=== PATIENT | male | born 1950 | race Caucasian/White ===

== ENCOUNTER 2023-02-28 11:46 | Emergency (ER) | payer MEDICARE, SELFPAY ==
[2023-02-28] VITALS (173 sets, daily range): BP systolic 70–159; BP diastolic 39–80; PULSE 64–102; RESP 11–24; TEMP 36.5–38.2; O2SAT 88–100
--- NOTE | 2023-02-28 11:50 | DI.RAD.S_ITS ---
PROCEDURE: XR CHEST 1V INDICATIONS: Dyspnea TECHNIQUE: One view of the chest was acquired. COMPARISON: None. FINDINGS: Surgical changes and devices: There is sternal wires. Lungs and pleura: Patchy left hemithorax opacities with mild effusion. Mediastinum: Mediastinal contours appear normal. Heart size is normal. Bones and chest wall: No suspicious bony lesions. Overlying soft tissues appear unremarkable. IMPRESSION: Patchy left hemithorax opacities with effusions suggestive pneumonia. Recommend interval follow-up to document resolution. Dictated by: Marivel Fernandez M.D. on 02/28/2023 at 12:53 Approved by: Marivel Fernandez M.D. on 02/28/2023 at 12:53
--- NOTE | 2023-02-28 11:52 | ED.WEAKNESS ---
HPI - Weakness <Escobar Perez MD - Last Filed: 03/01/23 07:19> General Chief complaint: Shortness of Breath/Dyspnea Stated complaint: cough congestion weakness Time Seen by Provider: 02/28/23 11:50 History of Present Illness HPI Narrative: Patient brought in by ambulance from his brother's home. Has fever weakness shortness of breath. This started yesterday. He went to bed last night feeling weak. This morning his brother tried walking him up the stairs and did not have the energy to go up. No syncope. No fall or injury. Temperature noted. 100.7. EMS states he was 88% room air at the home. He is on 2 L nasal cannula to 98%. They tried taking it off and he dropped down quickly to 92%. He is back on nasal cannula. Patient in no distress. Awake alert oriented x4. He denies any history of COPD. 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 He is diabetic. No urinary complaints. No nausea vomiting diarrhea. Has not received any fever medication Related Data Allergies Allergy/AdvReac Type Severity Reaction Status Date / Time No Known Drug Allergies Allergy Verified 02/28/23 11:52 Review of Systems <Escobar Perez MD - Last Filed: 03/01/23 07:19> Review of Systems Narrative: GENERAL: Positive chills, fatigue, malaise, fever, sweats. HEENT: negative sinus pain, ear pain, sore throat RESPIRATORY: Positive dyspnea, negative cough CARDIOVASCULAR: negative chest pain, palpitations GASTROINTESTINAL: negative nausea, vomiting, abdominal pain : negative dysuria, frequency, hematuria MUSCULOSKELETAL: negative muscle or bony pain SKIN: negative rash, skin lesions NEUROLOGIC: negative weakness, numbness ROS Unobtainable: All systems reviewed & are unremarkable except as noted in HPI and below Patient History <Escobar Perez MD - Last Filed: 03/01/23 07:19> Social History Smoking Status: Never smoker Exam <Escobar Perez MD - Last Filed: 03/01/23 07:19> Narrative Exam Narrative: GENERAL: in no distress, not toxic not dyspneic HEAD: Normocephalic. EYES: Pupils equal round ENT: Mucous membranes moist. NECK: Trachea midline. CARDIOVASCULAR: Tachycardia with Regular rate and rhythm without murmurs RESPIRATORY: Diminished bilateral basilar lung sounds with Breath sounds equal bilaterally. No wheezes, rales, or rhonchi. Patient is speaking full sentences. No respiratory distress. Not toxic. GASTROINTESTINAL: Abdomen soft, non-tender EXTREMITIES: No gross deformities. BACK: No flank tenderness. NEURO: AOx4. SKIN: Warm and dry PSYCH: Not anxious, is cooperative Initial Vital Signs Initial Vital Signs: Vital Signs Temperature 100.7 F H 02/28/23 11:52 Pulse Rate 100 H 02/28/23 11:52 Respiratory Rate 20 02/28/23 11:52 Blood Pressure 145/67 H 02/28/23 11:52 Pulse Oximetry 100 02/28/23 11:52 Oxygen Delivery Method Nasal Cannula 02/28/23 11:52 Oxygen Flow Rate 2 02/28/23 11:52 <Dalton Lowe DO - Last Filed: 03/01/23 01:26> Initial Vital Signs Initial Vital Signs: Vital Signs Temperature 100.7 F H 02/28/23 11:52 Pulse Rate 100 H 02/28/23 11:52 Respiratory Rate 20 02/28/23 11:52 Blood Pressure 145/67 H 02/28/23 11:52 Pulse Oximetry 100 02/28/23 11:52 Oxygen Delivery Method Nasal Cannula 02/28/23 11:52 Oxygen Flow Rate 2 02/28/23 11:52 Course <Escobar Perez MD - Last Filed: 03/01/23 07:19> Orders Ordered: ED Orders 03/01/23 00:14 PTT Partial Thromboplastin Janes Stat Discontinued Medications Acetaminophen (Acetaminophen 325 Mg Tablet) 975 mg PO NOW ONE Stop: 02/28/23 11:55 Last Admin: 02/28/23 12:33 Dose: 975 mg Documented By: CTS Acetaminophen (Acetaminophen 325 Mg Tablet) 650 mg PO NOW ONE Stop: 03/01/23 01:46 Last Admin: 03/01/23 02:05 Dose: 650 mg Documented By: SB Aspirin (Aspirin 81 Mg Chew Tab) 324 mg PO NOW ONE Stop: 02/28/23 18:14 Last Admin: 02/28/23 18:35 Dose: 324 mg Documented By: CTS Furosemide (Furosemide 40 Mg/4 Ml Vial) 40 mg IV NOW ONE Stop: 02/28/23 18:48 Last Admin: 02/28/23 18:54 Dose: 40 mg Documented By: CTS Heparin Sodium (Porcine) (Heparin 5,000 Unit/Ml Vial) 4,900 unit 80 unit/kg (4900 unit) IV NOW ONE Stop: 02/28/23 18:14 Last Admin: 02/28/23 18:35 Dose: 4,900 unit Documented By: CTS Ceftriaxone Sodium 2,000 mg/ (Sodium Chloride) 100 mls @ 200 mls/hr IV NOW ONE Stop: 02/28/23 11:51 Last Infusion: 02/28/23 13:03 Dose: 0 mls/hr Documented By: Admin: 02/28/23 12:34 Dose: 200 mls/hr Documented By: CTS Sodium Chloride (Normal Saline 0.9%) 1,000 mls @ 1,000 mls/hr IV BOLUS ONE Stop: 02/28/23 13:22 Last Infusion: 02/28/23 13:03 Dose: 0 mls/hr Documented By: Admin: 02/28/23 12:34 Dose: 1,000 mls/hr Documented By: CTS Doxycycline Hyclate 100 mg/ (Sodium Chloride) 100 mls @ 100 mls/hr IV NOW ONE Stop: 02/28/23 13:22 Last Infusion: 02/28/23 14:52 Dose: 0 mls/hr Documented By: Admin: 02/28/23 13:58 Dose: 100 mls/hr Documented By: CTS Sodium Chloride (Normal Saline 0.9%) 1,000 mls @ 1,000 mls/hr IV BOLUS ONE Stop: 02/28/23 15:07 Last Infusion: 02/28/23 15:06 Dose: 0 mls/hr Documented By: Admin: 02/28/23 14:09 Dose: 1,000 mls/hr Documented By: CTS NOREPINEPHRINE BITARTRATE/D5W (Levophed) 4 mg in 250 mls @ 22.793 mls/hr IV TITRATE JUSTINO; Protocol Last Titration: 02/28/23 18:45 Dose: 0 mcg/kg/min, 0 mls/hr Documented By: Titration: 02/28/23 16:30 Dose: 0.03 mcg/kg/min, 7.5 mls/hr Documented By: Admin: 02/28/23 15:09 Dose: 0.08 mcg/kg/min, 18.8 mls/hr Documented By: NAJMA Sodium Chloride (Normal Saline 0.9%) 1,000 mls @ 75 mls/hr IV BOLUS ONE Stop: 03/01/23 04:20 Last Admin: 02/28/23 15:09 Dose: 75 mls/hr Documented By: NAJMA Heparin Sodium/Dextrose (Heparin Drip) 25,000 unit in 500 mls @ 14.587 mls/hr IV CONT JUSTINO; Protocol Last Titration: 03/01/23 00:43 Dose: 10.35 units/kg/hr, 12.582 mls/hr Documented By: LUIS MANUEL Co-signed By: ROCÍO Admin: 02/28/23 18:34 Dose: 12 units/kg/hr, 14.587 mls/hr Documented By: NAJMA Co-signed By: LOULOU Ondansetron HCl (Ondansetron 4 Mg/2 Ml Inj) 4 mg IV NOW PRN PRN Reason: Nausea And Vomiting Ondansetron HCl (Ondansetron 4 Mg Odt) 4 mg SL NOW PRN PRN Reason: Nausea And Vomiting Vital Signs Vital signs: Vital Signs - 8 hr 02/28/23 23:30 02/28/23 23:30 03/01/23 00:00 Temperature 99.5 F Pulse Rate 80 Respiratory Rate 13 Blood Pressure 135/66 148/74 H Pulse Oximetry 96 Oxygen Delivery Method Oxygen Flow Rate 03/01/23 00:00 03/01/23 00:30 03/01/23 00:30 Temperature 99.7 F H 99.9 F H Pulse Rate 82 87 Respiratory Rate 16 13 Blood Pressure 155/85 H Pulse Oximetry 96 97 Oxygen Delivery Method Nasal Cannula Oxygen Flow Rate 2 03/01/23 01:00 03/01/23 01:00 03/01/23 01:30 Temperature 99.9 F H Pulse Rate 87 Respiratory Rate 18 Blood Pressure 158/77 H 151/73 H Pulse Oximetry 96 Oxygen Delivery Method Oxygen Flow Rate 03/01/23 01:30 03/01/23 02:05 Temperature 100.2 F H 100.2 F H Pulse Rate 86 Respiratory Rate 16 Blood Pressure Pulse Oximetry 96 Oxygen Delivery Method Nasal Cannula Oxygen Flow Rate 2 <Dalton Lowe DO - Last Filed: 03/01/23 01:26> Orders Ordered: ED Orders 03/01/23 00:14 PTT Partial Thromboplastin Janes Stat Discontinued Medications Acetaminophen (Acetaminophen 325 Mg Tablet) 975 mg PO NOW ONE Stop: 02/28/23 11:55 Last Admin: 02/28/23 12:33 Dose: 975 mg Documented By: CTS Acetaminophen (Acetaminophen 325 Mg Tablet) 650 mg PO NOW ONE Stop: 03/01/23 01:46 Last Admin: 03/01/23 02:05 Dose: 650 mg Documented By: SB Aspirin (Aspirin 81 Mg Chew Tab) 324 mg PO NOW ONE Stop: 02/28/23 18:14 Last Admin: 02/28/23 18:35 Dose: 324 mg Documented By: CTS Furosemide (Furosemide 40 Mg/4 Ml Vial) 40 mg IV NOW ONE Stop: 02/28/23 18:48 Last Admin: 02/28/23 18:54 Dose: 40 mg Documented By: CTS Heparin Sodium (Porcine) (Heparin 5,000 Unit/Ml Vial) 4,900 unit 80 unit/kg (4900 unit) IV NOW ONE Stop: 02/28/23 18:14 Last Admin: 02/28/23 18:35 Dose: 4,900 unit Documented By: CTS Ceftriaxone Sodium 2,000 mg/ (Sodium Chloride) 100 mls @ 200 mls/hr IV NOW ONE Stop: 02/28/23 11:51 Last Infusion: 02/28/23 13:03 Dose: 0 mls/hr Documented By: Admin: 02/28/23 12:34 Dose: 200 mls/hr Documented By: CTS Sodium Chloride (Normal Saline 0.9%) 1,000 mls @ 1,000 mls/hr IV BOLUS ONE Stop: 02/28/23 13:22 Last Infusion: 02/28/23 13:03 Dose: 0 mls/hr Documented By: Admin: 02/28/23 12:34 Dose: 1,000 mls/hr Documented By: CTS Doxycycline Hyclate 100 mg/ (Sodium Chloride) 100 mls @ 100 mls/hr IV NOW ONE Stop: 02/28/23 13:22 Last Infusion: 02/28/23 14:52 Dose: 0 mls/hr Documented By: Admin: 02/28/23 13:58 Dose: 100 mls/hr Documented By: CTS Sodium Chloride (Normal Saline 0.9%) 1,000 mls @ 1,000 mls/hr IV BOLUS ONE Stop: 02/28/23 15:07 Last Infusion: 02/28/23 15:06 Dose: 0 mls/hr Documented By: Admin: 02/28/23 14:09 Dose: 1,000 mls/hr Documented By: NAJMA NOREPINEPHRINE BITARTRATE/D5W (Levophed) 4 mg in 250 mls @ 22.793 mls/hr IV TITRATE JUSTINO; Protocol Last Titration: 02/28/23 18:45 Dose: 0 mcg/kg/min, 0 mls/hr Documented By: Titration: 02/28/23 16:30 Dose: 0.03 mcg/kg/min, 7.5 mls/hr Documented By: Admin: 02/28/23 15:09 Dose: 0.08 mcg/kg/min, 18.8 mls/hr Documented By: NAJMA Sodium Chloride (Normal Saline 0.9%) 1,000 mls @ 75 mls/hr IV BOLUS ONE Stop: 03/01/23 04:20 Last Admin: 02/28/23 15:09 Dose: 75 mls/hr Documented By: NAJMA Heparin Sodium/Dextrose (Heparin Drip) 25,000 unit in 500 mls @ 14.587 mls/hr IV CONT JUSTINO; Protocol Last Titration: 03/01/23 00:43 Dose: 10.35 units/kg/hr, 12.582 mls/hr Documented By: LUIS MANUEL Co-signed By: ROCÍO Admin: 02/28/23 18:34 Dose: 12 units/kg/hr, 14.587 mls/hr Documented By: NAJMA Co-signed By: LOULOU Ondansetron HCl (Ondansetron 4 Mg/2 Ml Inj) 4 mg IV NOW PRN PRN Reason: Nausea And Vomiting Ondansetron HCl (Ondansetron 4 Mg Odt) 4 mg SL NOW PRN PRN Reason: Nausea And Vomiting Vital Signs Vital signs: Vital Signs - 8 hr 02/28/23 23:30 02/28/23 23:30 03/01/23 00:00 Temperature 99.5 F Pulse Rate 80 Respiratory Rate 13 Blood Pressure 135/66 148/74 H Pulse Oximetry 96 Oxygen Delivery Method Oxygen Flow Rate 03/01/23 00:00 03/01/23 00:30 03/01/23 00:30 Temperature 99.7 F H 99.9 F H Pulse Rate 82 87 Respiratory Rate 16 13 Blood Pressure 155/85 H Pulse Oximetry 96 97 Oxygen Delivery Method Nasal Cannula Oxygen Flow Rate 2 03/01/23 01:00 03/01/23 01:00 03/01/23 01:30 Temperature 99.9 F H Pulse Rate 87 Respiratory Rate 18 Blood Pressure 158/77 H 151/73 H Pulse Oximetry 96 Oxygen Delivery Method Oxygen Flow Rate 03/01/23 01:30 03/01/23 02:05 Temperature 100.2 F H 100.2 F H Pulse Rate 86 Respiratory Rate 16 Blood Pressure Pulse Oximetry 96 Oxygen Delivery Method Nasal Cannula Oxygen Flow Rate 2 MDM - Weakness <Escobar Perez MD - Last Filed: 03/01/23 07:19> Lab Data 02/28/23 21:30 02/28/23 11:55 Labs: Lab Results 02/28/23 02/28/23 02/28/23 Range/Units 11:55 11:55 11:55 WBC 11.5 H (4.5-11.0) X10^3/uL RBC 3.64 L (4.5-5.9) X10^6/uL Hgb 9.9 L (13.5-17.5) g/dL Hct 29.8 L (41-53) % MCV 82.1 (80-100) fL MCH 27.2 (26-34) PG MCHC 33.2 (30-36) % RDW 16.1 H (11.6-14.8) % Plt Count 244 (150-400) X10^3/uL Neut % (Auto) 85.6 H (50-75) % Lymph % (Auto) 6.6 L (25-40) % [place] % (Auto) 7.3 (3-14) % Eos % (Auto) 0.2 L (2-4) % Baso % (Auto) 0.3 (0-2) % Neut # (Auto) 9800 H (4940-7100) /uL Lymph # (Auto) 800 L (5116-9128) /uL [place] # (Auto) 800 (0-900) /uL Eos # (Auto) 0 (0-450) /uL Baso # (Auto) 0 (0-100) /uL PT 13.6 H (10.1-12.7) SECONDS INR 1.2 (0.9-1.3) APTT 30 (26-36) SECONDS Sodium (137-145) mmol/L Potassium (3.4-5.1) mmol/L Chloride (98-107) mmol/L Carbon Dioxide (22-32) mmol/L BUN (9-20) mg/dL Creatinine (0.66-1.25) mg/dL Estimated GFR (>60) mL/min BUN/Creatinine Ratio (6-22) Glucose (80-110) mg/dL Lactate (0.7-2.1) mmol/L Calcium (8.4-10.2) mg/dL Total Bilirubin (0.2-1.3) mg/dL AST (17-59) IU/L ALT (<50) IU/L Alkaline Phosphatase (38-126) U/L Total Creatine Kinase (55-170) U/L CK-MB (CK-2) CK-MB (CK-2) Rel Index Troponin I (0.01-0.034) ng/mL NT-Pro-B Natriuret Pep (<125) pg/mL Total Protein (6.3-8.2) g/dL Albumin (3.5-5.0) g/dL Globulin (1.7-4.1) g/dL Albumin/Globulin Ratio (1.0-2.8) Procalcitonin (<0.5) ng/mL Urine Color Urine Appearance Urine pH (4.5-8.0) Ur Specific [place] (1.000-1.035) Urine Protein (Negative) Urine Glucose (UA) (Negative) g/dL Urine Ketones (NEGATIVE) Urine Occult Blood (Negative) Urine Nitrate (Negative) Urine Bilirubin (NEGATIVE) Urine Urobilinogen (0.2) E.U./dL Ur Leukocyte Esterase (NEGATIVE) Urine RBC (0-5/HPF) Urine WBC (0-5/HPF) Ur Squamous Epith Cells (0-5/HPF) Ur Renal Epithelial Cell (0-1/HPF) Urine Bacteria (None) Hyaline Casts (None) Ur Culture Indicated? Chlamy pneumoniae PCR (Not Detect) Adenovirus (PCR) (Not Detect) B. pertussis DNA (PCR) (Not Detecte) B.parapertussis DNA PCR (Not Detecte) Coronavirus OC43 (PCR) (Not Detect) Coronavirus HKU1 (PCR) (Not Detect) Coronavirus 229E (PCR) (Not Detect) SARS-CoV-2 (PCR) (Not Detecte) Coronavirus NL63 (PCR) (Not Detect) Human Metapneumovir PCR (Not Detect) Influenza Type A (PCR) (Not Detect) Influenza Type B (PCR) (Not Detect) M. pneumoniae (PCR) (Not Detect) Parainfluenza 1 (PCR) (Not Detect) Parainfluenza 2 (PCR) (Not Detect) Parainfluenza 3 (PCR) (Not Detect) Parainfluenza 4 (PCR) (Not Detect) RSV (PCR) (Not Detect) Entero/Rhino (PCR) (Not Detect) 02/28/23 02/28/23 02/28/23 Range/Units 11:55 11:55 11:55 WBC (4.5-11.0) X10^3/uL RBC (4.5-5.9) X10^6/uL Hgb (13.5-17.5) g/dL Hct (41-53) % MCV (80-100) fL MCH (26-34) PG MCHC (30-36) % RDW (11.6-14.8) % Plt Count (150-400) X10^3/uL Neut % (Auto) (50-75) % Lymph % (Auto) (25-40) % [place] % (Auto) (3-14) % Eos % (Auto) (2-4) % Baso % (Auto) (0-2) % Neut # (Auto) (2134-0295) /uL Lymph # (Auto) (6064-4002) /uL [place] # (Auto) (0-900) /uL Eos # (Auto) (0-450) /uL Baso # (Auto) (0-100) /uL PT (10.1-12.7) SECONDS INR (0.9-1.3) APTT (26-36) SECONDS Sodium 130 L (137-145) mmol/L Potassium 4.3 (3.4-5.1) mmol/L Chloride 96 L (98-107) mmol/L Carbon Dioxide 28 (22-32) mmol/L BUN 25 H (9-20) mg/dL Creatinine 1.30 H (0.66-1.25) mg/dL Estimated GFR 59 L (>60) mL/min BUN/Creatinine Ratio 19.2 (6-22) Glucose 147 H (80-110) mg/dL Lactate 1.8 (0.7-2.1) mmol/L Calcium 8.8 (8.4-10.2) mg/dL Total Bilirubin 0.7 (0.2-1.3) mg/dL AST 32 (17-59) IU/L ALT 24 (<50) IU/L Alkaline Phosphatase 111 (38-126) U/L Total Creatine Kinase (55-170) U/L CK-MB (CK-2) CK-MB (CK-2) Rel Index Troponin I (0.01-0.034) ng/mL NT-Pro-B Natriuret Pep (<125) pg/mL Total Protein 7.7 (6.3-8.2) g/dL Albumin 3.6 (3.5-5.0) g/dL Globulin 4.1 (1.7-4.1) g/dL Albumin/Globulin Ratio 0.9 L (1.0-2.8) Procalcitonin 0.14 (<0.5) ng/mL Urine Color Urine Appearance Urine pH (4.5-8.0) Ur Specific [place] (1.000-1.035) Urine Protein (Negative) Urine Glucose (UA) (Negative) g/dL Urine Ketones (NEGATIVE) Urine Occult Blood (Negative) Urine Nitrate (Negative) Urine Bilirubin (NEGATIVE) Urine Urobilinogen (0.2) E.U./dL Ur Leukocyte Esterase (NEGATIVE) Urine RBC (0-5/HPF) Urine WBC (0-5/HPF) Ur Squamous Epith Cells (0-5/HPF) Ur Renal Epithelial Cell (0-1/HPF) Urine Bacteria (None) Hyaline Casts (None) Ur Culture Indicated? Chlamy pneumoniae PCR Not detected (Not Detect) Adenovirus (PCR) Not detected (Not Detect) B. pertussis DNA (PCR) Not detected (Not Detecte) B.parapertussis DNA PCR Not detected (Not Detecte) Coronavirus OC43 (PCR) Not detected (Not Detect) Coronavirus HKU1 (PCR) Not detected (Not Detect) Coronavirus 229E (PCR) Not detected (Not Detect) SARS-CoV-2 (PCR) Not detected (Not Detecte) Coronavirus NL63 (PCR) Not detected (Not Detect) Human Metapneumovir PCR Not detected (Not Detect) Influenza Type A (PCR) Not detected (Not Detect) Influenza Type B (PCR) Not detected (Not Detect) M. pneumoniae (PCR) Not detected (Not Detect) Parainfluenza 1 (PCR) Not detected (Not Detect) Parainfluenza 2 (PCR) Not detected (Not Detect) Parainfluenza 3 (PCR) Not detected (Not Detect) Parainfluenza 4 (PCR) Not detected (Not Detect) RSV (PCR) Not detected (Not Detect) Entero/Rhino (PCR) Not detected (Not Detect) 02/28/23 02/28/23 02/28/23 Range/Units 11:55 14:50 17:31 WBC (4.5-11.0) X10^3/uL RBC (4.5-5.9) X10^6/uL Hgb (13.5-17.5) g/dL Hct (41-53) % MCV (80-100) fL MCH (26-34) PG MCHC (30-36) % RDW (11.6-14.8) % Plt Count (150-400) X10^3/uL Neut % (Auto) (50-75) % Lymph % (Auto) (25-40) % [place] % (Auto) (3-14) % Eos % (Auto) (2-4) % Baso % (Auto) (0-2) % Neut # (Auto) (5706-4182) /uL Lymph # (Auto) (8530-4542) /uL [place] # (Auto) (0-900) /uL Eos # (Auto) (0-450) /uL Baso # (Auto) (0-100) /uL PT (10.1-12.7) SECONDS INR (0.9-1.3) APTT (26-36) SECONDS Sodium (137-145) mmol/L Potassium (3.4-5.1) mmol/L Chloride (98-107) mmol/L Carbon Dioxide (22-32) mmol/L BUN (9-20) mg/dL Creatinine (0.66-1.25) mg/dL Estimated GFR (>60) mL/min BUN/Creatinine Ratio (6-22) Glucose (80-110) mg/dL Lactate (0.7-2.1) mmol/L Calcium (8.4-10.2) mg/dL Total Bilirubin (0.2-1.3) mg/dL AST (17-59) IU/L ALT (<50) IU/L Alkaline Phosphatase (38-126) U/L Total Creatine Kinase 66 (55-170) U/L CK-MB (CK-2) TNP CK-MB (CK-2) Rel Index TNP Troponin I 0.079 H 1.290 H* (0.01-0.034) ng/mL NT-Pro-B Natriuret Pep 7490 H (<125) pg/mL Total Protein (6.3-8.2) g/dL Albumin (3.5-5.0) g/dL Globulin (1.7-4.1) g/dL Albumin/Globulin Ratio (1.0-2.8) Procalcitonin (<0.5) ng/mL Urine Color Yellow Urine Appearance Clear Urine pH 5.5 (4.5-8.0) Ur Specific [place] 1.025 (1.000-1.035) Urine Protein 3+ H (Negative) Urine Glucose (UA) Negative (Negative) g/dL Urine Ketones Trace H (NEGATIVE) Urine Occult Blood 1+ H (Negative) Urine Nitrate Negative (Negative) Urine Bilirubin Negative (NEGATIVE) Urine Urobilinogen 0.2 (0.2) E.U./dL Ur Leukocyte Esterase Negative (NEGATIVE) Urine RBC None seen (0-5/HPF) Urine WBC None seen (0-5/HPF) Ur Squamous Epith Cells None seen (0-5/HPF) Ur Renal Epithelial Cell 1-5/hpf H (0-1/HPF) Urine Bacteria None seen (None) Hyaline Casts 1-5/lpf (None) Ur Culture Indicated? Cult not indicated Chlamy pneumoniae PCR (Not Detect) Adenovirus (PCR) (Not Detect) B. pertussis DNA (PCR) (Not Detecte) B.parapertussis DNA PCR (Not Detecte) Coronavirus OC43 (PCR) (Not Detect) Coronavirus HKU1 (PCR) (Not Detect) Coronavirus 229E (PCR) (Not Detect) SARS-CoV-2 (PCR) (Not Detecte) Coronavirus NL63 (PCR) (Not Detect) Human Metapneumovir PCR (Not Detect) Influenza Type A (PCR) (Not Detect) Influenza Type B (PCR) (Not Detect) M. pneumoniae (PCR) (Not Detect) Parainfluenza 1 (PCR) (Not Detect) Parainfluenza 2 (PCR) (Not Detect) Parainfluenza 3 (PCR) (Not Detect) Parainfluenza 4 (PCR) (Not Detect) RSV (PCR) (Not Detect) Entero/Rhino (PCR) (Not Detect) 02/28/23 02/28/23 03/01/23 Range/Units 21:30 21:30 00:14 WBC (4.5-11.0) X10^3/uL RBC (4.5-5.9) X10^6/uL Hgb 9.2 L (13.5-17.5) g/dL Hct 27.6 L (41-53) % MCV (80-100) fL MCH (26-34) PG MCHC (30-36) % RDW (11.6-14.8) % Plt Count (150-400) X10^3/uL Neut % (Auto) (50-75) % Lymph % (Auto) (25-40) % [place] % (Auto) (3-14) % Eos % (Auto) (2-4) % Baso % (Auto) (0-2) % Neut # (Auto) (4425-5222) /uL Lymph # (Auto) (7393-0728) /uL [place] # (Auto) (0-900) /uL Eos # (Auto) (0-450) /uL Baso # (Auto) (0-100) /uL PT (10.1-12.7) SECONDS INR (0.9-1.3) APTT 118 H* D (26-36) SECONDS Sodium (137-145) mmol/L Potassium (3.4-5.1) mmol/L Chloride (98-107) mmol/L Carbon Dioxide (22-32) mmol/L BUN (9-20) mg/dL Creatinine (0.66-1.25) mg/dL Estimated GFR (>60) mL/min BUN/Creatinine Ratio (6-22) Glucose (80-110) mg/dL Lactate (0.7-2.1) mmol/L Calcium (8.4-10.2) mg/dL Total Bilirubin (0.2-1.3) mg/dL AST (17-59) IU/L ALT (<50) IU/L Alkaline Phosphatase (38-126) U/L Total Creatine Kinase 86 (55-170) U/L CK-MB (CK-2) TNP CK-MB (CK-2) Rel Index TNP Troponin I 1.700 H* (0.01-0.034) ng/mL NT-Pro-B Natriuret Pep (<125) pg/mL Total Protein (6.3-8.2) g/dL Albumin (3.5-5.0) g/dL Globulin (1.7-4.1) g/dL Albumin/Globulin Ratio (1.0-2.8) Procalcitonin (<0.5) ng/mL Urine Color Urine Appearance Urine pH (4.5-8.0) Ur Specific [place] (1.000-1.035) Urine Protein (Negative) Urine Glucose (UA) (Negative) g/dL Urine Ketones (NEGATIVE) Urine Occult Blood (Negative) Urine Nitrate (Negative) Urine Bilirubin (NEGATIVE) Urine Urobilinogen (0.2) E.U./dL Ur Leukocyte Esterase (NEGATIVE) Urine RBC (0-5/HPF) Urine WBC (0-5/HPF) Ur Squamous Epith Cells (0-5/HPF) Ur Renal Epithelial Cell (0-1/HPF) Urine Bacteria (None) Hyaline Casts (None) Ur Culture Indicated? Chlamy pneumoniae PCR (Not Detect) Adenovirus (PCR) (Not Detect) B. pertussis DNA (PCR) (Not Detecte) B.parapertussis DNA PCR (Not Detecte) Coronavirus OC43 (PCR) (Not Detect) Coronavirus HKU1 (PCR) (Not Detect) Coronavirus 229E (PCR) (Not Detect) SARS-CoV-2 (PCR) (Not Detecte) Coronavirus NL63 (PCR) (Not Detect) Human Metapneumovir PCR (Not Detect) Influenza Type A (PCR) (Not Detect) Influenza Type B (PCR) (Not Detect) M. pneumoniae (PCR) (Not Detect) Parainfluenza 1 (PCR) (Not Detect) Parainfluenza 2 (PCR) (Not Detect) Parainfluenza 3 (PCR) (Not Detect) Parainfluenza 4 (PCR) (Not Detect) RSV (PCR) (Not Detect) Entero/Rhino (PCR) (Not Detect) Point of Care Testing Glucose POC 100 Imaging Data Chest x-ray: Radiologist Impression: [address] [id number] XRay Report Signed Patient: Myra Dillon MR#: [id number] : 1950 Acct:[id number] Age/Sex: 72 / M Date of Service: 02/28/23 Loc: ED Accession Number: [id number] ?? Procedure: XR chest 1V Ordering Provider: Escobar Perez MD PROCEDURE:? XR CHEST 1V ? INDICATIONS:? Dyspnea ? TECHNIQUE:? One view of the chest was acquired.? ? COMPARISON:? None. ? FINDINGS:? ? Surgical changes and devices:? There is sternal wires. ? Lungs and pleura:? Patchy left hemithorax opacities with mild effusion. ? Mediastinum:? Mediastinal contours appear normal.? Heart size is normal.? ? Bones and chest wall:? No suspicious bony lesions.? Overlying soft tissues appear unremarkable.? ? IMPRESSION:? Patchy left hemithorax opacities with effusions suggestive pneumonia.? Recommend interval follow-up to document resolution. ? ? Dictated by: Marivel Fernandez M.D. on 02/28/2023 at 12:53 ? ? Approved by: Marivel Fernandez M.D. on 02/28/2023 at 12:53 ? Echocardiogram: Radiologist Impression: [address] [address] Echocardiography Report Signed Patient: Myra Dillon MR#: [id number] : 1950 Acct:[id number] Age/Sex: 72 / M Date of Service: 02/28/23 Loc: ED Accession Number: [id number] ?? Procedure: EC echo doppler complete Ordering Provider: Escobar Perez MD ? [facility] +---------+ : ? :? [address] ? : ? : : ? :? [place] ? : ? : : ? :? [id number] ? : ? : : ? : ? Phone: [phone]? : ? : +---------[phone]? [phone]? +---------+ ? Echocardiogram Report + + :Name: MYRA DILLON ? Study Date: 02/28/2023 ? Height: 66 in : :[facility] ? ? ? ReadingLocation: ? Weight: 134 lb: : ? Gender: Male ? BSA: 1.7 m2 ? : :: 1950 ? Age: 72 yrs? BP: 79/48 mmHg: :Reason For Study: SHORTNESS OF BREATH? : :Ordering Physician: ANA,? : :ESCOBAR ? Performed By: Patito Schaffer ? : :Referring: ESCOBAR PEREZ ? : + + Interpretation Summary 1) Normal left ventricular size and thickness with mildly reduced systolic function (EF 45-50%). 2) The apex extending to apical septum and apical inferior wall are akinetic/aneurysmal. 3) Normal right ventricular size with mildly reduced function. 4) There is mild to moderate mitral regurgitation. 5) The right ventricular systolic pressure is estimated to be at least 46 mmHg based on an estimated right atrial pressure of 8 mm Hg. 6) There is mild luminal irregularity and echogenicity in the abdominal aorta, suggestive of aortic atherosclerotic disease. 7) No prior echo available for comparison. ? Procedure: ? A two-dimensional transthoracic echocardiogram with color flow and Doppler was performed. The study quality was technically adequate. There is no prior echocardiogram noted for this patient. The patient was in sinus rhythm with heart rates between 70-75 bpm during the exam. Left Ventricle: ? The left ventricle is normal in size and wall thickness. The ejection fraction is estimated to be 45-50%. The apex extending to apical septum and apical inferior wall are akinetic. Diastolic parameters suggest a relaxation abnormality of the left ventricle, consistent with probable normal filling pressures. Right Ventricle: ? The right ventricle is normal size. Right ventricular systolic function is mildly reduced. Atria: ? The left atrium is moderately dilated. Right atrial size is normal. There is no Doppler evidence for an interatrial shunt. Mitral Valve: ? The mitral valve is normal in structure and function. There is mild to moderate mitral regurgitation. Aortic Valve: ? The aortic valve is trileaflet. The aortic valve is mildly calcified. There is no aortic valve stenosis. There is mild aortic regurgitation. Tricuspid Valve: ? The tricuspid valve leaflets are thickened and/or calcified, but open well. There is mild tricuspid regurgitation. The right ventricular systolic pressure is estimated to be at least 46 mmHg based on an estimated right atrial pressure of 8 mm Hg. Pulmonic Valve: ? The pulmonic valve is not well seen, but is grossly normal. There is no pulmonic valvular regurgitation. Great Vessels: ? The aortic root is normal size. The ascending aorta could not be visualized. There is mild luminal irregularity and echogenicity in the abdominal aorta, suggestive of aortic atherosclerotic disease. The IVC is dilated (diameter is greater than 2.1 cm) yet it collapses greater than 50% with a sniff. This suggests a right atrial pressure of 8 mm Hg. Pericardium/ Pleura ? There is no pericardial effusion. There is a moderate left-sided pleural effusion. ? MMode/2D Measurements & Calculations LVIDd: 4.7 cm? LVOT diam: 2.0 cm LVIDs: 3.6 cm? Ao root diam: 3.5 cm FS: 23.0 % ? Ao Arch Diam (Prox Trans): 2.8 cm EPSS: 0.78 cm IVSd: 0.95 cm LVPWd: 0.83 cm LV donis. diameter/BSA (cm/m^2): 2.8 LV sys. diameter/BSA (cm/m^2): 2.1 ? LA A2 area: 22.3 cm2 ? RA long axis: 4.9 cm LA A4 area: 17.9 cm2 ? RA area: 15.1 cm2 LA length (vol): 5.6 cm? RA vol: 39.4 ml LA vol: 61.1 ml? RA : 23.4 ml/m2 LA vol index: 36.2 ml/m2 ? IVC diam: 2.2 cm ? RVD1 (basal): 3.7 cm RVD2 (mid): 2.6 cm TAPSE: 1.2 cm ? Doppler Measurements & Calculations Ao V2 max: 122.8 cm/sec ? LVOT Max Michael: 91.1 cm/sec Ao V2 mean: 91.0 cm/sec ? LV V1 max P.3 mmHg Ao max P.0 mmHg ? LV V1 VTI: 18.7 cm Ao mean P.5 mmHg? ANN(I,D): 2.4 cm2 Ao V2 VTI: 24.6 cm? ANN(V,D): 2.3 cm2 ? sev ratio: 0.76 ? ANN indexed to BSA (cm^2/m^2): 1.4 ? MV E max michael: 97.5 cm/sec ? TR max michael: 299.1 cm/sec MV A max michael: 50.2 cm/sec ? TR max P.8 mmHg MV E/A: 1.9 ? PA V2 max: 76.3 cm/sec Med Peak E' Michael: 6.4 cm/sec ? ? ? PA V2 mean: 60.6 cm/sec E/E' med: 15.2? PA mean P.6 mmHg Lat Peak E' Michael: 8.6 cm/sec ? ? ? PA pr(Accel): 41.3 mmHg E/E' lat: 11.3 E/e' average: 13.3 MV dec time: 0.14 sec ? SV(LVOT): 57.8 ml ? Reading Physician:04:27 PM MDM Narrative Medical decision making narrative: Patient brought in by ambulance from his brother's home. Has fever weakness shortness of breath. This started yesterday. He went to bed last night feeling weak. This morning his brother tried walking him up the stairs and did not have the energy to go up. No syncope. No fall or injury. Temperature noted. 100.7. EMS states he was 88% room air at the home. He is on 2 L nasal cannula to 98%. They tried taking it off and he dropped down quickly to 92%. He is back on nasal cannula. Patient in no distress. Awake alert oriented x4. He denies any history of COPD. 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 He is diabetic. No urinary complaints. No nausea vomiting diarrhea. Has not received any fever medication After history and exam CBC CMP EKG procalcitonin lactic acid respiratory panel chest x-ray normal saline Tylenol urinalysis Rocephin [facility] CC: Fever dyspnea weakness Complicating co-morbidities: Coronary disease/diabetes Data collected from: Patient and EMS Medical records reviewed: No recent visits here for this complaint Differential considered: Includes but not limited to pneumonia UTI sepsis viral infection, CHF Exam documented above, pertinent findings include: Diminished lung sounds bilaterally Lab Test results independently reviewed as above. Pertinent findings: WBC 11.5 hemoglobin 9.9 INR 1.2 sodium 130 potassium 4.3 BUN 25 creatinine 1.3 GFR 59 troponin 0.079 BNP 7490 Independently reviewed EKG sinus tachycardia rate [address] elevation or depression Imaging studies independently reviewed: Chest x-ray patchy left hemithorax opacities with effusion suggest pneumonia Consultations: 1:30 p.m.. Spoke with cardiology Dr. Patel, at this time did not pursue non-STEMI pathway with troponin. Likely due to renal function and pneumonia. Pursue infectious pathway. 5:[address] Rosales here in the department. He is waiting for 2nd troponin to be done. Echocardiogram reviewed. He would like CT chest PE protocol to be done 6:10 p.m.. I spoke with cardiology Dr. Patel again. Troponin elevated 1.29. At this time he recommends aspirin and heparin however no indication to transfer patient. Would wait for troponin to trend down. Need to treat for ongoing pneumonia. Would not do heart catheterization at this time. 6:[address] Rosales again, he spoke with tele acoustical engineer and recommendation is to transfer patient to higher level of care. Treatments: Rocephin normal saline Tylenol, patient requiring PICC line placement. Levophed started Re-evaluations: 1:30 p.m.. Patient feeling better. Received fever control/Tylenol. IV fluids as well. Nontoxic. Reviewed results with him agrees for admission Discussion: Appropriate for admission, patient requiring supplemental oxygen antibiotics have been started. Blood cultures as well. Antibiotics have been started. Reviewed with patient agrees for admission. Review with hospitalist agrees for admit. Troponin noted, no chest pain. Likely related to renal function Diagnosis: Community-acquired pneumonia 6:00 p.m.. Ana: Sign out to Dr Lowe, CT imaging pending. Hospitalist is involved with care for admission. Rule out PE, at time of sign-out. Patient at this time being worked up for community-acquired pneumonia. However possibilities cardiogenic shock/CHF 6:15 p.m.. Ana: Sign out to Dr Lowe, updated now that patient needs to be transferred due to laboratory findings, troponin elevated. Heparin and aspirin has been ordered <Dalton Lowe DO - Last Filed: 03/01/23 01:26> Medical Records Attestation: I reviewed the patient's medical records. Lab Data Attestation: I reviewed the patient's lab results. Labs: Lab Results 02/28/23 02/28/23 02/28/23 Range/Units 11:55 11:55 11:55 WBC 11.5 H (4.5-11.0) X10^3/uL RBC 3.64 L (4.5-5.9) X10^6/uL Hgb 9.9 L (13.5-17.5) g/dL Hct 29.8 L (41-53) % MCV 82.1 (80-100) fL MCH 27.2 (26-34) PG MCHC 33.2 (30-36) % RDW 16.1 H (11.6-14.8) % Plt Count 244 (150-400) X10^3/uL Neut % (Auto) 85.6 H (50-75) % Lymph % (Auto) 6.6 L (25-40) % [place] % (Auto) 7.3 (3-14) % Eos % (Auto) 0.2 L (2-4) % Baso % (Auto) 0.3 (0-2) % Neut # (Auto) 9800 H (8275-1931) /uL Lymph # (Auto) 800 L (5162-2024) /uL [place] # (Auto) 800 (0-900) /uL Eos # (Auto) 0 (0-450) /uL Baso # (Auto) 0 (0-100) /uL PT 13.6 H (10.1-12.7) SECONDS INR 1.2 (0.9-1.3) APTT 30 (26-36) SECONDS Sodium (137-145) mmol/L Potassium (3.4-5.1) mmol/L Chloride (98-107) mmol/L Carbon Dioxide (22-32) mmol/L BUN (9-20) mg/dL Creatinine (0.66-1.25) mg/dL Estimated GFR (>60) mL/min BUN/Creatinine Ratio (6-22) Glucose (80-110) mg/dL Lactate (0.7-2.1) mmol/L Calcium (8.4-10.2) mg/dL Total Bilirubin (0.2-1.3) mg/dL AST (17-59) IU/L ALT (<50) IU/L Alkaline Phosphatase (38-126) U/L Total Creatine Kinase (55-170) U/L CK-MB (CK-2) CK-MB (CK-2) Rel Index Troponin I (0.01-0.034) ng/mL NT-Pro-B Natriuret Pep (<125) pg/mL Total Protein (6.3-8.2) g/dL Albumin (3.5-5.0) g/dL Globulin (1.7-4.1) g/dL Albumin/Globulin Ratio (1.0-2.8) Procalcitonin (<0.5) ng/mL Urine Color Urine Appearance Urine pH (4.5-8.0) Ur Specific [place] (1.000-1.035) Urine Protein (Negative) Urine Glucose (UA) (Negative) g/dL Urine Ketones (NEGATIVE) Urine Occult Blood (Negative) Urine Nitrate (Negative) Urine Bilirubin (NEGATIVE) Urine Urobilinogen (0.2) E.U./dL Ur Leukocyte Esterase (NEGATIVE) Urine RBC (0-5/HPF) Urine WBC (0-5/HPF) Ur Squamous Epith Cells (0-5/HPF) Ur Renal Epithelial Cell (0-1/HPF) Urine Bacteria (None) Hyaline Casts (None) Ur Culture Indicated? Chlamy pneumoniae PCR (Not Detect) Adenovirus (PCR) (Not Detect) B. pertussis DNA (PCR) (Not Detecte) B.parapertussis DNA PCR (Not Detecte) Coronavirus OC43 (PCR) (Not Detect) Coronavirus HKU1 (PCR) (Not Detect) Coronavirus 229E (PCR) (Not Detect) SARS-CoV-2 (PCR) (Not Detecte) Coronavirus NL63 (PCR) (Not Detect) Human Metapneumovir PCR (Not Detect) Influenza Type A (PCR) (Not Detect) Influenza Type B (PCR) (Not Detect) M. pneumoniae (PCR) (Not Detect) Parainfluenza 1 (PCR) (Not Detect) Parainfluenza 2 (PCR) (Not Detect) Parainfluenza 3 (PCR) (Not Detect) Parainfluenza 4 (PCR) (Not Detect) RSV (PCR) (Not Detect) Entero/Rhino (PCR) (Not Detect) 02/28/23 02/28/23 02/28/23 Range/Units 11:55 11:55 11:55 WBC (4.5-11.0) X10^3/uL RBC (4.5-5.9) X10^6/uL Hgb (13.5-17.5) g/dL Hct (41-53) % MCV (80-100) fL MCH (26-34) PG MCHC (30-36) % RDW (11.6-14.8) % Plt Count (150-400) X10^3/uL Neut % (Auto) (50-75) % Lymph % (Auto) (25-40) % [place] % (Auto) (3-14) % Eos % (Auto) (2-4) % Baso % (Auto) (0-2) % Neut # (Auto) (8043-4002) /uL Lymph # (Auto) (2426-6542) /uL [place] # (Auto) (0-900) /uL Eos # (Auto) (0-450) /uL Baso # (Auto) (0-100) /uL PT (10.1-12.7) SECONDS INR (0.9-1.3) APTT (26-36) SECONDS Sodium 130 L (137-145) mmol/L Potassium 4.3 (3.4-5.1) mmol/L Chloride 96 L (98-107) mmol/L Carbon Dioxide 28 (22-32) mmol/L BUN 25 H (9-20) mg/dL Creatinine 1.30 H (0.66-1.25) mg/dL Estimated GFR 59 L (>60) mL/min BUN/Creatinine Ratio 19.2 (6-22) Glucose 147 H (80-110) mg/dL Lactate 1.8 (0.7-2.1) mmol/L Calcium 8.8 (8.4-10.2) mg/dL Total Bilirubin 0.7 (0.2-1.3) mg/dL AST 32 (17-59) IU/L ALT 24 (<50) IU/L Alkaline Phosphatase 111 (38-126) U/L Total Creatine Kinase (55-170) U/L CK-MB (CK-2) CK-MB (CK-2) Rel Index Troponin I (0.01-0.034) ng/mL NT-Pro-B Natriuret Pep (<125) pg/mL Total Protein 7.7 (6.3-8.2) g/dL Albumin 3.6 (3.5-5.0) g/dL Globulin 4.1 (1.7-4.1) g/dL Albumin/Globulin Ratio 0.9 L (1.0-2.8) Procalcitonin 0.14 (<0.5) ng/mL Urine Color Urine Appearance Urine pH (4.5-8.0) Ur Specific [place] (1.000-1.035) Urine Protein (Negative) Urine Glucose (UA) (Negative) g/dL Urine Ketones (NEGATIVE) Urine Occult Blood (Negative) Urine Nitrate (Negative) Urine Bilirubin (NEGATIVE) Urine Urobilinogen (0.2) E.U./dL Ur Leukocyte Esterase (NEGATIVE) Urine RBC (0-5/HPF) Urine WBC (0-5/HPF) Ur Squamous Epith Cells (0-5/HPF) Ur Renal Epithelial Cell (0-1/HPF) Urine Bacteria (None) Hyaline Casts (None) Ur Culture Indicated? Chlamy pneumoniae PCR Not detected (Not Detect) Adenovirus (PCR) Not detected (Not Detect) B. pertussis DNA (PCR) Not detected (Not Detecte) B.parapertussis DNA PCR Not detected (Not Detecte) Coronavirus OC43 (PCR) Not detected (Not Detect) Coronavirus HKU1 (PCR) Not detected (Not Detect) Coronavirus 229E (PCR) Not detected (Not Detect) SARS-CoV-2 (PCR) Not detected (Not Detecte) Coronavirus NL63 (PCR) Not detected (Not Detect) Human Metapneumovir PCR Not detected (Not Detect) Influenza Type A (PCR) Not detected (Not Detect) Influenza Type B (PCR) Not detected (Not Detect) M. pneumoniae (PCR) Not detected (Not Detect) Parainfluenza 1 (PCR) Not detected (Not Detect) Parainfluenza 2 (PCR) Not detected (Not Detect) Parainfluenza 3 (PCR) Not detected (Not Detect) Parainfluenza 4 (PCR) Not detected (Not Detect) RSV (PCR) Not detected (Not Detect) Entero/Rhino (PCR) Not detected (Not Detect) 02/28/23 02/28/23 02/28/23 Range/Units 11:55 14:50 17:31 WBC (4.5-11.0) X10^3/uL RBC (4.5-5.9) X10^6/uL Hgb (13.5-17.5) g/dL Hct (41-53) % MCV (80-100) fL MCH (26-34) PG MCHC (30-36) % RDW (11.6-14.8) % Plt Count (150-400) X10^3/uL Neut % (Auto) (50-75) % Lymph % (Auto) (25-40) % [place] % (Auto) (3-14) % Eos % (Auto) (2-4) % Baso % (Auto) (0-2) % Neut # (Auto) (3561-3897) /uL Lymph # (Auto) (5665-4634) /uL [place] # (Auto) (0-900) /uL Eos # (Auto) (0-450) /uL Baso # (Auto) (0-100) /uL PT (10.1-12.7) SECONDS INR (0.9-1.3) APTT (26-36) SECONDS Sodium (137-145) mmol/L Potassium (3.4-5.1) mmol/L Chloride (98-107) mmol/L Carbon Dioxide (22-32) mmol/L BUN (9-20) mg/dL Creatinine (0.66-1.25) mg/dL Estimated GFR (>60) mL/min BUN/Creatinine Ratio (6-22) Glucose (80-110) mg/dL Lactate (0.7-2.1) mmol/L Calcium (8.4-10.2) mg/dL Total Bilirubin (0.2-1.3) mg/dL AST (17-59) IU/L ALT (<50) IU/L Alkaline Phosphatase (38-126) U/L Total Creatine Kinase 66 (55-170) U/L CK-MB (CK-2) TNP CK-MB (CK-2) Rel Index TNP Troponin I 0.079 H 1.290 H* (0.01-0.034) ng/mL NT-Pro-B Natriuret Pep 7490 H (<125) pg/mL Total Protein (6.3-8.2) g/dL Albumin (3.5-5.0) g/dL Globulin (1.7-4.1) g/dL Albumin/Globulin Ratio (1.0-2.8) Procalcitonin (<0.5) ng/mL Urine Color Yellow Urine Appearance Clear Urine pH 5.5 (4.5-8.0) Ur Specific [place] 1.025 (1.000-1.035) Urine Protein 3+ H (Negative) Urine Glucose (UA) Negative (Negative) g/dL Urine Ketones Trace H (NEGATIVE) Urine Occult Blood 1+ H (Negative) Urine Nitrate Negative (Negative) Urine Bilirubin Negative (NEGATIVE) Urine Urobilinogen 0.2 (0.2) E.U./dL Ur Leukocyte Esterase Negative (NEGATIVE) Urine RBC None seen (0-5/HPF) Urine WBC None seen (0-5/HPF) Ur Squamous Epith Cells None seen (0-5/HPF) Ur Renal Epithelial Cell 1-5/hpf H (0-1/HPF) Urine Bacteria None seen (None) Hyaline Casts 1-5/lpf (None) Ur Culture Indicated? Cult not indicated Chlamy pneumoniae PCR (Not Detect) Adenovirus (PCR) (Not Detect) B. pertussis DNA (PCR) (Not Detecte) B.parapertussis DNA PCR (Not Detecte) Coronavirus OC43 (PCR) (Not Detect) Coronavirus HKU1 (PCR) (Not Detect) Coronavirus 229E (PCR) (Not Detect) SARS-CoV-2 (PCR) (Not Detecte) Coronavirus NL63 (PCR) (Not Detect) Human Metapneumovir PCR (Not Detect) Influenza Type A (PCR) (Not Detect) Influenza Type B (PCR) (Not Detect) M. pneumoniae (PCR) (Not Detect) Parainfluenza 1 (PCR) (Not Detect) Parainfluenza 2 (PCR) (Not Detect) Parainfluenza 3 (PCR) (Not Detect) Parainfluenza 4 (PCR) (Not Detect) RSV (PCR) (Not Detect) Entero/Rhino (PCR) (Not Detect) 02/28/23 02/28/23 03/01/23 Range/Units 21:30 21:30 00:14 WBC (4.5-11.0) X10^3/uL RBC (4.5-5.9) X10^6/uL Hgb 9.2 L (13.5-17.5) g/dL Hct 27.6 L (41-53) % MCV (80-100) fL MCH (26-34) PG MCHC (30-36) % RDW (11.6-14.8) % Plt Count (150-400) X10^3/uL Neut % (Auto) (50-75) % Lymph % (Auto) (25-40) % [place] % (Auto) (3-14) % Eos % (Auto) (2-4) % Baso % (Auto) (0-2) % Neut # (Auto) (9825-0015) /uL Lymph # (Auto) (6297-5907) /uL [place] # (Auto) (0-900) /uL Eos # (Auto) (0-450) /uL Baso # (Auto) (0-100) /uL PT (10.1-12.7) SECONDS INR (0.9-1.3) APTT 118 H* D (26-36) SECONDS Sodium (137-145) mmol/L Potassium (3.4-5.1) mmol/L Chloride (98-107) mmol/L Carbon Dioxide (22-32) mmol/L BUN (9-20) mg/dL Creatinine (0.66-1.25) mg/dL Estimated GFR (>60) mL/min BUN/Creatinine Ratio (6-22) Glucose (80-110) mg/dL Lactate (0.7-2.1) mmol/L Calcium (8.4-10.2) mg/dL Total Bilirubin (0.2-1.3) mg/dL AST (17-59) IU/L ALT (<50) IU/L Alkaline Phosphatase (38-126) U/L Total Creatine Kinase 86 (55-170) U/L CK-MB (CK-2) TNP CK-MB (CK-2) Rel Index TNP Troponin I 1.700 H* (0.01-0.034) ng/mL NT-Pro-B Natriuret Pep (<125) pg/mL Total Protein (6.3-8.2) g/dL Albumin (3.5-5.0) g/dL Globulin (1.7-4.1) g/dL Albumin/Globulin Ratio (1.0-2.8) Procalcitonin (<0.5) ng/mL Urine Color Urine Appearance Urine pH (4.5-8.0) Ur Specific [place] (1.000-1.035) Urine Protein (Negative) Urine Glucose (UA) (Negative) g/dL Urine Ketones (NEGATIVE) Urine Occult Blood (Negative) Urine Nitrate (Negative) Urine Bilirubin (NEGATIVE) Urine Urobilinogen (0.2) E.U./dL Ur Leukocyte Esterase (NEGATIVE) Urine RBC (0-5/HPF) Urine WBC (0-5/HPF) Ur Squamous Epith Cells (0-5/HPF) Ur Renal Epithelial Cell (0-1/HPF) Urine Bacteria (None) Hyaline Casts (None) Ur Culture Indicated? Chlamy pneumoniae PCR (Not Detect) Adenovirus (PCR) (Not Detect) B. pertussis DNA (PCR) (Not Detecte) B.parapertussis DNA PCR (Not Detecte) Coronavirus OC43 (PCR) (Not Detect) Coronavirus HKU1 (PCR) (Not Detect) Coronavirus 229E (PCR) (Not Detect) SARS-CoV-2 (PCR) (Not Detecte) Coronavirus NL63 (PCR) (Not Detect) Human Metapneumovir PCR (Not Detect) Influenza Type A (PCR) (Not Detect) Influenza Type B (PCR) (Not Detect) M. pneumoniae (PCR) (Not Detect) Parainfluenza 1 (PCR) (Not Detect) Parainfluenza 2 (PCR) (Not Detect) Parainfluenza 3 (PCR) (Not Detect) Parainfluenza 4 (PCR) (Not Detect) RSV (PCR) (Not Detect) Entero/Rhino (PCR) (Not Detect) Point of Care Testing Glucose POC 100 Imaging Data repeat CXR: Radiologist Impression: PROCEDURE:? XR CHEST 1V ? INDICATIONS:? check for PICC placement ? TECHNIQUE:? One view of the chest was acquired.? ? COMPARISON:? [facility], CR, XR CHEST 1V, 02/28/2023, 11:55. ? FINDINGS:? ? Surgical changes and devices:? Median sternotomy wires and surgical clips are seen.? Right-sided PICC line tip is in SVC. ? Lungs and pleura:? Included lung miguel show no focal infiltrate, pleural effusion or pneumothorax. ? Mediastinum:? Mediastinal contours appear normal.? Heart size is normal.? ? Bones and chest wall:? No suspicious bony lesions.? Overlying soft tissues appear unremarkable.? ? IMPRESSION:? Right-sided PICC line tip is in SVC. CT scan - chest: Radiologist Impression: PROCEDURE:? CT ANGIO CHEST PE PROTOCOL ? INDICATIONS:? Dyspnea ? TECHNIQUE:? After the administration of intravenous contrast, 2 mm thick sections acquired from the pulmonary apices to the posterior costophrenic angles.? 3-dimensional maximum intensity projection (MIP) coronal and sagittal reformats were then acquired through the thorax.? For radiation dose reduction, the following was used:? automated exposure control, adjustment of mA and/or kV according to patient size.? ? COMPARISON:? [facility], CR, XR CHEST 1V, 02/28/2023, 11:55.? [facility], CR, XR CHEST 1V, 02/28/2023, 17:20. ? FINDINGS:? Image quality:? Excellent.? ? Pulmonary arteries:? Pulmonary arteries are normal in size, and demonstrate no intraluminal filling defects to suggest central pulmonary embolism.? ? Lungs and pleura:? Moderate left worse than right bilateral pleural effusion is seen with near complete atelectasis of left lower lobe and segmental atelectasis in posterior aspect of bilateral upper lobes and right lower lobe.? Underlying pulmonary infiltrates or nodules cannot be excluded.? 9 mm solid nodule is seen in lateral aspect of right middle lobe series 5, image 196.? No pneumothorax.? Central and peripheral airways are patent.? ? Mediastinum:? Heart size is enlarged, with trace amount of pericardial effusion.? Moderate atherosclerotic calcifications throughout coronary vessels and thoracic aorta is seen.? Extensive mediastinal and hilar lymphadenopathy is noted.? Thoracic aorta is normal in caliber and enhancement.? Esophagus is normal in caliber, without hiatal hernia.? ? Bones and chest wall:? Median sternotomy wires are seen.? No suspicious bony lesions.? Degenerative disc disease throughout thoracic spine is noted.? No acute vertebral body compression fracture..? Thyroid gland is within normal limits.? No axillary or supraclavicular adenopathy.? ? Abdomen:? Visualized upper abdominal solid organs appear normal in the early arterial phase of enhancement.? ? IMPRESSION:? ? 1. No evidence of pulmonary emboli.? No thoracic aortic aneurysm. ? 2.? Moderate size left greater than right bilateral pleural effusion with near complete atelectasis of left lower lobe and segmental atelectasis in posterior aspect of bilateral upper lobes and right lower lobe.? Underlying pulmonary mass or infiltrates cannot be excluded.? Follow-up until resolution is recommended.? 9 mm solid nodule is seen in right middle lobe as above.? Follow-up CT study in 3-6 months is recommended. ? 3. No pneumothorax.? Airway is patent. ? 4. Extensive mediastinal and hilar lymphadenopathy suggestive of reactive inflammatory nodes.? Malignant involvement of the mediastinal lymph nodes cannot be excluded.? Cardiomegaly, with trace amount of pericardial effusion.? ECG Data Interpretation: Presentation EKG Sinus tachycardia Ventricular rate 103 First-degree AV block pain arrival to for a milliseconds Normal axis Normal QTC Inverted T-waves V6 Repeat EKG Sinus rhythm Ventricular rate is 73 First-degree AV block MD interval 2 for 2 milliseconds Normal axis Inverted T-waves V5 V6 MDM Narrative Medical decision making narrative: Patient brought in by ambulance from his brother's home. Has fever weakness shortness of breath. This started yesterday. He went to bed last night feeling weak. This morning his brother tried walking him up the stairs and did not have the energy to go up. No syncope. No fall or injury. Temperature noted. 100.7. EMS states he was 88% room air at the home. He is on 2 L nasal cannula to 98%. They tried taking it off and he dropped down quickly to 92%. He is back on nasal cannula. Patient in no distress. Awake alert oriented x4. He denies any history of COPD. 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 He is diabetic. No urinary complaints. No nausea vomiting diarrhea. Has not received any fever medication After history and exam CBC CMP EKG procalcitonin lactic acid respiratory panel chest x-ray normal saline Tylenol urinalysis Rocephin [facility] CC: Fever dyspnea weakness Complicating co-morbidities: Coronary disease/diabetes Data collected from: Patient and EMS Medical records reviewed: No recent visits here for this complaint Differential considered: Includes but not limited to pneumonia UTI sepsis viral infection, CHF Exam documented above, pertinent findings include: Diminished lung sounds bilaterally Lab Test results independently reviewed as above. Pertinent findings: WBC 11.5 hemoglobin 9.9 INR 1.2 sodium 130 potassium 4.3 BUN 25 creatinine 1.3 GFR 59 troponin 0.079 BNP 7490 Independently reviewed EKG sinus tachycardia rate [address] elevation or depression Imaging studies independently reviewed: Chest x-ray patchy left hemithorax opacities with effusion suggest pneumonia Consultations: 1:30 p.m.. Spoke with cardiology Dr. Patel, at this time did not pursue non-STEMI pathway with troponin. Likely due to renal function and pneumonia. Pursue infectious pathway. 5:[address] Rosales here in the department. He is waiting for 2nd troponin to be done. Echocardiogram reviewed. He would like CT chest PE protocol to be done 6:10 p.m.. I spoke with cardiology Dr. Patel again. Troponin elevated 1.29. At this time he recommends aspirin and heparin however no indication to transfer patient. Would wait for troponin to trend down. Need to treat for ongoing pneumonia. Would not do heart catheterization at this time. 6:[address] Rosales again, he spoke with tele acoustical engineer and recommendation is to transfer patient to higher level of care. Treatments: Rocephin normal saline Tylenol, patient requiring PICC line placement. Levophed started Re-evaluations: 1:30 p.m.. Patient feeling better. Received fever control/Tylenol. IV fluids as well. Nontoxic. Reviewed results with him agrees for admission Discussion: Appropriate for admission, patient requiring supplemental oxygen antibiotics have been started. Blood cultures as well. Antibiotics have been started. Reviewed with patient agrees for admission. Review with hospitalist agrees for admit. Troponin noted, no chest pain. Likely related to renal function Diagnosis: Community-acquired pneumonia 6:00 p.m.. Ana: Sign out to Dr Lowe, CT imaging pending. Hospitalist is involved with care for admission. Rule out PE, at time of sign-out. Patient at this time being worked up for community-acquired pneumonia. However possibilities cardiogenic shock/CHF 6:15 p.m.. Ana: Sign out to Dr Lowe, updated now that patient needs to be transferred due to laboratory findings, troponin elevated. Heparin and aspirin has been ordered Dr lowe: Received turned over. Review patient's history and physical and workup performed up to this point. Patient's CTA does not show any signs of pulmonary embolism but does show left greater than right pleural effusions. He has been treated for community-acquired pneumonia. Has received antibiotics. His CBC and lactate are negative. Blood cultures have been drawn. Troponin is now positive. He is on heparin. Has received aspirin. He has no chest pain. We were able to wean him off all pressors. He does appear to be clinically fluid overloaded so Lasix was given and he has urinated between 750 and 1 L. He states that he is feeling better. We have not had to start him back on pressors given this diuresis. We will continue to monitor. I did discuss the case with Dr. Olson hospitalist that [facility] in [place] who accepts the patient for transfer. Patient is stable for transport. Critical Care Time <Escobar Perez MD - Last Filed: 03/01/23 07:19> Critical Care Time Attestation: Critical Care Time 35 minutes: Critical care time is separate from other billable procedures. This critical care time includes consultation with family and other consulting doctors, review of records, and interpretation of data from labs, EKGs, imaging, etc. <Dalton Lowe DO - Last Filed: 03/01/23 01:26> Critical Care Time Critical Care Time: Yes Total Critical Care Time: 35 Discharge Plan Departure Patient Disposition: [facility] Clinical Impression: Community acquired pneumonia, Non-ST elevated myocardial infarction (non-STEMI) Referrals: Miscellaneous,MD Chavez [Primary Care Provider] -
[2023-02-28 12:21] LABS: Add Manual Diff / Slide Review NO; Basophils Absolute Auto 0 /uL (0-100); Basophils Percent Auto 0.3 % (0-2); Eosinophils Absolute Auto 0 /uL (0-450); Eosinophils Percent Auto 0.2 % (2-4); Hematocrit 29.8 % (41-53); Hemoglobin 9.9 g/dL (13.5-17.5); Lymphocytes Absolute Auto 800 /uL (1100-4500); Lymphocytes Percent Auto 6.6 % (25-40); Mean Corpuscular HGB Conc 33.2 % (30-36); Mean Corpuscular Hemoglobin 27.2 PG (26-34); Mean Corpuscular Volume 82.1 fL (80-100); Monocytes Absolute Auto 800 /uL (0-900); Monocytes Percent Auto 7.3 % (3-14); Neutrophils Absolute Auto 9800 /uL (1500-7000); Neutrophils Percent Auto 85.6 % (50-75); Platelet Count 244 X10^3/uL (150-400); Red Blood Cell Count 3.64 X10^6/uL (4.5-5.9); Red Cell Distribution Width 16.1 % (11.6-14.8); White Blood Cell Count 11.5 X10^3/uL (4.5-11.0)
[2023-02-28 12:25] LABS: INR 1.2 (0.9-1.3); Prothrombin Time 13.6 SECONDS (10.1-12.7)
[2023-02-28 12:28] LABS: PTT Partial Thromboplastin Tim 30 SECONDS (26-36)
[2023-02-28 12:33] LABS: Lactate (Lactic Acid) 1.8 mmol/L (0.7-2.1)
[2023-02-28] MEDS: ACETAMINOPHEN 325 MG TABLET 975 MG PO (12:33)
[2023-02-28 12:34] LABS: Creatine Kinase 66 U/L (55-170)
[2023-02-28] MEDS: cefTRIAXone 2,000 MG in SODIUM CHLORIDE 0.9% 100 ML 200 MG IV (12:34)
[2023-02-28] MEDS: SODIUM CHLORIDE 0.9% 1,000 ML 1000 ML IV ×2 (12:34→14:09)
[2023-02-28 12:35] LABS: Alanine Aminotransferase 24 IU/L (<50); Albumin 3.6 g/dL (3.5-5.0); Albumin Globulin Ratio 0.9 (1.0-2.8); Alkaline Phosphatase 111 U/L (38-126); Aspartate Aminotransferase 32 IU/L (17-59); BUN Creatinine Ratio 19.2 (6-22); Bilirubin Total 0.7 mg/dL (0.2-1.3); Blood Urea Nitrogen 25 mg/dL (9-20); Calcium 8.8 mg/dL (8.4-10.2); Carbon Dioxide 28 mmol/L (22-32); Chloride 96 mmol/L (98-107); Estimated Glomerular Filt Rate 59 mL/min (>60); Globulin 4.1 g/dL (1.7-4.1); Glucose 147 mg/dL (80-110); HEMOLYSIS < 15 (0-50); Potassium 4.3 mmol/L (3.4-5.1); Sodium 130 mmol/L (137-145); Total Protein 7.7 g/dL (6.3-8.2)
[2023-02-28 12:46] LABS: NT-proBNP (BNP-Adult 18+) 7490 pg/mL (<125); Troponin I 0.079 ng/mL (0.01-0.034)
[2023-02-28 12:51] LABS: Procalcitonin 0.14 ng/mL (<0.5)
[2023-02-28 13:21] LABS: Adenovirus Not Detected (Not Detect); B. parapertussis Not Detected (Not Detecte); Bordetella pertussis Not Detected (Not Detecte); Chlamydophila pneumoniae Not Detected (Not Detect); Coronavirus 229E Not Detected (Not Detect); Coronavirus HKU1 Not Detected (Not Detect); Coronavirus NL 63 Not Detected (Not Detect); Coronavirus OC43 Not Detected (Not Detect); Human Metapneumovirus Not Detected (Not Detect); Human Rhinovirus/Enterovirus Not Detected (Not Detect); Influenza A Not Detected (Not Detect); Influenza B Not Detected (Not Detect); Mycoplasma pneumoniae Not Detected (Not Detect); Parainfluenza Virus 1 Not Detected (Not Detect); Parainfluenza Virus 2 Not Detected (Not Detect); Parainfluenza Virus 3 Not Detected (Not Detect); Parainfluenza Virus 4 Not Detected (Not Detect); Respiratory Syncytial Virus Not Detected (Not Detect); SARS- CoV-2 Not Detected (Not Detecte)
--- NOTE | 2023-02-28 13:36 | DI.ECHO.S_ITS ---
[facility] +---------+ : : [address] : : : : [id number] : : : : Phone: [phone]+ Echocardiogram Report + + :Name: MYRA DILLON Study Date: 02/28/2023 Height: 66 in : :[facility] ReadingLocation: Weight: 134 lb: : Gender: Male BSA: 1.7 m2 : :: 1950 Age: 72 yrs BP: 79/48 mmHg: :Reason For Study: SHORTNESS OF BREATH : :Ordering Physician: ANA, : :ESCOBAR Performed By: Patito Schaffer : :Referring: ESCOBAR PEREZ : + + Interpretation Summary 1) Normal left ventricular size and thickness with mildly reduced systolic function (EF 45-50%). 2) The apex extending to apical septum and apical inferior wall are akinetic/aneurysmal. 3) Normal right ventricular size with mildly reduced function. 4) There is mild to moderate mitral regurgitation. 5) The right ventricular systolic pressure is estimated to be at least 46 mmHg based on an estimated right atrial pressure of 8 mm Hg. 6) There is mild luminal irregularity and echogenicity in the abdominal aorta, suggestive of aortic atherosclerotic disease. 7) No prior echo available for comparison. Procedure: A two-dimensional transthoracic echocardiogram with color flow and Doppler was performed. The study quality was technically adequate. There is no prior echocardiogram noted for this patient. The patient was in sinus rhythm with heart rates between 70-75 bpm during the exam. Left Ventricle: The left ventricle is normal in size and wall thickness. The ejection fraction is estimated to be 45-50%. The apex extending to apical septum and apical inferior wall are akinetic. Diastolic parameters suggest a relaxation abnormality of the left ventricle, consistent with probable normal filling pressures. Right Ventricle: The right ventricle is normal size. Right ventricular systolic function is mildly reduced. Atria: The left atrium is moderately dilated. Right atrial size is normal. There is no Doppler evidence for an interatrial shunt. Mitral Valve: The mitral valve is normal in structure and function. There is mild to moderate mitral regurgitation. Aortic Valve: The aortic valve is trileaflet. The aortic valve is mildly calcified. There is no aortic valve stenosis. There is mild aortic regurgitation. Tricuspid Valve: The tricuspid valve leaflets are thickened and/or calcified, but open well. There is mild tricuspid regurgitation. The right ventricular systolic pressure is estimated to be at least 46 mmHg based on an estimated right atrial pressure of 8 mm Hg. Pulmonic Valve: The pulmonic valve is not well seen, but is grossly normal. There is no pulmonic valvular regurgitation. Great Vessels: The aortic root is normal size. The ascending aorta could not be visualized. There is mild luminal irregularity and echogenicity in the abdominal aorta, suggestive of aortic atherosclerotic disease. The IVC is dilated (diameter is greater than 2.1 cm) yet it collapses greater than 50% with a sniff. This suggests a right atrial pressure of 8 mm Hg. Pericardium/ Pleura There is no pericardial effusion. There is a moderate left-sided pleural effusion. MMode/2D Measurements & Calculations LVIDd: 4.7 cm LVOT diam: 2.0 cm LVIDs: 3.6 cm Ao root diam: 3.5 cm FS: 23.0 % Ao Arch Diam (Prox Trans): 2.8 cm EPSS: 0.78 cm IVSd: 0.95 cm LVPWd: 0.83 cm LV donis. diameter/BSA (cm/m^2): 2.8 LV sys. diameter/BSA (cm/m^2): 2.1 LA A2 area: 22.3 cm2 RA long axis: 4.9 cm LA A4 area: 17.9 cm2 RA area: 15.1 cm2 LA length (vol): 5.6 cm RA vol: 39.4 ml LA vol: 61.1 ml RA : 23.4 ml/m2 LA vol index: 36.2 ml/m2 IVC diam: 2.2 cm RVD1 (basal): 3.7 cm RVD2 (mid): 2.6 cm TAPSE: 1.2 cm Doppler Measurements & Calculations Ao V2 max: 122.8 cm/sec LVOT Max Michael: 91.1 cm/sec Ao V2 mean: 91.0 cm/sec LV V1 max P.3 mmHg Ao max P.0 mmHg LV V1 VTI: 18.7 cm Ao mean P.5 mmHg ANN(I,D): 2.4 cm2 Ao V2 VTI: 24.6 cm ANN(V,D): 2.3 cm2 sev ratio: 0.76 ANN indexed to BSA (cm^2/m^2): 1.4 MV E max michael: 97.5 cm/sec TR max michael: 299.1 cm/sec MV A max michael: 50.2 cm/sec TR max P.8 mmHg MV E/A: 1.9 PA V2 max: 76.3 cm/sec Med Peak E' Michael: 6.4 cm/sec PA V2 mean: 60.6 cm/sec E/E' med: 15.2 PA mean P.6 mmHg Lat Peak E' Michael: 8.6 cm/sec PA pr(Accel): 41.3 mmHg E/E' lat: 11.3 E/e' average: 13.3 MV dec time: 0.14 sec SV(LVOT): 57.8 ml Reading Physician:04:27 PM
[2023-02-28] MEDS: DOXYCYCLINE 100 MG in SODIUM CHLORIDE 0.9% 100 ML IV (13:58)
--- NOTE | 2023-02-28 14:06 | PC.NURSE ---
BP 70/30's x2, 2nd IV--18G LFA placed. Dr Nunez made aware. temp recheck 99.7. Pt appears lethargic. Rousable however slow to answer questions. IVF infusing per verbal order see MAR.
[2023-02-28] MEDS: SODIUM CHLORIDE 0.9% 1,000 ML 75 ML IV (15:09)
[2023-02-28] MEDS: NOREPINEPHRINE BITARTRATE/D5W 4 MG/250 ML PLAST..BAG 18.8 MG IV (15:09)
[2023-02-28 16:42] LABS: Appearance Urine UA CLEAR; Bilirubin Urine UA NEGATIVE (NEGATIVE); Color Urine UA YELLOW; Glucose Urine UA NEGATIVE (Negative); Ketones Urine UA TRACE (NEGATIVE); Leukocyte Esterase Urine UA NEGATIVE (NEGATIVE); Nitrite Urine UA NEGATIVE (Negative); Occult Blood Urine UA 1+ (Negative); Protein Urine UA 3+ (Negative); Specific Gravity Urine UA 1.025 (1.000-1.035); Urobilinogen Urine UA 0.2 E.U./dL (0.2); pH Urine UA 5.5 (4.5-8.0)
[2023-02-28 17:07] LABS: Bacteria Urine None Seen; Culture Indicated Urine Cult Not Indicated; Hyaline Casts Urine 1-5/LPF; RBC Urine None Seen (0-5/HPF); Renal Epithelial Cells Urine 1-5/HPF (0-1/HPF); Squamous Epithelial Cell Urine None Seen (0-5/HPF); WBC Urine None Seen (0-5/HPF)
--- NOTE | 2023-02-28 17:21 | DI.RAD.S_ITS ---
PROCEDURE: XR CHEST 1V INDICATIONS: check for PICC placement TECHNIQUE: One view of the chest was acquired. COMPARISON: [facility], , XR CHEST 1V, 02/28/2023, 11:55. FINDINGS: Surgical changes and devices: Median sternotomy wires and surgical clips are seen. Right-sided PICC line tip is in SVC. Lungs and pleura: Included lung miguel show no focal infiltrate, pleural effusion or pneumothorax. Mediastinum: Mediastinal contours appear normal. Heart size is normal. Bones and chest wall: No suspicious bony lesions. Overlying soft tissues appear unremarkable. IMPRESSION: Right-sided PICC line tip is in SVC. Dictated by: Gabe Santana M.D. on 02/28/2023 at 17:37 Approved by: Gabe Santana M.D. on 02/28/2023 at 17:38
--- NOTE | 2023-02-28 17:31 | DI.CT.S_ITS ---
PROCEDURE: CT ANGIO CHEST PE PROTOCOL INDICATIONS: Dyspnea TECHNIQUE: After the administration of intravenous contrast, 2 mm thick sections acquired from the pulmonary apices to the posterior costophrenic angles. 3-dimensional maximum intensity projection (MIP) coronal and sagittal reformats were then acquired through the thorax. For radiation dose reduction, the following was used: automated exposure control, adjustment of mA and/or kV according to patient size. COMPARISON: [facility], CR, XR CHEST 1V, 02/28/2023, 11:55. [facility], CR, XR CHEST 1V, 02/28/2023, 17:20. FINDINGS: Image quality: Excellent. Pulmonary arteries: Pulmonary arteries are normal in size, and demonstrate no intraluminal filling defects to suggest central pulmonary embolism. Lungs and pleura: Moderate left worse than right bilateral pleural effusion is seen with near complete atelectasis of left lower lobe and segmental atelectasis in posterior aspect of bilateral upper lobes and right lower lobe. Underlying pulmonary infiltrates or nodules cannot be excluded. 9 mm solid nodule is seen in lateral aspect of right middle lobe series 5, image 196. No pneumothorax. Central and peripheral airways are patent. Mediastinum: Heart size is enlarged, with trace amount of pericardial effusion. Moderate atherosclerotic calcifications throughout coronary vessels and thoracic aorta is seen. Extensive mediastinal and hilar lymphadenopathy is noted. Thoracic aorta is normal in caliber and enhancement. Esophagus is normal in caliber, without hiatal hernia. Bones and chest wall: Median sternotomy wires are seen. No suspicious bony lesions. Degenerative disc disease throughout thoracic spine is noted. No acute vertebral body compression fracture.. Thyroid gland is within normal limits. No axillary or supraclavicular adenopathy. Abdomen: Visualized upper abdominal solid organs appear normal in the early arterial phase of enhancement. IMPRESSION: 1. No evidence of pulmonary emboli. No thoracic aortic aneurysm. 2. Moderate size left greater than right bilateral pleural effusion with near complete atelectasis of left lower lobe and segmental atelectasis in posterior aspect of bilateral upper lobes and right lower lobe. Underlying pulmonary mass or infiltrates cannot be excluded. Follow-up until resolution is recommended. 9 mm solid nodule is seen in right middle lobe as above. Follow-up CT study in 3-6 months is recommended. 3. No pneumothorax. Airway is patent. 4. Extensive mediastinal and hilar lymphadenopathy suggestive of reactive inflammatory nodes. Malignant involvement of the mediastinal lymph nodes cannot be excluded. Cardiomegaly, with trace amount of pericardial effusion. Dictated by: Gabe Santana M.D. on 02/28/2023 at 18:01 Approved by: Gabe Santana M.D. on 02/28/2023 at 18:07
--- NOTE | 2023-02-28 18:24 | PC.NURSE ---
PICC placed by Maria Elena Gillespie RN DI and CXR confirmed placement. labs drawn for repeat trop. Levophed infusing through PICC line. Pt appears more awake and alert and talkative than when he initially arrived. denies pain at this time. Resting on stretcher. Needs met.
[2023-02-28] MEDS: HEPARIN DRIP 25,000 UNIT/500 ML IV.SOLN 14.587 UNIT IV (18:34)
[2023-02-28] MEDS: HEPARIN 5,000 UNIT/ML VIAL 4900 UNIT IV (18:35)
[2023-02-28] MEDS: ASPIRIN 81 MG CHEW TAB 324 MG PO (18:35)
--- NOTE | 2023-02-28 18:45 | PC.NURSE ---
Levophed weaned off at this time. BP 130's systolic. Heparin infusing per MAR for elevated troponin. Pt noted to having increasingly wet cough. Dr Lowe made aware.
[2023-02-28] MEDS: FUROSEMIDE 40 MG/4 ML VIAL IV (18:54)
--- NOTE | 2023-02-28 20:48 | PC.NURSE ---
Accepted [facility] 346 RN: Charge ICU [phone] [place] ETA [address] [facility] transfer Center updated.
--- NOTE | 2023-02-28 21:37 | PC.NURSE ---
Sister Katlin updated on plan of care and plan to transfer to [facility] in [place]. Katlin also able to talk with patient at this time.
[2023-02-28 21:44] LABS: Hematocrit 27.6 % (41-53); Hemoglobin 9.2 g/dL (13.5-17.5)
[2023-02-28 21:55] LABS: Creatine Kinase 86 U/L (55-170)
[2023-03-01] VITALS: BP 148/74; PULSE 82; RESP 16; TEMP 37.6; O2SAT 96
[2023-03-01 00:30] VITALS: BP 155/85; PULSE 87; RESP 13; TEMP 37.7; O2SAT 97
[2023-03-01 00:44] LABS: PTT Partial Thromboplastin Tim 118 SECONDS (26-36)
[2023-03-01 01:00] VITALS: BP 158/77; PULSE 87; RESP 18; TEMP 37.7; O2SAT 96
--- NOTE | 2023-03-01 01:00 | PC.NURSE ---
Report called to Rey, RN at [facility] in [place], [place]. All questions answered. Patient sleeping at this time, allowed to rest. Expecting [facility] ALS team to arrive around 0125.
[2023-03-01 01:30] VITALS: BP 151/73; PULSE 86; RESP 16; TEMP 37.9; O2SAT 96
[2023-03-01 02:05] VITALS: TEMP 37.9
[2023-03-01] MEDS: ACETAMINOPHEN 325 MG TABLET 650 MG PO (02:05)
[2023-03-01 14:41] LABS: mecA/C and MREJ (MRSA) Resista Not Detected (Not Detect)
[2023-03-01 14:42] LABS: Acinetobacter calcoa-baumannii Not Detected (Not Detect); Bacteroides fragilis Not Detected (Not Detect); Candida albicans Not Detected (Not Detect); Candida auris Not Detected (Not Detect); Candida glabrata Not Detected (Not Detect); Candida krusei Not Detected (Not Detect); Candida parapsilosis Not Detected (Not Detect); Candida tropicalis Not Detected (Not Detect); Cryptococcus neoformans/gatti Not Detected (Not Detect); Enterobacter cloacae complex Not Detected (Not Detect); Enterobacterales Not Detected (Not Detect); Enterococcus faecalis Not Detected (Not Detect); Enterococcus faecium Not Detected (Not Detect); Haemophilus influenzae Not Detected (Not Detect); Klebsiella aerogenes Not Detected (Not Detect); Listeria monocytogenes Not Detected (Not Detect); Neisseria meningitidis Not Detected (Not Detect); Proteus species Not Detected (Not Detect); Pseudomonas aeruginosa Not Detected (Not Detect); Salmonella species Not Detected (Not Detect); Serratia marcescens Not Detected (Not Detect); Staphylococcus epidermidis DETECTED (Not Detect); Staphylococcus lugdunensis Not Detected (Not Detect); Staphylococcus species DETECTED (Not Detect); Stenotrophomonas maltophilia Not Detected (Not Detect); Streptococcus agalactiae (Gr B Not Detected (Not Detect); Streptococcus pneumonia Not Detected (Not Detect); Streptococcus pyogenes (Gr A) Not Detected (Not Detect); Streptococcus species Not Detected (Not Detect)
== END 2023-03-01 02:17 | disposition short-term general hospital (02) ==
PROVIDERS: Emergency Medicine; Emergency Provider Emergency Medicine
DX: I21.4 Non-ST elevation (NSTEMI) myocardial infarction (principal); J18.9 Pneumonia, unspecified organism; R50.9 Fever, unspecified; R00.0 Tachycardia, unspecified; Z20.822 Contact with and (suspected) exposure to COVID-19
CPT/HCPCS: 36415; 36569; 71045; 71275; 80053; 81001; 82550; 82962; 83605; 83880; 84145; 84484; 85014; 85018; 85025; 85610; 85730; 87040; 87154; 87186; 87633; 93005; 93306; 96365; 96366; 96367; 96375; 99285; 99291; J0696; J1644; J1940; Q9967

== ENCOUNTER → 2023-03-23 15:04 | Outpatient (CLI) | payer MEDICARE, SELFPAY ==
[2023-03-23 17:16] LABS: Add Manual Diff / Slide Review NO; Basophils Absolute Auto 100 /uL (0-100); Eosinophils Absolute Auto 200 /uL (0-450); Eosinophils Percent Auto 3.6 % (2-4); Hematocrit 27.9 % (41-53); Hemoglobin 9.3 g/dL (13.5-17.5); Lymphocytes Absolute Auto 1200 /uL (1100-4500); Lymphocytes Percent Auto 24.1 % (25-40); Mean Corpuscular HGB Conc 33.3 % (30-36); Mean Corpuscular Hemoglobin 27.8 PG (26-34); Mean Corpuscular Volume 83.6 fL (80-100); Monocytes Absolute Auto 700 /uL (0-900); Monocytes Percent Auto 13.9 % (3-14); Neutrophils Absolute Auto 2800 /uL (1500-7000); Neutrophils Percent Auto 57.4 % (50-75); Platelet Count 247 X10^3/uL (150-400); Red Blood Cell Count 3.33 X10^6/uL (4.5-5.9); Red Cell Distribution Width 18.7 % (11.6-14.8); White Blood Cell Count 4.9 X10^3/uL (4.5-11.0)
[2023-03-23 17:31] LABS: Alanine Aminotransferase 33 IU/L (<50); Albumin 3.7 g/dL (3.5-5.0); Albumin Globulin Ratio 0.9 (1.0-2.8); Alkaline Phosphatase 105 U/L (38-126); Aspartate Aminotransferase 36 IU/L (17-59); Bilirubin Total 0.3 mg/dL (0.2-1.3); Blood Urea Nitrogen 44 mg/dL (9-20); Calcium 8.9 mg/dL (8.4-10.2); Carbon Dioxide 32 mmol/L (22-32); Chloride 99 mmol/L (98-107); Cholesterol 108 mg/dL (140-199); Estimated Glomerular Filt Rate > 60 mL/min (>60); Globulin 4.2 g/dL (1.7-4.1); Glucose 115 mg/dL (80-110); HDL Cholesterol 42 mg/dL (40-60); HEMOLYSIS < 15 (0-50); LDL Cholesterol Calculated 57 mg/dL (<100); Potassium 4.2 mmol/L (3.4-5.1); Sodium 136 mmol/L (137-145); Total Protein 7.9 g/dL (6.3-8.2); Triglycerides 44 mg/dL (35-150); VLDL Cholesterol Calculated 9 mg/dL (2-30)
[2023-03-23 18:15] LABS: Vitamin B12 426 pg/mL (239-931)
[2023-03-23 19:05] LABS: Iron 41 ug/dL (49-181)
[2023-03-23 19:33] LABS: HEMOLYSIS < 15 (0-50); Percent Iron Saturation 16 % (20-50); Total Iron Binding Capacity 257 ug/dL (261-462); Transferrin 160 mg/dL (206-381)
[2023-03-23 19:36] LABS: TSH w/ Reflex to FT4 1.81 uIU/mL (0.47-4.68)
[2023-03-24 03:36] LABS: Hepatitis A Ab Total Negative (Negative); Hepatitis B Core AB w/Reflex Negative (Negative)
[2023-03-24 05:27] LABS: Labcorp Hemoglobin (Hb) A1c 7.2 % (4.8-5.6)
[2023-03-24 16:38] LABS: Hep C Virus Ab w/Reflex Quant NEGATIVE s/c (NEGATIVE)
== END ==
PROVIDERS: Visit Provider Student in an Organized Health Care Education/Training Program
DX: E78.5 Hyperlipidemia, unspecified; D64.9 Anemia, unspecified; R53.83 Other fatigue; R73.9 Hyperglycemia, unspecified
CPT/HCPCS: 36415; 80053; 80061; 82607; 83036; 83540; 83550; 84443; 85025; 86704; 86708; 86803

== ENCOUNTER → 2023-04-01 10:56 | Outpatient (CLI) | payer MEDICARE, SELFPAY ==
[2023-04-04 18:49] LABS: Fecal Immunochemical Test Negative (Negative)
== END ==
PROVIDERS: Referring Provider Student in an Organized Health Care Education/Training Program; Visit Provider Student in an Organized Health Care Education/Training Program
DX: D64.9 Anemia, unspecified (principal)
CPT/HCPCS: 82274

== ENCOUNTER → 2023-05-19 12:06 | Outpatient (CLI) | payer MEDICARE, SELFPAY ==
[2023-05-19 14:28] LABS: Hemoglobin A1C% w Est Avg Glu 7.8 % (4.0-6.0)
[2023-05-19 14:51] LABS: Alanine Aminotransferase 89 IU/L (<50); Albumin 3.7 g/dL (3.5-5.0); Albumin Globulin Ratio 0.9 (1.0-2.8); Alkaline Phosphatase 106 U/L (38-126); Aspartate Aminotransferase 83 IU/L (17-59); BUN Creatinine Ratio 36.7 (6-22); Bilirubin Total 0.5 mg/dL (0.2-1.3); Blood Urea Nitrogen 54 mg/dL (9-20); Calcium 8.9 mg/dL (8.4-10.2); Carbon Dioxide 27 mmol/L (22-32); Chloride 104 mmol/L (98-107); Estimated Glomerular Filt Rate 51 mL/min (>60); Globulin 3.9 g/dL (1.7-4.1); Glucose 224 mg/dL (80-110); HEMOLYSIS < 15 (0-50); Potassium 5.2 mmol/L (3.4-5.1); Sodium 138 mmol/L (137-145); Total Protein 7.6 g/dL (6.3-8.2)
== END ==
PROVIDERS: PCP Student in an Organized Health Care Education/Training Program; Referring Provider Student in an Organized Health Care Education/Training Program; Visit Provider Student in an Organized Health Care Education/Training Program
DX: E11.65 Type 2 diabetes mellitus with hyperglycemia (principal)
CPT/HCPCS: 36415; 80053; 83036

== ENCOUNTER → 2023-09-26 10:34 | Outpatient (CLI) | payer MEDICARE, SELFPAY ==
--- NOTE | 2023-09-26 10:41 | DI.RAD.S_ITS ---
PROCEDURE: FL BARIUM SWALLOW W SPEECH INDICATIONS: dysphagia COMPARISON: None. TECHNIQUE: Examination was conducted in conjunction with speech pathology per standard protocol. In the lateral projection, filming was performed of the patient swallowing. AP projection filming may also be performed with patient swallowing. COMPARISON: FINDINGS: Function: The oral preparatory phase appears abnormal, with spillage of contents into the vallecula. The subsequent oral propulsive phase, pharyngeal phase, and esophageal phase of swallowing also appear delayed with all proffered substances. Flash penetration of liquid and pudding barium. Significant residual contrast within the vallecular and piriform sinuses. Morphology: No cricopharyngeal bar is identified. No cervical esophageal webs. No Zenker's diverticulum. No strictures. IMPRESSION: Flash penetration of liquid and pudding barium. Dictated by: Lei Crenshaw M.D. on 09/26/2023 at 16:07 Approved by: Lei Crenshaw M.D. on 09/26/2023 at 16:09
[2023-09-26 11:25] LABS: Alanine Aminotransferase 36 IU/L (<50); Albumin 3.9 g/dL (3.5-5.0); Alkaline Phosphatase 88 U/L (38-126); Aspartate Aminotransferase 41 IU/L (17-59); BUN Creatinine Ratio 31.4 (6-22); Bilirubin Total 0.7 mg/dL (0.2-1.3); Blood Urea Nitrogen 48 mg/dL (9-20); Calcium 9.9 mg/dL (8.4-10.2); Carbon Dioxide 28 mmol/L (22-32); Chloride 100 mmol/L (98-107); Estimated Glomerular Filt Rate 49 mL/min (>60); Globulin 3.9 g/dL (1.7-4.1); Glucose 198 mg/dL (80-110); HEMOLYSIS < 15 (0-50); Potassium 4.7 mmol/L (3.4-5.1); Sodium 136 mmol/L (137-145); Total Protein 7.8 g/dL (6.3-8.2)
[2023-09-26 11:30] LABS: Hemoglobin A1C% w Est Avg Glu 12.7 % (4.0-6.0)
[2023-09-26 11:50] LABS: Free T3, Triiodothyronine Free 2.37 pg/mL (2.77-5.27)
[2023-09-26 12:04] LABS: TSH w/ Reflex to FT4 0.43 uIU/mL (0.47-4.68)
[2023-09-26 12:11] LABS: Vitamin B12 396 pg/mL (239-931)
[2023-09-26 12:59] LABS: Free T4, Direct Thyroxine 1.75 ng/dL (0.78-2.19)
--- NOTE | 2023-09-26 13:59 | ST.SWALLOW ---
Visit Care Team Role Provider Type Lesly Chiu MD Attending Provider Physician Family Provider Primary Care Provider Referring Provider Specialty: Family Practice [employer] Address: [address] [place], [address] Fax: Email: [email or web address] Modified Barium Swallow Study HIDE CURER Modified Barium Swallow Study Start: 09/26/23 12:02 Freq: Status: Active Protocol: Document 09/26/23 12:16 LNK (Rec: 09/26/23 13:59 LNK [id number]) Modified Barium Swallow Study Total Time Visit Start Time 11:15 Visit Stop Time 11:45 Total Visit Minutes [address] Akhtar Reason for Referral dyspahgia Setting Setting Outpatient Care Patient Information Identification Type Name,Date of Patient History Pt was seen for a Modified Barium Swallow Study (MBSS) at the referral of his PCP. He was accompanied by his [id number]. According to the pt and his OZ, pt has been having difficulty with swallowing breads, meats and pills. He described the difficulty as things get stuck and pointed to the area of his larynx. He denies any other areas of globus sensation. He denied difficulty with liquids, noted an occasional cough/choke when eating. Pt also reported word-finding difficulty as well as difficulty with pronunciation of his speech at times. Pt denied neurological diagnoses such as Parkinson's, CVA, etc. Pt did report that he has recently not controlled his diabetes well; however, he has been started on a new medication and has better control of his blood sugars. Subjective Observations Pt entered the fluoroscopy chair and was seated in position. Pt was quiet and, at times, appeared to not understand and/or follow directions. He denied any neurologic diagnoses, head/ neck injuries or spinal surgeries. He did report carotid artery surgery in the past. His speech/language appeared to be WFL during this procedure. Patient Positioning Position View Lat-A/P Imaging Lateral View Textures Administered Trials Presented Thin Liquid via Spoon (IDDSI 0 ),Thin Liquid via Cup (IDDSI 0 ),Extremely Thick Liquid via Spoon (IDDSI 4),Regular (IDDSI 7) Barium Tablet Yes The IDDSI Framework Protocol: IDDSI.1 Oral Impairment Source: The Modified Barium Swallow Impairment Profile (MBSImP??) Lip Closure No labial escape Tongue Control During Bolus Hold Posterior escape of less than half of bolus Bolus Preparation/Mastication Disorganized chewing/mashing with solid pieces of bolus unchewed Bolus Transport/Lingual Motion Repetitive/disorganized tongue motion Oral Residue Complete oral clearance,Trace residue lining oral structures Location Tongue Initiation of Pharyngeal Swallow Bolus head in valleculae Additional Oral Impairment Observations OME: Pt dentition was natural in good hygeine. Velum, cheeks jaw and lips were noted to be WNL for strength and function. Lingual examinitation noted that initial protrusion of the tongue was deviated to the left when asked to stick out tongue. Lateralizarion was noted to be disorganized. This was also apparent when asked to move tongue to L/R and push against resistance. A second attempt at tongue protrusion with direction to stick tongue out STRAIGHT resulted in tongue in a central location. Tip movement up/ down was noted to be WNL. Diadochkinesis was noted to be mildly slowed and imprecise for 4+ syllable words. Oral phase/mastication was observed to be disorganized and prolonged. Lingual movement to initiate swallow also noted to be disorganized and delayed. Pharyngeal Impairment Source: The Modified Barium Swallow Impairment Profile (MBSImP??) Soft Palate Elevation No bolus between soft palate & pharyngeal wall Laryngeal Elevation Part.sup.move.thyroid cart/ part.approx.arytenoids to epiglot.petiole Anterior Hyoid Excursion Partial anterior movement Epiglottic Movement No inversion Laryngeal Vestibular Closure Incomplete; narrow column air/ contrast in laryngeal vestibule Pharyngeal Stripping Wave Absent Pharyngoesophageal Segment Opening Complete distention & complete duration; no obstruction of flow Tongue Base Retraction Wide column of contrast/air betwn tongue base & post. pharyngeal wall Pharyngeal Residue Majority of contrast within/on pharyngeal structures Location Diffuse (>3 areas) Additional Pharyngeal Impairment Weak tongue base retraction Observations resulted in reduced hyolaryngeal elevation and retraction with minimal to no epiglottal inversion across all swallows. Pooling of all trials in the valeculla and pyrforms was observed across trials. Significant pooling of ~ 50% of the semisolid and solid trials were also noted. The pill did not pass the valeculla requiring several swallows of water in order for pill to clear the valeculla. Minimal posterior pharyngeal wall stripping contributed to diminished bolus control through the pharynx. Flash penetration into the laryngeal vestibule was observed x3 with consecutive swallows of liquid and with pharyngeal secretions x2. No aspiration was observed. A/P View Textures Administered Trials Presented Thin Liquid via Spoon (IDDSI 0 ) The IDDSI Framework Protocol: IDDSI.1 A/P View Observations Pharyngeal Contraction Complete Esophageal Clearance Upright Position Esophageal retention Esophageal Function Stasis Additional A-P Observations The liquid contrast cleared the esophagus WNL. Once the table cleared the valeculla, it became stuck at the LES and remained there for several minutes. The MBSS was stopped before the tablet entered the stomach. Pt reported no sensation of globus at sternal notch area. (common report when something sticks within the esophagus and/or the LES). Clinical Impressions Dysphagia Type Oral,Pharyngeal,Esophageal Findings ORAL: -Lips, velum facial and jaw strength and ROM was WNL -Initial protrusion of the tongue was deviated to the left when asked to stick out tongue. Repeat protrusion was Lateralizarion was noted to be disorganized. -Mastication was observed to be disorganized and prolonged. -Swallow initiation swallow also noted to be disorganized and delayed. Pt dentition was natural in good hygiene. Velum, cheeks jaw and lips were noted to be WNL -Diadochkinesis was noted to be mildly slowed and imprecise for 4+ syllable words. PHARYNGEAL: -Weak tongue base retraction resulted in reduced hyolaryngel elevation and retraction with minimal to no epiglottal inversion across all swallows. -Pooling of all trials in the valeculla and pyrforms was observed across trials. Significant pooling of ~ 50% of the semisolid and solid trials were also noted in valeculla. -The pill did not pass the valeculla requiring several swallows of water in order for pill to clear to the esophagus. -Minimal posterior pharyngeal wall stripping contributed to diminished bolus control through the pharynx. -Flash penetration into the laryngeal vestibule was observed x3 with consecutive swallows of liquid and with pharyngeal secretions x2. No aspiration was observed. Rehabilitation Potential Good Patient Appropriate for Therapy No Recommendations Diet Comments No diet change recommended at this time Additional Dietary Needs Single Sips Aspiration Precautions Recommended Precautions Alternate Liquids/Solids,Small Bites/Sips Treatment Plan Therapy Recommendations Outpatient Speech Therapy,Base of Tongue Exercises Recommended Referrals GI Consult Therapy Strategy Recommendations Small Bites and Sips,Alternate Liquids/Solids Additional Recommendations/Comments Reviewed findings and recommendations with pt and OZ, who indicated they understood
== END ==
LOC: RAD 10:36
PROVIDERS: Family Provider Family Medicine; PCP Family Medicine; Referring Provider Family Medicine; Visit Provider Family Medicine
DX: E11.9 Type 2 diabetes mellitus without complications; R13.10 Dysphagia, unspecified; G62.9 Polyneuropathy, unspecified
CPT/HCPCS: 36415; 74230; 80053; 82607; 83036; 84439; 84443; 84481; 92611

== ENCOUNTER → 2023-09-26 | Outpatient (CLI) | payer MEDICARE, SELFPAY | PROVIDERS: Family Provider Family Medicine; PCP Family Medicine; Referring Provider Student in an Organized Health Care Education/Training Program; Visit Provider Student in an Organized Health Care Education/Training Program ==

== ENCOUNTER 2023-09-27 11:59 | Inpatient (IN) | payer MEDICARE, SELFPAY ==
[2023-09-27] VITALS (14 sets, daily range): BP systolic 117–157; BP diastolic 62–81; PULSE 96–105; RESP 14–22; TEMP 37.4–38.7; O2SAT 94–97; BMI 17.5; BMI 16.9
[2023-09-27] MEDS: SODIUM CHLORIDE 0.9% 1,000 ML 1000 ML IV (11:55)
--- NOTE | 2023-09-27 12:09 | DI.RAD.S_ITS ---
PROCEDURE: XR CHEST 1V INDICATIONS: suspected sepsis TECHNIQUE: One view of the chest was acquired. COMPARISON: [facility], CR, XR CHEST 1V, 02/28/2023, 17:20. FINDINGS: Surgical changes and devices: Sternal wires. Lungs and pleura: Mild left effusion. Mediastinum: Mediastinal contours appear normal. Heart size is enlarged. Bones and chest wall: No suspicious bony lesions. Overlying soft tissues appear unremarkable. IMPRESSION: Mild left effusion. Underlying areas of developing pneumonia and/or atelectasis cannot be excluded. Dictated by: Marivel Fernandez M.D. on 09/27/2023 at 12:50 Approved by: Marivel Fernandez M.D. on 09/27/2023 at 12:51
[2023-09-27 12:20] LABS: INR 1.1 (0.9-1.3); Prothrombin Time 12.5 SECONDS (9.4-12.5)
[2023-09-27 12:22] LABS: Add Manual Diff / Slide Review NO; Basophils Absolute Auto 100 /uL (0-100); Basophils Percent Auto 0.7 % (0-2); Eosinophils Absolute Auto 0 /uL (0-450); Eosinophils Percent Auto 0.1 % (2-4); Hematocrit 33.2 % (41-53); Lymphocytes Absolute Auto 1600 /uL (1100-4500); Lymphocytes Percent Auto 13.3 % (25-40); Mean Corpuscular HGB Conc 33.2 % (30-36); Mean Corpuscular Hemoglobin 29.3 PG (26-34); Mean Corpuscular Volume 88.3 fL (80-100); Monocytes Absolute Auto 1300 /uL (0-900); Monocytes Percent Auto 11.3 % (3-14); Neutrophils Absolute Auto 8800 /uL (1500-7000); Neutrophils Percent Auto 74.6 % (50-75); PTT Partial Thromboplastin Tim 24 SECONDS (25.1-36.5); Platelet Count 179 X10^3/uL (150-400); Red Blood Cell Count 3.76 X10^6/uL (4.5-5.9); Red Cell Distribution Width 14.7 % (11.6-14.8); White Blood Cell Count 11.7 X10^3/uL (4.5-11.0)
[2023-09-27 12:24] LABS: Alanine Aminotransferase 33 IU/L (<50); Albumin 3.8 g/dL (3.5-5.0); Alkaline Phosphatase 75 U/L (38-126); Aspartate Aminotransferase 48 IU/L (17-59); BUN Creatinine Ratio 33.8 (6-22); Bilirubin Total 0.9 mg/dL (0.2-1.3); Blood Urea Nitrogen 46 mg/dL (9-20); Calcium 9.5 mg/dL (8.4-10.2); Carbon Dioxide 27 mmol/L (22-32); Chloride 98 mmol/L (98-107); Creatine Kinase 62 U/L (55-170); Estimated Glomerular Filt Rate 56 mL/min (>60); Globulin 3.9 g/dL (1.7-4.1); Glucose 140 mg/dL (80-110); HEMOLYSIS 63 (0-50); Lipase 127 U/L (23-300); Potassium 4.4 mmol/L (3.4-5.1); Sodium 134 mmol/L (137-145); Total Protein 7.7 g/dL (6.3-8.2)
[2023-09-27 12:25] LABS: Lactate (Lactic Acid) 1.3 mmol/L (0.7-2.1)
[2023-09-27 12:36] LABS: NT-proBNP (BNP-Adult 18+) 4020 pg/mL (<125)
[2023-09-27 12:40] LABS: Procalcitonin 0.21 ng/mL (<0.5)
[2023-09-27 13:13] LABS: Adenovirus Not Detected (Not Detect); B. parapertussis Not Detected (Not Detecte); Bordetella pertussis Not Detected (Not Detect); Chlamydophila pneumoniae Not Detected (Not Detect); Coronavirus 229E Not Detected (Not Detect); Coronavirus HKU1 Not Detected (Not Detect); Coronavirus NL 63 Not Detected (Not Detect); Coronavirus OC43 Not Detected (Not Detect); Human Metapneumovirus Not Detected (Not Detect); Human Rhinovirus/Enterovirus Not Detected (Not Detect); Influenza A Not Detected (Not Detect); Influenza B Not Detected (Not Detect); Mycoplasma pneumoniae Not Detected (Not Detect); Parainfluenza Virus 1 Not Detected (Not Detect); Parainfluenza Virus 2 Not Detected (Not Detect); Parainfluenza Virus 3 Not Detected (Not Detect); Parainfluenza Virus 4 Not Detected (Not Detect); Respiratory Syncytial Virus Not Detected (Not Detect)
[2023-09-27 13:24] LABS: SARS- CoV-2 Detected (Not Detecte)
[2023-09-27 16:01] LABS: Bacteria Urine Occasional (0-1); Culture Indicated Urine Cult Not Indicated; Mucus Urine 3+ (Negative); RBC Urine 0-1/HPF (0-5/HPF); Squamous Epithelial Cell Urine 0-1 /HPF (0-5/HPF); WBC Urine 0-1/HPF (0-5/HPF)
--- NOTE | 2023-09-27 16:22 | ED.FEVER ---
HPI - Fever General Chief Complaint: Fever Stated Complaint: fever, sore throat, Time Seen by Provider: 09/27/23 16:19 Source: patient, family (sister, lives with patient) and EMS Mode of arrival: EMS Limitations: no limitations History of Present Illness HPI Narrative: 72-year-old male history of 4 vessel CABG, no pulmonary effusions, diabetes, hypertension, dyslipidemia, aortic stenosis on aspirin daily who presents with complaint of fever, sore throat and generalized weakness. Patient was unable to get out of bed today to get to the bathroom. No recent falls or injuries. Had a fever of 102 F at home. Has had a sore throat, denies chest pain or pressure state he has not really short of breath. Denies any nausea or vomiting. No diarrhea constipation, no urinary symptoms no swelling of extremities. Patient states quite tired and feeling weak in general. Patient has no known drug allergies. No regular tobacco, alcohol or illicit. Dr. Chiu is his primary care physician. Related Data Home Medications Medication Instructions Recorded Confirmed atorvastatin 80 mg tablet 80 mg PO DAILY 09/15/23 09/27/23 empagliflozin 10 mg tablet 10 mg PO DAILY 09/15/23 09/27/23 (Jardiance) furosemide 20 mg tablet 20 mg PO DAILY 09/15/23 09/27/23 metformin 500 mg tablet 500 mg PO BID 09/15/23 09/27/23 potassium chloride 10 mEq 10 meq PO 4XD 09/15/23 09/27/23 tablet,extended release pregabalin 150 mg capsule 150 mg PO BID 09/15/23 09/27/23 aspirin 81 mg capsule 81 mg PO DAILY 09/27/23 09/27/23 insulin glargine 100 unit/mL (3 12 unit SUBCUT DAILY 09/27/23 09/27/23 mL) subcutaneous pen (Basaglar KwikPen U-100 Insulin) Previous Rx's Medication Instructions Recorded glucometer #1 ea 09/15/23 glucose test strips #400 ea 09/15/23 Allergies Allergy/AdvReac Type Severity Reaction Status Date / Time No Known Drug Allergies Allergy Verified 09/15/23 16:14 Review of Systems Review of Systems ROS Unobtainable: All systems reviewed & are unremarkable except as noted in HPI and below Patient History Medical History Foot pain Mumps Measles Chicken pox Recurrent sinusitis Hearing loss Systolic heart failure Coronary artery disease Aortic stenosis Rash of foot Toenail fungus Peripheral neuropathy Type 2 diabetes mellitus Dysphagia Surgical History History of quadruple bypass Family History Father Cancer History of heart disease Mother Diabetes mellitus Social History household members: family Smoking Status: Never smoker alcohol intake: never Smoking Status: Never smoker alcohol intake frequency: other Substance Use Type: does not use Exam Narrative Exam Narrative: GEN: Thin elderly male, alert and oriented x 3, patient appears to be in mild distress. Patient appears to feel unwell but appears nontoxic. HEENT: Atraumatic, pupils are equal round reactive to light, extraocular movements are intact, nares are clear, TMs are clear with no fluid, there is no conjunctival pallor. Throat is erythematous without any exudates or tonsillar enlargement or uvular deviation, voice is slightly raspy. HEART: Regular rate and rhythm without murmur, clicks, rubs. Pulses are equal in upper and lower extremities LUNGS:Lungs clear to auscultation, no wheezes, rales, crackles, chest moves symmetrically ABD:bowel sounds normal, soft, non-tender, no guarding, rebound, rigidity, no masses noted, no hepatosplenomegaly MSCL: Non-tender, no muscle atrophy, muscles strength 5/5 upper and lower extremities, full range of motion, normal gait NEURO:CN 2-12 intact, sensation normal SKIN: No letty, erythema or other skin changes noted. Initial Vital Signs Initial Vital Signs: Vital Signs Temperature 101.6 F H 09/27/23 12:08 Pulse Rate 104 H 09/27/23 12:08 Respiratory Rate 18 09/27/23 12:08 Blood Pressure 147/81 H 09/27/23 12:08 Pulse Oximetry 96 09/27/23 12:08 Oxygen Delivery Method Room Air 09/27/23 12:08 Course Orders Ordered: ED Orders 09/27/23 12:03 Complete Blood Count AUTO DIFF Stat Comprehensive Metabolic Panel Stat Lactate (Lactic Acid) Stat Lipase Stat NT-proBNP (BNP-Adult 18+) Stat PTT Partial Thromboplastin Janes Stat Procalcitonin Stat Prothrombin Time INR Stat Troponin & CK Cardiac Panel Stat 09/27/23 12:09 XR chest 1V Stat EKG-12 Lead Stat RT Consult Eval and Treat NOW 09/27/23 12:21 Respiratory Panel (Film Array) Stat 09/27/23 13:09 Blood Culture Stat 09/27/23 14:15 EKG-12 Lead Stat 09/27/23 15:02 Troponin I Stat 09/27/23 15:22 Urine Culture Stat Urine Microscopic Stat Acetaminophen (Acetaminophen 325 Mg Tablet) 975 mg PO Q6HR PRN PRN Reason: Fever/Mild Pain (1-3) Albuterol/Ipratropium (Albuterol/Ipratropium 3 Ml Ampul) 3 ml INH [id number] PRN PRN Reason: shortness of breath/wheezing Atorvastatin Calcium (Atorvastatin 20 Mg Tablet) 80 mg PO DAILY [facility] Azithromycin (Azithromycin 250 Mg Tablet) 500 mg PO DAILY [facility] Stop: 09/29/23 09:01 Last Admin: 09/27/23 18:24 Dose: 500 mg Documented By: CORRINE Benzonatate (Benzonatate 100 Mg Capsule) 100 mg PO TID PRN PRN Reason: Cough Guaifenesin (Guaifenesin Er 600 Mg Tab) 600 mg PO BID [facility] Last Admin: 09/27/23 18:24 Dose: 600 mg Documented By: CORRINE Heparin Sodium (Porcine) (Heparin 5,000 Unit/Ml Vial) 5,000 unit SUBCUT BID [facility] Ceftriaxone Sodium 1,000 mg/ (Sodium Chloride) 100 mls @ 200 mls/hr IV Q24H [facility] Stop: 10/01/23 17:46 Last Admin: 09/27/23 18:21 Dose: 200 mls/hr Documented By: CORRINE Dextrose (D10w) 100 mls @ 1,200 mls/hr IV PRN PRN PRN Reason: Hypoglycemia Insulin Glargine (Insulin Glargine 100 Unit/Ml 3ml Pen) 8 unit SUBCUT BEDTIME [facility] Insulin Human Lispro (Insulin Lispro 100 Unit/Ml 3ml Vial) 0 unit SUBCUT ACHS [facility]; Protocol Melatonin (Melatonin 3 Mg Tablet) 6 mg PO BEDTIME PRN PRN Reason: Insomnia Metformin HCl (Metformin Hcl 500 Mg Tablet) 500 mg PO BID [facility] Naloxone HCl (Naloxone 0.4 Mg/Ml Vial) 0.2 mg IV Q2MIN PRN PRN Reason: Opiate Reversal Empagliflozin [ Jardiance] 10 Mg Tablet 10 mg PO DAILY [facility] Ondansetron HCl (Ondansetron 4 Mg/2 Ml Inj) 4 mg IV NOW PRN PRN Reason: Nausea And Vomiting Ondansetron HCl (Ondansetron 4 Mg Odt) 4 mg SL NOW PRN PRN Reason: Nausea And Vomiting Ondansetron HCl (Ondansetron 4 Mg/2 Ml Inj) 4 mg IV Q4HR PRN PRN Reason: Nausea And Vomiting Polyethylene Glycol (Polyethylene Glycol 3350 17 Gm Powd.Pack) 17 gm PO DAILY PRN PRN Reason: Constipation Pregabalin (Pregabalin 75 Mg Capsule) 150 mg PO BID [facility] Sennosides (Sennosides 8.6 Mg Tablet) 8.6 mg PO BID PRN PRN Reason: Constipation Discontinued Medications Sodium Chloride (Normal Saline 0.9%) 1,000 mls @ 1,000 mls/hr IV BOLUS ONE Stop: 09/27/23 13:08 Last Infusion: 09/27/23 12:58 Dose: Infused Documented By: Admin: 09/27/23 11:55 Dose: 1,000 mls/hr Documented By: [facility] Vital Signs Vital signs: Vital Signs - 8 hr 09/27/23 12:08 09/27/23 13:37 09/27/23 13:37 Temperature 101.6 F H Pulse Rate 104 H 102 H 103 H Respiratory Rate 18 14 15 Blood Pressure 147/81 H 143/69 H Pulse Oximetry 96 95 97 Oxygen Delivery Method Room Air Room Air 09/27/23 14:00 09/27/23 14:00 09/27/23 14:30 Temperature Pulse Rate 101 H Respiratory Rate 16 Blood Pressure 121/65 131/67 Pulse Oximetry 97 Oxygen Delivery Method Room Air 09/27/23 14:30 09/27/23 15:00 09/27/23 15:05 Temperature Pulse Rate 100 H 98 H 97 H Respiratory Rate 15 16 17 Blood Pressure Pulse Oximetry 96 97 97 Oxygen Delivery Method Room Air 09/27/23 15:05 09/27/23 15:30 09/27/23 15:30 Temperature Pulse Rate 96 H Respiratory Rate 17 Blood Pressure 117/62 125/63 Pulse Oximetry 97 Oxygen Delivery Method Room Air 09/27/23 16:00 09/27/23 16:00 09/27/23 16:01 Temperature 99.8 F H Pulse Rate 100 H Respiratory Rate 18 Blood Pressure 157/77 H Pulse Oximetry 97 Oxygen Delivery Method 09/27/23 16:30 09/27/23 16:30 09/27/23 17:00 Temperature Pulse Rate 99 H Respiratory Rate 17 Blood Pressure 153/74 H 155/76 H Pulse Oximetry 94 Oxygen Delivery Method 09/27/23 17:00 Temperature Pulse Rate 102 H Respiratory Rate 18 Blood Pressure Pulse Oximetry 96 Oxygen Delivery Method MDM - Fever Lab Data 09/27/23 12:03 09/27/23 12:03 Labs: Lab Results 09/27/23 09/27/23 09/27/23 Range/Units 12:03 12:21 15:02 WBC 11.7 H (4.5-11.0) X10^3/uL RBC 3.76 L (4.5-5.9) X10^6/uL Hgb 11.0 L (13.5-17.5) g/dL Hct 33.2 L (41-53) % MCV 88.3 (80-100) fL MCH 29.3 (26-34) PG MCHC 33.2 (30-36) % RDW 14.7 (11.6-14.8) % Plt Count 179 (150-400) X10^3/uL Neut % (Auto) 74.6 (50-75) % Lymph % (Auto) 13.3 L (25-40) % [place] % (Auto) 11.3 (3-14) % Eos % (Auto) 0.1 L (2-4) % Baso % (Auto) 0.7 (0-2) % Neut # (Auto) 8800 H (1256-7331) /uL Lymph # (Auto) 1600 (5773-4568) /uL [place] # (Auto) 1300 H (0-900) /uL Eos # (Auto) 0 (0-450) /uL Baso # (Auto) 100 (0-100) /uL PT 12.5 (9.4-12.5) SECONDS INR 1.1 (0.9-1.3) APTT 24 L (25.1-36.5) SECONDS Sodium 134 L (137-145) mmol/L Potassium 4.4 (3.4-5.1) mmol/L Chloride 98 (98-107) mmol/L Carbon Dioxide 27 (22-32) mmol/L BUN 46 H (9-20) mg/dL Creatinine 1.36 H (0.66-1.25) mg/dL Estimated GFR 56 L (>60) mL/min BUN/Creatinine Ratio 33.8 H (6-22) Glucose 140 H (80-110) mg/dL Lactate 1.3 (0.7-2.1) mmol/L Calcium 9.5 (8.4-10.2) mg/dL Total Bilirubin 0.9 (0.2-1.3) mg/dL AST 48 (17-59) IU/L ALT 33 (<50) IU/L Alkaline Phosphatase 75 (38-126) U/L Total Creatine Kinase 62 (55-170) U/L Troponin I 0.040 H 0.050 H (0.01-0.034) ng/mL NT-Pro-B Natriuret Pep 4020 H (<125) pg/mL Total Protein 7.7 (6.3-8.2) g/dL Albumin 3.8 (3.5-5.0) g/dL Globulin 3.9 (1.7-4.1) g/dL Albumin/Globulin Ratio 1.0 (1.0-2.8) Lipase 127 (23-300) U/L Procalcitonin 0.21 (<0.5) ng/mL Urine RBC (0-5/HPF) Urine WBC (0-5/HPF) Ur Squamous Epith Cells (0-5/HPF) Urine Bacteria (None) Urine Mucus (Negative) Ur Culture Indicated? Chlamy pneumoniae PCR Not detected (Not Detect) Adenovirus (PCR) Not detected (Not Detect) B.parapertussis DNA PCR Not detected (Not Detecte) Coronavirus OC43 (PCR) Not detected (Not Detect) Coronavirus HKU1 (PCR) Not detected (Not Detect) Coronavirus 229E (PCR) Not detected (Not Detect) SARS-CoV-2 (PCR) Detected H (Not Detecte) Coronavirus NL63 (PCR) Not detected (Not Detect) Human Metapneumovir PCR Not detected (Not Detect) Influenza Type A (PCR) Not detected (Not Detect) Influenza Type B (PCR) Not detected (Not Detect) M. pneumoniae (PCR) Not detected (Not Detect) Parainfluenza 1 (PCR) Not detected (Not Detect) Parainfluenza 2 (PCR) Not detected (Not Detect) Parainfluenza 3 (PCR) Not detected (Not Detect) Parainfluenza 4 (PCR) Not detected (Not Detect) RSV (PCR) Not detected (Not Detect) Entero/Rhino (PCR) Not detected (Not Detect) 09/27/23 Range/Units 15:22 WBC (4.5-11.0) X10^3/uL RBC (4.5-5.9) X10^6/uL Hgb (13.5-17.5) g/dL Hct (41-53) % MCV (80-100) fL MCH (26-34) PG MCHC (30-36) % RDW (11.6-14.8) % Plt Count (150-400) X10^3/uL Neut % (Auto) (50-75) % Lymph % (Auto) (25-40) % [place] % (Auto) (3-14) % Eos % (Auto) (2-4) % Baso % (Auto) (0-2) % Neut # (Auto) (1977-9152) /uL Lymph # (Auto) (1275-9485) /uL [place] # (Auto) (0-900) /uL Eos # (Auto) (0-450) /uL Baso # (Auto) (0-100) /uL PT (9.4-12.5) SECONDS INR (0.9-1.3) APTT (25.1-36.5) SECONDS Sodium (137-145) mmol/L Potassium (3.4-5.1) mmol/L Chloride (98-107) mmol/L Carbon Dioxide (22-32) mmol/L BUN (9-20) mg/dL Creatinine (0.66-1.25) mg/dL Estimated GFR (>60) mL/min BUN/Creatinine Ratio (6-22) Glucose (80-110) mg/dL Lactate (0.7-2.1) mmol/L Calcium (8.4-10.2) mg/dL Total Bilirubin (0.2-1.3) mg/dL AST (17-59) IU/L ALT (<50) IU/L Alkaline Phosphatase (38-126) U/L Total Creatine Kinase (55-170) U/L Troponin I (0.01-0.034) ng/mL NT-Pro-B Natriuret Pep (<125) pg/mL Total Protein (6.3-8.2) g/dL Albumin (3.5-5.0) g/dL Globulin (1.7-4.1) g/dL Albumin/Globulin Ratio (1.0-2.8) Lipase (23-300) U/L Procalcitonin (<0.5) ng/mL Urine RBC 0-1/hpf (0-5/HPF) Urine WBC 0-1/hpf (0-5/HPF) Ur Squamous Epith Cells 0-1 /hpf (0-5/HPF) Urine Bacteria Occasional (0-1) (None) Urine Mucus 3+ H (Negative) Ur Culture Indicated? Cult not indicated Chlamy pneumoniae PCR (Not Detect) Adenovirus (PCR) (Not Detect) B.parapertussis DNA PCR (Not Detecte) Coronavirus OC43 (PCR) (Not Detect) Coronavirus HKU1 (PCR) (Not Detect) Coronavirus 229E (PCR) (Not Detect) SARS-CoV-2 (PCR) (Not Detecte) Coronavirus NL63 (PCR) (Not Detect) Human Metapneumovir PCR (Not Detect) Influenza Type A (PCR) (Not Detect) Influenza Type B (PCR) (Not Detect) M. pneumoniae (PCR) (Not Detect) Parainfluenza 1 (PCR) (Not Detect) Parainfluenza 2 (PCR) (Not Detect) Parainfluenza 3 (PCR) (Not Detect) Parainfluenza 4 (PCR) (Not Detect) RSV (PCR) (Not Detect) Entero/Rhino (PCR) (Not Detect) Urine Dip Bedside Urine Glucose 1000 mg/dl Bedside Urine Bilirubin - Negative Bedside Urine Ketone + 15 Urine Specific [place] 1.015 Bedside Urine Occult Blood + Bedside Urine pH 6.0 Bedside Urine Protein ++ 100 Bedside Urine Urobilinogen - Negative Bedside Urine Nitrite - Negative Bedside Urine Leukocytes - Negative Esterase Imaging Data Chest x-ray: Radiologist's Impression: [address] [address] XRay Report Signed Patient: Meño Roque MR#: [id number] : 1950 Acct:[id number] Age/Sex: 72 / M Date of Service: 09/27/23 Loc: ED Accession Number: [id number] Procedure: XR chest 1V Ordering Provider: Narcisa Fuentes D.O. PROCEDURE: XR CHEST 1V INDICATIONS: suspected sepsis TECHNIQUE: One view of the chest was acquired. COMPARISON: [facility], , XR CHEST 1V, 02/28/2023, 17:20. FINDINGS: Surgical changes and devices: Sternal wires. Lungs and pleura: Mild left effusion. Mediastinum: Mediastinal contours appear normal. Heart size is enlarged. Bones and chest wall: No suspicious bony lesions. Overlying soft tissues appear unremarkable. IMPRESSION: Mild left effusion. Underlying areas of developing pneumonia and/or atelectasis cannot be excluded. Dictated by: Marivel Fernandez M.D. on 09/27/2023 at 12:50 Approved by: Marivel Fernandez M.D. on 09/27/2023 at 12:51 ECG Data Attestation: I personally reviewed and interpreted this ECG as follows: Prior ECG tracings: available for review Interpretation: Sinus tachycardia rate of 105 ME 264 QRS [address] QTC [address] No acute ST elevation appreciated some depression in leads V3 patient has prior from 02/28/2023 which appears similar. Repeat EKG shows sinus tach first-degree AV block rate of 1 0 1p are 266 QRS [address] QTC 396. No acute ST elevation depression compared to priors. Does have changes as above. MDM Narrative Medical decision making narrative: 72-year-old male febrile, tachycardic without any hypoxia. Patient has a white count 11.7 hemoglobin of 11 platelets of 179 glucose 140 creatinine is 1.36, patient's BUN 46 likely has some component of dehydration but this is patient's baseline and slightly improved. With normal electrolytes otherwise. Lactate was 1.3 protocol is 0.21, patient had indeterminate troponin 0.04 repeat was 0.05. BNP is 4020 comparison to 02/28/2023 when it was 7490. Urine shows some protein, 3+ mucus but no other signs of infection. Respiratory panel is positive for COVID. Chest x-ray shows possible pneumonia. Patient did have a barium swallow on 09/26/2023 with flash penetration of liquid and pudding barium. Showed significant residual contrast within the vallecula and piriformis sinuses. Patient has been quite weak unable to get to the bathroom successfully at home. Patient failed ambulation trial here, case discussed with Dr. Rollins who accepts for observation. May start antibiotics but will hold in the ED. Discharge Plan Departure Patient Disposition: Admitted as Observation Clinical Impression: COVID-19 virus infection, Dysphagia Admit Date/Time: 09/27/23 17:29 Admit Provider: Edilson Rollins
--- NOTE | 2023-09-27 17:08 | PC.NURSE ---
standby assist, dizziness with standing. Too weak, unable to ambulate.
--- NOTE | 2023-09-27 17:42 | P.HP_ITS ---
History of Present Illness History of Present Illness Date Patient Seen: 09/27/23 Chief complaint: fever, sore throat, Narrative: Meño Roque is a 72yo M with PMH of CAD s/p CABG x4 in 2021, poorly- controlled DM2, aortic stenosis, CKD, HTN and HLD who presents with worsening weakness, fever, cough and sore throat. Found in the ED to be COVID positive on PCR panel. Patient was seen in his PCP's office about a week ago for dysphagia and had an MBS done yesterday which showed laryngeal penetration and trace aspiration. In ED patient had leukocytosis of 11.7, CXR with L pleural effusion and can't rule out pneumonia, and procal 0.21. Patient currently mostly endorses swollen glands and a sore throat. He says he has difficulty swallowing most things due to swelling in his throat. He isn't sure why he is underweight. He thinks he may have gotten COVID from his sister who has had a cough lately. He denies CP, NV, abd pain, or diarrhea. [facility], [facility] Medical History Foot pain Mumps Measles Chicken pox Recurrent sinusitis Hearing loss Systolic heart failure Coronary artery disease Aortic stenosis Rash of foot Toenail fungus Peripheral neuropathy Type 2 diabetes mellitus Dysphagia Surgical History History of quadruple bypass Family History Father Cancer History of heart disease Mother Diabetes mellitus Social History Smoking Status: Never smoker Meds Home Medications and Allergies Home Medications Medication Instructions Recorded Confirmed Type atorvastatin 80 mg tablet 80 mg PO DAILY 09/15/23 09/27/23 History empagliflozin 10 mg tablet 10 mg PO DAILY 09/15/23 09/27/23 History (Jardiance) furosemide 20 mg tablet 20 mg PO DAILY 09/15/23 09/27/23 History glucometer #1 ea 09/15/23 09/27/23 Rx glucose test strips #400 ea 09/15/23 09/27/23 Rx metformin 500 mg tablet 500 mg PO BID 09/15/23 09/27/23 History potassium chloride 10 mEq 10 meq PO 4XD 09/15/23 09/27/23 History tablet,extended release pregabalin 150 mg capsule 150 mg PO BID 09/15/23 09/27/23 History aspirin 81 mg capsule 81 mg PO DAILY 09/27/23 09/27/23 History insulin glargine 100 unit/mL (3 12 unit SUBCUT DAILY 09/27/23 09/27/23 History mL) subcutaneous pen (Basaglar KwikPen U-100 Insulin) Allergies Allergy/AdvReac Type Severity Reaction Status Date / Time No Known Drug Allergies Allergy Verified 09/15/23 16:14 Review of Systems Review of Systems Narrative: All other systems reviewed with the patient and are negative unless otherwise stated. Exam Vital Signs (past 8 hours): - 09/27/23 12:08 09/27/23 13:37 09/27/23 13:37 Temperature 101.6 F H Pulse Rate 104 H 102 H 103 H Respiratory Rate 18 14 15 Blood Pressure 147/81 H 143/69 H Pulse Oximetry 96 95 97 Oxygen Delivery Method Room Air Room Air 09/27/23 14:00 09/27/23 14:00 09/27/23 14:30 Temperature Pulse Rate 101 H Respiratory Rate 16 Blood Pressure 121/65 131/67 Pulse Oximetry 97 Oxygen Delivery Method Room Air 09/27/23 14:30 09/27/23 15:00 09/27/23 15:05 Temperature Pulse Rate 100 H 98 H 97 H Respiratory Rate 15 16 17 Blood Pressure Pulse Oximetry 96 97 97 Oxygen Delivery Method Room Air 09/27/23 15:05 09/27/23 15:30 09/27/23 15:30 Temperature Pulse Rate 96 H Respiratory Rate 17 Blood Pressure 117/62 125/63 Pulse Oximetry 97 Oxygen Delivery Method Room Air 09/27/23 16:00 09/27/23 16:00 09/27/23 16:01 Temperature 99.8 F H Pulse Rate 100 H Respiratory Rate 18 Blood Pressure 157/77 H Pulse Oximetry 97 Oxygen Delivery Method 09/27/23 16:30 09/27/23 16:30 09/27/23 17:00 Temperature Pulse Rate 99 H Respiratory Rate 17 Blood Pressure 153/74 H 155/76 H Pulse Oximetry 94 Oxygen Delivery Method 09/27/23 17:00 Temperature Pulse Rate 102 H Respiratory Rate 18 Blood Pressure Pulse Oximetry 96 Oxygen Delivery Method Oxygen Delivery Method Room Air Narrative Exam Narrative: GEN: no acute distress, thin HEENT: moist mucous membranes, PERRL, swollen submandibular glands NECK: trachea midline, no JVD CV: regular rate and rhythm, no murmurs PULM: clear bilaterally ABD: soft, nontender, nondistended, no organomegaly EXT: warm and well perfused with no edema NEURO: awake, alert, oriented, no focal deficits Objective Labs 09/27/23 12:03 09/27/23 12:03 Labs: Laboratory Results - last 24 hr 09/27/23 09/27/23 09/27/23 12:03 12:21 15:02 WBC 11.7 H RBC 3.76 L Hgb 11.0 L Hct 33.2 L MCV 88.3 MCH 29.3 MCHC 33.2 RDW 14.7 Plt Count 179 Neut % (Auto) 74.6 Lymph % (Auto) 13.3 L [place] % (Auto) 11.3 Eos % (Auto) 0.1 L Baso % (Auto) 0.7 Neut # (Auto) 8800 H Lymph # (Auto) 1600 [place] # (Auto) 1300 H Eos # (Auto) 0 Baso # (Auto) 100 PT 12.5 INR 1.1 APTT 24 L Sodium 134 L Potassium 4.4 Chloride 98 Carbon Dioxide 27 BUN 46 H Creatinine 1.36 H Estimated GFR 56 L BUN/Creatinine Ratio 33.8 H Glucose 140 H Lactate 1.3 Calcium 9.5 Total Bilirubin 0.9 AST 48 ALT 33 Alkaline Phosphatase 75 Total Creatine Kinase 62 Troponin I 0.040 H 0.050 H NT-Pro-B Natriuret Pep 4020 H Total Protein 7.7 Albumin 3.8 Globulin 3.9 Albumin/Globulin Ratio 1.0 Lipase 127 Procalcitonin 0.21 Urine RBC Urine WBC Ur Squamous Epith Cells Urine Bacteria Urine Mucus Ur Culture Indicated? Chlamy pneumoniae PCR Not detected Adenovirus (PCR) Not detected B.parapertussis DNA PCR Not detected Coronavirus OC43 (PCR) Not detected Coronavirus HKU1 (PCR) Not detected Coronavirus 229E (PCR) Not detected SARS-CoV-2 (PCR) Detected H Coronavirus NL63 (PCR) Not detected Human Metapneumovir PCR Not detected Influenza Type A (PCR) Not detected Influenza Type B (PCR) Not detected M. pneumoniae (PCR) Not detected Parainfluenza 1 (PCR) Not detected Parainfluenza 2 (PCR) Not detected Parainfluenza 3 (PCR) Not detected Parainfluenza 4 (PCR) Not detected RSV (PCR) Not detected Entero/Rhino (PCR) Not detected 09/27/23 15:22 WBC RBC Hgb Hct MCV MCH MCHC RDW Plt Count Neut % (Auto) Lymph % (Auto) [place] % (Auto) Eos % (Auto) Baso % (Auto) Neut # (Auto) Lymph # (Auto) [place] # (Auto) Eos # (Auto) Baso # (Auto) PT INR APTT Sodium Potassium Chloride Carbon Dioxide BUN Creatinine Estimated GFR BUN/Creatinine Ratio Glucose Lactate Calcium Total Bilirubin AST ALT Alkaline Phosphatase Total Creatine Kinase Troponin I NT-Pro-B Natriuret Pep Total Protein Albumin Globulin Albumin/Globulin Ratio Lipase Procalcitonin Urine RBC 0-1/hpf Urine WBC 0-1/hpf Ur Squamous Epith Cells 0-1 /hpf Urine Bacteria Occasional (0-1) Urine Mucus 3+ H Ur Culture Indicated? Cult not indicated Chlamy pneumoniae PCR Adenovirus (PCR) B.parapertussis DNA PCR Coronavirus OC43 (PCR) Coronavirus HKU1 (PCR) Coronavirus 229E (PCR) SARS-CoV-2 (PCR) Coronavirus NL63 (PCR) Human Metapneumovir PCR Influenza Type A (PCR) Influenza Type B (PCR) M. pneumoniae (PCR) Parainfluenza 1 (PCR) Parainfluenza 2 (PCR) Parainfluenza 3 (PCR) Parainfluenza 4 (PCR) RSV (PCR) Entero/Rhino (PCR) Assessment & Plan Assessment & Plan narrative: # COVID pneumonia -presented with worsening shortness of breath, cough, sore throat and fever -will cover with CAP abx given leukocytosis, can't r/o on CXR and mildly elevated procal -rocephin and azithro -not requiring supp O2 -mucinex and tessalon perles PRN # dysphagia -MBS with mild aspiration documented on 09/26 -dysphagia diet -[employer]INE [employer] eval # weakness, low BMI -likely due to COVID, also may be malnourished as BMI 17 -PT/OT/edger liner consults # DM2 -last A1c 12.7% -continue metformin and lantus 8 units nightly -SSI -diabetes education # CKD -stable -renally dose meds # CAD s/p CABG x4 -continue statin and jardiance -hold lasix for now Code status is full code. DVT prophylaxis with heparin. Proxy is sister Katlin. I have reviewed home meds and used all available resources to reconcile the home meds. Case discussed with ED physician/APC and patient will be admitted to the hospitalist service for further workup and management. This patient will be admitted as observation and will require less than 2 midnights of hospital time to treat COVID.
[2023-09-27] MEDS: cefTRIAXone 1,000 MG in SODIUM CHLORIDE 0.9% 100 ML 200 MG IV (18:21)
[2023-09-27] MEDS: AZITHROMYCIN 250 MG TABLET 500 MG PO (18:24)
[2023-09-27] MEDS: guaiFENesin ER 600 MG TAB PO ×2 (18:24→20:37)
[2023-09-27 18:46] LABS: Magnesium 1.5 mg/dL (1.6-2.3)
[2023-09-27] MEDS: MAGNESIUM SULFATE 2 GM/50 ML PIGGYBACK IV (19:48)
[2023-09-27] MEDS: METFORMIN HCL 500 MG TABLET PO (20:37)
[2023-09-27] MEDS: SENNOSIDES 8.6 MG TABLET PO (20:37)
[2023-09-27] MEDS: BENZONATATE 100 MG CAPSULE PO (20:37)
[2023-09-27] MEDS: PREGABALIN 75 MG CAPSULE 150 MG PO (20:37)
[2023-09-27] MEDS: HEPARIN 5,000 UNIT/ML VIAL 5000 UNIT SUBCUT (20:37)
[2023-09-27] MEDS: MELATONIN 3 MG TABLET 6 MG PO (20:38)
[2023-09-27] MEDS: INSULIN GLARGINE 100 UNIT/ML 3ML PEN 8 UNIT SUBCUT (20:41)
[2023-09-28] VITALS (8 sets, daily range): BP systolic 97–130; BP diastolic 41–66; PULSE 78–91; RESP 15–18; TEMP 36.9–38.2; O2SAT 91–98
[2023-09-28 05:32] LABS: Add Manual Diff / Slide Review NO; Basophils Absolute Auto 100 /uL (0-100); Basophils Percent Auto 0.5 % (0-2); Eosinophils Absolute Auto 0 /uL (0-450); Lymphocytes Absolute Auto 2200 /uL (1100-4500); Lymphocytes Percent Auto 20.2 % (25-40); Mean Corpuscular HGB Conc 33.3 % (30-36); Mean Corpuscular Hemoglobin 29.3 PG (26-34); Mean Corpuscular Volume 87.8 fL (80-100); Monocytes Absolute Auto 1100 /uL (0-900); Monocytes Percent Auto 10.5 % (3-14); Neutrophils Absolute Auto 7500 /uL (1500-7000); Neutrophils Percent Auto 68.8 % (50-75); Platelet Count 146 X10^3/uL (150-400); Red Blood Cell Count 3.41 X10^6/uL (4.5-5.9); Red Cell Distribution Width 14.9 % (11.6-14.8)
[2023-09-28 05:42] LABS: Blood Urea Nitrogen 38 mg/dL (9-20); Calcium 8.9 mg/dL (8.4-10.2); Carbon Dioxide 26 mmol/L (22-32); Chloride 102 mmol/L (98-107); Estimated Glomerular Filt Rate 51 mL/min (>60); Glucose 63 mg/dL (80-110); HEMOLYSIS < 15 (0-50); Potassium 3.8 mmol/L (3.4-5.1); Sodium 136 mmol/L (137-145)
[2023-09-28] MEDS: SODIUM CHLORIDE 0.9% 500 ML IV (05:48)
[2023-09-28 05:51] LABS: Magnesium 2.3 mg/dL (1.6-2.3)
[2023-09-28 06:16] LABS: Procalcitonin 1.05 ng/mL (<0.5)
--- NOTE | 2023-09-28 06:47 | PC.NURSE ---
@[address] Titus, regarding persistent Hypotension over last few hours, 103/49 @0001 and 0400, now 97/41.Provider response is start 500ml NS fluid bolus. BP dee to 130/66 (78) @0640. @0615 Pt BG reported low (63) in morning labs. Pt alert and oriented, consumed 1 honey packet and 8oz juice @0620. Pt BG was 78 @0640.
[2023-09-28] MEDS: guaiFENesin ER 600 MG TAB PO ×2 (08:07→22:06)
[2023-09-28] MEDS: ATORVASTATIN 20 MG TABLET 80 MG PO (08:07)
[2023-09-28] MEDS: PREGABALIN 75 MG CAPSULE 150 MG PO ×2 (08:07→22:06)
[2023-09-28] MEDS: METFORMIN HCL 500 MG TABLET PO ×2 (08:08→22:05)
[2023-09-28] MEDS: HEPARIN 5,000 UNIT/ML VIAL 5000 UNIT SUBCUT ×2 (08:08→22:05)
[2023-09-28] MEDS: AZITHROMYCIN 250 MG TABLET 500 MG PO (08:10)
--- NOTE | 2023-09-28 09:55 | PT.IIE ---
Surgical History (Last Reviewed 09/27/23 @ 16:59 by Narcisa Fuentes DO) History of quadruple bypass Medical History (Last Reviewed 09/27/23 @ 16:59 by Narcisa Fuentes DO) Aortic stenosis Chicken pox Coronary artery disease Dysphagia Foot pain Hearing loss Measles Mumps Peripheral neuropathy Rash of foot Recurrent sinusitis Systolic heart failure Toenail fungus Type 2 diabetes mellitus Physical Therapy Inpatient Evaluation/Re-Eval M1 PT/OT-IP Prior Functional Status Start: 09/28/23 11:54 Freq: NEEDED Status: Active Protocol: Document 09/28/23 09:55 AB (Rec: 09/28/23 12:12 AB [id number]) Medical Review Prior Functional Status Medical History Reviewed Yes Communication able to make needs known but pt is slow to respond to questions and has a very soft speech Mobility and Gait pt stated that he was independent with all mobilities and ambulation wihtout AD Social History Household Members family Living Arrangements House Number of Floors (Floors) Two Floors Number of Stairs To Enter/Railing? 4 steps B rails to enter 10 steps down to the basement bedroom with L rail descending Home Environment Standard Height Toilet,Tub/ Shower Home Equipment Hand Held Shower Additional Social History Comment pt stated that he lives with his sister and OZ and can assist him if needed M2 PT-IP Current Condition Start: 09/28/23 11:54 Freq: NEEDED Status: Active Protocol: Document 09/28/23 09:55 AB (Rec: 09/28/23 12:12 AB [id number]) Physical Therapy Current Condition Current Condition Evaluation Date 09/28/23 Treatment Diagnosis covid; difficulty in walking Onset Date 09/27/23 M3 PT-IP Subjective Start: 09/28/23 11:54 Freq: NEEDED Status: Active Protocol: Document 09/28/23 09:55 AB (Rec: 09/28/23 12:12 AB [id number]) Subjective Physical Therapy Visit Type Type Initial Evaluation Visit Start Time 09:55 Visit Stop Time 10:30 Total Visit Minutes 35 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 of METAL 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 Visits 0 Physical Therapy Visit Comments Patient Comments agreeable to do PT Therapy Pain Assessment Pain Present Pain Present Denied Pain M4 PT-IP Mobility and Gait Start: 09/28/23 11:54 Freq: NEEDED Status: Active Protocol: Document 09/28/23 09:55 AB (Rec: 09/28/23 12:12 AB [id number]) PT-Bed Mobility Assessment Supine to Sit Supine to Sit Standby Assistance Sit to Supine Sit to Supine Standby Assistance PT-Transfer Assessment Sit to and From Stand Sit to and from Stand Minimal Assistance,Moderate Assistance,1 Person Assistance ,Use of Upper Extremities Equipment Transfer Assistive Device Gait Belt,Front Wheeled Walker Orthotic/Prosthetic Devices or Brace: No Comments Mobility Comments pt supine in bed and agreed to do PT. obtained PLOF and home set up info. BP in supine: 97/48 and O2 sat at RA 90%. pt completed supine to sit with HOB elevated ~ 20 deg SBA. pt able to sit on EOB SBA. pt slow to respond to questions and instructions. BP in sittin/53 O2 sat 95% @ RA. pt completed sit to stand min to mod A and cues. min to mod A for standing balance with increase posterior trunk lean. cued to correct and use FWW for steadiness. pt ambulated in room using FWW ~ 25 ft min A and mod A with increase posterior trunk lean and lateral lean to the L. pt refuse to sit up on the chair and wants to go back to bed. pt completed sit to supine SBA. positioned pt on the chair. call light and table placed within reach. Gait Assessment Gait Gait Assistance Required: Minimum Assistance,Moderate Assistance,1 Person Assist Distance (Feet) 25 Able to Maintain Weight Bearing Status Yes During Gait Assistive Devices Assistive Device Gait Belt,Front Wheeled Walker Orthotic/Prosthetic Devices or Brace: No Gait Deviations General Gait Pattern Antalgic,Decreased Stride Length,Decreased Feet Clearance Factors Limiting Gait Function Factors Limiting Gait Function Decreased Activity Tolerance, Decreased Strength,Difficulty Following Directions,Poor Balance,Poor Safety Awareness PT-Balance Assessment Sitting Balance and Reactions Static Sitting Balance Ability Good Dynamic Sitting Balance Ability Fair Standing Balance and Reactions Static Standing Balance Ability Fair Dynamic Standing Balance Ability Poor Device Used using FWW M5 PT-IP Objective Assessments Start: 09/28/23 11:54 Freq: NEEDED Status: Active Protocol: Document 09/28/23 09:55 AB (Rec: 09/28/23 12:12 AB [id number]) Orientation Orientation/Cognition Level of Alertness Alert Orientation Name Safety Awareness Decreased Safety Awareness Memory Description Short Term Impaired Comments with slight confusion Gross Range of Motion Lower Extremity ROM Assessment Within Functional Limits Strength Lower Extremity Strength Hip 4-/5 Knee 4-/5 Muscle Tone Muscle Tone WNL Yes M6 PT-IP Treatment Start: 09/28/23 11:54 Freq: NEEDED Status: Active Protocol: Document 09/28/23 09:55 AB (Rec: 09/28/23 12:12 AB [id number]) Physical Therapy Treatment Education Education Provided Safety M7 PT-IP Assessment and Plan Start: 09/28/23 11:54 Freq: NEEDED Status: Active Protocol: Document 09/28/23 09:55 AB (Rec: 09/28/23 12:12 AB [id number]) PT Summary Assessment and Plan Potential Rehabilitation Potential Fair Status of Condition at Evaluation Evolving Summary Impairments Pain,ROM,Strength,Balance, Coordination,Sensation,Tone, Cognition,Bed Mobility, Transfers,Gait,Activity Tolerance Assessment Summary pt is a 72 y/o M who presented to the ED with c/o weakness. Pt admitted for Covid infection and is in droplet precautions. pt requiring min to mod A for transfers/ ambulation using fWW and has decrease activity tolerance affecting mobility independence. pt was independent with all mobilities without AD prior to hospitalization. d/c plan depending on progress and if pt's family will be able to assist him at home but at this time, pt may require SNF rehab. will continue to assess. Goals Bed Mobility Goal Independent Transfer Goal Standby Assistance,Front Wheeled Walker Gait Goal Standby Assistance,Front Wheel Walker Gait Distance 150 Other Goals improve transfers and ambulation using LRAD/without AD ~ 250 ft mod I up/down 4 steps B rails + 10 steps L rail descending SBA Days to Meet Goals 10 Frequency of Treatment Frequency Of Treatment Once a Day Treatment Plan Physical Therapy Treatment Plan Bed Mobility Training,Transfer Training,Gait Training, Therapeutic Exercise,Balance Retraining,Discharge Planning, Hot or Cold Pack,Neuromuscular Re-ed,Coordination Retraining Precautions Other Precautions Covid; falls Recommendations To Nursing Amount of Assist Needed 1 Person Assist Discharge Recommendations PT Discharge Recommendations Home with 04/04 Assist Available,Home Health,SNF Rehab,Home vs SNF Equipment Needed for Home Before FWW if not safe without Discharge Transportation Needs at Discharge Private Vehicle,Wheelchair/ Cabulance
--- NOTE | 2023-09-28 11:06 | ST.IPCSEOM ---
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 Address: [facility] [place], [address] Fax: Email: [email or web address] Narcisa Fuentes DO Emergency Provider Physician Specialty: Emergency Medicine Address: [address] [place] [address], [id number] Email: [email or web address] Edilson [email or web address] DO Admit Provider Physician Attending Provider Specialty: Internal Medicine Address: [address] [place] [address], [id number] Email: [email or web address] Medical History (Last Reviewed 09/27/23 @ 16:59 by Narcisa Fuentes DO) Aortic stenosis (Medical) Chicken pox (Medical) Coronary artery disease (Medical) Dysphagia (Medical) Foot pain (Medical) Hearing loss (Medical) Measles (Medical) Mumps (Medical) Peripheral neuropathy (Medical) Rash of foot (Medical) Recurrent sinusitis (Medical) Systolic heart failure (Medical) Toenail fungus (Medical) Type 2 diabetes mellitus (Medical) Speech-Language Pathology Swallow Evaluation ELEMENTARY LIBRARIAN Clinical Swallow Evaluation Start: 09/28/23 10:49 Freq: Status: Active Protocol: Document 09/28/23 10:49 (Rec: 09/28/23 11:06 [id number]) Clinical Swallow Evaluation Session Time Visit Start Time 10:20 Visit Stop Time 10:50 Total Visit Minutes 30 Visit Information Visit Number 1 Referral Referring Provider Ria (hospitalist) Reason for Referral concerns for dysphagia, recent MBS Setting Assessment Location Acute Care Visit Type Note Type Initial evaluation Patient Information History Per history from recent MBS ( dated 09/26/23): [Pt] described [his swallowing] difficulty as things get stuck and pointed to the area of his larynx. He denies any other areas of globus sensation. He denied difficulty with liquids, noted an occasional cough/choke when eating.Pt also reported word-finding difficulty as well as difficulty with pronunciation of his speech at times. Pt denied neurological diagnoses such as Parkinson's, CVA, etc. Pt did report that he has recently not controlled his diabetes well; however, he has been started on a new medication and has better control of his blood sugars. He presented to ED yesterday with worsening weakness, fever , cough and sore throat. Found in the ED to be COVID positive on PCR panel. Patient was seen in his PCP's office about a week ago for dysphagia and had an MBS done yesterday which showed laryngeal penetration. In ED patient had leukocytosis of 11.7, CXR with L pleural effusion and can't rule out pneumonia, and procal 0.21. Patient reported to MD that he has sore throat and swollen glands. He also stated he has difficulty swallowing most things due to swelling in his throat. He isn't sure why he is underweight. He thinks he may have gotten COVID from his sister who has had a cough lately. He denies CP, NV, abd pain, or diarrhea. Recent MBS demonstrated penetration with sequential sips of liquid and penetration of residue after pudding trial. No aspiration was observed. Of note, pt demonstrated no epiglottic inversion during MBSS. Pt referred to ST for clinical swallow evaluation due to s/ sx dysphagia. Subjective Observations Pt was seated partially reclined in bed upon ST entry to room. Pt looked subjectively weak, and wet cough was present intermittently throughout evaluation. Pt agreed to OME and trials of thin liquid but declined solid trials. Reported by Patient/Caregiver Other Symptoms Difficulty swallowing solids, Pain on swallowing,Weight loss Comment Pt denied pain with swallowing to this ELEMENTARY LIBRARIAN; possible that this has resolved since yesterday. He recalled MBSS and stated that there's a valve that's not working. Inquired with pt and clarified he was referring to epiglottis not inverting. Asked pt is he has been having difficulties swallowing the foods given to him since admission. He states that swallowing these meals has been fine. Current Diet Regular (IDDSI 7) Baseline Feeding Method Independent in self-feeding The IDDSI Framework Protocol: IDDSI.1 Objective Assessment Mental Status Alert,Responsive,Cooperative Oral Integrity WFL Observation of Lips at Rest Symmetrical Observations of Tongue at Rest Within normal limits Tongue Protrusion Within normal limits Tongue Lateralization Within normal limits Comment OME largely unremarkable, consistent with OME on 09/26/23 . Pt presented with mildly slowed DDK rate. Food and Liquid Trials Position During Assessment Upright (90 degrees) Liquids Trialed Thin (IDDSI 0) Administration Type Straw,Self-feeding Oral Impairment Within functional limits Oral Phase Comments Oral phase was observed with trials thin liquid via consecutive straw sips. No overt s/sx oral phase dysphagia were observed. However, recent MBSS indicated slightly prolongued and disorganized mastication with regular solid trials. Pharyngeal Impairment Mildly impaired Pharyngeal Phase Comments No overt s/sx aspiration/ penetration observed on trials consecutive thin liquid during this CSE. However, recent MBSS indicated penetration on consecutive sips of thin, which is not abnormal given pt's age. Additionally, MBS noted lack of epiglottic inversion, which decreases airway protection. Pt declined solid trials this date but endorses difficulty with solids feeling stuck. MBSS confirmed pharyngeal residue. Alternation of liquids and solids was recommended. Fatigue/Endurance Moderate fatigue Comment Pt appeared SOB with consecutive sips. Likely exacerbated by pulmonary function. [place] Swallow Protocol No The IDDSI Framework Protocol: IDDSI.1 Findings Swallowing Function Dysphagia unspecified Swallowing Function Comments Per MBSS, pharyngeal dysphagia . Currently exacerbated by SOB 2/ Covid. Severity of Swallow Impairment Mildly impaired Contributing Factors to Swallow Impaired airway protection Impairment Prognosis Fair Based on Age,Comorbidities Impact on Safety and Functioning Risk for aspiration Recommendations Instrumental Assessment No Swallowing Treatment No Recommended Solids Easy to Chew (IDDSI 7) Recommended Liquids Thin (IDDSI 0) Other Recommendations 1. Alternate bites and sips 2. Small bites, small sips 3. Strict oral care Safety Precautions/Swallowing Feed only when alert,Remain Recommendations upright (90 degrees) during all oral intake,Small bites and sips when eating,Slow rate ; swallow between bites, Alternate liquids and solids, Strict oral care after intake Medication Recommendations As Tolerated Discharge Recommendations Home Comments No diet change recommended at this time Referrals Recommended Referrals Pulmonology Education Patient/Caregiver Education Described results of evaluation,Patient expressed understanding of evaluation
--- NOTE | 2023-09-28 11:16 | CM.DANOTE ---
Initial DCP Assessment Note Reviewed EMR and team rounds for pt's medical status and initial anticipated d/c needs. Pt is covid+, so did not meet with him in person in the room. Called pt's primary contact/cg/sister, Katlin, to obtain more hx re: home environment, recent health issues, and family concerns. Introduced self and role, and agreed to keep her updated with his evolving plan of care and eventual d/c needs. Payor: Medicare PCP: Dr. Chiu Pt is a 72 year-old M who presented to the ED on 09/27 with fever, sore throat, weakness, and expressing difficulty getting out of bed today and is too weak to ambulate. Pt was started on IV ABO's and fluids, and admitted for further evaluation and treatment. Pt resides mostly independently in a [id number] apt below his sister Katlin's home. She and her are his primary caregivers when needed, otherwise he is able to manage on his own. According to Katlin, the family has been expressing growing concerns that he has not been able to manage his own blood sugars or monitor his diabetes medications without their assistance. She states that he's been profoundly weak, and that this is the second time he's presented to the ED recently, but first time here at . She states that they already had the PCP refer him to OP PT, however then he was admitted here last night. She's expressing concern for him being able to manage OP PT, and is hoping that he will meet criteria for SNF Rehab at d/c. This RAILROAD DINING CAR STEWARDESS agreed to keep family updated, and reassured her that one of us will be working with him each day here in to finalize final recommendations for his d/c plan. Discharge Planning/Care Management Discharge Assessment Start: 09/28/23 10:59 Freq: Status: Active Protocol: Document 09/28/23 10:59 DPL (Rec: 09/28/23 11:10 DPL [id number]) Discharge Planning Assessment Assigned Sheet Metal Smith MARIANELA Riggs Advance Directives? No History Provided By Family Member,Medical Record Has Patient been admitted in last 30 No days? Prior Living Arrangements House Comment Pt resides in a [id number] apartment below his sister, Katlin's [address] [place] [address] [address]. Household Members family Type of transporation used prior to Drives own vehicle admit Independent with ADL's No: Modified indpendent. Is patient alert and oriented? Yes Needs Assistance With Managing Medications Caregiver for Another No Comment N/A Patient/Family Preference Senior Living Facility Comment Pending PT/OT recommendations, however, he is too weak to ambulate, and has been needing a lot of assistance with managing his ADL's and diabetes monitoring. Barriers to Discharge No Discharge Plan Senior Living Facility Transportation Arrangement If pt does go to SNF rehab, the facility will transport. Additional Comment Pending improvement with IV ABO's and inpt therapies. Will start referrals once his d/c disposition recommendation has been confirmed. If patient plan is SNF: Has PASSR been No completed? Whiteboard Updated in Patient Room with No name and ext. # of Sheet Metal Smith Comment Pt is covid+. Review Status In Process Please Provide Date Initial DC 09/28/23 Assessment Was Performed
--- NOTE | 2023-09-28 12:05 | DIET.CONS ---
Dietary Consultation Note Admission Date: 09/27/2023 17:29 Assessment: 72y M admitted with fever, sore throat, fatigue found to be covid 19 positive referred to nutrition for malnutrition. Pt lives in mother in law apartment connected to his sister's house. Pt has pmhx quadruple bypass, DM2, and dysphagia. Pt states he has difficulty swallowing bread, meat, pills. Had MBSS last week and is currently being seen by GASOLINE FINISHER. Pt with ongoing severe weight loss. Weight record at starts in February of this year. Pt has had 14.2% unintentional weight loss since February 2023 (severe), and has lost 6# since visit with PCP 12d ago. Pt currently deconditioned and having trouble walking and with ADLs. Pt's A1c 12.7. Stated to PCP would prefer endocrinology to manage DM meds. Concern regarding pt restarting old insulin on own without guidance ( med?) and pt unsure of SSI formula. Due to pts trouble swallowing and malnutrition, pt at high risk for hypoglycemia. Ht: 175.26 cm Wt: 52.1 kg BMI: 16.9 (severe) Last BM: 09/24/23 (09/27/23 17:34) MNA: 10 Joss Score: 20 Diet: 09/27/23 Dinner Dysphagia Diet Diet Modifications: Food Texture: Level 7 Easy Chew Liquid Consistency: Level 0 - Thin Nutrition Percent Meal Consumed 100% 09/28/23 09:54 Percent Meal Consumed 100% 09/27/23 18:00 Labs: RBC 3.41 X10^6/uL (4.5-5.9) L 09/28/23 05:24 Hgb 10.0 g/dL (13.5-17.5) L 09/28/23 05:24 Hct 30.0 % (41-53) L 09/28/23 05:24 Creatinine 1.46 mg/dL (0.66-1.25) H 09/28/23 05:24 Lactate 1.3 mmol/L (0.7-2.1) 09/27/23 12:03 NT-Pro-B Natriuret Pep 4020 pg/mL (<125) H 09/27/23 12:03 Nutrition Diagnosis: Severe Acute Protein Calorie Malnutrition r/t suboptimal DM management, trouble swallowing aeb BMI 16.9 (severe), A1c 12. 7. 14.2% unintentional weight loss in 7mo (severe), MNA score 10 (malnourished), pt with dysphagia confirmed by MBSS and speech therapy. Interventions: 1. Recc ONS Ensure Max once daily in addition to meal trays prepared at IDDSI level 7-0 for ease of eating. 2. Highly recc pt be referred to OP DSME for in depth diabetes counselling. EER: 45g CCD, 65-75g PRO (1.3-1.5g/kg per malnutrition renal), 1800kcals (35kcal/kg) Monitoring/Evaluations: f/u prn, DM educator out this week, will visit patient if not d/c'd after weekend. Electronically Signed by: Zoraida Singleton 09/28/23 12:05 Clinical Dietitian [address] [id number]
[2023-09-28] MEDS: ASPIRIN EC 81 MG TABLET PO (12:16)
[2023-09-28] MEDS: INSULIN LISPRO 100 UNIT/ML 3ML VIAL SUBCUT ×2 (12:17→22:08)
--- NOTE | 2023-09-28 12:17 | PM.PN.1 ---
Subjective Subjective Interval history: Patient feeling a bit better today. STRATEGIC ACCOUNT MANAGER assessed and his MBS showed penetration but not aspiration. Will work with PT/OT today. Exam Vital Signs (past 8 hours): - 09/28/23 04:55 09/28/23 05:29 09/28/23 06:45 Temperature 98.7 F Pulse Rate 78 Respiratory Rate 16 Blood Pressure 103/49 L 97/41 L 130/66 Pulse Oximetry 95 Oxygen Flow Rate 0 09/28/23 09:23 Temperature 100.8 F H Pulse Rate 78 Respiratory Rate 16 Blood Pressure 107/53 L Pulse Oximetry 91 Oxygen Flow Rate Oxygen Delivery Method Room Air Oxygen Flow Rate 0 Narrative Exam Narrative: GEN: no acute distress, thin HEENT: moist mucous membranes, PERRL, swollen submandibular glands NECK: trachea midline, no JVD CV: regular rate and rhythm, no murmurs PULM: clear bilaterally ABD: soft, nontender, nondistended, no organomegaly EXT: warm and well perfused with no edema NEURO: awake, alert, oriented, no focal deficits Objective Labs 09/28/23 05:24 09/28/23 05:24 Labs: Laboratory Results - last 24 hr 09/27/23 09/27/23 09/27/23 12:03 12:21 15:02 WBC 11.7 H RBC 3.76 L Hgb 11.0 L Hct 33.2 L MCV 88.3 MCH 29.3 MCHC 33.2 RDW 14.7 Plt Count 179 Neut % (Auto) 74.6 Lymph % (Auto) 13.3 L [place] % (Auto) 11.3 Eos % (Auto) 0.1 L Baso % (Auto) 0.7 Neut # (Auto) 8800 H Lymph # (Auto) 1600 [place] # (Auto) 1300 H Eos # (Auto) 0 Baso # (Auto) 100 PT 12.5 INR 1.1 APTT 24 L Sodium 134 L Potassium 4.4 Chloride 98 Carbon Dioxide 27 BUN 46 H Creatinine 1.36 H Estimated GFR 56 L BUN/Creatinine Ratio 33.8 H Glucose 140 H Lactate 1.3 Calcium 9.5 Magnesium Total Bilirubin 0.9 AST 48 ALT 33 Alkaline Phosphatase 75 Total Creatine Kinase 62 Troponin I 0.040 H 0.050 H NT-Pro-B Natriuret Pep 4020 H Total Protein 7.7 Albumin 3.8 Globulin 3.9 Albumin/Globulin Ratio 1.0 Lipase 127 Procalcitonin 0.21 Urine RBC Urine WBC Ur Squamous Epith Cells Urine Bacteria Urine Mucus Ur Culture Indicated? Chlamy pneumoniae PCR Not detected Adenovirus (PCR) Not detected B.parapertussis DNA PCR Not detected Coronavirus OC43 (PCR) Not detected Coronavirus HKU1 (PCR) Not detected Coronavirus 229E (PCR) Not detected SARS-CoV-2 (PCR) Detected H Coronavirus NL63 (PCR) Not detected Human Metapneumovir PCR Not detected Influenza Type A (PCR) Not detected Influenza Type B (PCR) Not detected M. pneumoniae (PCR) Not detected Parainfluenza 1 (PCR) Not detected Parainfluenza 2 (PCR) Not detected Parainfluenza 3 (PCR) Not detected Parainfluenza 4 (PCR) Not detected RSV (PCR) Not detected Entero/Rhino (PCR) Not detected 09/27/23 09/27/23 09/28/23 15:22 17:31 05:24 WBC 11.0 RBC 3.41 L Hgb 10.0 L Hct 30.0 L MCV 87.8 MCH 29.3 MCHC 33.3 RDW 14.9 H Plt Count 146 L Neut % (Auto) 68.8 Lymph % (Auto) 20.2 L [place] % (Auto) 10.5 Eos % (Auto) 0.0 L Baso % (Auto) 0.5 Neut # (Auto) 7500 H Lymph # (Auto) 2200 [place] # (Auto) 1100 H Eos # (Auto) 0 Baso # (Auto) 100 PT INR APTT Sodium 136 L Potassium 3.8 Chloride 102 Carbon Dioxide 26 BUN 38 H Creatinine 1.46 H Estimated GFR 51 L BUN/Creatinine Ratio 26.0 H Glucose 63 L Lactate Calcium 8.9 Magnesium 1.5 L 2.3 Total Bilirubin AST ALT Alkaline Phosphatase Total Creatine Kinase Troponin I NT-Pro-B Natriuret Pep Total Protein Albumin Globulin Albumin/Globulin Ratio Lipase Procalcitonin 1.05 H Urine RBC 0-1/hpf Urine WBC 0-1/hpf Ur Squamous Epith Cells 0-1 /hpf Urine Bacteria Occasional (0-1) Urine Mucus 3+ H Ur Culture Indicated? Cult not indicated Chlamy pneumoniae PCR Adenovirus (PCR) B.parapertussis DNA PCR Coronavirus OC43 (PCR) Coronavirus HKU1 (PCR) Coronavirus 229E (PCR) SARS-CoV-2 (PCR) Coronavirus NL63 (PCR) Human Metapneumovir PCR Influenza Type A (PCR) Influenza Type B (PCR) M. pneumoniae (PCR) Parainfluenza 1 (PCR) Parainfluenza 2 (PCR) Parainfluenza 3 (PCR) Parainfluenza 4 (PCR) RSV (PCR) Entero/Rhino (PCR) PFS Medical History Foot pain Mumps Measles Chicken pox Recurrent sinusitis Hearing loss Systolic heart failure Coronary artery disease Aortic stenosis Rash of foot Toenail fungus Peripheral neuropathy Type 2 diabetes mellitus Dysphagia Surgical History History of quadruple bypass Family History Father Cancer History of heart disease Mother Diabetes mellitus Social History household members: family Smoking Status: Never smoker alcohol intake: never Assessment & Plan Assessment & Plan narrative: # COVID pneumonia -presented with worsening shortness of breath, cough, sore throat and fever -will cover with CAP abx given leukocytosis, can't r/o on CXR and mildly elevated procal -continue rocephin and azithro -not requiring supp O2 -mucinex and tessalon perles PRN -procal dee to 1.05 on HD2 # dysphagia, mild -MBS with penetration but not aspiration documented on 09/26 -dysphagia diet -STRATEGIC ACCOUNT MANAGER eval to follow # weakness, low BMI -likely due to COVID, also may be malnourished as BMI 17 -PT/OT/mapping analyst consults # DM2 -last A1c 12.7% -continue metformin, held lantus due to hypoglycemia -SSI -diabetes education # CLAUDETTE on CKD -Cr up to 1.46 -renally dose meds -start IVF # CAD s/p CABG x4 -continue statin and jardiance -hold lasix for now Code status is full code. DVT prophylaxis with heparin. Proxy is sister Katlin. I have reviewed home meds and used all available resources to reconcile the home meds. Dispo: Likely home with HH possibly on 09/29. Quality VTE Deep Vein Thrombosis/Pulmonary Embolism Present on Admission: No
[2023-09-28] MEDS: SODIUM CHLORIDE 0.9% 1,000 ML 100 ML IV (12:44)
--- NOTE | 2023-09-28 16:10 | OT.IP.EVAL ---
Current Diagnoses COVID-19 (09/27/23) Past Medical History (Last Reviewed 09/27/23 @ 16:59 by Narcisa Fuentes DO) Aortic stenosis Chicken pox Coronary artery disease Dysphagia Foot pain Hearing loss Measles Mumps Peripheral neuropathy Rash of foot Recurrent sinusitis Systolic heart failure Toenail fungus Type 2 diabetes mellitus Surgical History (Last Reviewed 09/27/23 @ 16:59 by Narcisa Fuentes DO) History of quadruple bypass Occupational Therapy Inpatient Evaluation/Re-Eval M1 PT/OT-IP Prior Functional Status Start: 09/28/23 16:08 Freq: NEEDED Status: Active Protocol: Document 09/28/23 16:09 [facility] (Rec: 09/28/23 16:32 [facility] [id number]) Medical Review Prior Functional Status Medical History Reviewed Yes Communication able to make needs known but pt is slow to respond to questions and has a very soft speech Mobility and Gait pt stated that he was independent with all mobilities and ambulation without AD Activities of Daily Living and IADL's Pt states prior able to do all his ADL and IADl needs. Pt states does not drive since he does not have a car. Prior Functional Level (Other details) Pt lives with his sister and brother in law. Social History Household Members family Living Arrangements House Number of Floors (Floors) Two Floors Number of Stairs To Enter/Railing? 4 steps B rails to enter 10 steps down to the basement bedroom with L rail descending Home Environment Standard Height Toilet,Tub/ Shower Home Equipment Hand Held Shower Additional Social History Comment pt stated that he lives with his sister and OZ and can assist him if needed, but states would have to ask to be sure. M2 OT-IP Current Condition Start: 09/28/23 16:08 Freq: Status: Active Protocol: Document 09/28/23 16:09 [facility] (Rec: 09/28/23 16:32 [facility] [id number]) Occupational Therapy Current Condition Current Condition Evaluation Date 09/28/23 Treatment Diagnosis COVID + , PNA Diagnosis Onset Date 09/27/23 M3 OT- IP Subjective and Pain Start: 09/28/23 16:08 Freq: Status: Active Protocol: Document 09/28/23 16:09 [facility] (Rec: 09/28/23 16:32 [facility] [id number]) OT- Subjective Occupational Therapy Visit Type Type Initial Evaluation Visit Start Time 15:10 Visit Stop Time 16:04 Total Visit Minutes 54 Occupational Therapy Visit Comments Patient Comments Pt agreed to get up to try to use the bathroom. Patient/Caregiver Goals To get better and open to going to skilled rehab if needed. OT Pain Assessment Pain When Pain Assessed At Rest Pain Present Pain Present Pain Reported Location Left Upper Abdomen Intensity 2 Scale Used Numeric (0 - 10) M4 OT- IP ADL's Start: 09/28/23 16:08 Freq: Status: Active Protocol: Document 09/28/23 16:09 [facility] (Rec: 09/28/23 16:32 [facility] [id number]) OT [id number] Comments OT Self-Feeding Comments Not at mealtime. OT ADL-Grooming Comments OT Grooming Comments Pt not wanting to perform at this time as too tired. OT ADL-Oral Care Comments Oral Care Comments Not performed. OT ADL-Dressing General Eval Lower Body Dressing Ability Moderate Assistance Areas Needing Assistance Underpants/Brief,Socks Comments OT Dressing Comments Assist to help franco the brief over his feet and assist for socks. Suggested pt use of soil analyst to assist with needs for LB dressing. Pt states the bathroom is a few feet away from the bed. OT ADL-Toileting General Evaluation Toileting Ability Moderate Assistance Areas Needing Assistance Manage Clothing Comments OT Toileting Comments VC for completeness to wipe and assist for the brief management needs. Pt having more difficulty to put his left foot into the brief than right and needing assist.Pt trying to have a bowel movement and mainly just having smears. Notified nursing as pt may be need something for constipation. OT ADL-Bathing Comments OT Bathing Comments Not performed. Suggested pt get a shower chair for showering needs and assist. M5 OT- IP IADL's Start: 09/28/23 16:08 Freq: Status: Active Protocol: Document 09/28/23 16:09 [facility] (Rec: 09/28/23 16:32 [facility] [id number]) OT-Instrumental Activities of Daily Living Deficits IADL Deficits Identified Deficits Home Safety Awareness Home Safety Comments Pt aware that he will need assist at home and not at his baseline. M6 OT- IP Functional Cognition Start: 09/28/23 16:08 Freq: Status: Active Protocol: Document 09/28/23 16:09 [facility] (Rec: 09/28/23 16:32 [facility] [id number]) Cognitive Factors Limiting Selfcare Function Cognitive Ability Level of Alertness Alert Patient Orientation Name,Age,Birthday,Year,Place, Situation Attention Span Ability Capable of Focused Attention, Capable of Sustained Attention Ability to Follow Commands Able to Follow One Step Commands Cognitive Comments Cognitive Assessment Comments Pt needing increased time to follow commands ,vc for safety of FWW, vc for hand placement during bed mobility and transfers. Pt realized that he is weaker and needing to use a FWW for his balance and open to going to skilled rehab. OT- Vision and Hearing OT- Hearing Assessment OT- Hearing Assessment WFL OT- Vision Assessment Visual Acuity WFL Visual Attentiveness WFL Occular Pursuits WFL Visual Convergence WFL M7 OT- IP Mobility and Balance Start: 09/28/23 16:08 Freq: Status: Active Protocol: Document 09/28/23 16:09 [facility] (Rec: 09/28/23 16:32 [facility] [id number]) OT- Bed Mobility Assessment Supine to Sit Supine to Sit Assist Standby Assistance Sit to Supine Sit to Supine Assist Standby Assistance Scooting Scooting to Edge of Bed Standby Assistance Scooting Up and Down in Bed Standby Assistance OT-Transfer Assessment Sit to and From Stand Sit to and from Stand Contact Guard Assistance Transfers Transfer Ability Contact Guard Assistance, Minimal Assistance Technique Transfer Destination Bed,Toilet Transfer Technique Stand Step Pivot Devices Transfer Assistive Devices Gait Belt,Front Wheeled Walker Comments Mobility Comments Increased time to get to the edge of the bed. CGA to SUNDAY to stand and tends to use the back of his legs to assist to stand to the FWW. CGA to SUNDAY for the walker as a little unsteady on his feet especially the longer he walks . BP dropped in sitting and than back up while up on his feet and back in bed. Able to give nursing BP numbers. OT- Balance Assessment Sitting Balance and Reactions Static Sitting Balance Ability Good Dynamic Sitting Balance Ability Fair Standing Balance and Reactions Static Standing Balance Ability Fair Dynamic Standing Balance Ability Poor M8 OT- IP Objective Assessments Start: 09/28/23 16:08 Freq: Status: Active Protocol: Document 09/28/23 16:09 [facility] (Rec: 09/28/23 16:32 [facility] [id number]) OT Gross Range of Motion Upper Extremity Range of Motion Assessment Within Functional Limits OT Strength Upper Extremity Strength Assessment Within Functional Limits OT- Coordination Assessment Upper Extremity Finger to Nose Test Within Functional Limits Finger Tapping Test Within Functional Limits M9 OT- IP Assessment and Plan Start: 09/28/23 16:08 Freq: Status: Active Protocol: Document 09/28/23 16:09 [facility] (Rec: 09/28/23 16:32 [facility] [id number]) OT Summary Assessment and Plan Potential Rehabilitation Potential Good Analytic Complexity at Evaluation Moderate Summary OT Impairments Pain,Balance,Functional Mobility,Grooming,Dressing, Toileting,Bathing,Toilet Transfers,Shower Transfers, Activity Tolerance Progress Towards Goals Slow Progress due to Pain,Slow Progress due to Medical Issues,Slow Progress due to Activity Tolerance Assessment Summary Pt MOD complexity and main barriers are steps, decrease standing static and dynamic balance needs. Pt now needing assist for LB dressing needs, use of FWW for mobility now, and decreased activity tolerance. Pt would benefit from skilled rehab stay versus home with 24/7 available assist and home health. Goals Self-Feeding Goal Independent Grooming Goal Independent Dressing Goal Independent Toileting Goal Independent Bathing Goal Independent Toilet Transfer Goal Independent Shower Transfer Goal Independent Days to Meet Goals 15 Frequency of Treatment Frequency Of Treatment Once a Day Treatment Plan OT Treatment Plan ADL Training,Functional Mobility,Patient/Family Education,Discharge Planning Discharge Recommendations OT Discharge Recommendations SNF Rehab,Home vs SNF Other Discharge Recommendations Pending progress and ability for pt's family to assist possibly home with 24/7 assist and home health. Home Equipment Needs Shower chair, soil analyst, sock aid, long handled shoe horn and brush Transportation Needs at Discharge Wheelchair/Cabulance
[2023-09-28] MEDS: cefTRIAXone 1,000 MG in SODIUM CHLORIDE 0.9% 100 ML 200 MG IV (17:29)
[2023-09-29 00:50] VITALS: BP 101/54; PULSE 85; RESP 18; TEMP 36.9; O2SAT 95
[2023-09-29 04:59] VITALS: BP 100/55; PULSE 79; RESP 16; TEMP 36.9; O2SAT 96
[2023-09-29 05:58] LABS: Add Manual Diff / Slide Review NO; Basophils Absolute Auto 0 /uL (0-100); Basophils Percent Auto 0.5 % (0-2); Eosinophils Absolute Auto 0 /uL (0-450); Eosinophils Percent Auto 0.6 % (2-4); Hematocrit 28.4 % (41-53); Hemoglobin 9.5 g/dL (13.5-17.5); Lymphocytes Absolute Auto 1400 /uL (1100-4500); Lymphocytes Percent Auto 17.9 % (25-40); Mean Corpuscular HGB Conc 33.4 % (30-36); Mean Corpuscular Hemoglobin 29.5 PG (26-34); Mean Corpuscular Volume 88.4 fL (80-100); Monocytes Absolute Auto 700 /uL (0-900); Monocytes Percent Auto 8.5 % (3-14); Neutrophils Absolute Auto 5700 /uL (1500-7000); Neutrophils Percent Auto 72.5 % (50-75); Platelet Count 150 X10^3/uL (150-400); Red Blood Cell Count 3.22 X10^6/uL (4.5-5.9); Red Cell Distribution Width 14.8 % (11.6-14.8); White Blood Cell Count 7.9 X10^3/uL (4.5-11.0)
[2023-09-29 06:12] LABS: BUN Creatinine Ratio 26.1 (6-22); Blood Urea Nitrogen 36 mg/dL (9-20); Calcium 8.5 mg/dL (8.4-10.2); Carbon Dioxide 26 mmol/L (22-32); Chloride 107 mmol/L (98-107); Estimated Glomerular Filt Rate 55 mL/min (>60); Glucose 102 mg/dL (80-110); HEMOLYSIS < 15 (0-50); Magnesium 2.1 mg/dL (1.6-2.3); Potassium 3.7 mmol/L (3.4-5.1); Sodium 137 mmol/L (137-145)
[2023-09-29 06:28] LABS: Procalcitonin 1.05 ng/mL (<0.5)
[2023-09-29 08:45] VITALS: BP 114/63; PULSE 85; RESP 18; TEMP 36.6; O2SAT 95
[2023-09-29] MEDS: AZITHROMYCIN 250 MG TABLET 500 MG PO (10:02)
[2023-09-29] MEDS: HEPARIN 5,000 UNIT/ML VIAL 5000 UNIT SUBCUT ×2 (10:02→20:49)
[2023-09-29] MEDS: ATORVASTATIN 20 MG TABLET 80 MG PO (10:02)
[2023-09-29] MEDS: PREGABALIN 75 MG CAPSULE 150 MG PO ×2 (10:02→20:49)
[2023-09-29] MEDS: METFORMIN HCL 500 MG TABLET PO ×2 (10:02→20:49)
[2023-09-29] MEDS: ASPIRIN EC 81 MG TABLET PO (10:02)
[2023-09-29] MEDS: guaiFENesin ER 600 MG TAB PO ×2 (10:04→20:48)
--- NOTE | 2023-09-29 10:34 | ST.IPTN ---
Visit Care Team Role Provider Type Lesly Chiu MD Family Provider Physician Primary Care Provider Address: [address] [place], [address] Fax: Narcisa Fuentes, Emergency Provider Physician Address: [address] [place] [address], [id number] Edilson Rollins, DO Admit Provider Physician Attending Provider Address: [address] [place] [address], [id number] STAFFING ADMINISTRATOR Treatment Note STAFFING ADMINISTRATOR Treatment Note Start: 09/29/23 10:25 Freq: Status: Active Protocol: Document 09/29/23 10:25 [facility] (Rec: 09/29/23 10:34 [facility] [id number]) Speech Pathology Treatment Note Session Time Visit Start Time 09:10 Visit Stop Time 09:40 Total Visit Minutes 30 Visit Information Visit Number 2 Setting Treatment Setting Acute Care Visit Type Note Type Initial Evaluation General Information Patient History Per history from recent MBS ( dated 09/26/23): [Pt] described [his swallowing] difficulty as things get stuck and pointed to the area of his larynx. He denies any other areas of globus sensation. He denied difficulty with liquids, noted an occasional cough/choke when eating.Pt also reported word-finding difficulty as well as difficulty with pronunciation of his speech at times. Pt denied neurological diagnoses such as Parkinson's, CVA, etc. Pt did report that he has recently not controlled his diabetes well; however, he has been started on a new medication and has better control of his blood sugars. He presented to ED yesterday with worsening weakness, fever , cough and sore throat. Found in the ED to be COVID positive on PCR panel. Patient was seen in his PCP's office about a week ago for dysphagia and had an MBS done yesterday which showed laryngeal penetration. In ED patient had leukocytosis of 11.7, CXR with L pleural effusion and can't rule out pneumonia, and procal 0.21. Patient reported to MD that he has sore throat and swollen glands. He also stated he has difficulty swallowing most things due to swelling in his throat. He isn't sure why he is underweight. He thinks he may have gotten COVID from his sister who has had a cough lately. He denies CP, NV, abd pain, or diarrhea. Recent MBS demonstrated penetration with sequential sips of liquid and penetration of residue after pudding trial. No aspiration was observed. Of note, pt demonstrated no epiglottic inversion during MBSS. Pt referred to for clinical swallow evaluation due to s/ sx dysphagia. Subjective Observations/Patient Presentation Pt sitting upright in bed eating breakfast. Awake, alert and agreeable to therapy. Objective Treatment Activities Diet tolerance with PO trials, education related to safe swallowing strategies Assessment Assessment of Overall Progress Improving Assessment of Improvement ST assessed swallow function with therapeutic PO trials of easy to chew solids and thin liquids in order to determine safest and most efficient least restrictive diet. Pt denies any recent swallow difficulties, however reports throat is slightly sore. Pt consumed pancakes, scrambled eggs and banana cut up with about 4 oz of thin coffee via cup and water via straw. Pt demonstrated difficulties masticating large bite of pancake without syrup demonstrating prolonged mastication, extended ap transport, no overt s/s of aspiration. Pt benefited from pancakes cut up into small pieces and moistened with syrup d/t observed increase in bolus control and formation and decrease mastication time. Pt also benefited from cues to alternate liquids/solids to assist with intake. For thin liquids Pt demonstrated adequate sip size and rate, no overt s/s of aspiration. ST educated Pt on safe swallowing strategies, such as slow rate , small bites/sips, sitting upright, oral hygiene and alternating liquids/solids to assist with intake. ST recommends discharge from ST d /t Pt consuming safest diet with use of safe swallowing strategies. ST recommends continuation of IDDSI 7 (easy to chew) and thin liquids. ST recommends outpatient speech therapy for dysphagia. Plan Therapy Recommendations Discharge from Speech Therapy Suggested Referral Other Other Referrals Outpatient speech therapy
--- NOTE | 2023-09-29 11:45 | PT.IPTN ---
Current Diagnoses COVID-19 (09/27/23) Physical Therapy Treatment Note M2 PT-IP Current Condition Start: 09/28/23 11:54 Freq: NEEDED Status: Active Protocol: Document 09/28/23 09:55 AB (Rec: 09/28/23 12:12 AB [id number]) Physical Therapy Current Condition Current Condition Evaluation Date 09/28/23 Treatment Diagnosis covid; difficulty in walking Onset Date 09/27/23 M3 PT-IP Subjective Start: 09/28/23 11:54 Freq: NEEDED Status: Active Protocol: Document 09/29/23 12:25 TS (Rec: 09/29/23 12:47 TS [id number]) Subjective Physical Therapy Visit Type Type Treatment Note Visit Start Time 11:45 Visit Stop Time 12:23 Total Visit Minutes 38 Number of DRAFTER TOOL DESIGN Visits 1 Physical Therapy Visit Comments Patient Comments Pt found resting in bed, is agreeable to PT. M4 PT-IP Mobility and Gait Start: 09/28/23 11:54 Freq: NEEDED Status: Active Protocol: Document 09/29/23 12:25 TS (Rec: 09/29/23 12:47 TS [id number]) PT-Bed Mobility Assessment Supine to Sit Supine to Sit Standby Assistance Sit to Supine Sit to Supine Standby Assistance Scooting Scooting to Edge of Bed Standby Assistance Scooting Up and Down in Bed Standby Assistance PT-Transfer Assessment Sit to and From Stand Sit to and from Stand Standby Assistance,Use of Upper Extremities Equipment Transfer Assistive Device Gait Belt,Front Wheeled Walker Orthotic/Prosthetic Devices or Brace: No Comments Mobility Comments Pt found resting in bed, BP in supine 104/58 prior to mobility. Supine to sit SBA with HOB elevated 40D and BUE support for uprighting trunk. He performed sit to stand x2 from EOB SBA, pt braces back of LEs for assistance into standing and requires cues for bending at waist and BUE's pushing form bed. He ambulated to toilet ~10', performed own pericare. Sit to stand from toilet SBA with use of FWW. He ambulated ~20' in room with FWW and ~20' with no AD, pt had not LOB or buckling. Pt is more safe with use of FWW and recommended continued use. He performed stairs x6 SBA with use of single rail support. Pt was left back in bed, all needs met. Gait Assessment Gait Gait Assistance Required: Standby Assistance Distance (Feet) 50 Able to Maintain Weight Bearing Status Yes During Gait Assistive Devices Assistive Device None,Gait Belt,Front Wheeled Walker Orthotic/Prosthetic Devices or Brace: No Gait Deviations General Gait Pattern Antalgic,Decreased Stride Length,Decreased Feet Clearance Factors Limiting Gait Function Factors Limiting Gait Function Decreased Activity Tolerance, Decreased Strength,Difficulty Following Directions,Poor Balance,Poor Safety Awareness Comments Gait Comments See mobility comments Stair Climbing Assessment Evaluation Level of Assist On Stairs Standby Assistance Devices Stair Climbing Assistive Devices Left Railing Technique/Endurance Stair Climbing Direction Ascend and Descend Stair Climbing Technique Step to Step Number of Steps Climbed 6 Comments Stair Climbing Comments See mobility comments PT-Balance Assessment Sitting Balance and Reactions Static Sitting Balance Ability Good Dynamic Sitting Balance Ability Fair Standing Balance and Reactions Static Standing Balance Ability Good Dynamic Standing Balance Ability Fair Device Used using FWW, no AD M5 PT-IP Objective Assessments Start: 09/28/23 11:54 Freq: NEEDED Status: Active Protocol: Document 09/28/23 09:55 AB (Rec: 09/28/23 12:12 AB [id number]) Orientation Orientation/Cognition Level of Alertness Alert Orientation Name Safety Awareness Decreased Safety Awareness Memory Description Short Term Impaired Comments with slight confusion Gross Range of Motion Lower Extremity ROM Assessment Within Functional Limits Strength Lower Extremity Strength Hip 4-/5 Knee 4-/5 Muscle Tone Muscle Tone WNL Yes M6 PT-IP Treatment Start: 09/28/23 11:54 Freq: NEEDED Status: Active Protocol: Document 09/29/23 12:25 TS (Rec: 09/29/23 12:47 TS [id number]) Physical Therapy Treatment Education Education Provided Safety M7 PT-IP Assessment and Plan Start: 09/28/23 11:54 Freq: NEEDED Status: Active Protocol: Document 09/29/23 12:25 TS (Rec: 09/29/23 12:47 TS [id number]) PT Summary Assessment and Plan Potential Rehabilitation Potential Fair Summary Impairments Pain,ROM,Strength,Balance, Coordination,Sensation,Tone, Cognition,Bed Mobility, Transfers,Gait,Activity Tolerance Progress Towards Goals Progressing Toward Goals Assessment Summary Logan is making some progress with his mobility this session . He is SBA for all bed mobility with HOB elevated. He performed STS x3 SBA with use of FWW. He progressed his gait to ~50', 30' with FWW and 20' with no AD. Pt's balance is improved with use of AD and recommended continued use. He performed stairs x6 SBA with single rail support, demonstrates some weakness ascending step, completed with no asssist. PT continues to recommend Home vs SNF at this time. Pt could benefit from continued daily PT in rehab facility before d/c home. Pt may progress while in hospital to d/c home, will require FWW if were to go home today. Goals Bed Mobility Goal Independent Transfer Goal Standby Assistance,Front Wheeled Walker Gait Goal Standby Assistance,Front Wheel Walker Gait Distance 150 Other Goals improve transfers and ambulation using LRAD/without AD ~ 250 ft mod I up/down 4 steps B rails + 10 steps L rail descending SBA Days to Meet Goals 10 Frequency of Treatment Frequency Of Treatment Once a Day Treatment Plan Physical Therapy Treatment Plan Bed Mobility Training,Transfer Training,Gait Training, Therapeutic Exercise,Balance Retraining,Discharge Planning, Hot or Cold Pack,Neuromuscular Re-ed,Coordination Retraining Precautions Other Precautions Covid; falls Recommendations To Nursing Amount of Assist Needed 1 Person Assist Discharge Recommendations PT Discharge Recommendations Home with Assistance,Home Health,Home vs SNF Equipment Needed for Home Before Will benefit from FWW at this Discharge time. May need upon d/c. Transportation Needs at Discharge Private Vehicle,Wheelchair/ Cabulance
[2023-09-29 12:00] VITALS: BP 104/58; PULSE 88; RESP 16; TEMP 36.4; O2SAT 95
[2023-09-29] MEDS: INSULIN LISPRO 100 UNIT/ML 3ML VIAL SUBCUT ×2 (12:20→17:01)
--- NOTE | 2023-09-29 12:59 | P.PN_ITS ---
Subjective Subjective Interval history: PT/OT rec SNF vs HH. Patient willing to go to SNF, and his sister is requesting that he go. [facility]NA[facility] arranging. Exam Vital Signs (past 8 hours): - 09/29/23 08:45 09/29/23 12:00 Temperature 97.8 F 97.6 F Pulse Rate 85 88 Respiratory Rate 18 16 Blood Pressure 114/63 104/58 L Pulse Oximetry 95 95 Oxygen Flow Rate 0 0 Oxygen Delivery Method Room Air Oxygen Flow Rate 0 Narrative Exam Narrative: GEN: no acute distress, thin HEENT: moist mucous membranes, PERRL, swollen submandibular glands NECK: trachea midline, no JVD CV: regular rate and rhythm, no murmurs PULM: clear bilaterally ABD: soft, nontender, nondistended, no organomegaly EXT: warm and well perfused with no edema NEURO: awake, alert, oriented, no focal deficits Objective Labs 09/29/23 05:39 09/29/23 05:39 Labs: Laboratory Results - last 24 hr 09/29/23 05:39 WBC 7.9 RBC 3.22 L Hgb 9.5 L Hct 28.4 L MCV 88.4 MCH 29.5 MCHC 33.4 RDW 14.8 Plt Count 150 Neut % (Auto) 72.5 Lymph % (Auto) 17.9 L [place] % (Auto) 8.5 Eos % (Auto) 0.6 L Baso % (Auto) 0.5 Neut # (Auto) 5700 Lymph # (Auto) 1400 [place] # (Auto) 700 Eos # (Auto) 0 Baso # (Auto) 0 Sodium 137 Potassium 3.7 Chloride 107 Carbon Dioxide 26 BUN 36 H Creatinine 1.38 H Estimated GFR 55 L BUN/Creatinine Ratio 26.1 H Glucose 102 Calcium 8.5 Magnesium 2.1 Procalcitonin 1.05 H PFSH Medical History Foot pain Mumps Measles Chicken pox Recurrent sinusitis Hearing loss Systolic heart failure Coronary artery disease Aortic stenosis Rash of foot Toenail fungus Peripheral neuropathy Type 2 diabetes mellitus Dysphagia Surgical History History of quadruple bypass Family History Father Cancer History of heart disease Mother Diabetes mellitus Social History household members: family Smoking Status: Never smoker alcohol intake: never Assessment & Plan Assessment & Plan narrative: # COVID pneumonia, improving -presented with worsening shortness of breath, cough, sore throat and fever -will cover with CAP abx given leukocytosis, can't r/o on CXR and mildly elevated procal -continue rocephin and azithro -not requiring supp O2 -mucinex and tessalon perles PRN -procal dee to 1.05 on HD2 # dysphagia, mild -MBS with penetration but not aspiration documented on 09/26 -dysphagia diet -FURNITURE SALES ASSOCIATE eval evaulated and signed off now # weakness, low BMI -likely due to COVID, also may be malnourished as BMI 17 -PT/OT/advisory application developer consults -SNF recommended, patient willing to go # DM2 -last A1c 12.7% -continue metformin, held lantus due to hypoglycemia -SSI -diabetes education # CLAUDETTE on CKD, improving -Cr up to 1.46 -renally dose meds -Cr downtrending with IVF # CAD s/p CABG x4 -continue statin and jardiance -hold lasix for now Code status is full code. DVT prophylaxis with heparin. Proxy is sister Katlin. I have reviewed home meds and used all available resources to reconcile the home meds. Dispo: [facility] arranging SNF. 1-2 days. Quality VTE Deep Vein Thrombosis/Pulmonary Embolism Present on Admission: No
--- NOTE | 2023-09-29 15:05 | CM.DPC ---
DCP Cont. Reviewed EMR and team rounds for status updates. Pt is covid+, was not documented until 09/27, initially focused on obtaining SNF due to weakness, however today Nelson in PT states that pt can most likely d/c home with HH. Call pt's dtr on Tuesday to discuss preferences for HH agencies, complete F/F and send referral for d/c. No further needs, he is medically stable for d/c.
--- NOTE | 2023-09-29 15:24 | OT.IP.TRT ---
Current Diagnoses COVID-19 (09/27/23) Occupational Therapy Treatment Note M2 OT-IP Current Condition Start: 09/28/23 16:08 Freq: Status: Active Protocol: Document 09/28/23 16:09 [facility] (Rec: 09/28/23 16:32 [facility] [id number]) Occupational Therapy Current Condition Current Condition Evaluation Date 09/28/23 Treatment Diagnosis COVID + , PNA Diagnosis Onset Date 09/27/23 M3 OT- IP Subjective and Pain Start: 09/28/23 16:08 Freq: Status: Active Protocol: Document 09/29/23 15:34 [facility] (Rec: 09/29/23 15:43 [facility] [id number]) OT- Subjective Occupational Therapy Visit Type Type Treatment Note Visit Start Time 15:00 Visit Stop Time 15:24 Total Visit Minutes 24 Occupational Therapy Visit Comments Patient Comments Pt agreed to do balance test. Patient/Caregiver Goals To go whatever his sister would like him to do and therefore open to going to skilled rehab. OT Pain Assessment Pain When Pain Assessed At Rest Pain Present Pain Present Denied Pain M7 OT- IP Mobility and Balance Start: 09/28/23 16:08 Freq: Status: Active Protocol: Document 09/29/23 15:34 [facility] (Rec: 09/29/23 15:43 [facility] [id number]) OT- Bed Mobility Assessment Supine to Sit Supine to Sit Assist Standby Assistance Sit to Supine Sit to Supine Assist Standby Assistance Scooting Scooting to Edge of Bed Standby Assistance Scooting Up and Down in Bed Standby Assistance OT-Transfer Assessment Sit to and From Stand Sit to and from Stand Standby Assistance Transfers Transfer Ability Standby Assistance,Contact Guard Assistance Technique Transfer Destination Bed,Chair Transfer Technique Stand Step Pivot Devices Transfer Assistive Devices None,Gait Belt Comments Mobility Comments Pt SBA to get to the edge of the bed. SBA to stand from the bed and close SBA from a lower chair. Pt scored 36/56 on the OSBORN which implies safe ambulation with assisted device. Pt comes to stand with use of hands and for transfer to a chair, able to stand 1 minute with his feet together with supervision, able to reach forwards with outstretched arm 8 inches while standing, able to picker machine operator tissue box with SBA, pt has less weight shift while turning to the right versus left, pt able to turn around 360 degrees in 9 seconds, pt not able to alternate foot on a step, pt not able to technical training specialist tandem, and pt not able to on stand on one foot for 1 sec . OT- Balance Assessment Sitting Balance and Reactions Static Sitting Balance Ability Normal Dynamic Sitting Balance Ability Good Standing Balance and Reactions Static Standing Balance Ability Good Dynamic Standing Balance Ability Fair M8 OT- IP Objective Assessments Start: 09/28/23 16:08 Freq: Status: Active Protocol: Document 09/28/23 16:09 [facility] (Rec: 09/28/23 16:32 [facility] [id number]) OT Gross Range of Motion Upper Extremity Range of Motion Assessment Within Functional Limits OT Strength Upper Extremity Strength Assessment Within Functional Limits OT- Coordination Assessment Upper Extremity Finger to Nose Test Within Functional Limits Finger Tapping Test Within Functional Limits M9 OT- IP Assessment and Plan Start: 09/28/23 16:08 Freq: Status: Active Protocol: Document 09/29/23 15:34 [facility] (Rec: 09/29/23 15:43 [facility] [id number]) OT Summary Assessment and Plan Potential Rehabilitation Potential Good Analytic Complexity at Evaluation Moderate Summary OT Impairments Pain,Balance,Functional Mobility,Grooming,Dressing, Toileting,Bathing,Toilet Transfers,Shower Transfers, Activity Tolerance Progress Towards Goals Progressing Toward Goals Assessment Summary Pt doing much better with mobility needs but still much safer to use a FWW for balance from mobility needs. Prior pt did not use a device and suggested pt get a fww and shower chair for home use. Pending on assist at home, pt would benefit from short skilled rehab versus home with assist and home health. Goals Self-Feeding Goal Independent Grooming Goal Independent Dressing Goal Independent Toileting Goal Independent Bathing Goal Independent Toilet Transfer Goal Independent Shower Transfer Goal Independent Days to Meet Goals 10 Frequency of Treatment Frequency Of Treatment Once a Day Treatment Plan OT Treatment Plan ADL Training,Functional Mobility,Patient/Family Education,Discharge Planning Discharge Recommendations OT Discharge Recommendations Home with Assistance,Home Health,SNF Rehab,Home vs SNF Home Equipment Needs FWW, shower chair, spiritual counselor, sock aid, long handled shoe horn and brush Transportation Needs at Discharge Private Vehicle
[2023-09-29 16:00] VITALS: BP 110/61; PULSE 86; RESP 18; TEMP 37.4; O2SAT 94
[2023-09-29] MEDS: cefTRIAXone 1,000 MG in SODIUM CHLORIDE 0.9% 100 ML 200 MG IV (17:05)
[2023-09-29 20:00] VITALS: BP 137/75; PULSE 94; RESP 18; TEMP 37; O2SAT 95
[2023-09-30] VITALS (7 sets, daily range): BP systolic 98–150; BP diastolic 56–77; PULSE 72–95; RESP 16–18; TEMP 36.1–36.9; O2SAT 95–98
[2023-09-30 05:00] LABS: Add Manual Diff / Slide Review NO; Basophils Absolute Auto 0 /uL (0-100); Basophils Percent Auto 0.5 % (0-2); Eosinophils Absolute Auto 100 /uL (0-450); Eosinophils Percent Auto 1.1 % (2-4); Hematocrit 28.9 % (41-53); Hemoglobin 9.7 g/dL (13.5-17.5); Lymphocytes Absolute Auto 900 /uL (1100-4500); Lymphocytes Percent Auto 15.4 % (25-40); Mean Corpuscular HGB Conc 33.7 % (30-36); Mean Corpuscular Hemoglobin 29.4 PG (26-34); Mean Corpuscular Volume 87.1 fL (80-100); Monocytes Absolute Auto 600 /uL (0-900); Monocytes Percent Auto 9.7 % (3-14); Neutrophils Absolute Auto 4300 /uL (1500-7000); Neutrophils Percent Auto 73.3 % (50-75); Platelet Count 163 X10^3/uL (150-400); Red Blood Cell Count 3.32 X10^6/uL (4.5-5.9); Red Cell Distribution Width 14.6 % (11.6-14.8); White Blood Cell Count 5.9 X10^3/uL (4.5-11.0)
[2023-09-30 05:04] LABS: BUN Creatinine Ratio 28.8 (6-22); Blood Urea Nitrogen 34 mg/dL (9-20); Calcium 8.7 mg/dL (8.4-10.2); Carbon Dioxide 25 mmol/L (22-32); Chloride 104 mmol/L (98-107); Estimated Glomerular Filt Rate > 60 mL/min (>60); Glucose 115 mg/dL (80-110); HEMOLYSIS < 15 (0-50); Sodium 136 mmol/L (137-145)
[2023-09-30 05:11] LABS: Magnesium 1.8 mg/dL (1.6-2.3)
[2023-09-30 05:21] LABS: Procalcitonin 0.68 ng/mL (<0.5)
[2023-09-30] MEDS: polyethylene glycoL 3350 17 GM POWD.PACK PO (08:53)
[2023-09-30] MEDS: MAGNESIUM SULFATE 2 GM/50 ML PIGGYBACK IV (08:53)
[2023-09-30] MEDS: PREGABALIN 75 MG CAPSULE 150 MG PO ×2 (08:54→20:45)
[2023-09-30] MEDS: guaiFENesin ER 600 MG TAB PO ×2 (08:54→20:40)
[2023-09-30] MEDS: ASPIRIN EC 81 MG TABLET PO (08:54)
[2023-09-30] MEDS: HEPARIN 5,000 UNIT/ML VIAL 5000 UNIT SUBCUT ×2 (08:54→20:46)
[2023-09-30] MEDS: METFORMIN HCL 500 MG TABLET PO ×2 (08:54→17:36)
[2023-09-30] MEDS: ATORVASTATIN 20 MG TABLET 80 MG PO (08:54)
--- NOTE | 2023-09-30 10:15 | PT.IPTN ---
Current Diagnoses COVID-19 (09/27/23) Physical Therapy Treatment Note M2 PT-IP Current Condition Start: 09/28/23 11:54 Freq: NEEDED Status: Active Protocol: Document 09/28/23 09:55 AB (Rec: 09/28/23 12:12 AB [id number]) Physical Therapy Current Condition Current Condition Evaluation Date 09/28/23 Treatment Diagnosis covid; difficulty in walking Onset Date 09/27/23 M3 PT-IP Subjective Start: 09/28/23 11:54 Freq: NEEDED Status: Active Protocol: Document 09/30/23 10:59 TS (Rec: 09/30/23 11:13 TS [id number]) Subjective Physical Therapy Visit Type Type Treatment Note Visit Start Time 10:15 Visit Stop Time 10:50 Total Visit Minutes 35 Notes SW reports he will be going to SNF tomorrow, need to find transport. Number of RESOURCE MANAGEMENT SPECIALIST Visits 2 Physical Therapy Visit Comments Patient Comments Pt found resting in bed, reports feeling better today, is agreeable to PT. M4 PT-IP Mobility and Gait Start: 09/28/23 11:54 Freq: NEEDED Status: Active Protocol: Document 09/30/23 10:59 TS (Rec: 09/30/23 11:13 TS [id number]) PT-Bed Mobility Assessment Supine to Sit Supine to Sit Standby Assistance Sit to Supine Sit to Supine Standby Assistance Scooting Scooting to Edge of Bed Standby Assistance Scooting Up and Down in Bed Standby Assistance PT-Transfer Assessment Sit to and From Stand Sit to and from Stand Standby Assistance,Use of Upper Extremities Equipment Transfer Assistive Device Gait Belt,Front Wheeled Walker Orthotic/Prosthetic Devices or Brace: No Comments Mobility Comments BP in supine 92/53, pt denied any lightheadedness or dizziness. Supine to sit SBA with HOB elevated and BUE support. BP in sitting 87/58, pt continued to deny any dizziness or lightheadedness. STS with FWW SBA, pt stood ~ 2mins, BP 83/50 in standing, pt continued to deny any symptoms. He ambulated in room ~80' SBA with FWW, had no buckling or LOB. He performed steps x12 on step stool with single rail support SBA, reports feeling a little SOB. Pt ambulated back to bed, call light nearby, all needs met, RN notified of orthostatics. Gait Assessment Gait Gait Assistance Required: Standby Assistance Distance (Feet) 80 Able to Maintain Weight Bearing Status Yes During Gait Assistive Devices Assistive Device None,Gait Belt,Front Wheeled Walker Orthotic/Prosthetic Devices or Brace: No Gait Deviations General Gait Pattern Antalgic,Decreased Stride Length,Decreased Feet Clearance Factors Limiting Gait Function Factors Limiting Gait Function Decreased Activity Tolerance, Decreased Strength,Difficulty Following Directions,Poor Balance,Poor Safety Awareness Comments Gait Comments See mobility comments Stair Climbing Assessment Evaluation Level of Assist On Stairs Standby Assistance Technique/Endurance Stair Climbing Direction Ascend and Descend Stair Climbing Technique Step to Step Number of Steps Climbed 12 Comments Stair Climbing Comments See mobility comments PT-Balance Assessment Sitting Balance and Reactions Static Sitting Balance Ability Normal Dynamic Sitting Balance Ability Good Standing Balance and Reactions Static Standing Balance Ability Good Dynamic Standing Balance Ability Fair Device Used using FWW M5 PT-IP Objective Assessments Start: 09/28/23 11:54 Freq: NEEDED Status: Active Protocol: Document 09/28/23 09:55 AB (Rec: 09/28/23 12:12 AB [id number]) Orientation Orientation/Cognition Level of Alertness Alert Orientation Name Safety Awareness Decreased Safety Awareness Memory Description Short Term Impaired Comments with slight confusion Gross Range of Motion Lower Extremity ROM Assessment Within Functional Limits Strength Lower Extremity Strength Hip 4-/5 Knee 4-/5 Muscle Tone Muscle Tone WNL Yes M6 PT-IP Treatment Start: 09/28/23 11:54 Freq: NEEDED Status: Active Protocol: Document 09/30/23 10:59 TS (Rec: 09/30/23 11:13 TS [id number]) Physical Therapy Treatment Education Education Provided Safety M7 PT-IP Assessment and Plan Start: 09/28/23 11:54 Freq: NEEDED Status: Active Protocol: Document 09/30/23 10:59 TS (Rec: 09/30/23 11:13 TS [id number]) PT Summary Assessment and Plan Potential Rehabilitation Potential Fair Summary Impairments Pain,ROM,Strength,Balance, Coordination,Sensation,Tone, Cognition,Bed Mobility, Transfers,Gait,Activity Tolerance Progress Towards Goals Progressing Toward Goals Assessment Summary Logan continues to make progress with his mobility. He progressed his gait to ~80' in room with FWW and SBA. He demonstrates some poor safety awareness with FWW, will let go at times. He progressed his stairs to x12 on step stool with single rail support. His BP was low but pt denied any lightheadedness or dizziness throughtout session, RN was notified of orthostatics. PT is recommending Home vs SNF at this time. Pt was accepeted into SNF for tomorrow. Goals Bed Mobility Goal Independent Transfer Goal Standby Assistance,Front Wheeled Walker Gait Goal Standby Assistance,Front Wheel Walker Gait Distance 150 Other Goals improve transfers and ambulation using LRAD/without AD ~ 250 ft mod I up/down 4 steps B rails + 10 steps L rail descending SBA Days to Meet Goals 10 Frequency of Treatment Frequency Of Treatment Once a Day Treatment Plan Physical Therapy Treatment Plan Bed Mobility Training,Transfer Training,Gait Training, Therapeutic Exercise,Balance Retraining,Discharge Planning, Hot or Cold Pack,Neuromuscular Re-ed,Coordination Retraining Precautions Other Precautions Covid; falls Recommendations To Nursing Amount of Assist Needed 1 Person Assist Discharge Recommendations PT Discharge Recommendations Home with Assistance,Home Health,Home vs SNF Equipment Needed for Home Before Will need FWW if to go home. Discharge Transportation Needs at Discharge Private Vehicle,Wheelchair/ Cabulance
--- NOTE | 2023-09-30 11:23 | CM.DPNOTE ---
Addendum entered by Benita Acosta, TIE CUTTER 09/30/23 14:33: Patricia requested PASRR be sent today. JAMES Santiago kindly agreed to send copy. PASRR placed in pt's physical chart. SL Addendum entered by Benita Acosta, [facility] 09/30/23 14:04: TIE CUTTER confirmed with Patricia about transport time for dc tomorrow. Patricia asked for INPT order- JAMES Santiago kindly agreed to send INPT order and MAR. SL Addendum entered by Benita Acosta, [facility] 09/30/23 12:37: Tk from [facility] reports they could accept- TIE CUTTER updated him that Pt was likely discharging to [facility] tomorrow- Tk agreed to follow likely post dc from [facility]. SL Addendum entered by Benita Acosta, [facility] 09/30/23 11:51: Patricia from [facility] asked if we could move transport time up to 1030 tomorrow. TIE CUTTER spoke with sister, sister agreed to be here around 06/1030 to take him to [facility]. SL Original Note: DCP Note TIE CUTTER reviewed EMR. Per provider, stable to dc today. Per chart review, pt agreeable to whatever his sister thinks is best for his Dc. PT/OT rec HH vs SNF. TIE CUTTER spoke with sister Katlin (p [phone]) confirms would like pt to get some rehab before returning home. Understands that COVID pos may make it difficult for placement and is willing to assist him at home with HH if no SNF availability. Preference is closest to home ([place]) as possible. [facility] agreed to review- Tk reviewing acceptance pending for backup plan. [facility]- no available iso beds [facility]- no current available iso beds, agreed to review. JAMES Santiago kindly agreed to send ref information. [facility] iso [facility] available, can accept. [facility]- no iso bed available until 10/08/23. [facility] can accept tomorrow 1..24, likely around 1300- Patricia confirming time. No facility transportation due to pt COVID pos. TIE CUTTER spoke with sister, agreed to transport him tomorrow at 1200/1230 [place]. Sister confirms her and pt's OZ do not have any COVID symptoms and agree to wear mask in [facility]/this hospital. TIE CUTTER lvm with pt with personal phone, no response to hosp phone. RN agreed to update pt for this TIE CUTTER due to pt being COVID pos. TIE CUTTER updated provider, provider in agreement. TIE CUTTER completed PASRR. Plan: dc tomorrow to [facility] tomorrow at around 1200/1230 with sister to transport in POV. CM team will continue to follow closely. MARIANELA Pickett
--- NOTE | 2023-09-30 13:13 | PM.PN.1 ---
Subjective Subjective Interval history: Patient sleeping and not awakened. SNF arranged for tomorrow. Kidney function now normalized. Exam Vital Signs (past 8 hours): - 09/30/23 07:00 09/30/23 11:30 Temperature 97.8 F 97.6 F Pulse Rate 82 80 Respiratory Rate 16 18 Blood Pressure 116/63 98/56 L Pulse Oximetry 95 95 Oxygen Flow Rate 0 0 Oxygen Delivery Method Room Air Oxygen Flow Rate 0 Narrative Exam Narrative: GEN: no acute distress, thin HEENT: moist mucous membranes, PERRL, swollen submandibular glands NECK: trachea midline, no JVD CV: regular rate and rhythm, no murmurs PULM: clear bilaterally ABD: soft, nontender, nondistended, no organomegaly EXT: warm and well perfused with no edema NEURO: awake, alert, oriented, no focal deficits Objective Labs 09/30/23 04:08 09/30/23 04:08 Labs: Laboratory Results - last 24 hr 09/30/23 04:08 WBC 5.9 RBC 3.32 L Hgb 9.7 L Hct 28.9 L MCV 87.1 MCH 29.4 MCHC 33.7 RDW 14.6 Plt Count 163 Neut % (Auto) 73.3 Lymph % (Auto) 15.4 L Elliott % (Auto) 9.7 Eos % (Auto) 1.1 L Baso % (Auto) 0.5 Neut # (Auto) 4300 Lymph # (Auto) 900 L Elliott # (Auto) 600 Eos # (Auto) 100 Baso # (Auto) 0 Sodium 136 L Potassium 4.0 Chloride 104 Carbon Dioxide 25 BUN 34 H Creatinine 1.18 Estimated GFR > 60 BUN/Creatinine Ratio 28.8 H Glucose 115 H Calcium 8.7 Magnesium 1.8 Procalcitonin 0.68 H PFSH Medical History Foot pain Mumps Measles Chicken pox Recurrent sinusitis Hearing loss Systolic heart failure Coronary artery disease Aortic stenosis Rash of foot Toenail fungus Peripheral neuropathy Type 2 diabetes mellitus Dysphagia Surgical History History of quadruple bypass Family History Father Cancer History of heart disease Mother Diabetes mellitus Social History household members: family Smoking Status: Never smoker alcohol intake: never Assessment & Plan Assessment & Plan narrative: # COVID pneumonia, improving -presented with worsening shortness of breath, cough, sore throat and fever -will cover with CAP abx given leukocytosis, can't r/o on CXR and mildly elevated procal -continue rocephin and azithro -not requiring supp O2 -mucinex and tessalon perles PRN -procal dee to 1.05 on HD2 # dysphagia, mild -MBS with penetration but not aspiration documented on 09/26 -dysphagia diet -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 DVT prophylaxis with heparin. Proxy is sister Katlin. I have reviewed home meds and used all available resources to reconcile the home meds. Dispo: [facility] on 10/01. Quality VTE Deep Vein Thrombosis/Pulmonary Embolism Present on Admission: No
--- NOTE | 2023-09-30 13:53 | OT.IP.TRT ---
Current Diagnoses COVID-19 (09/27/23) Occupational Therapy Treatment Note M2 OT-IP Current Condition Start: 09/28/23 16:08 Freq: Status: Active Protocol: Document 09/28/23 16:09 [facility] (Rec: 09/28/23 16:32 [facility] [id number]) Occupational Therapy Current Condition Current Condition Evaluation Date 09/28/23 Treatment Diagnosis COVID + , PNA Diagnosis Onset Date 09/27/23 M3 OT- IP Subjective and Pain Start: 09/28/23 16:08 Freq: Status: Active Protocol: Document 09/30/23 13:53 [facility] (Rec: 09/30/23 14:05 [facility] [id number]) OT- Subjective Occupational Therapy Visit Type Type Treatment Note Visit Start Time 13:00 Visit Stop Time 13:53 Total Visit Minutes 53 Occupational Therapy Visit Comments Patient Comments Pt agreed to get up to shower. Patient/Caregiver Goals TO get better. OT Pain Assessment Pain When Pain Assessed During Mobility Pain Present Pain Present Pain Reported Location Neck Description Pressure,Tightness Management Techniques Re-positioning M4 OT- IP ADL's Start: 09/28/23 16:08 Freq: Status: Active Protocol: Document 09/30/23 13:53 [facility] (Rec: 09/30/23 14:05 [facility] [id number]) OT [id number] Comments OT Self-Feeding Comments No issues. OT ADL-Grooming Comments OT Grooming Comments Not performed. OT ADL-Oral Care Comments Oral Care Comments Not performed. OT ADL-Dressing General Eval Lower Body Dressing Ability Minimal Assistance Areas Needing Assistance Underpants/Brief,Socks Comments OT Dressing Comments Assist to help hold his foot up so able to franco clothing over his feet. Pt still having some dynamic balance and having lose of balance while leaning forwards. OT ADL-Toileting Comments OT Toileting Comments Not performed. OT ADL-Bathing Bathing Type Bathing Type Sponge Bath Comments OT Bathing Comments Pt having low BP standing 83/ 36 and therefore opted for sponging off at the end of the bed. Pt just needing assist for his back and assist for balance CGA while reaching to get his feet while seated. Close SBA while standing to do pericare needs. Pt will still greatly benefit from a shower chair to use at home. M5 OT- IP IADL's Start: 09/28/23 16:08 Freq: Status: Active Protocol: Document 09/28/23 16:09 [facility] (Rec: 09/28/23 16:32 [facility] [id number]) OT-Instrumental Activities of Daily Living Deficits IADL Deficits Identified Deficits Home Safety Awareness Home Safety Comments Pt aware that he will need assist at home and not at his baseline. M6 OT- IP Functional Cognition Start: 09/28/23 16:08 Freq: Status: Active Protocol: Document 09/30/23 13:53 [facility] (Rec: 09/30/23 14:05 [facility] [id number]) Cognitive Factors Limiting Selfcare Function Cognitive Comments Cognitive Assessment Comments Pt able to follow command appropriately. Pt states he feels that he is at 80% of his normal independence and balance now. M7 OT- IP Mobility and Balance Start: 09/28/23 16:08 Freq: Status: Active Protocol: Document 09/30/23 13:53 [facility] (Rec: 09/30/23 14:05 [facility] [id number]) OT- Bed Mobility Assessment Supine to Sit Supine to Sit Assist Independent Sit to Supine Sit to Supine Assist Independent Scooting Scooting to Edge of Bed Independent OT-Transfer Assessment Sit to and From Stand Sit to and from Stand Standby Assistance Comments Mobility Comments Pt able to stand from the bed with SBA for sponge bathing needs. OT- Balance Assessment Sitting Balance and Reactions Static Sitting Balance Ability Good Dynamic Sitting Balance Ability Fair Standing Balance and Reactions Static Standing Balance Ability Good Dynamic Standing Balance Ability Fair Comments Other Balance Tests/Deviations/Treatment Pt has very flexed posture : with neck and trunk flexion and pelvic into posterior tilt . M8 OT- IP Objective Assessments Start: 09/28/23 16:08 Freq: Status: Active Protocol: Document 09/28/23 16:09 [facility] (Rec: 09/28/23 16:32 [facility] [id number]) OT Gross Range of Motion Upper Extremity Range of Motion Assessment Within Functional Limits OT Strength Upper Extremity Strength Assessment Within Functional Limits OT- Coordination Assessment Upper Extremity Finger to Nose Test Within Functional Limits Finger Tapping Test Within Functional Limits M9 OT- IP Assessment and Plan Start: 09/28/23 16:08 Freq: Status: Active Protocol: Document 09/30/23 13:53 [facility] (Rec: 09/30/23 14:05 [facility] [id number]) OT Summary Assessment and Plan Potential Rehabilitation Potential Good Analytic Complexity at Evaluation Moderate Summary OT Impairments Pain,Balance,Toileting,Bathing ,Toilet Transfers,Shower Transfers,Activity Tolerance Progress Towards Goals Progressing Toward Goals Assessment Summary Pt still having low bp at 83/ 36 but no symptomatic but just feeling tired so opted to do sponge bathing at bed side versus go to the shower. Pt still having some dynamic balance difficulties for dressing needs. Educated pt to be mindful of his posture and to try to support his neck better with pillow and rolled towel especially while in bed. Pt agreed that when his neck is supportive correctly that he does not have pain. Pt to go to skilled rehab tomorrow. Goals Self-Feeding Goal Independent Grooming Goal Independent Dressing Goal Independent Toileting Goal Independent Bathing Goal Independent Toilet Transfer Goal Independent Shower Transfer Goal Independent Days to Meet Goals 8 Frequency of Treatment Frequency Of Treatment Once a Day Treatment Plan OT Treatment Plan ADL Training,Functional Mobility,Patient/Family Education,Discharge Planning Discharge Recommendations OT Discharge Recommendations SNF Rehab Home Equipment Needs FWW, shower chair, flush tester, sock aid, long handled shoe horn and brush Transportation Needs at Discharge Private Vehicle,Wheelchair/ Cabulance
[2023-09-30] MEDS: INSULIN LISPRO 100 UNIT/ML 3ML VIAL SUBCUT ×2 (17:34→20:45)
[2023-09-30] MEDS: cefTRIAXone 1,000 MG in SODIUM CHLORIDE 0.9% 100 ML 200 MG IV (17:35)
[2023-09-30] MEDS: SENNOSIDES 8.6 MG TABLET PO (20:45)
[2023-10-01 00:30] VITALS: BP 110/64; PULSE 75; RESP 16; TEMP 36.8; O2SAT 96
[2023-10-01 05:30] VITALS: BP 124/68; PULSE 78; RESP 16; TEMP 36.7; O2SAT 95
[2023-10-01 06:32] LABS: Add Manual Diff / Slide Review NO; Basophils Absolute Auto 0 /uL (0-100); Basophils Percent Auto 0.4 % (0-2); Eosinophils Absolute Auto 100 /uL (0-450); Eosinophils Percent Auto 3.1 % (2-4); Hematocrit 28.9 % (41-53); Hemoglobin 9.8 g/dL (13.5-17.5); Lymphocytes Absolute Auto 1200 /uL (1100-4500); Lymphocytes Percent Auto 25.2 % (25-40); Mean Corpuscular HGB Conc 34.1 % (30-36); Mean Corpuscular Hemoglobin 29.5 PG (26-34); Mean Corpuscular Volume 86.5 fL (80-100); Monocytes Absolute Auto 600 /uL (0-900); Monocytes Percent Auto 12.5 % (3-14); Neutrophils Absolute Auto 2800 /uL (1500-7000); Neutrophils Percent Auto 58.8 % (50-75); Platelet Count 176 X10^3/uL (150-400); Red Blood Cell Count 3.34 X10^6/uL (4.5-5.9); Red Cell Distribution Width 14.8 % (11.6-14.8); White Blood Cell Count 4.7 X10^3/uL (4.5-11.0)
[2023-10-01 06:42] LABS: BUN Creatinine Ratio 24.4 (6-22); Blood Urea Nitrogen 31 mg/dL (9-20); Calcium 8.7 mg/dL (8.4-10.2); Carbon Dioxide 26 mmol/L (22-32); Chloride 105 mmol/L (98-107); Estimated Glomerular Filt Rate > 60 mL/min (>60); Glucose 118 mg/dL (80-110); HEMOLYSIS < 15 (0-50); Sodium 135 mmol/L (137-145)
--- NOTE | 2023-10-01 07:21 | PM.DS.1 ---
History of Present Illness History of Present Illness Chief complaint: fever, sore throat, Narrative: Meño Roque is a 72yo M with PMH of CAD s/p CABG x4 in 2021, poorly-controlled DM2, aortic stenosis, CKD, HTN and HLD who presents with worsening weakness, fever, cough and sore throat. Found in the ED to be COVID positive on PCR panel. Patient was seen in his PCP's office about a week ago for dysphagia and had an MBS done yesterday which showed laryngeal penetration and trace aspiration. In ED patient had leukocytosis of 11.7, CXR with L pleural effusion and can't rule out pneumonia, and procal 0.21. Patient currently mostly endorses swollen glands and a sore throat. He says he has difficulty swallowing most things due to swelling in his throat. He isn't sure why he is underweight. He thinks he may have gotten COVID from his sister who has had a cough lately. He denies CP, NV, abd pain, or diarrhea. Discharge Providers Provider Date of admission: 09/27/23 17:29 Discharge Date: 10/01/23 Primary care physician: Lesly Chiu MD Consults: 09/27/23 17:32 Consult to Occupational Therapy Evaluate & Treat Comment: Physician Instructions: Evaluate and treat Consult to Physical Therapy Evaluate & Treat Comment: Physician Instructions: Evaluate and Treat 09/27/23 17:34 Consult to Speech Therapy Evaluate & Treat Comment: Physician Instructions: Evaluate and treat 09/27/23 17:38 Consult to Dietitian, Adult Routine Comment: Reason For Exam: BMI 17 Discharge provider: Edilson Rollins DO Summary Hospital Course Discharge Diagnosis: # COVID pneumonia, improving -presented with worsening shortness of breath, cough, sore throat and fever -will cover with CAP abx given leukocytosis, can't r/o on CXR and mildly elevated procal -continue rocephin and azithro, finished 5 day course -not requiring supp O2 -mucinex and tessalon perles PRN -procal dee to 1.05 on HD2 # dysphagia, mild -MBS with penetration but not aspiration documented on 09/26 -dysphagia diet -MERCANTILE AGENT eval evaulated and signed off now # weakness, low BMI -likely due to COVID, also may be malnourished as BMI 17 -PT/OT/digital retoucher consults -SNF recommended, patient willing to go # DM2 -last A1c 12.7% -continue metformin, held lantus due to hypoglycemia -SSI -diabetes education # CLAUDETTE on CKD, improving -Cr up to 1.46 -renally dose meds -Cr downtrending with IVF # CAD s/p CABG x4 -continue statin and jardiance -stopped lasix on discharge Hospital Course: Admitted for COVID pneumonia. Not on O2 so COVID not treated. Given IV abx due to rising procal and potential bacterial PNA. Patient weak with PT and SNF recommended. He finished 5 days of abx and was discharged to SNF. Lasix discontinued on discharge due to borderline CLAUDETTE and patient appearing dry. Exam Vital Signs (past 8 hours): - 10/01/23 00:30 10/01/23 05:30 Temperature 98.2 F 98.0 F Pulse Rate 75 78 Respiratory Rate 16 16 Blood Pressure 110/64 124/68 Pulse Oximetry 96 95 Oxygen Flow Rate 0 0 Oxygen Delivery Method Room Air Oxygen Flow Rate 0 Narrative Exam Narrative: GEN: no acute distress, thin HEENT: moist mucous membranes, PERRL, swollen submandibular glands NECK: trachea midline, no JVD CV: regular rate and rhythm, no murmurs PULM: clear bilaterally ABD: soft, nontender, nondistended, no organomegaly EXT: warm and well perfused with no edema NEURO: awake, alert, oriented, no focal deficits Objective Labs 10/01/23 06:18 10/01/23 06:18 Labs: Laboratory Results - last 24 hr 10/01/23 06:18 WBC 4.7 RBC 3.34 L Hgb 9.8 L Hct 28.9 L MCV 86.5 MCH 29.5 MCHC 34.1 RDW 14.8 Plt Count 176 Neut % (Auto) 58.8 Lymph % (Auto) 25.2 Wagoner % (Auto) 12.5 Eos % (Auto) 3.1 Baso % (Auto) 0.4 Neut # (Auto) 2800 Lymph # (Auto) 1200 Wagoner # (Auto) 600 Eos # (Auto) 100 Baso # (Auto) 0 Sodium 135 L Potassium 4.0 Chloride 105 Carbon Dioxide 26 BUN 31 H Creatinine 1.27 H Estimated GFR > 60 BUN/Creatinine Ratio 24.4 H Glucose 118 H Calcium 8.7 PFSH Medical History Foot pain Mumps Measles Chicken pox Recurrent sinusitis Hearing loss Systolic heart failure Coronary artery disease Aortic stenosis Rash of foot Toenail fungus Peripheral neuropathy Type 2 diabetes mellitus Dysphagia Surgical History History of quadruple bypass Family History Father Cancer History of heart disease Mother Diabetes mellitus Social History household members: family Smoking Status: Never smoker alcohol intake: never Discharge Plan Discharge Plan Patient Disposition: SNF Transfer to: [facility], [facility] Discharge orders & Medications Prescriptions: Continued atorvastatin 80 mg tablet 80 mg PO DAILY pregabalin 150 mg capsule 150 mg PO BID potassium chloride 10 mEq tablet extended release 10 meq PO 4XD metformin 500 mg tablet 500 mg PO BID Jardiance 10 mg tablet 10 mg PO DAILY (DME) glucose test strips See Rx Instructions .ROUTE .MEDSUPPLY Qty: 400 0RF Rx Instructions: to test 4 times daily. Pt has Freestyle Lite glucometer. Pt currently adjusting insulin dosing and needs frequent glucose tests (DME) glucometer See Rx Instructions .Route .MEDSUPPLY Qty: 1 0RF Rx Instructions: to test 4 times daily. Pt has Freestyle Lite glucometer. Pt currently adjusting insulin dosing and needs frequent glucose tests aspirin 81 mg Capsule 81 mg PO DAILY Changed insulin glargine [Basaglar KwikPen U-100 Insulin] 100 unit/mL (3 mL) insulin pen 8 unit SUBCUT DAILY Qty: 15 0RF Patient Comments: [NO ORIGINAL SIG] Discontinued furosemide 20 mg tablet 20 mg PO DAILY Follow up/Referrals: Lesly Chiu MD [Primary Care Provider] - 2 Weeks Diet/Activity/Treatments Liquid consistency: Normal/Thin Food texture: Regular [facility] Rehab type: Physical therapy and Occupational therapy Visit Report/Discharge Packet Stand Alone Forms: Patient Portal/API Discharge Data Primary Care Provider: Lesly Chiu Quality VTE Deep Vein Thrombosis/Pulmonary Embolism Present on Admission: No
[2023-10-01] MEDS: ATORVASTATIN 20 MG TABLET 80 MG PO (08:11)
[2023-10-01] MEDS: PREGABALIN 75 MG CAPSULE 150 MG PO (08:11)
[2023-10-01] MEDS: ASPIRIN EC 81 MG TABLET PO (08:11)
[2023-10-01] MEDS: cefTRIAXone 1,000 MG in SODIUM CHLORIDE 0.9% 100 ML 200 MG IV (08:11)
[2023-10-01] MEDS: SODIUM CHLORIDE 0.9% 1,000 ML 100 ML IV (08:11)
[2023-10-01] MEDS: HEPARIN 5,000 UNIT/ML VIAL 5000 UNIT SUBCUT (08:12)
[2023-10-01] MEDS: guaiFENesin ER 600 MG TAB PO (08:12)
[2023-10-01] MEDS: METFORMIN HCL 500 MG TABLET PO (08:12)
[2023-10-01 08:29] VITALS: BP 123/67; PULSE 77; RESP 18; TEMP 37.1; O2SAT 95
[2023-10-01] MEDS: SODIUM CHLORIDE 0.9% 500 ML IV (08:44)
--- NOTE | 2023-10-01 09:23 | CM.DPC ---
Addendum entered by Adelaide Hernandez R.N. 10/01/23 13:06: Faxed over hard script for Pregabalin, original placed in folder for scanning. Addendum entered by Adelaide Hernandez R.N. 10/01/23 13:01: Spoke to nursing at [facility], they need an RX for Pregabalin. Dr. Rollins will do a prescription, but let her know that this will have to be faxed. Let her know that this will be faxed as soon as it is completed by hospitalist. Original Note: DCP Cont: Patient has discharge orders, he is going to [facility] today, sister, Katlin, is supposed to transport patient, will be here between 10:00-10:30. Updated white board at main nurses station, and nurse, Thi, as well as hospitalist. PASSR was already sent, original in front of chart. Med sheets completed and signed by hospitalist, faxed over to [facility] as well as DC Summary, Patricia confirmed that she received. P: Patient is to discharge to [facility] today with bean picker machine operator by sister between 10:00-10:30. Adelaide Hernandez, RN/Aesthetics Instructor
--- NOTE | 2023-10-01 10:32 | PC.NURSE ---
This RN wheeled the pt out to POV. This RN had the pt's discharge packet to pt's [id number], Raykeyur Kumari. This RN informed Ray and the pt, this packet must be handed to the admit nurse when he arrives at the facility in [place]. Ray stated: I will make sure the nurse gets this as soon as he gets there. Pt A&Ox4 when D/C'd, pt was able to self transfer from into the POV with standby assist only.
--- NOTE | 2023-10-01 10:34 | PC.NURSE ---
Pt discharged at 1020 to [facility] via private vehicle, escorted off floor in wheelchair accompanied by hospital staff. IV removed, discharge packet given to brother Raykeyur Kumari upon discharge. Report called to Parviz at 1035. Patient left the floor with all belongings.
== END 2023-10-01 10:40 | DRG 177 ==
LOC: ED 17:18 → AC 09-28 06:25
PROVIDERS: Admitting Provider Student in an Organized Health Care Education/Training Program; Emergency Provider Emergency Medicine; Family Provider Family Medicine; PCP Family Medicine; Visit Provider Student in an Organized Health Care Education/Training Program
DX: U07.1 COVID-19 (principal); E43 Unspecified severe protein-calorie malnutrition; J12.82 Pneumonia due to coronavirus disease 2019; Z68.1 Body mass index [BMI] 19.9 or less, adult; I25.10 Atherosclerotic heart disease of native coronary artery without angina pectoris; R13.10 Dysphagia, unspecified; E11.22 Type 2 diabetes mellitus with diabetic chronic kidney disease; I12.9 Hypertensive chronic kidney disease with stage 1 through stage 4 chronic kidney disease, or unspecified chronic kidney disease; N18.9 Chronic kidney disease, unspecified; Z79.84 Long term (current) use of oral hypoglycemic drugs; Z95.1 Presence of aortocoronary bypass graft; Z79.4 Long term (current) use of insulin; G62.9 Polyneuropathy, unspecified
CPT/HCPCS: 36415; 71045; 74230; 80048; 80053; 81003; 81015; 82550; 82607; 82962; 83036; 83605; 83690; 83735; 83880; 84145; 84439; 84443; 84481; 84484; 85025; 85610; 85730; 87040; 87086; 87633; 92526; 92610; 92611; 93005; 93010; 97116; 97162; 97166; 97530; 97535; 99284; J0696; J1644; J1815; J3475

== ENCOUNTER 2023-12-21 12:00 | Outpatient (RCR) | payer MEDICARE, SELFPAY ==
[2023-09-27 17:34] VITALS: BMI 16.9
--- NOTE | 2023-11-16 16:00 | PT.OIE ---
Current Diagnoses Polyneuropathy, unspecified (11/16/23) Past Medical History (Last Updated 10/24/23 @ 17:44 by Lesly Chiu MD) Aortic stenosis Chicken pox Coronary artery disease Dysphagia Foot pain Hearing loss Hypothyroidism Measles Mumps Peripheral neuropathy Poor weight gain in adult Rash of foot Recurrent sinusitis Systolic heart failure Toenail fungus Type 2 diabetes mellitus Past Surgical History (Last Reviewed 09/27/23 @ 16:59 by Narcisa Fuentes DO) History of quadruple bypass Visit Care Team Role Provider Type Lesly Chiu MD Attending Provider Physician Family Provider Primary Care Provider Referring Provider Specialty: Family Practice INSTRUMENTATION INSTRUCTOR Address: [address] [place] [address], [phone] Fax: Email: [email or web address] Physical Therapy Initial Evaluation PT-OP-A Visit Information Start: 11/15/23 16:23 Freq: Status: Active Protocol: Document 11/16/23 12:59 NM (Rec: 11/16/23 16:51 NM [id number]) Out-Patient Physical Therapy Visit Information Visit Information Visit Type Initial Evaluation Visit Note KX after 19 visits Visit Start Time 13:00 Visit Stop Time 13:50 Visit Number 1 Evaluation Information Evaluation Date 11/16/23 Precautions Precautions monitor vitals with activity memory, hx heart surgery, L visual loss, fall risk PT-OP-B Current Condition Start: 11/15/23 16:23 Freq: Status: Active Protocol: Document 11/16/23 12:59 NM (Rec: 11/16/23 16:51 NM [id number]) Current Condition History of Current Condition Onset Date 2 years Current Complaints strength, balance, activity tolerance History of Current Condition Pt presents to clinic with impairments in balance, BLE strength related to dx of polyneuropathy related to diabetes. Pt reports numb and sore feet, changes in balance, gait and strength. Pt reports that he is having difficulty gain in weight, and he recently got out of [facility] ([facility] with PT) after 20 day stay following covid and pneumonia. Hx of quadruple bypass 2 years ago, pleural effusion, L eye vision loss, carotid artery clog; recent changes in thyroid medication to address eating difficulty. Reports no falls, but several stumbles because my ankles give out, poor flexibility. No AD, but prn walker use after hospital. Pt reports that he has most difficulty with stairs (in and out, rails inside), decreased activity tolerance and SOB with activity, getting in/out chair , lifting groceries or carrying objects. Pt reports dizziness only when SOB during activity; denies vertigo, lightheadedness, positional vertigo. Hx provided by both pt and pt's brother in law. Pt lives with OZ and his sister with 12 stairs inside home and several stairs to enter. Prior Treatments and Tests walk 1/2 mile daily Prior Functional Status Baseline Function- ADL's Modified Independent Baseline Function- Mobility Modified Independent Current Functional Impairments (Reported) Functional Limitations- ADL's reports no difficulty Functional Limitations- Mobility/Gait 1/2 mile daily walk uneven surfaces Guemes; difficulty with STS transfers, balance Personal Factors Other Personal Factors That May Effect Per pt and OZ, pt struggling Therapy/Recovery to gain weight PT-OP-C Subjective Start: 11/15/23 16:23 Freq: Status: Active Protocol: Document 11/16/23 12:59 NM (Rec: 11/16/23 16:51 NM [id number]) OP-PT Subjective Patient Comments Patient Comments see hx above for pt report Patient Questionnaires ABC- Activity Specific Balance Confidence Scale ABC Score 1580/1600 (98%) Dizziness Handicap Inventory DHI Score 32 (mild) OP-PT Pain Assessment Location Lumbar spine Pain Location Details bilateral lower lumbar spine, L>R Scale Used no numeric value Description Tightness,With Movement Description- Other reports no nerve symptoms Frequency Occasional Pain Aggravating Factors Bending Other Pain Aggravating Factors trunk flexion Pain Alleviating Factors Lying Supine,Sitting,Rest Other Pain Alleviating Factors extension PT-OP-D Balance Start: 11/15/23 16:23 Freq: Status: Active Protocol: Document 11/16/23 12:59 NM (Rec: 11/16/23 16:51 NM [id number]) Balance Tests Richter Balance Test Richter Balance Test Score 39/56 Single Limb Standing Single Limb- Right 3 seconds Single Limb- Left 1 second Tandem Tandem Standing 3 seconds PT-OP-E Functional Tests Start: 11/15/23 16:23 Freq: Status: Active Protocol: Document 11/16/23 12:59 NM (Rec: 11/16/23 16:51 NM [id number]) Functional Tests 6 Minute Walk Test Distance 1215 ft Device Used no AD Comments decreased speed, RPE 6, increased deviation w fatigue Five Times Sit to Stand Test Score 14.63 sec Comments B valgus; 20 height Timed Up and Go (TUG) Score 9.04 sec Comments no AD, stumbles w/o fall on turn PT-OP-F Manual Assessment Start: 11/15/23 16:23 Freq: Status: Active Protocol: Document 11/16/23 12:59 NM (Rec: 11/16/23 16:51 NM [id number]) Manual Assessments Soft Tissue Assessment Soft Tissue Mobility Assessment Decreased hamstring length, increased hip flexor tightness . BLE atrophy, especially calves Joint Mobility Assessment Joint Mobility Assessment Decreased mobility L spine with P-A springing. Decreased ankle AROM globally, especially eversion and dorsiflexion. Limited hip IR, reproduces low back pain. PT-OP-G Mobility & Gait Start: 11/15/23 16:23 Freq: Status: Active Protocol: Document 11/16/23 12:59 NM (Rec: 11/16/23 16:51 NM [id number]) OP Gait Assessment Gait Gait Assistance Required: Standby Assistance Distance (Feet) 1,215 Assistive Devices Assistive Device None,Gait Belt Gait Deviations General Gait Pattern Decreased Stride Length, Decreased Feet Clearance, Flexed Trunk,Wide Based Gait Factors Limiting Gait Function Factors Limiting Gait Function Decreased Activity Tolerance, Decreased Sensation,Limited Range of Motion,Poor Balance Comments Gait Comments Fatigues quickly, even on stable surfaces and becomes SOB. Decreased gait speed with fatigue and increased deviation in gait path, decreased foot clearance. Seems aware of surroundings even as fatigued but balance becomes more impaired Stair Climbing Evaluation Evaluation Level of Assist On Stairs Contact Guard Assistance Devices Stair Climbing Assistive Devices Right Railing Technique/Endurance Stair Climbing Direction Ascend and Descend Stair Climbing Technique Step to Step Comments Stair Climbing Comments 1st set 4 steps with R hand rail, CGA for safety. 2nd set of 4 steps w/o rail, CGA for safety. Demos poor depth perception, more challenged with L over R PT-OP-H Neuro Start: 11/15/23 16:23 Freq: Status: Active Protocol: Document 11/16/23 12:59 NM (Rec: 11/16/23 16:51 NM [id number]) Sensation Evaluation Gross Sensation Gross Sensation Left LE Impaired,Right LE Impaired Sensation Description Paresthesia,Numbness Comments Summary Comments BLE intact to light touch sensation equally until feet. Impaired light touch, sharp/ dull, vibration to plantar and dorsal surfaces bilaterally, more limited at plantar surfaces. PT-OP-J Posture/Palpation/Skin Start: 11/15/23 16:23 Freq: Status: Active Protocol: Document 11/16/23 12:59 NM (Rec: 11/16/23 16:51 NM [id number]) Posture Evaluation Position Standing Head/C-Spine Posture Forward Head L-Spine Posture Flattened Pelvis Posture Posterior Tilted Hip Posture (L) Externally Rotated,(R) Externally Rotated Knee Posture (L) Genu Varus,(R) Genu Varus Patellar Posture (L) Superior,(R) Superior Foot Arch (L) Low Arch,(R) Low Arch Skin Assessment Other Assessments Skin Assessment Comments Increased rubor with dependency, equal warmth. Feet are dry, cracked on plantar surfaces, no wounds or calluses, toe nail deformities PT-OP-K Range of Motion Start: 11/15/23 16:23 Freq: Status: Active Protocol: Document 11/16/23 12:59 NM (Rec: 11/16/23 16:51 NM [id number]) Lumbar Spine Range of Motion Lumbar Spine Active Percentage Testing Position Standing Flexion 50 Extension 100 Lateral Flexion Left 50 Lateral Flexion Right 50 ROM Limitations Soft Tissue Tightness Comments Reports pain along lower lumbar spine with flexion. Reports none with extension Hip Goniometric Range of Motion Hip Right Flexion w/Knee Flexed 110 Straight Leg Raise 140 Extension 8 Abduction 20 Comments Limited ER/IR but not formally measured Left Flexion w/Knee Flexed 105 Straight Leg Raise 145 Extension 8 Abduction 20 Comments Limited ER/IR but not formally measured Knee Goniometric Range of Motion Knee Right Flexion Active (degrees) 135 Extension Active (degrees) 0 Left Flexion Active (degrees) 135 Extension Active (degrees) 0 Ankle and Foot Goniometric Range of Motion Ankle and Foot ROM Limitations Comments Observable limitations in B ankle dorsiflexion, eversion; not formally measured due to time PT-OP-L Special Tests Start: 11/15/23 16:23 Freq: Status: Active Protocol: Document 11/16/23 12:59 NM (Rec: 11/16/23 16:51 NM [id number]) Special Tests Lumbar Spine Special Tests Straight Leg Raise Test Results - Slump Test Results - Distraction Test Results + Ozuna/Quadrant Test Results - PT-OP-M Strength Start: 11/15/23 16:23 Freq: Status: Active Protocol: Document 11/16/23 12:59 NM (Rec: 11/16/23 16:51 NM [id number]) Hip Strength Hip Manual Muscle Testing Right Flexion (L2) 4 Good Extension (S1) 3+ Fair+ Abduction 4- Good- Adduction 4 Good External Rotation 4 Good Internal Rotation 4 Good Left Flexion (L2) 4- Good- Extension (S1) 3+ Fair+ Abduction 4- Good- Adduction 4- Good- External Rotation 4 Good Internal Rotation 4 Good Knee Strength Knee Manual Muscle Testing Right Flexion (S2) 4 Good Extension (L3) 4 Good Left Flexion (S2) 4 Good Extension (L3) 4 Good Ankle/Foot Strength Ankle and Foot Manual Muscle Testing Right Dorsiflexion (L4) 4- Good- Plantarflexion (S1) 4- Good- Inversion 4- Good- Eversion (S1) 4- Good- Left Dorsiflexion (L4) 4- Good- Plantarflexion (S1) 4- Good- Inversion 4- Good- Eversion (S1) 4- Good- PT-OP-Q Treatments Start: 11/15/23 16:23 Freq: Status: Active Protocol: Document 11/16/23 12:59 NM (Rec: 11/16/23 16:51 NM [id number]) Self-Care/Home Management Treatment Education Patient Education Fall Risk,Home Exercise Program,Joint Protection, Safety Caregiver Education Vitals at rest (L bicep, seated): 92/60 mmHg, 99% spo2, 82 bpm; Vitals after 6MWT 145 /69, 98% spo2, 87 bpm Other Education 8 minutes: Educated on 3 way balance system, diabetes, neuropathy, circulation, fall risk. Initiated education on daily foot and shoe checks, proper foot wear. Educated brother in law and pt on fall risk, safety with gait/stairs, unstable surfaces PT-OP-T Assessment and Plan Start: 11/15/23 16:23 Freq: Status: Active Protocol: Document 11/16/23 12:59 NM (Rec: 11/16/23 16:51 NM [id number]) Physical Therapy Assessment Rehab Potential Rehabilitation Potential Good Evaluation Complexity Number of Personal Factors/Comorbidities 3 or More Number of Body Systems Impaired 3 Clinical Presentation at Evaluation Stable Impairments Impairments Activity Tolerance,Balance, Coordination,Edema,Functional Activities,Functional Mobility ,Gait,Integument,Pain,Posture, ROM,Sensation,Soft Tissue Mobility,Strength,Vestibular, Visual Motor Goals Six Impairment difficulty with 4 stairs with rail, has 12 at home w L rail Short Term Goal (STG) Pt will be able to ascend/ descend 8 stairs with or without hand rail as close SBA or better in order to demonstrate improved balance and safety awareness during activity STG Duration 3 weeks [facility] Goal (LTG) Pt will be able to ascend/ descend 12 stairs with or without hand rail as close SBA or better in order to demonstrate improved balance and safety awareness during activity LTG Duration 6 weeks Five Impairment strength Short Term Goal (STG) Pt will improve global hip/ knee strength by at least 1 grade in order to demonstrate increased BLE strength required for balance and gait, decrease fall risk STG Duration 3 weeks Factory Clerk Goal (LTG) Pt will improve global hip/ knee strength by at least 2 grades in order to demonstrate increased BLE strength required for balance and gait, decrease fall risk LTG Duration 6 weeks Four Impairment HEP Impairment Pt not performing HEP other than daily ambulation Short Term Goal (STG) Pt will report compliance with HEP at least 2-3x/wk including daily foot checks in order to maximize gains made during PT and to decrease risk of foot wounds due to poor sensation STG Duration 3 weeks Factory Clerk Goal (LTG) Pt will report compliance with HEP at least 3x/wk including daily foot checks in order maximize independence upon discharge from PT and demonstrate improved management of neuropathy- related symptoms LTG Duration 6 weeks Three Impairment endurance Impairment 6 MWT distance 1215 ft without AD, RPE 6 Short Term Goal (STG) Pt will improve 6 MWT distance by at least 100 ft with or without LRAD in order to demonstrate improved activity tolerance and balance during gait STG Duration 3 weeks [facility] Goal (LTG) Pt will improve 6 MWT distance by at least 200 ft with or without LRAD in order to demonstrate improved activity tolerance and balance during gait LTG Duration 6 weeks Two Impairment strength Impairment B ankle strength 4-/5 globally Short Term Goal (STG) Pt will increase B global ankle strength to at least 4/5 in order to improve balance on both stable and unstable surfaces STG Duration 3 weeks Factory Clerk Goal (LTG) Pt will increase B global ankle strength to at least 4+/ 5 in order to improve balance on both stable and unstable surfaces LTG Duration 6 weeks One Impairment strength Impairment Richter 39/56 Short Term Goal (STG) Pt will increase Richter score to at least 44/56 in order to demonstrate improved balance in order to decrease fall risk STG Duration 3 weeks Factory Clerk Goal (LTG) Pt will increase Richter score to at least 49/56 in order to demonstrate improved balance in order to decrease fall risk LTG Duration 6 weeks Assessment Summary Assessment Pt is a 72 y.o. male presenting with gait and balance abnormalities related to dx of polyneuropathy. Pt has hx of diabetes, heart disease (including quadruple bypass), vision limitations, and not gaining weight. He recently [facility] due to [facility] where he also received PT. Pt has decreased sensation to light touch, vibration, sharp/dull on B feet with greater limitations on plantar surfaces. Pt has decreased BLE strength globally, but L hip is more impaired than R hip. He has limited hamstring length and observable limitations in B ankle mobility during gait. Pt also has low back pain that is worse in flexion, likely related to the lumbar muscles. Pt's 6 MWT distance is 1215 ft without AD, which is below age and gender related norms. He has decreased activity tolerance likely related to poor nutrition and previous cardiovascular conditions. During stairs, pt demos poor depth perception, safety awareness, and poor balance with and without hand rail. His Richter score is 39/56, indicating a fall risk. PT educated pt and pt's brother in law on exam findings, POC, fall risk, balance systems and pt limitations with balance perception, and daily foot checks; pt and brother in law verbalize agreement. Pt would benefit from skilled PT for progressive BLE strengthening, gait and balance training, in addition to education regarding fall risk and joint management in order to decrease fall risk, improve activity tolerance, and increase QOL. Physical Therapy Plan Frequency and Duration Frequency of Treatment 2x/Week Duration of treatment (weeks) 6 Plan of Care Start Date 11/16/23 Plan of Care End Date 12/30/23 Therapeutic Interventions Therapeutic Interventions Balance Training,Coordination Training,Gait Training,Home Exercise Program,Joint Mobilizations,Manual Therapy, Neuromuscular Re-education, Patient/Caregiver Education, Self-Care/Home Management, Sensory Integration,Soft Tissue Mobilization,Taping, Therapeutic Activities, Therapeutic Exercises, Vestibular Rehabilitation Modalities Electric Stimulation,Hot Packs Next Visit Focus/Plan Next Note Type Treatment Note Next Visit Plan Initiate ankle, hip strengthening, step ups, hurdles POC: functional balance training Monitor vitals with activity
--- NOTE | 2023-11-21 14:33 | PT.OTN ---
Current Diagnoses Polyneuropathy, unspecified (11/21/23) Other lack of coordination (11/21/23) Weakness (11/21/23) Physical Therapy Treatment Note PT-OP-A Visit Information Start: 11/15/23 16:23 Freq: Status: Active Protocol: Document 11/21/23 13:51 SP (Rec: 11/21/23 14:36 SP [id number]) Out-Patient Physical Therapy Visit Information Visit Information Visit Type Treatment Note Visit Note Brother Ray attended and very attentive asking questions for good knowledge how to help home cue pt during HEP. 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 Pt reports numb and sore feet, changes in balance, gait and strength. Pt reports that he is having difficulty gain in weight, and he recently got out of [facility] ([facility] with PT) after 20 day stay following covid and pneumonia. Hx of quadruple bypass 2 years ago, pleural effusion, L eye vision loss, carotid artery clog; recent changes in thyroid medication to address eating difficulty. Reports no falls, but several stumbles because my ankles give out, poor flexibility. No AD, but prn walker use after hospital. Pt reports that he has most difficulty with stairs (in and out, rails inside), decreased activity tolerance and SOB with activity, getting in/out chair , lifting groceries or carrying objects. Pt reports dizziness only when SOB during activity; denies vertigo, lightheadedness, positional vertigo. Hx provided by both pt and pt's brother in law. Pt lives with OZ and his sister with 12 stairs inside home and several stairs to enter. Prior Treatments and Tests walk 1/2 mile daily Prior Functional Status Baseline Function- ADL's Modified Independent Baseline Function- Mobility Modified Independent Current Functional Impairments (Reported) Functional Limitations- ADL's reports no difficulty Functional Limitations- Mobility/Gait 1/2 mile daily walk uneven surfaces Guemes; difficulty with STS transfers, balance Personal Factors Other Personal Factors That May Effect Per pt and OZ, pt struggling Therapy/Recovery to gain weight PT-OP-C Subjective Start: 11/15/23 16:23 Freq: Status: Active Protocol: Document 11/21/23 13:51 SP (Rec: 11/21/23 14:36 SP [id number]) OP-PT Subjective Patient Comments Patient Comments Pt reports his back is stiff many times, has a upright bike . Wants to be sure progress what can do here and incorporate at home. He has a total gym home and upright bike wants to be sure using properly for progression strength, get around. He stated little concerned of loss of his wt so has incorporated Boost into his diet for increase calories. PT-OP-D Balance Start: 11/15/23 16:23 Freq: Status: Active Protocol: Document 11/16/23 12:59 NM (Rec: 11/16/23 16:51 NM [id number]) Balance Tests Richter Balance Test Richter Balance Test Score 39/56 Single Limb Standing Single Limb- Right 3 seconds Single Limb- Left 1 second Tandem Tandem Standing 3 seconds PT-OP-E Functional Tests Start: 11/15/23 16:23 Freq: Status: Active Protocol: Document 11/16/23 12:59 NM (Rec: 11/16/23 16:51 NM [id number]) Functional Tests 6 Minute Walk Test Distance 1215 ft Device Used no AD Comments decreased speed, RPE 6, increased deviation w fatigue Five Times Sit to Stand Test Score 14.63 sec Comments B valgus; 20 height Timed Up and Go (TUG) Score 9.04 sec Comments no AD, stumbles w/o fall on turn PT-OP-F Manual Assessment Start: 11/15/23 16:23 Freq: Status: Active Protocol: Document 11/16/23 12:59 NM (Rec: 11/16/23 16:51 NM [id number]) Manual Assessments Soft Tissue Assessment Soft Tissue Mobility Assessment Decreased hamstring length, increased hip flexor tightness . BLE atrophy, especially calves Joint Mobility Assessment Joint Mobility Assessment Decreased mobility L spine with P-A springing. Decreased ankle AROM globally, especially eversion and dorsiflexion. Limited hip IR, reproduces low back pain. PT-OP-G Mobility & Gait Start: 11/15/23 16:23 Freq: Status: Active Protocol: Document 11/16/23 12:59 NM (Rec: 11/16/23 16:51 NM [id number]) OP Gait Assessment Gait Gait Assistance Required: Standby Assistance Distance (Feet) 1,215 Assistive Devices Assistive Device None,Gait Belt Gait Deviations General Gait Pattern Decreased Stride Length, Decreased Feet Clearance, Flexed Trunk,Wide Based Gait Factors Limiting Gait Function Factors Limiting Gait Function Decreased Activity Tolerance, Decreased Sensation,Limited Range of Motion,Poor Balance Comments Gait Comments Fatigues quickly, even on stable surfaces and becomes SOB. Decreased gait speed with fatigue and increased deviation in gait path, decreased foot clearance. Seems aware of surroundings even as fatigued but balance becomes more impaired Stair Climbing Evaluation Evaluation Level of Assist On Stairs Contact Guard Assistance Devices Stair Climbing Assistive Devices Right Railing Technique/Endurance Stair Climbing Direction Ascend and Descend Stair Climbing Technique Step to Step Comments Stair Climbing Comments 1st set 4 steps with R hand rail, CGA for safety. 2nd set of 4 steps w/o rail, CGA for safety. Demos poor depth perception, more challenged with L over R PT-OP-H Neuro Start: 11/15/23 16:23 Freq: Status: Active Protocol: Document 11/16/23 12:59 NM (Rec: 11/16/23 16:51 NM [id number]) Sensation Evaluation Gross Sensation Gross Sensation Left LE Impaired,Right LE Impaired Sensation Description Paresthesia,Numbness Comments Summary Comments BLE intact to light touch sensation equally until feet. Impaired light touch, sharp/ dull, vibration to plantar and dorsal surfaces bilaterally, more limited at plantar surfaces. PT-OP-J Posture/Palpation/Skin Start: 11/15/23 16:23 Freq: Status: Active Protocol: Document 11/16/23 12:59 NM (Rec: 11/16/23 16:51 NM [id number]) Posture Evaluation Position Standing Head/C-Spine Posture Forward Head L-Spine Posture Flattened Pelvis Posture Posterior Tilted Hip Posture (L) Externally Rotated,(R) Externally Rotated Knee Posture (L) Genu Varus,(R) Genu Varus Patellar Posture (L) Superior,(R) Superior Foot Arch (L) Low Arch,(R) Low Arch Skin Assessment Other Assessments Skin Assessment Comments Increased rubor with dependency, equal warmth. Feet are dry, cracked on plantar surfaces, no wounds or calluses, toe nail deformities PT-OP-K Range of Motion Start: 11/15/23 16:23 Freq: Status: Active Protocol: Document 11/16/23 12:59 NM (Rec: 11/16/23 16:51 NM [id number]) Lumbar Spine Range of Motion Lumbar Spine Active Percentage Testing Position Standing Flexion 50 Extension 100 Lateral Flexion Left 50 Lateral Flexion Right 50 ROM Limitations Soft Tissue Tightness Comments Reports pain along lower lumbar spine with flexion. Reports none with extension Hip Goniometric Range of Motion Hip Right Flexion w/Knee Flexed 110 Straight Leg Raise 140 Extension 8 Abduction 20 Comments Limited ER/IR but not formally measured Left Flexion w/Knee Flexed 105 Straight Leg Raise 145 Extension 8 Abduction 20 Comments Limited ER/IR but not formally measured Knee Goniometric Range of Motion Knee Right Flexion Active (degrees) 135 Extension Active (degrees) 0 Left Flexion Active (degrees) 135 Extension Active (degrees) 0 Ankle and Foot Goniometric Range of Motion Ankle and Foot ROM Limitations Comments Observable limitations in B ankle dorsiflexion, eversion; not formally measured due to time PT-OP-L Special Tests Start: 11/15/23 16:23 Freq: Status: Active Protocol: Document 11/16/23 12:59 NM (Rec: 11/16/23 16:51 NM [id number]) Special Tests Lumbar Spine Special Tests Straight Leg Raise Test Results - Slump Test Results - Distraction Test Results + Ozuna/Quadrant Test Results - PT-OP-M Strength Start: 11/15/23 16:23 Freq: Status: Active Protocol: Document 11/16/23 12:59 NM (Rec: 11/16/23 16:51 NM [id number]) Hip Strength Hip Manual Muscle Testing Right Flexion (L2) 4 Good Extension (S1) 3+ Fair+ Abduction 4- Good- Adduction 4 Good External Rotation 4 Good Internal Rotation 4 Good Left Flexion (L2) 4- Good- Extension (S1) 3+ Fair+ Abduction 4- Good- Adduction 4- Good- External Rotation 4 Good Internal Rotation 4 Good Knee Strength Knee Manual Muscle Testing Right Flexion (S2) 4 Good Extension (L3) 4 Good Left Flexion (S2) 4 Good Extension (L3) 4 Good Ankle/Foot Strength Ankle and Foot Manual Muscle Testing Right Dorsiflexion (L4) 4- Good- Plantarflexion (S1) 4- Good- Inversion 4- Good- Eversion (S1) 4- Good- Left Dorsiflexion (L4) 4- Good- Plantarflexion (S1) 4- Good- Inversion 4- Good- Eversion (S1) 4- Good- PT-OP-Q Treatments Start: 11/15/23 16:23 Freq: Status: Active Protocol: Document 11/21/23 13:51 SP (Rec: 11/21/23 14:36 SP [id number]) Therapeutic Exercises Supine Exercises Ramakrishna stretch Supine Exercise Name add Side bilateral Comments L Iliacus tighter than R; better thigh on table more core march Supine Exercise Name SL ok, DL sequencial march (L hip flexor tension) Side bilateral KTC Supine Exercise Name added to HEP Side bilateral Reps/Minutes 30 Comments good form pnfree once took phone/wallet out of front pocket piriformis stretch Supine Exercise Name added toHEP Side bilateral Reps/Minutes 30 Comments good form- knee opp shld LTR Side bilateral Reps/Minutes 30 x4 Sitting Exercises STS Sitting Exercise Name added to HEP Resistance B arms across chest Equipment Used mesh chair Reps/Minutes 5 reps 3x/DAY Comments cued eccentric sit Self-Care/Home Management Treatment Education Patient Education Home Exercise Program,Pain Management,Posture,Safety Caregiver Education Education to pt and brother, lives with: will work in PT on flex, strength and progress balance. Other Education Discussed importance of hydration and food intake and suppliment for addition calorie drinks needed to support more of weight gain interested in. Added stretching, core march and STS for HEP. PT-OP-T Assessment and Plan Start: 11/15/23 16:23 Freq: Status: Active Protocol: Document 11/21/23 13:51 SP (Rec: 11/21/23 14:36 SP [id number]) Physical Therapy Assessment Goals Six Impairment difficulty with 4 stairs with rail, has 12 at home w L rail Short Term Goal (STG) Pt will be able to ascend/ descend 8 stairs with or without hand rail as close SBA or better in order to demonstrate improved balance and safety awareness during activity STG Duration 3 weeks Snf Goal (LTG) Pt will be able to ascend/ descend 12 stairs with or without hand rail as close SBA or better in order to demonstrate improved balance and safety awareness during activity LTG Duration 6 weeks Five Impairment strength Short Term Goal (STG) Pt will improve global hip/ knee strength by at least 1 grade in order to demonstrate increased BLE strength required for balance and gait, decrease fall risk STG Duration 3 weeks Associate Director Goal (LTG) Pt will improve global hip/ knee strength by at least 2 grades in order to demonstrate increased BLE strength required for balance and gait, decrease fall risk LTG Duration 6 weeks Four Impairment HEP Impairment Pt not performing HEP other than daily ambulation Short Term Goal (STG) Pt will report compliance with HEP at least 2-3x/wk including daily foot checks in order to maximize gains made during PT and to decrease risk of foot wounds due to poor sensation STG Duration 3 weeks Associate Director Goal (LTG) Pt will report compliance with HEP at least 3x/wk including daily foot checks in order maximize independence upon discharge from PT and demonstrate improved management of neuropathy- related symptoms LTG Duration 6 weeks Three Impairment endurance Impairment 6 MWT distance 1215 ft without AD, RPE 6 Short Term Goal (STG) Pt will improve 6 MWT distance by at least 100 ft with or without LRAD in order to demonstrate improved activity tolerance and balance during gait STG Duration 3 weeks Associate Director Goal (LTG) Pt will improve 6 MWT distance by at least 200 ft with or without LRAD in order to demonstrate improved activity tolerance and balance during gait LTG Duration 6 weeks Two Impairment strength Impairment B ankle strength 4-/5 globally Short Term Goal (STG) Pt will increase B global ankle strength to at least 4/5 in order to improve balance on both stable and unstable surfaces STG Duration 3 weeks Snf Goal (LTG) Pt will increase B global ankle strength to at least 4+/ 5 in order to improve balance on both stable and unstable surfaces LTG Duration 6 weeks One Impairment strength Impairment Richter 39/56 Short Term Goal (STG) Pt will increase Richter score to at least 44/56 in order to demonstrate improved balance in order to decrease fall risk STG Duration 3 weeks Associate Director Goal (LTG) Pt will increase Richter score to at least 49/56 in order to demonstrate improved balance in order to decrease fall risk LTG Duration 6 weeks Assessment Summary Assessment Pt reported tight deep L lower quadrant during sequencial DL core november with improvement alot less activation post manual and Ramakrishna stretch and back off to november for now is painfree. Pt responded well and verbalized painfree range durign stretching added to HEP today. Stated tiring muscle effort during initiated STS to HEP to initiate LE strengthening. Pt would benefit from continued therapy progressing into upright funtional strengthening while he continues HEP home. Physical Therapy Plan Frequency and Duration Frequency of Treatment 2x/Week Duration of treatment (weeks) 6 Plan of Care Start Date 11/16/23 Plan of Care End Date 12/30/23 Therapeutic Interventions Therapeutic Interventions Balance Training,Coordination Training,Gait Training,Home Exercise Program,Joint Mobilizations,Manual Therapy, Neuromuscular Re-education, Patient/Caregiver Education, Self-Care/Home Management, Sensory Integration,Soft Tissue Mobilization,Taping, Therapeutic Activities, Therapeutic Exercises, Vestibular Rehabilitation Modalities Electric Stimulation,Hot Packs Next Visit Focus/Plan Next Note Type Treatment Note Next Visit Plan Check in on stretching and STS HEP added last tx. Next: Initiate ankle, hip strengthening, step ups, hurdles POC: functional balance training Monitor vitals with activity
--- NOTE | 2023-11-23 14:35 | PT.OTN ---
Current Diagnoses Polyneuropathy, unspecified (11/23/23) Other lack of coordination (11/23/23) Weakness (11/23/23) Physical Therapy Treatment Note PT-OP-A Visit Information Start: 11/15/23 16:23 Freq: Status: Active Protocol: Document 11/23/23 13:45 DCW (Rec: 11/23/23 14:35 DCW [id number]) Out-Patient Physical Therapy Visit Information Visit Information Visit Type Treatment Note Visit Start Time 13:45 Visit Stop Time 14:30 Visit Number 3 Number of PLUG ASSEMBLER Visits 0 Evaluation Information Evaluation Date 11/16/23 Precautions Precautions monitor vitals with activity memory, hx heart surgery, L visual loss, fall risk PT-OP-B Current Condition Start: 11/15/23 16:23 Freq: Status: Active Protocol: Document 11/16/23 12:59 NM (Rec: 11/16/23 16:51 NM [id number]) Current Condition History of Current Condition Onset Date 2 years Current Complaints strength, balance, activity tolerance History of Current Condition Pt presents to clinic with impairments in balance, BLE strength related to dx of polyneuropathy related to diabetes. Pt reports numb and sore feet, changes in balance, gait and strength. Pt reports that he is having difficulty gain in weight, and he recently got out of [facility] ([facility] with PT) after 20 day stay following covid and pneumonia. Hx of quadruple bypass 2 years ago, pleural effusion, L eye vision loss, carotid artery clog; recent changes in thyroid medication to address eating difficulty. Reports no falls, but several stumbles because my ankles give out, poor flexibility. No AD, but prn walker use after hospital. Pt reports that he has most difficulty with stairs (in and out, rails inside), decreased activity tolerance and SOB with activity, getting in/out chair , lifting groceries or carrying objects. Pt reports dizziness only when SOB during activity; denies vertigo, lightheadedness, positional vertigo. Hx provided by both pt and pt's brother in law. Pt lives with OZ and his sister with 12 stairs inside home and several stairs to enter. Prior Treatments and Tests walk 1/2 mile daily Prior Functional Status Baseline Function- ADL's Modified Independent Baseline Function- Mobility Modified Independent Current Functional Impairments (Reported) Functional Limitations- ADL's reports no difficulty Functional Limitations- Mobility/Gait 1/2 mile daily walk uneven surfaces Guemes; difficulty with STS transfers, balance Personal Factors Other Personal Factors That May Effect Per pt and OZ, pt struggling Therapy/Recovery to gain weight PT-OP-C Subjective Start: 11/15/23 16:23 Freq: Status: Active Protocol: Document 11/23/23 13:45 DCW (Rec: 11/23/23 14:35 DCW [id number]) OP-PT Subjective Patient Comments Patient Comments Pt feeling pretty good so far today. Mid-exercise BP: 155/78 PT-OP-D Balance Start: 11/15/23 16:23 Freq: Status: Active Protocol: Document 11/16/23 12:59 NM (Rec: 11/16/23 16:51 NM [id number]) Balance Tests Richter Balance Test Richter Balance Test Score 39/56 Single Limb Standing Single Limb- Right 3 seconds Single Limb- Left 1 second Tandem Tandem Standing 3 seconds PT-OP-E Functional Tests Start: 11/15/23 16:23 Freq: Status: Active Protocol: Document 11/16/23 12:59 NM (Rec: 11/16/23 16:51 NM [id number]) Functional Tests 6 Minute Walk Test Distance 1215 ft Device Used no AD Comments decreased speed, RPE 6, increased deviation w fatigue Five Times Sit to Stand Test Score 14.63 sec Comments B valgus; 20 height Timed Up and Go (TUG) Score 9.04 sec Comments no AD, stumbles w/o fall on turn PT-OP-F Manual Assessment Start: 11/15/23 16:23 Freq: Status: Active Protocol: Document 11/16/23 12:59 NM (Rec: 11/16/23 16:51 NM [id number]) Manual Assessments Soft Tissue Assessment Soft Tissue Mobility Assessment Decreased hamstring length, increased hip flexor tightness . BLE atrophy, especially calves Joint Mobility Assessment Joint Mobility Assessment Decreased mobility L spine with P-A springing. Decreased ankle AROM globally, especially eversion and dorsiflexion. Limited hip IR, reproduces low back pain. PT-OP-G Mobility & Gait Start: 11/15/23 16:23 Freq: Status: Active Protocol: Document 11/16/23 12:59 NM (Rec: 11/16/23 16:51 NM [id number]) OP Gait Assessment Gait Gait Assistance Required: Standby Assistance Distance (Feet) 1,215 Assistive Devices Assistive Device None,Gait Belt Gait Deviations General Gait Pattern Decreased Stride Length, Decreased Feet Clearance, Flexed Trunk,Wide Based Gait Factors Limiting Gait Function Factors Limiting Gait Function Decreased Activity Tolerance, Decreased Sensation,Limited Range of Motion,Poor Balance Comments Gait Comments Fatigues quickly, even on stable surfaces and becomes SOB. Decreased gait speed with fatigue and increased deviation in gait path, decreased foot clearance. Seems aware of surroundings even as fatigued but balance becomes more impaired Stair Climbing Evaluation Evaluation Level of Assist On Stairs Contact Guard Assistance Devices Stair Climbing Assistive Devices Right Railing Technique/Endurance Stair Climbing Direction Ascend and Descend Stair Climbing Technique Step to Step Comments Stair Climbing Comments 1st set 4 steps with R hand rail, CGA for safety. 2nd set of 4 steps w/o rail, CGA for safety. Demos poor depth perception, more challenged with L over R PT-OP-H Neuro Start: 11/15/23 16:23 Freq: Status: Active Protocol: Document 11/16/23 12:59 NM (Rec: 11/16/23 16:51 NM [id number]) Sensation Evaluation Gross Sensation Gross Sensation Left LE Impaired,Right LE Impaired Sensation Description Paresthesia,Numbness Comments Summary Comments BLE intact to light touch sensation equally until feet. Impaired light touch, sharp/ dull, vibration to plantar and dorsal surfaces bilaterally, more limited at plantar surfaces. PT-OP-J Posture/Palpation/Skin Start: 11/15/23 16:23 Freq: Status: Active Protocol: Document 11/16/23 12:59 NM (Rec: 11/16/23 16:51 NM [id number]) Posture Evaluation Position Standing Head/C-Spine Posture Forward Head L-Spine Posture Flattened Pelvis Posture Posterior Tilted Hip Posture (L) Externally Rotated,(R) Externally Rotated Knee Posture (L) Genu Varus,(R) Genu Varus Patellar Posture (L) Superior,(R) Superior Foot Arch (L) Low Arch,(R) Low Arch Skin Assessment Other Assessments Skin Assessment Comments Increased rubor with dependency, equal warmth. Feet are dry, cracked on plantar surfaces, no wounds or calluses, toe nail deformities PT-OP-K Range of Motion Start: 11/15/23 16:23 Freq: Status: Active Protocol: Document 11/16/23 12:59 NM (Rec: 11/16/23 16:51 NM [id number]) Lumbar Spine Range of Motion Lumbar Spine Active Percentage Testing Position Standing Flexion 50 Extension 100 Lateral Flexion Left 50 Lateral Flexion Right 50 ROM Limitations Soft Tissue Tightness Comments Reports pain along lower lumbar spine with flexion. Reports none with extension Hip Goniometric Range of Motion Hip Right Flexion w/Knee Flexed 110 Straight Leg Raise 140 Extension 8 Abduction 20 Comments Limited ER/IR but not formally measured Left Flexion w/Knee Flexed 105 Straight Leg Raise 145 Extension 8 Abduction 20 Comments Limited ER/IR but not formally measured Knee Goniometric Range of Motion Knee Right Flexion Active (degrees) 135 Extension Active (degrees) 0 Left Flexion Active (degrees) 135 Extension Active (degrees) 0 Ankle and Foot Goniometric Range of Motion Ankle and Foot ROM Limitations Comments Observable limitations in B ankle dorsiflexion, eversion; not formally measured due to time PT-OP-L Special Tests Start: 11/15/23 16:23 Freq: Status: Active Protocol: Document 11/16/23 12:59 NM (Rec: 11/16/23 16:51 NM [id number]) Special Tests Lumbar Spine Special Tests Straight Leg Raise Test Results - Slump Test Results - Distraction Test Results + Ozuna/Quadrant Test Results - PT-OP-M Strength Start: 11/15/23 16:23 Freq: Status: Active Protocol: Document 11/16/23 12:59 NM (Rec: 11/16/23 16:51 NM [id number]) Hip Strength Hip Manual Muscle Testing Right Flexion (L2) 4 Good Extension (S1) 3+ Fair+ Abduction 4- Good- Adduction 4 Good External Rotation 4 Good Internal Rotation 4 Good Left Flexion (L2) 4- Good- Extension (S1) 3+ Fair+ Abduction 4- Good- Adduction 4- Good- External Rotation 4 Good Internal Rotation 4 Good Knee Strength Knee Manual Muscle Testing Right Flexion (S2) 4 Good Extension (L3) 4 Good Left Flexion (S2) 4 Good Extension (L3) 4 Good Ankle/Foot Strength Ankle and Foot Manual Muscle Testing Right Dorsiflexion (L4) 4- Good- Plantarflexion (S1) 4- Good- Inversion 4- Good- Eversion (S1) 4- Good- Left Dorsiflexion (L4) 4- Good- Plantarflexion (S1) 4- Good- Inversion 4- Good- Eversion (S1) 4- Good- PT-OP-Q Treatments Start: 11/15/23 16:23 Freq: Status: Active Protocol: Document 11/23/23 13:45 DCW (Rec: 11/23/23 14:35 DCW [id number]) Gym Equipment Shuttle Recovery Unilateral Squats Resistance 37# (One new) Bilateral Squats Resistance 75# (Two new) Shuttle Balance Red Details WBOS, Staggered Therapeutic Exercises Standing Exercises Hamstring curls Standing Exercise Name HS curls Side bilateral Resistance 4# Hip Extension Standing Exercise Name Hip Extension Side bilateral Resistance Green Other Exercises Toe-taps Other Exercise Name Toe-taps Side bilateral Resistance 4# Equipment Used 6 step Resisted Ambulation Other Exercise Name Resisted Side-stepping Resistance Green Neuro Re-Education Treatment Balance Activities Tandem Details Tandem Stance Equipment // bars Foam Details Head turns, EO/EC Surface AirEx PT-OP-T Assessment and Plan Start: 11/15/23 16:23 Freq: Status: Active Protocol: Document 11/23/23 13:45 DCW (Rec: 11/23/23 14:35 DCW [id number]) Physical Therapy Assessment Impairments Impairments Activity Tolerance,Balance, Coordination,Edema,Functional Activities,Functional Mobility ,Gait,Integument,Pain,Posture, ROM,Sensation,Soft Tissue Mobility,Strength,Vestibular, Visual Motor Goals Six Impairment difficulty with 4 stairs with rail, has 12 at home w L rail Short Term Goal (STG) Pt will be able to ascend/ descend 8 stairs with or without hand rail as close SBA or better in order to demonstrate improved balance and safety awareness during activity STG Duration 3 weeks Fdc Goal (LTG) Pt will be able to ascend/ descend 12 stairs with or without hand rail as close SBA or better in order to demonstrate improved balance and safety awareness during activity LTG Duration 6 weeks Five Impairment strength Short Term Goal (STG) Pt will improve global hip/ knee strength by at least 1 grade in order to demonstrate increased BLE strength required for balance and gait, decrease fall risk STG Duration 3 weeks Camera Repairman Goal (LTG) Pt will improve global hip/ knee strength by at least 2 grades in order to demonstrate increased BLE strength required for balance and gait, decrease fall risk LTG Duration 6 weeks Four Impairment HEP Impairment Pt not performing HEP other than daily ambulation Short Term Goal (STG) Pt will report compliance with HEP at least 2-3x/wk including daily foot checks in order to maximize gains made during PT and to decrease risk of foot wounds due to poor sensation STG Duration 3 weeks Camera Repairman Goal (LTG) Pt will report compliance with HEP at least 3x/wk including daily foot checks in order maximize independence upon discharge from PT and demonstrate improved management of neuropathy- related symptoms LTG Duration 6 weeks Three Impairment endurance Impairment 6 MWT distance 1215 ft without AD, RPE 6 Short Term Goal (STG) Pt will improve 6 MWT distance by at least 100 ft with or without LRAD in order to demonstrate improved activity tolerance and balance during gait STG Duration 3 weeks Camera Repairman Goal (LTG) Pt will improve 6 MWT distance by at least 200 ft with or without LRAD in order to demonstrate improved activity tolerance and balance during gait LTG Duration 6 weeks Two Impairment strength Impairment B ankle strength 4-/5 globally Short Term Goal (STG) Pt will increase B global ankle strength to at least 4/5 in order to improve balance on both stable and unstable surfaces STG Duration 3 weeks Fdc Goal (LTG) Pt will increase B global ankle strength to at least 4+/ 5 in order to improve balance on both stable and unstable surfaces LTG Duration 6 weeks One Impairment strength Impairment Richter 39/56 Short Term Goal (STG) Pt will increase Richter score to at least 44/56 in order to demonstrate improved balance in order to decrease fall risk STG Duration 3 weeks Camera Repairman Goal (LTG) Pt will increase Richter score to at least 49/56 in order to demonstrate improved balance in order to decrease fall risk LTG Duration 6 weeks Assessment Summary Assessment Good response to addition of balance challenges. Required a few rest breaks. Tolerated strengthening with no complaints of soreness. Physical Therapy Plan Frequency and Duration Frequency of Treatment 2x/Week Duration of treatment (weeks) 6 Plan of Care Start Date 11/16/23 Plan of Care End Date 12/30/23 Therapeutic Interventions Therapeutic Interventions Balance Training,Coordination Training,Gait Training,Home Exercise Program,Joint Mobilizations,Manual Therapy, Neuromuscular Re-education, Patient/Caregiver Education, Self-Care/Home Management, Sensory Integration,Soft Tissue Mobilization,Taping, Therapeutic Activities, Therapeutic Exercises, Vestibular Rehabilitation Modalities Electric Stimulation,Hot Packs Next Visit Focus/Plan Next Note Type Treatment Note Next Visit Plan Check in on stretching and STS HEP added last tx. Next: Initiate ankle, hip strengthening, step ups, hurdles POC: functional balance training Monitor vitals with activity
--- NOTE | 2023-11-28 14:32 | PT.OTN ---
Current Diagnoses Polyneuropathy, unspecified (11/28/23) Other lack of coordination (11/28/23) Weakness (11/28/23) Physical Therapy Treatment Note PT-OP-A Visit Information Start: 11/15/23 16:23 Freq: Status: Active Protocol: Document 11/28/23 13:54 SP (Rec: 11/28/23 15:02 SP [id number]) Out-Patient Physical Therapy Visit Information Visit Information Visit Type Treatment Note Visit Start Time 13:54 Visit Stop Time 14:32 Visit Number 4 Number of FAMILY SERVICE AIDE Visits 1 Evaluation Information Evaluation Date 11/16/23 Precautions Precautions monitor vitals with activity memory, hx heart surgery, L visual loss, fall risk PT-OP-B Current Condition Start: 11/15/23 16:23 Freq: Status: Active Protocol: Document 11/16/23 12:59 NM (Rec: 11/16/23 16:51 NM [id number]) Current Condition History of Current Condition Onset Date 2 years Current Complaints strength, balance, activity tolerance History of Current Condition Pt presents to clinic with impairments in balance, BLE strength related to dx of polyneuropathy related to diabetes. Pt reports numb and sore feet, changes in balance, gait and strength. Pt reports that he is having difficulty gain in weight, and he recently got out of [facility] ([facility] with PT) after 20 day stay following covid and pneumonia. Hx of quadruple bypass 2 years ago, pleural effusion, L eye vision loss, carotid artery clog; recent changes in thyroid medication to address eating difficulty. Reports no falls, but several stumbles because my ankles give out, poor flexibility. No AD, but prn walker use after hospital. Pt reports that he has most difficulty with stairs (in and out, rails inside), decreased activity tolerance and SOB with activity, getting in/out chair , lifting groceries or carrying objects. Pt reports dizziness only when SOB during activity; denies vertigo, lightheadedness, positional vertigo. Hx provided by both pt and pt's brother in law. Pt lives with OZ and his sister with 12 stairs inside home and several stairs to enter. Prior Treatments and Tests walk 1/2 mile daily Prior Functional Status Baseline Function- ADL's Modified Independent Baseline Function- Mobility Modified Independent Current Functional Impairments (Reported) Functional Limitations- ADL's reports no difficulty Functional Limitations- Mobility/Gait 1/2 mile daily walk uneven surfaces Guemes; difficulty with STS transfers, balance Personal Factors Other Personal Factors That May Effect Per pt and OZ, pt struggling Therapy/Recovery to gain weight PT-OP-C Subjective Start: 11/15/23 16:23 Freq: Status: Active Protocol: Document 11/28/23 13:54 SP (Rec: 11/28/23 15:02 SP [id number]) OP-PT Subjective Patient Comments Patient Comments Pt reports felt pretty good, getting better with STS home not needing use my arms. PT-OP-D Balance Start: 11/15/23 16:23 Freq: Status: Active Protocol: Document 11/16/23 12:59 NM (Rec: 11/16/23 16:51 NM [id number]) Balance Tests Richter Balance Test Richter Balance Test Score 39/56 Single Limb Standing Single Limb- Right 3 seconds Single Limb- Left 1 second Tandem Tandem Standing 3 seconds PT-OP-E Functional Tests Start: 11/15/23 16:23 Freq: Status: Active Protocol: Document 11/16/23 12:59 NM (Rec: 11/16/23 16:51 NM [id number]) Functional Tests 6 Minute Walk Test Distance 1215 ft Device Used no AD Comments decreased speed, RPE 6, increased deviation w fatigue Five Times Sit to Stand Test Score 14.63 sec Comments B valgus; 20 height Timed Up and Go (TUG) Score 9.04 sec Comments no AD, stumbles w/o fall on turn PT-OP-F Manual Assessment Start: 11/15/23 16:23 Freq: Status: Active Protocol: Document 11/16/23 12:59 NM (Rec: 11/16/23 16:51 NM [id number]) Manual Assessments Soft Tissue Assessment Soft Tissue Mobility Assessment Decreased hamstring length, increased hip flexor tightness . BLE atrophy, especially calves Joint Mobility Assessment Joint Mobility Assessment Decreased mobility L spine with P-A springing. Decreased ankle AROM globally, especially eversion and dorsiflexion. Limited hip IR, reproduces low back pain. PT-OP-G Mobility & Gait Start: 11/15/23 16:23 Freq: Status: Active Protocol: Document 11/16/23 12:59 NM (Rec: 11/16/23 16:51 NM [id number]) OP Gait Assessment Gait Gait Assistance Required: Standby Assistance Distance (Feet) 1,215 Assistive Devices Assistive Device None,Gait Belt Gait Deviations General Gait Pattern Decreased Stride Length, Decreased Feet Clearance, Flexed Trunk,Wide Based Gait Factors Limiting Gait Function Factors Limiting Gait Function Decreased Activity Tolerance, Decreased Sensation,Limited Range of Motion,Poor Balance Comments Gait Comments Fatigues quickly, even on stable surfaces and becomes SOB. Decreased gait speed with fatigue and increased deviation in gait path, decreased foot clearance. Seems aware of surroundings even as fatigued but balance becomes more impaired Stair Climbing Evaluation Evaluation Level of Assist On Stairs Contact Guard Assistance Devices Stair Climbing Assistive Devices Right Railing Technique/Endurance Stair Climbing Direction Ascend and Descend Stair Climbing Technique Step to Step Comments Stair Climbing Comments 1st set 4 steps with R hand rail, CGA for safety. 2nd set of 4 steps w/o rail, CGA for safety. Demos poor depth perception, more challenged with L over R PT-OP-H Neuro Start: 11/15/23 16:23 Freq: Status: Active Protocol: Document 11/16/23 12:59 NM (Rec: 11/16/23 16:51 NM [id number]) Sensation Evaluation Gross Sensation Gross Sensation Left LE Impaired,Right LE Impaired Sensation Description Paresthesia,Numbness Comments Summary Comments BLE intact to light touch sensation equally until feet. Impaired light touch, sharp/ dull, vibration to plantar and dorsal surfaces bilaterally, more limited at plantar surfaces. PT-OP-J Posture/Palpation/Skin Start: 11/15/23 16:23 Freq: Status: Active Protocol: Document 11/16/23 12:59 NM (Rec: 11/16/23 16:51 NM [id number]) Posture Evaluation Position Standing Head/C-Spine Posture Forward Head L-Spine Posture Flattened Pelvis Posture Posterior Tilted Hip Posture (L) Externally Rotated,(R) Externally Rotated Knee Posture (L) Genu Varus,(R) Genu Varus Patellar Posture (L) Superior,(R) Superior Foot Arch (L) Low Arch,(R) Low Arch Skin Assessment Other Assessments Skin Assessment Comments Increased rubor with dependency, equal warmth. Feet are dry, cracked on plantar surfaces, no wounds or calluses, toe nail deformities PT-OP-K Range of Motion Start: 11/15/23 16:23 Freq: Status: Active Protocol: Document 11/16/23 12:59 NM (Rec: 11/16/23 16:51 NM [id number]) Lumbar Spine Range of Motion Lumbar Spine Active Percentage Testing Position Standing Flexion 50 Extension 100 Lateral Flexion Left 50 Lateral Flexion Right 50 ROM Limitations Soft Tissue Tightness Comments Reports pain along lower lumbar spine with flexion. Reports none with extension Hip Goniometric Range of Motion Hip Right Flexion w/Knee Flexed 110 Straight Leg Raise 140 Extension 8 Abduction 20 Comments Limited ER/IR but not formally measured Left Flexion w/Knee Flexed 105 Straight Leg Raise 145 Extension 8 Abduction 20 Comments Limited ER/IR but not formally measured Knee Goniometric Range of Motion Knee Right Flexion Active (degrees) 135 Extension Active (degrees) 0 Left Flexion Active (degrees) 135 Extension Active (degrees) 0 Ankle and Foot Goniometric Range of Motion Ankle and Foot ROM Limitations Comments Observable limitations in B ankle dorsiflexion, eversion; not formally measured due to time PT-OP-L Special Tests Start: 11/15/23 16:23 Freq: Status: Active Protocol: Document 11/16/23 12:59 NM (Rec: 11/16/23 16:51 NM [id number]) Special Tests Lumbar Spine Special Tests Straight Leg Raise Test Results - Slump Test Results - Distraction Test Results + Ozuna/Quadrant Test Results - PT-OP-M Strength Start: 11/15/23 16:23 Freq: Status: Active Protocol: Document 11/16/23 12:59 NM (Rec: 11/16/23 16:51 NM [id number]) Hip Strength Hip Manual Muscle Testing Right Flexion (L2) 4 Good Extension (S1) 3+ Fair+ Abduction 4- Good- Adduction 4 Good External Rotation 4 Good Internal Rotation 4 Good Left Flexion (L2) 4- Good- Extension (S1) 3+ Fair+ Abduction 4- Good- Adduction 4- Good- External Rotation 4 Good Internal Rotation 4 Good Knee Strength Knee Manual Muscle Testing Right Flexion (S2) 4 Good Extension (L3) 4 Good Left Flexion (S2) 4 Good Extension (L3) 4 Good Ankle/Foot Strength Ankle and Foot Manual Muscle Testing Right Dorsiflexion (L4) 4- Good- Plantarflexion (S1) 4- Good- Inversion 4- Good- Eversion (S1) 4- Good- Left Dorsiflexion (L4) 4- Good- Plantarflexion (S1) 4- Good- Inversion 4- Good- Eversion (S1) 4- Good- PT-OP-Q Treatments Start: 11/15/23 16:23 Freq: Status: Active Protocol: Document 11/28/23 13:54 SP (Rec: 11/28/23 15:02 SP [id number]) Cardio Equipment Recumbent Elliptical (Biodex) Duration (Minutes) 6 Resistance 4 Seat Position see 8 Other BUEs/BLEs Gym Equipment Shuttle Recovery Unilateral Squats Details knee alignment Resistance 37# (One new) Reps/Time x10 Bilateral Squats Details ball between BLEs Resistance 75# (Two new) Reps/Time x15 Shuttle Balance Red Details WBOS, NBOS, Staggered Comments WBOS: stationary, HTs, EC 2 sec NBOS: stationary, HTs Stagger stance: stationary *Cued taller, WB = BLEs, more fwd into forefoot //BLEs or front LE in stride stance. Therapeutic Exercises Sitting Exercises STS Sitting Exercise Name reviewed HEP Resistance B arms across chest, TB around thighs Equipment Used mesh chair Reps/Minutes 5 reps 3x/DAY Comments improved eccentric sit Standing Exercises Hamstring curls Standing Exercise Name HS curls Side bilateral Resistance 4# leg wt Reps/Minutes 2x10 Comments cued knees // Other Exercises Toe-taps Other Exercise Name Toe-taps Side bilateral Resistance 4# Equipment Used 6 step Reps/Minutes x10 each LE Comments cued soft stepping as/desc Gait Training Gait Activity dynamic gait Description HTs, pivot turn, (future back stepping, carry cup water, EC) Level of Assistance close SBA, occaional CGA Distance/Duration 50 hallway 1 lap Treatment Focus even jaswant, midline stability with dynamic HTs, stab pivot turns Comments cued softer stepping R>L LE, even jaswant tends to have decreased stance time on RLE. Improves corrections with distance Neuro Re-Education Treatment Balance Activities step up/back down Surface 4# leg wt Equipment 6 step, //bar PRN Reps/Duration 5 reps lead each LE Comments cued soft stepping, TKE RLE > LLE PT-OP-T Assessment and Plan Start: 11/15/23 16:23 Freq: Status: Active Protocol: Document 11/28/23 13:54 SP (Rec: 11/28/23 15:02 SP [id number]) Physical Therapy Assessment Goals Six Impairment difficulty with 4 stairs with rail, has 12 at home w L rail Short Term Goal (STG) Pt will be able to ascend/ descend 8 stairs with or without hand rail as close SBA or better in order to demonstrate improved balance and safety awareness during activity STG Duration 3 weeks Staff Anesthesiologist Goal (LTG) Pt will be able to ascend/ descend 12 stairs with or without hand rail as close SBA or better in order to demonstrate improved balance and safety awareness during activity LTG Duration 6 weeks Five Impairment strength Short Term Goal (STG) Pt will improve global hip/ knee strength by at least 1 grade in order to demonstrate increased BLE strength required for balance and gait, decrease fall risk STG Duration 3 weeks Senior Care Goal (LTG) Pt will improve global hip/ knee strength by at least 2 grades in order to demonstrate increased BLE strength required for balance and gait, decrease fall risk LTG Duration 6 weeks Four Impairment HEP Impairment Pt not performing HEP other than daily ambulation Short Term Goal (STG) Pt will report compliance with HEP at least 2-3x/wk including daily foot checks in order to maximize gains made during PT and to decrease risk of foot wounds due to poor sensation STG Duration 3 weeks Senior Care Goal (LTG) Pt will report compliance with HEP at least 3x/wk including daily foot checks in order maximize independence upon discharge from PT and demonstrate improved management of neuropathy- related symptoms LTG Duration 6 weeks Three Impairment endurance Impairment 6 MWT distance 1215 ft without AD, RPE 6 Short Term Goal (STG) Pt will improve 6 MWT distance by at least 100 ft with or without LRAD in order to demonstrate improved activity tolerance and balance during gait STG Duration 3 weeks Senior Care Goal (LTG) Pt will improve 6 MWT distance by at least 200 ft with or without LRAD in order to demonstrate improved activity tolerance and balance during gait LTG Duration 6 weeks Two Impairment strength Impairment B ankle strength 4-/5 globally Short Term Goal (STG) Pt will increase B global ankle strength to at least 4/5 in order to improve balance on both stable and unstable surfaces STG Duration 3 weeks Senior Care Goal (LTG) Pt will increase B global ankle strength to at least 4+/ 5 in order to improve balance on both stable and unstable surfaces LTG Duration 6 weeks One Impairment strength Impairment Richter 39/56 Short Term Goal (STG) Pt will increase Richter score to at least 44/56 in order to demonstrate improved balance in order to decrease fall risk STG Duration 3 weeks Senior Care Goal (LTG) Pt will increase Richter score to at least 49/56 in order to demonstrate improved balance in order to decrease fall risk LTG Duration 6 weeks Assessment Summary Assessment Pt good effort during resisted ther ex. He was able to completed softer stepping during wt stepping activity with cue reminders. He improved postural corections cuing approx 60% time with noted decreased from Mod to Min A to occasional CGA support on shuttle balance today no UE support able to complete few head turns. Good understanding and carryover trunk corections, less viering and trying softer stepping during dynamic gait in hallway for safety looking around in parkinglot. Physical Therapy Plan Frequency and Duration Frequency of Treatment 2x/Week Duration of treatment (weeks) 6 Plan of Care Start Date 11/16/23 Plan of Care End Date 12/30/23 Therapeutic Interventions Therapeutic Interventions Balance Training,Coordination Training,Gait Training,Home Exercise Program,Joint Mobilizations,Manual Therapy, Neuromuscular Re-education, Patient/Caregiver Education, Self-Care/Home Management, Sensory Integration,Soft Tissue Mobilization,Taping, Therapeutic Activities, Therapeutic Exercises, Vestibular Rehabilitation Modalities Electric Stimulation,Hot Packs Next Visit Focus/Plan Next Note Type Treatment Note Next Visit Plan L psoas/abdominal due to discomfort with lifting RLE onto shuttle recovery. Check HEP. Next: continue dynamic gait and uneven balance POC: functional balance training Monitor vitals with activity
--- NOTE | 2023-11-30 15:34 | PT.OTN ---
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 Pt reports numb and sore feet, changes in balance, gait and strength. Pt reports that he is having difficulty gain in weight, and he recently got out of [facility] ([facility] with PT) after 20 day stay following covid and pneumonia. Hx of quadruple bypass 2 years ago, pleural effusion, L eye vision loss, carotid artery clog; recent changes in thyroid medication to address eating difficulty. Reports no falls, but several stumbles because my ankles give out, poor flexibility. No AD, but prn walker use after hospital. Pt reports that he has most difficulty with stairs (in and out, rails inside), decreased activity tolerance and SOB with activity, getting in/out chair , lifting groceries or carrying objects. Pt reports dizziness only when SOB during activity; denies vertigo, lightheadedness, positional vertigo. Hx provided by both pt and pt's brother in law. Pt lives with OZ and his sister with 12 stairs inside home and several stairs to enter. Prior Treatments and Tests walk 1/2 mile daily Prior Functional Status Baseline Function- ADL's Modified Independent Baseline Function- Mobility Modified Independent Current Functional Impairments (Reported) Functional Limitations- ADL's reports no difficulty Functional Limitations- Mobility/Gait 1/2 mile daily walk uneven surfaces Guemes; difficulty with STS transfers, balance Personal Factors Other Personal Factors That May Effect Per pt and OZ, pt struggling Therapy/Recovery to gain weight PT-OP-C Subjective Start: 11/15/23 16:23 Freq: Status: Active Protocol: Document 11/30/23 11:41 AB (Rec: 11/30/23 15:32 AB [id number]) OP-PT Subjective Patient Comments Patient Comments Seated right UE start of session BP 128/71 HR 79% O2 sat 99% Patient reports performing the exercises every day. Patient reports he doesn't recall pain with lifting LE onto shuttle previous session. PT-OP-D Balance Start: 11/15/23 16:23 Freq: Status: Active Protocol: Document 11/16/23 12:59 NM (Rec: 11/16/23 16:51 NM [id number]) Balance Tests Richter Balance Test Richter Balance Test Score 39/56 Single Limb Standing Single Limb- Right 3 seconds Single Limb- Left 1 second Tandem Tandem Standing 3 seconds PT-OP-E Functional Tests Start: 11/15/23 16:23 Freq: Status: Active Protocol: Document 11/16/23 12:59 NM (Rec: 11/16/23 16:51 NM [id number]) Functional Tests 6 Minute Walk Test Distance 1215 ft Device Used no AD Comments decreased speed, RPE 6, increased deviation w fatigue Five Times Sit to Stand Test Score 14.63 sec Comments B valgus; 20 height Timed Up and Go (TUG) Score 9.04 sec Comments no AD, stumbles w/o fall on turn PT-OP-F Manual Assessment Start: 11/15/23 16:23 Freq: Status: Active Protocol: Document 11/16/23 12:59 NM (Rec: 11/16/23 16:51 NM [id number]) Manual Assessments Soft Tissue Assessment Soft Tissue Mobility Assessment Decreased hamstring length, increased hip flexor tightness . BLE atrophy, especially calves Joint Mobility Assessment Joint Mobility Assessment Decreased mobility L spine with P-A springing. Decreased ankle AROM globally, especially eversion and dorsiflexion. Limited hip IR, reproduces low back pain. PT-OP-G Mobility & Gait Start: 11/15/23 16:23 Freq: Status: Active Protocol: Document 11/16/23 12:59 NM (Rec: 11/16/23 16:51 NM [id number]) OP Gait Assessment Gait Gait Assistance Required: Standby Assistance Distance (Feet) 1,215 Assistive Devices Assistive Device None,Gait Belt Gait Deviations General Gait Pattern Decreased Stride Length, Decreased Feet Clearance, Flexed Trunk,Wide Based Gait Factors Limiting Gait Function Factors Limiting Gait Function Decreased Activity Tolerance, Decreased Sensation,Limited Range of Motion,Poor Balance Comments Gait Comments Fatigues quickly, even on stable surfaces and becomes SOB. Decreased gait speed with fatigue and increased deviation in gait path, decreased foot clearance. Seems aware of surroundings even as fatigued but balance becomes more impaired Stair Climbing Evaluation Evaluation Level of Assist On Stairs Contact Guard Assistance Devices Stair Climbing Assistive Devices Right Railing Technique/Endurance Stair Climbing Direction Ascend and Descend Stair Climbing Technique Step to Step Comments Stair Climbing Comments 1st set 4 steps with R hand rail, CGA for safety. 2nd set of 4 steps w/o rail, CGA for safety. Demos poor depth perception, more challenged with L over R PT-OP-H Neuro Start: 11/15/23 16:23 Freq: Status: Active Protocol: Document 11/16/23 12:59 NM (Rec: 11/16/23 16:51 NM [id number]) Sensation Evaluation Gross Sensation Gross Sensation Left LE Impaired,Right LE Impaired Sensation Description Paresthesia,Numbness Comments Summary Comments BLE intact to light touch sensation equally until feet. Impaired light touch, sharp/ dull, vibration to plantar and dorsal surfaces bilaterally, more limited at plantar surfaces. PT-OP-J Posture/Palpation/Skin Start: 11/15/23 16:23 Freq: Status: Active Protocol: Document 11/16/23 12:59 NM (Rec: 11/16/23 16:51 NM [id number]) Posture Evaluation Position Standing Head/C-Spine Posture Forward Head L-Spine Posture Flattened Pelvis Posture Posterior Tilted Hip Posture (L) Externally Rotated,(R) Externally Rotated Knee Posture (L) Genu Varus,(R) Genu Varus Patellar Posture (L) Superior,(R) Superior Foot Arch (L) Low Arch,(R) Low Arch Skin Assessment Other Assessments Skin Assessment Comments Increased rubor with dependency, equal warmth. Feet are dry, cracked on plantar surfaces, no wounds or calluses, toe nail deformities PT-OP-K Range of Motion Start: 11/15/23 16:23 Freq: Status: Active Protocol: Document 11/16/23 12:59 NM (Rec: 11/16/23 16:51 NM [id number]) Lumbar Spine Range of Motion Lumbar Spine Active Percentage Testing Position Standing Flexion 50 Extension 100 Lateral Flexion Left 50 Lateral Flexion Right 50 ROM Limitations Soft Tissue Tightness Comments Reports pain along lower lumbar spine with flexion. Reports none with extension Hip Goniometric Range of Motion Hip Right Flexion w/Knee Flexed 110 Straight Leg Raise 140 Extension 8 Abduction 20 Comments Limited ER/IR but not formally measured Left Flexion w/Knee Flexed 105 Straight Leg Raise 145 Extension 8 Abduction 20 Comments Limited ER/IR but not formally measured Knee Goniometric Range of Motion Knee Right Flexion Active (degrees) 135 Extension Active (degrees) 0 Left Flexion Active (degrees) 135 Extension Active (degrees) 0 Ankle and Foot Goniometric Range of Motion Ankle and Foot ROM Limitations Comments Observable limitations in B ankle dorsiflexion, eversion; not formally measured due to time PT-OP-L Special Tests Start: 11/15/23 16:23 Freq: Status: Active Protocol: Document 11/16/23 12:59 NM (Rec: 11/16/23 16:51 NM [id number]) Special Tests Lumbar Spine Special Tests Straight Leg Raise Test Results - Slump Test Results - Distraction Test Results + Ozuna/Quadrant Test Results - PT-OP-M Strength Start: 11/15/23 16:23 Freq: Status: Active Protocol: Document 11/16/23 12:59 NM (Rec: 11/16/23 16:51 NM [id number]) Hip Strength Hip Manual Muscle Testing Right Flexion (L2) 4 Good Extension (S1) 3+ Fair+ Abduction 4- Good- Adduction 4 Good External Rotation 4 Good Internal Rotation 4 Good Left Flexion (L2) 4- Good- Extension (S1) 3+ Fair+ Abduction 4- Good- Adduction 4- Good- External Rotation 4 Good Internal Rotation 4 Good Knee Strength Knee Manual Muscle Testing Right Flexion (S2) 4 Good Extension (L3) 4 Good Left Flexion (S2) 4 Good Extension (L3) 4 Good Ankle/Foot Strength Ankle and Foot Manual Muscle Testing Right Dorsiflexion (L4) 4- Good- Plantarflexion (S1) 4- Good- Inversion 4- Good- Eversion (S1) 4- Good- Left Dorsiflexion (L4) 4- Good- Plantarflexion (S1) 4- Good- Inversion 4- Good- Eversion (S1) 4- Good- PT-OP-Q Treatments Start: 11/15/23 16:23 Freq: Status: Active Protocol: Document 11/30/23 11:41 AB (Rec: 11/30/23 15:32 AB [id number]) Gym Equipment Shuttle Recovery Bilateral Squats Details Ball between knees second set Resistance 2 new Shuttle Recovery Platform Stable Reps/Time X15 X2 VC to avoid locking knees Therapeutic Exercises Supine Exercises Ramakrishna stretch Side bilateral Reps/Minutes X1 one minute each LE core march Supine Exercise Name alternating Side bilateral Reps/Minutes one min Comments Verbal cues to brace as LE is lowered piriformis stretch Supine Exercise Name added toHEP Side bilateral Reps/Minutes one minute each minute Comments tactile cues for LE positioning Sitting Exercises STS Resistance with UE use Equipment Used from 19 inch seat height then 17 inc seat height Reps/Minutes 3X10 Comments 152/70 HR 83 O2sat 100% post Standing Exercises bilateral heel raise Reps/Minutes X10 Comments verbal cues to lower heels to floor slowly calf stretch on step Standing Exercise Name with knee straight and knee bent Reps/Minutes 60 sec X 2 with knee straight, with knee bent X 1 PT-OP-T Assessment and Plan Start: 11/15/23 16:23 Freq: Status: Active Protocol: Document 11/30/23 11:41 AB (Rec: 11/30/23 15:32 AB [id number]) Physical Therapy Assessment Goals Six Impairment difficulty with 4 stairs with rail, has 12 at home w L rail Short Term Goal (STG) Pt will be able to ascend/ descend 8 stairs with or without hand rail as close SBA or better in order to demonstrate improved balance and safety awareness during activity STG Duration 3 weeks Skilled Nursing Goal (LTG) Pt will be able to ascend/ descend 12 stairs with or without hand rail as close SBA or better in order to demonstrate improved balance and safety awareness during activity LTG Duration 6 weeks Five Impairment strength Short Term Goal (STG) Pt will improve global hip/ knee strength by at least 1 grade in order to demonstrate increased BLE strength required for balance and gait, decrease fall risk STG Duration 3 weeks Skilled Nursing Goal (LTG) Pt will improve global hip/ knee strength by at least 2 grades in order to demonstrate increased BLE strength required for balance and gait, decrease fall risk LTG Duration 6 weeks Four Impairment HEP Impairment Pt not performing HEP other than daily ambulation Short Term Goal (STG) Pt will report compliance with HEP at least 2-3x/wk including daily foot checks in order to maximize gains made during PT and to decrease risk of foot wounds due to poor sensation STG Duration 3 weeks Skilled Nursing Goal (LTG) Pt will report compliance with HEP at least 3x/wk including daily foot checks in order maximize independence upon discharge from PT and demonstrate improved management of neuropathy- related symptoms LTG Duration 6 weeks Three Impairment endurance Impairment 6 MWT distance 1215 ft without AD, RPE 6 Short Term Goal (STG) Pt will improve 6 MWT distance by at least 100 ft with or without LRAD in order to demonstrate improved activity tolerance and balance during gait STG Duration 3 weeks Skilled Nursing Goal (LTG) Pt will improve 6 MWT distance by at least 200 ft with or without LRAD in order to demonstrate improved activity tolerance and balance during gait LTG Duration 6 weeks Two Impairment strength Impairment B ankle strength 4-/5 globally Short Term Goal (STG) Pt will increase B global ankle strength to at least 4/5 in order to improve balance on both stable and unstable surfaces STG Duration 3 weeks Hardware Trainer Goal (LTG) Pt will increase B global ankle strength to at least 4+/ 5 in order to improve balance on both stable and unstable surfaces LTG Duration 6 weeks One Impairment strength Impairment Richter 39/56 Short Term Goal (STG) Pt will increase Richter score to at least 44/56 in order to demonstrate improved balance in order to decrease fall risk STG Duration 3 weeks Hardware Trainer Goal (LTG) Pt will increase Richter score to at least 49/56 in order to demonstrate improved balance in order to decrease fall risk LTG Duration 6 weeks Assessment Summary Assessment Logan reports his legs are a little sore end of session, observes/comments that his foot is raising higher during AROM DF seated end of session. Physical Therapy Plan Frequency and Duration Frequency of Treatment 2x/Week Duration of treatment (weeks) 6 Plan of Care Start Date 11/16/23 Plan of Care End Date 12/30/23 Next Visit Focus/Plan Next Note Type Treatment Note Next Visit Plan Next: focus on/ continue dynamic gait and uneven balance POC: functional balance training. Possibly calf stretch and glute med activation while in session. Monitor vitals with activity
--- NOTE | 2023-11-30 15:34 | PT.OTN ---
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 Pt reports numb and sore feet, changes in balance, gait and strength. Pt reports that he is having difficulty gain in weight, and he recently got out of [facility] ([facility] with PT) after 20 day stay following covid and pneumonia. Hx of quadruple bypass 2 years ago, pleural effusion, L eye vision loss, carotid artery clog; recent changes in thyroid medication to address eating difficulty. Reports no falls, but several stumbles because my ankles give out, poor flexibility. No AD, but prn walker use after hospital. Pt reports that he has most difficulty with stairs (in and out, rails inside), decreased activity tolerance and SOB with activity, getting in/out chair , lifting groceries or carrying objects. Pt reports dizziness only when SOB during activity; denies vertigo, lightheadedness, positional vertigo. Hx provided by both pt and pt's brother in law. Pt lives with OZ and his sister with 12 stairs inside home and several stairs to enter. Prior Treatments and Tests walk 1/2 mile daily Prior Functional Status Baseline Function- ADL's Modified Independent Baseline Function- Mobility Modified Independent Current Functional Impairments (Reported) Functional Limitations- ADL's reports no difficulty Functional Limitations- Mobility/Gait 1/2 mile daily walk uneven surfaces Guemes; difficulty with STS transfers, balance Personal Factors Other Personal Factors That May Effect Per pt and OZ, pt struggling Therapy/Recovery to gain weight PT-OP-C Subjective Start: 11/15/23 16:23 Freq: Status: Active Protocol: Document 11/30/23 11:41 AB (Rec: 11/30/23 15:32 AB [id number]) OP-PT Subjective Patient Comments Patient Comments Seated right UE start of session BP 128/71 HR 79% O2 sat 99% Patient reports performing the exercises every day. Patient reports he doesn't recall pain with lifting LE onto shuttle previous session. PT-OP-D Balance Start: 11/15/23 16:23 Freq: Status: Active Protocol: Document 11/16/23 12:59 NM (Rec: 11/16/23 16:51 NM [id number]) Balance Tests Richter Balance Test Richter Balance Test Score 39/56 Single Limb Standing Single Limb- Right 3 seconds Single Limb- Left 1 second Tandem Tandem Standing 3 seconds PT-OP-E Functional Tests Start: 11/15/23 16:23 Freq: Status: Active Protocol: Document 11/16/23 12:59 NM (Rec: 11/16/23 16:51 NM [id number]) Functional Tests 6 Minute Walk Test Distance 1215 ft Device Used no AD Comments decreased speed, RPE 6, increased deviation w fatigue Five Times Sit to Stand Test Score 14.63 sec Comments B valgus; 20 height Timed Up and Go (TUG) Score 9.04 sec Comments no AD, stumbles w/o fall on turn PT-OP-F Manual Assessment Start: 11/15/23 16:23 Freq: Status: Active Protocol: Document 11/16/23 12:59 NM (Rec: 11/16/23 16:51 NM [id number]) Manual Assessments Soft Tissue Assessment Soft Tissue Mobility Assessment Decreased hamstring length, increased hip flexor tightness . BLE atrophy, especially calves Joint Mobility Assessment Joint Mobility Assessment Decreased mobility L spine with P-A springing. Decreased ankle AROM globally, especially eversion and dorsiflexion. Limited hip IR, reproduces low back pain. PT-OP-G Mobility & Gait Start: 11/15/23 16:23 Freq: Status: Active Protocol: Document 11/16/23 12:59 NM (Rec: 11/16/23 16:51 NM [id number]) OP Gait Assessment Gait Gait Assistance Required: Standby Assistance Distance (Feet) 1,215 Assistive Devices Assistive Device None,Gait Belt Gait Deviations General Gait Pattern Decreased Stride Length, Decreased Feet Clearance, Flexed Trunk,Wide Based Gait Factors Limiting Gait Function Factors Limiting Gait Function Decreased Activity Tolerance, Decreased Sensation,Limited Range of Motion,Poor Balance Comments Gait Comments Fatigues quickly, even on stable surfaces and becomes SOB. Decreased gait speed with fatigue and increased deviation in gait path, decreased foot clearance. Seems aware of surroundings even as fatigued but balance becomes more impaired Stair Climbing Evaluation Evaluation Level of Assist On Stairs Contact Guard Assistance Devices Stair Climbing Assistive Devices Right Railing Technique/Endurance Stair Climbing Direction Ascend and Descend Stair Climbing Technique Step to Step Comments Stair Climbing Comments 1st set 4 steps with R hand rail, CGA for safety. 2nd set of 4 steps w/o rail, CGA for safety. Demos poor depth perception, more challenged with L over R PT-OP-H Neuro Start: 11/15/23 16:23 Freq: Status: Active Protocol: Document 11/16/23 12:59 NM (Rec: 11/16/23 16:51 NM [id number]) Sensation Evaluation Gross Sensation Gross Sensation Left LE Impaired,Right LE Impaired Sensation Description Paresthesia,Numbness Comments Summary Comments BLE intact to light touch sensation equally until feet. Impaired light touch, sharp/ dull, vibration to plantar and dorsal surfaces bilaterally, more limited at plantar surfaces. PT-OP-J Posture/Palpation/Skin Start: 11/15/23 16:23 Freq: Status: Active Protocol: Document 11/16/23 12:59 NM (Rec: 11/16/23 16:51 NM [id number]) Posture Evaluation Position Standing Head/C-Spine Posture Forward Head L-Spine Posture Flattened Pelvis Posture Posterior Tilted Hip Posture (L) Externally Rotated,(R) Externally Rotated Knee Posture (L) Genu Varus,(R) Genu Varus Patellar Posture (L) Superior,(R) Superior Foot Arch (L) Low Arch,(R) Low Arch Skin Assessment Other Assessments Skin Assessment Comments Increased rubor with dependency, equal warmth. Feet are dry, cracked on plantar surfaces, no wounds or calluses, toe nail deformities PT-OP-K Range of Motion Start: 11/15/23 16:23 Freq: Status: Active Protocol: Document 11/16/23 12:59 NM (Rec: 11/16/23 16:51 NM [id number]) Lumbar Spine Range of Motion Lumbar Spine Active Percentage Testing Position Standing Flexion 50 Extension 100 Lateral Flexion Left 50 Lateral Flexion Right 50 ROM Limitations Soft Tissue Tightness Comments Reports pain along lower lumbar spine with flexion. Reports none with extension Hip Goniometric Range of Motion Hip Right Flexion w/Knee Flexed 110 Straight Leg Raise 140 Extension 8 Abduction 20 Comments Limited ER/IR but not formally measured Left Flexion w/Knee Flexed 105 Straight Leg Raise 145 Extension 8 Abduction 20 Comments Limited ER/IR but not formally measured Knee Goniometric Range of Motion Knee Right Flexion Active (degrees) 135 Extension Active (degrees) 0 Left Flexion Active (degrees) 135 Extension Active (degrees) 0 Ankle and Foot Goniometric Range of Motion Ankle and Foot ROM Limitations Comments Observable limitations in B ankle dorsiflexion, eversion; not formally measured due to time PT-OP-L Special Tests Start: 11/15/23 16:23 Freq: Status: Active Protocol: Document 11/16/23 12:59 NM (Rec: 11/16/23 16:51 NM [id number]) Special Tests Lumbar Spine Special Tests Straight Leg Raise Test Results - Slump Test Results - Distraction Test Results + Ozuna/Quadrant Test Results - PT-OP-M Strength Start: 11/15/23 16:23 Freq: Status: Active Protocol: Document 11/16/23 12:59 NM (Rec: 11/16/23 16:51 NM [id number]) Hip Strength Hip Manual Muscle Testing Right Flexion (L2) 4 Good Extension (S1) 3+ Fair+ Abduction 4- Good- Adduction 4 Good External Rotation 4 Good Internal Rotation 4 Good Left Flexion (L2) 4- Good- Extension (S1) 3+ Fair+ Abduction 4- Good- Adduction 4- Good- External Rotation 4 Good Internal Rotation 4 Good Knee Strength Knee Manual Muscle Testing Right Flexion (S2) 4 Good Extension (L3) 4 Good Left Flexion (S2) 4 Good Extension (L3) 4 Good Ankle/Foot Strength Ankle and Foot Manual Muscle Testing Right Dorsiflexion (L4) 4- Good- Plantarflexion (S1) 4- Good- Inversion 4- Good- Eversion (S1) 4- Good- Left Dorsiflexion (L4) 4- Good- Plantarflexion (S1) 4- Good- Inversion 4- Good- Eversion (S1) 4- Good- PT-OP-Q Treatments Start: 11/15/23 16:23 Freq: Status: Active Protocol: Document 11/30/23 11:41 AB (Rec: 11/30/23 15:32 AB [id number]) Gym Equipment Shuttle Recovery Bilateral Squats Details Ball between knees second set Resistance 2 new Shuttle Recovery Platform Stable Reps/Time X15 X2 VC to avoid locking knees Therapeutic Exercises Supine Exercises Ramakrishna stretch Side bilateral Reps/Minutes X1 one minute each LE core march Supine Exercise Name alternating Side bilateral Reps/Minutes one min Comments Verbal cues to brace as LE is lowered piriformis stretch Supine Exercise Name added toHEP Side bilateral Reps/Minutes one minute each minute Comments tactile cues for LE positioning Sitting Exercises STS Resistance with UE use Equipment Used from 19 inch seat height then 17 inc seat height Reps/Minutes 3X10 Comments 152/70 HR 83 O2sat 100% post Standing Exercises bilateral heel raise Reps/Minutes X10 Comments verbal cues to lower heels to floor slowly calf stretch on step Standing Exercise Name with knee straight and knee bent Reps/Minutes 60 sec X 2 with knee straight, with knee bent X 1 PT-OP-T Assessment and Plan Start: 11/15/23 16:23 Freq: Status: Active Protocol: Document 11/30/23 11:41 AB (Rec: 11/30/23 15:32 AB [id number]) Physical Therapy Assessment Goals Six Impairment difficulty with 4 stairs with rail, has 12 at home w L rail Short Term Goal (STG) Pt will be able to ascend/ descend 8 stairs with or without hand rail as close SBA or better in order to demonstrate improved balance and safety awareness during activity STG Duration 3 weeks Nursing Home Goal (LTG) Pt will be able to ascend/ descend 12 stairs with or without hand rail as close SBA or better in order to demonstrate improved balance and safety awareness during activity LTG Duration 6 weeks Five Impairment strength Short Term Goal (STG) Pt will improve global hip/ knee strength by at least 1 grade in order to demonstrate increased BLE strength required for balance and gait, decrease fall risk STG Duration 3 weeks Nursing Home Goal (LTG) Pt will improve global hip/ knee strength by at least 2 grades in order to demonstrate increased BLE strength required for balance and gait, decrease fall risk LTG Duration 6 weeks Four Impairment HEP Impairment Pt not performing HEP other than daily ambulation Short Term Goal (STG) Pt will report compliance with HEP at least 2-3x/wk including daily foot checks in order to maximize gains made during PT and to decrease risk of foot wounds due to poor sensation STG Duration 3 weeks [employer]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 (LTG) Pt will report compliance with HEP at least 3x/wk including daily foot checks in order maximize independence upon discharge from PT and demonstrate improved management of neuropathy- related symptoms LTG Duration 6 weeks Three Impairment endurance Impairment 6 MWT distance 1215 ft without AD, RPE 6 Short Term Goal (STG) Pt will improve 6 MWT distance by at least 100 ft with or without LRAD in order to demonstrate improved activity tolerance and balance during gait STG Duration 3 weeks [employer]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 (LTG) Pt will improve 6 MWT distance by at least 200 ft with or without LRAD in order to demonstrate improved activity tolerance and balance during gait LTG Duration 6 weeks Two Impairment strength Impairment B ankle strength 4-/5 globally Short Term Goal (STG) Pt will increase B global ankle strength to at least 4/5 in order to improve balance on both stable and unstable surfaces STG Duration 3 weeks Nursing Home Goal (LTG) Pt will increase B global ankle strength to at least 4+/ 5 in order to improve balance on both stable and unstable surfaces LTG Duration 6 weeks One Impairment strength Impairment Richter 39/56 Short Term Goal (STG) Pt will increase Richter score to at least 44/56 in order to demonstrate improved balance in order to decrease fall risk STG Duration 3 weeks [employer]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 (LTG) Pt will increase Richter score to at least 49/56 in order to demonstrate improved balance in order to decrease fall risk LTG Duration 6 weeks Assessment Summary Assessment Logan reports his legs are a little sore end of session, observes/comments that his foot is raising higher during AROM DF seated end of session. Physical Therapy Plan Frequency and Duration Frequency of Treatment 2x/Week Duration of treatment (weeks) 6 Plan of Care Start Date 11/16/23 Plan of Care End Date 12/30/23 Next Visit Focus/Plan Next Note Type Treatment Note Next Visit Plan Next: focus on/ continue dynamic gait and uneven balance POC: functional balance training. Possibly calf stretch and glute med activation while in session. Monitor vitals with activity
--- NOTE | 2023-12-07 13:46 | PT.OTN ---
Current Diagnoses Polyneuropathy, unspecified (12/07/23) Other lack of coordination (12/07/23) Weakness (12/07/23) Physical Therapy Treatment Note PT-OP-A Visit Information Start: 11/15/23 16:23 Freq: Status: Active Protocol: Document 12/07/23 13:08 SP (Rec: 12/07/23 14:12 SP [id number]) Out-Patient Physical Therapy Visit Information Visit Information Visit Type Treatment Note Visit Start Time 13:02 Visit Stop Time 13:46 Visit Number 6 Number of SEM MANAGER Visits 3 Evaluation Information Evaluation Date 11/16/23 Precautions Precautions monitor vitals with activity memory, hx heart surgery, L visual loss, fall risk PT-OP-B Current Condition Start: 11/15/23 16:23 Freq: Status: Active Protocol: Document 11/16/23 12:59 NM (Rec: 11/16/23 16:51 NM [id number]) Current Condition History of Current Condition Onset Date 2 years Current Complaints strength, balance, activity tolerance History of Current Condition Pt presents to clinic with impairments in balance, BLE strength related to dx of polyneuropathy related to diabetes. Pt reports numb and sore feet, changes in balance, gait and strength. Pt reports that he is having difficulty gain in weight, and he recently got out of [facility] ([facility] with PT) after 20 day stay following covid and pneumonia. Hx of quadruple bypass 2 years ago, pleural effusion, L eye vision loss, carotid artery clog; recent changes in thyroid medication to address eating difficulty. Reports no falls, but several stumbles because my ankles give out, poor flexibility. No AD, but prn walker use after hospital. Pt reports that he has most difficulty with stairs (in and out, rails inside), decreased activity tolerance and SOB with activity, getting in/out chair , lifting groceries or carrying objects. Pt reports dizziness only when SOB during activity; denies vertigo, lightheadedness, positional vertigo. Hx provided by both pt and pt's brother in law. Pt lives with OZ and his sister with 12 stairs inside home and several stairs to enter. Prior Treatments and Tests walk 1/2 mile daily Prior Functional Status Baseline Function- ADL's Modified Independent Baseline Function- Mobility Modified Independent Current Functional Impairments (Reported) Functional Limitations- ADL's reports no difficulty Functional Limitations- Mobility/Gait 1/2 mile daily walk uneven surfaces Guemes; difficulty with STS transfers, balance Personal Factors Other Personal Factors That May Effect Per pt and OZ, pt struggling Therapy/Recovery to gain weight PT-OP-C Subjective Start: 11/15/23 16:23 Freq: Status: Active Protocol: Document 12/07/23 13:08 SP (Rec: 12/07/23 14:12 SP [id number]) OP-PT Subjective Patient Comments Patient Comments Pt reports feels little tired but pretty good after PT. He stated see improvement in balance, can look turning when walking and not viering like used to. He stated his R hip has been hurting at times and notices if weaker than L. PT-OP-D Balance Start: 11/15/23 16:23 Freq: Status: Active Protocol: Document 11/16/23 12:59 NM (Rec: 11/16/23 16:51 NM [id number]) Balance Tests Richter Balance Test Richter Balance Test Score 39/56 Single Limb Standing Single Limb- Right 3 seconds Single Limb- Left 1 second Tandem Tandem Standing 3 seconds PT-OP-E Functional Tests Start: 11/15/23 16:23 Freq: Status: Active Protocol: Document 11/16/23 12:59 NM (Rec: 11/16/23 16:51 NM [id number]) Functional Tests 6 Minute Walk Test Distance 1215 ft Device Used no AD Comments decreased speed, RPE 6, increased deviation w fatigue Five Times Sit to Stand Test Score 14.63 sec Comments B valgus; 20 height Timed Up and Go (TUG) Score 9.04 sec Comments no AD, stumbles w/o fall on turn PT-OP-F Manual Assessment Start: 11/15/23 16:23 Freq: Status: Active Protocol: Document 11/16/23 12:59 NM (Rec: 11/16/23 16:51 NM [id number]) Manual Assessments Soft Tissue Assessment Soft Tissue Mobility Assessment Decreased hamstring length, increased hip flexor tightness . BLE atrophy, especially calves Joint Mobility Assessment Joint Mobility Assessment Decreased mobility L spine with P-A springing. Decreased ankle AROM globally, especially eversion and dorsiflexion. Limited hip IR, reproduces low back pain. PT-OP-G Mobility & Gait Start: 11/15/23 16:23 Freq: Status: Active Protocol: Document 11/16/23 12:59 NM (Rec: 11/16/23 16:51 NM [id number]) OP Gait Assessment Gait Gait Assistance Required: Standby Assistance Distance (Feet) 1,215 Assistive Devices Assistive Device None,Gait Belt Gait Deviations General Gait Pattern Decreased Stride Length, Decreased Feet Clearance, Flexed Trunk,Wide Based Gait Factors Limiting Gait Function Factors Limiting Gait Function Decreased Activity Tolerance, Decreased Sensation,Limited Range of Motion,Poor Balance Comments Gait Comments Fatigues quickly, even on stable surfaces and becomes SOB. Decreased gait speed with fatigue and increased deviation in gait path, decreased foot clearance. Seems aware of surroundings even as fatigued but balance becomes more impaired Stair Climbing Evaluation Evaluation Level of Assist On Stairs Contact Guard Assistance Devices Stair Climbing Assistive Devices Right Railing Technique/Endurance Stair Climbing Direction Ascend and Descend Stair Climbing Technique Step to Step Comments Stair Climbing Comments 1st set 4 steps with R hand rail, CGA for safety. 2nd set of 4 steps w/o rail, CGA for safety. Demos poor depth perception, more challenged with L over R PT-OP-H Neuro Start: 11/15/23 16:23 Freq: Status: Active Protocol: Document 11/16/23 12:59 NM (Rec: 11/16/23 16:51 NM [id number]) Sensation Evaluation Gross Sensation Gross Sensation Left LE Impaired,Right LE Impaired Sensation Description Paresthesia,Numbness Comments Summary Comments BLE intact to light touch sensation equally until feet. Impaired light touch, sharp/ dull, vibration to plantar and dorsal surfaces bilaterally, more limited at plantar surfaces. PT-OP-J Posture/Palpation/Skin Start: 11/15/23 16:23 Freq: Status: Active Protocol: Document 11/16/23 12:59 NM (Rec: 11/16/23 16:51 NM [id number]) Posture Evaluation Position Standing Head/C-Spine Posture Forward Head L-Spine Posture Flattened Pelvis Posture Posterior Tilted Hip Posture (L) Externally Rotated,(R) Externally Rotated Knee Posture (L) Genu Varus,(R) Genu Varus Patellar Posture (L) Superior,(R) Superior Foot Arch (L) Low Arch,(R) Low Arch Skin Assessment Other Assessments Skin Assessment Comments Increased rubor with dependency, equal warmth. Feet are dry, cracked on plantar surfaces, no wounds or calluses, toe nail deformities PT-OP-K Range of Motion Start: 11/15/23 16:23 Freq: Status: Active Protocol: Document 11/16/23 12:59 NM (Rec: 11/16/23 16:51 NM [id number]) Lumbar Spine Range of Motion Lumbar Spine Active Percentage Testing Position Standing Flexion 50 Extension 100 Lateral Flexion Left 50 Lateral Flexion Right 50 ROM Limitations Soft Tissue Tightness Comments Reports pain along lower lumbar spine with flexion. Reports none with extension Hip Goniometric Range of Motion Hip Right Flexion w/Knee Flexed 110 Straight Leg Raise 140 Extension 8 Abduction 20 Comments Limited ER/IR but not formally measured Left Flexion w/Knee Flexed 105 Straight Leg Raise 145 Extension 8 Abduction 20 Comments Limited ER/IR but not formally measured Knee Goniometric Range of Motion Knee Right Flexion Active (degrees) 135 Extension Active (degrees) 0 Left Flexion Active (degrees) 135 Extension Active (degrees) 0 Ankle and Foot Goniometric Range of Motion Ankle and Foot ROM Limitations Comments Observable limitations in B ankle dorsiflexion, eversion; not formally measured due to time PT-OP-L Special Tests Start: 11/15/23 16:23 Freq: Status: Active Protocol: Document 11/16/23 12:59 NM (Rec: 11/16/23 16:51 NM [id number]) Special Tests Lumbar Spine Special Tests Straight Leg Raise Test Results - Slump Test Results - Distraction Test Results + Ozuna/Quadrant Test Results - PT-OP-M Strength Start: 11/15/23 16:23 Freq: Status: Active Protocol: Document 11/16/23 12:59 NM (Rec: 11/16/23 16:51 NM [id number]) Hip Strength Hip Manual Muscle Testing Right Flexion (L2) 4 Good Extension (S1) 3+ Fair+ Abduction 4- Good- Adduction 4 Good External Rotation 4 Good Internal Rotation 4 Good Left Flexion (L2) 4- Good- Extension (S1) 3+ Fair+ Abduction 4- Good- Adduction 4- Good- External Rotation 4 Good Internal Rotation 4 Good Knee Strength Knee Manual Muscle Testing Right Flexion (S2) 4 Good Extension (L3) 4 Good Left Flexion (S2) 4 Good Extension (L3) 4 Good Ankle/Foot Strength Ankle and Foot Manual Muscle Testing Right Dorsiflexion (L4) 4- Good- Plantarflexion (S1) 4- Good- Inversion 4- Good- Eversion (S1) 4- Good- Left Dorsiflexion (L4) 4- Good- Plantarflexion (S1) 4- Good- Inversion 4- Good- Eversion (S1) 4- Good- PT-OP-Q Treatments Start: 11/15/23 16:23 Freq: Status: Active Protocol: Document 12/07/23 13:08 SP (Rec: 12/07/23 14:12 SP [id number]) Cardio Equipment Recumbent Stepper (Sci-Fit) Duration (Minutes) 6 Resistance 3 Seat Position 11 Other BUEs, BLEs; 45 RPMs Gym Equipment Shuttle Recovery Unilateral Squats Details knee alignment, cued avoid locking knees Resistance 37# (navy) Reps/Time 2x12 Bilateral Squats Details Ball between knees second set Resistance 2 new Shuttle Recovery Platform Stable Reps/Time X20, cued avoid locking knees Therapeutic Exercises Supine Exercises bridge hip abd Supine Exercise Name trialed Resistance TB #3 around thighs Reps/Minutes 2x10 Comments cued lift/lower Sidelying Exercises clamshell Sidelying Exercise Name added to HEP Side bilateral Resistance TB #3 Reps/Minutes 14, 15 R; 8, 15 L Comments good form, no rolling Sitting Exercises piriformis stretch Sitting Exercise Name added to HEP for seated alternative during day Side left Reps/Minutes 30 SH Comments good feedback posterolateral hip stretch Standing Exercises calf stretch on step Standing Exercise Name gastroc and soleus Equipment Used TONY> edge of step, rail support Reps/Minutes 30 sec X 2 with knee straight and bent Comments good feedback stretch more on step than TONY, uses step home Neuro Re-Education Treatment Balance Activities hurdles Details receiprocal stepping Surface floor, oval foam Equipment near rail- contact x3, 6 hurdles Reps/Duration 2 laps each Comments cued slower pacing posturing over advance LE stability before advance trail LE, improved stability with reps. CG-5%A at times over foam. step up/back down Surface 5# leg wt Equipment 8 step, //bar PRN Reps/Duration 5 reps lead each LE Comments cued soft stepping, TKE RLE > LLE light contact support at elbow PT-OP-T Assessment and Plan Start: 11/15/23 16:23 Freq: Status: Active Protocol: Document 12/07/23 13:08 SP (Rec: 12/07/23 14:12 SP [id number]) Physical Therapy Assessment Goals Six Impairment difficulty with 4 stairs with rail, has 12 at home w L rail Short Term Goal (STG) Pt will be able to ascend/ descend 8 stairs with or without hand rail as close SBA or better in order to demonstrate improved balance and safety awareness during activity 12/07/23 Progressing able to perform step up/back down 8 step near but not needing rail support. STG Duration 3 weeks progressing 12/07/23 Testing And Regulating Chief Goal (LTG) Pt will be able to ascend/ descend 12 stairs with or without hand rail as close SBA or better in order to demonstrate improved balance and safety awareness during activity LTG Duration 6 weeks Five Impairment strength Short Term Goal (STG) Pt will improve global hip/ knee strength by at least 1 grade in order to demonstrate increased BLE strength required for balance and gait, decrease fall risk 12/07/23 progressing added clamshell TB #3 and hip abd TB #3 bridging to HEP for strengthening. STG Duration 3 weeks progressing 12/07/23 Alf Goal (LTG) Pt will improve global hip/ knee strength by at least 2 grades in order to demonstrate increased BLE strength required for balance and gait, decrease fall risk LTG Duration 6 weeks Four Impairment HEP Impairment Pt not performing HEP other than daily ambulation Short Term Goal (STG) Pt will report compliance with HEP at least 2-3x/wk including daily foot checks in order to maximize gains made during PT and to decrease risk of foot wounds due to poor sensation 12/07/23: stated performs ex daily. added resisted clamshell TB #3 and hip abd TB #3 bridging to HEP today. STG Duration 3 weeks progressing : 12/07/23 Alf Goal (LTG) Pt will report compliance with HEP at least 3x/wk including daily foot checks in order maximize independence upon discharge from PT and demonstrate improved management of neuropathy- related symptoms LTG Duration 6 weeks Three Impairment endurance Impairment 6 MWT distance 1215 ft without AD, RPE 6 Short Term Goal (STG) Pt will improve 6 MWT distance by at least 100 ft with or without LRAD in order to demonstrate improved activity tolerance and balance during gait STG Duration 3 weeks Alf Goal (LTG) Pt will improve 6 MWT distance by at least 200 ft with or without LRAD in order to demonstrate improved activity tolerance and balance during gait LTG Duration 6 weeks Two Impairment strength Impairment B ankle strength 4-/5 globally Short Term Goal (STG) Pt will increase B global ankle strength to at least 4/5 in order to improve balance on both stable and unstable surfaces STG Duration 3 weeks Testing And Regulating Chief Goal (LTG) Pt will increase B global ankle strength to at least 4+/ 5 in order to improve balance on both stable and unstable surfaces LTG Duration 6 weeks One Impairment strength Impairment Richter 39/56 Short Term Goal (STG) Pt will increase Richter score to at least 44/56 in order to demonstrate improved balance in order to decrease fall risk STG Duration 3 weeks Alf Goal (LTG) Pt will increase Richter score to at least 49/56 in order to demonstrate improved balance in order to decrease fall risk LTG Duration 6 weeks Assessment Summary Assessment Pt responded well to increased resistance during clamshell and bridging to progress strengthening, no hip pain only muscle tiring reported. Pt reports making gains in balance able turn head and not vier as used to. Would benefit from progression into uneven surface gait and functional strengthening with balance of flexibility due to decreased R hip tension post. Physical Therapy Plan Frequency and Duration Frequency of Treatment 2x/Week Duration of treatment (weeks) 6 Plan of Care Start Date 11/16/23 Plan of Care End Date 12/30/23 Therapeutic Interventions Therapeutic Interventions Balance Training,Coordination Training,Gait Training,Home Exercise Program,Joint Mobilizations,Manual Therapy, Neuromuscular Re-education, Patient/Caregiver Education, Self-Care/Home Management, Sensory Integration,Soft Tissue Mobilization,Taping, Therapeutic Activities, Therapeutic Exercises, Vestibular Rehabilitation Modalities Electric Stimulation,Hot Packs Next Visit Focus/Plan Next Note Type Treatment Note Next Visit Plan Check response to added resisted clamshell & bridging. Next: focus on/ continue dynamic gait and uneven balance POC: functional balance training. Possibly calf stretch and glute med activation while in session. Monitor vitals with activity
--- NOTE | 2023-12-09 13:45 | PT.OTN ---
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 Pt reports numb and sore feet, changes in balance, gait and strength. Pt reports that he is having difficulty gain in weight, and he recently got out of [facility] ([facility] with PT) after 20 day stay following covid and pneumonia. Hx of quadruple bypass 2 years ago, pleural effusion, L eye vision loss, carotid artery clog; recent changes in thyroid medication to address eating difficulty. Reports no falls, but several stumbles because my ankles give out, poor flexibility. No AD, but prn walker use after hospital. Pt reports that he has most difficulty with stairs (in and out, rails inside), decreased activity tolerance and SOB with activity, getting in/out chair , lifting groceries or carrying objects. Pt reports dizziness only when SOB during activity; denies vertigo, lightheadedness, positional vertigo. Hx provided by both pt and pt's brother in law. Pt lives with OZ and his sister with 12 stairs inside home and several stairs to enter. Prior Treatments and Tests walk 1/2 mile daily Prior Functional Status Baseline Function- ADL's Modified Independent Baseline Function- Mobility Modified Independent Current Functional Impairments (Reported) Functional Limitations- ADL's reports no difficulty Functional Limitations- Mobility/Gait 1/2 mile daily walk uneven surfaces Guemes; difficulty with STS transfers, balance Personal Factors Other Personal Factors That May Effect Per pt and OZ, pt struggling Therapy/Recovery to gain weight PT-OP-C Subjective Start: 11/15/23 16:23 Freq: Status: Active Protocol: Document 12/09/23 13:01 SP (Rec: 12/09/23 13:48 SP [id number]) OP-PT Subjective Patient Comments Patient Comments Pt reports did pretty good after last tx. Doing my exercises. PT-OP-D Balance Start: 11/15/23 16:23 Freq: Status: Active Protocol: Document 11/16/23 12:59 NM (Rec: 11/16/23 16:51 NM [id number]) Balance Tests Richter Balance Test Richter Balance Test Score 39/56 Single Limb Standing Single Limb- Right 3 seconds Single Limb- Left 1 second Tandem Tandem Standing 3 seconds PT-OP-E Functional Tests Start: 11/15/23 16:23 Freq: Status: Active Protocol: Document 11/16/23 12:59 NM (Rec: 11/16/23 16:51 NM [id number]) Functional Tests 6 Minute Walk Test Distance 1215 ft Device Used no AD Comments decreased speed, RPE 6, increased deviation w fatigue Five Times Sit to Stand Test Score 14.63 sec Comments B valgus; 20 height Timed Up and Go (TUG) Score 9.04 sec Comments no AD, stumbles w/o fall on turn PT-OP-F Manual Assessment Start: 11/15/23 16:23 Freq: Status: Active Protocol: Document 11/16/23 12:59 NM (Rec: 11/16/23 16:51 NM [id number]) Manual Assessments Soft Tissue Assessment Soft Tissue Mobility Assessment Decreased hamstring length, increased hip flexor tightness . BLE atrophy, especially calves Joint Mobility Assessment Joint Mobility Assessment Decreased mobility L spine with P-A springing. Decreased ankle AROM globally, especially eversion and dorsiflexion. Limited hip IR, reproduces low back pain. PT-OP-G Mobility & Gait Start: 11/15/23 16:23 Freq: Status: Active Protocol: Document 11/16/23 12:59 NM (Rec: 11/16/23 16:51 NM [id number]) OP Gait Assessment Gait Gait Assistance Required: Standby Assistance Distance (Feet) 1,215 Assistive Devices Assistive Device None,Gait Belt Gait Deviations General Gait Pattern Decreased Stride Length, Decreased Feet Clearance, Flexed Trunk,Wide Based Gait Factors Limiting Gait Function Factors Limiting Gait Function Decreased Activity Tolerance, Decreased Sensation,Limited Range of Motion,Poor Balance Comments Gait Comments Fatigues quickly, even on stable surfaces and becomes SOB. Decreased gait speed with fatigue and increased deviation in gait path, decreased foot clearance. Seems aware of surroundings even as fatigued but balance becomes more impaired Stair Climbing Evaluation Evaluation Level of Assist On Stairs Contact Guard Assistance Devices Stair Climbing Assistive Devices Right Railing Technique/Endurance Stair Climbing Direction Ascend and Descend Stair Climbing Technique Step to Step Comments Stair Climbing Comments 1st set 4 steps with R hand rail, CGA for safety. 2nd set of 4 steps w/o rail, CGA for safety. Demos poor depth perception, more challenged with L over R PT-OP-H Neuro Start: 11/15/23 16:23 Freq: Status: Active Protocol: Document 11/16/23 12:59 NM (Rec: 11/16/23 16:51 NM [id number]) Sensation Evaluation Gross Sensation Gross Sensation Left LE Impaired,Right LE Impaired Sensation Description Paresthesia,Numbness Comments Summary Comments BLE intact to light touch sensation equally until feet. Impaired light touch, sharp/ dull, vibration to plantar and dorsal surfaces bilaterally, more limited at plantar surfaces. PT-OP-J Posture/Palpation/Skin Start: 11/15/23 16:23 Freq: Status: Active Protocol: Document 11/16/23 12:59 NM (Rec: 11/16/23 16:51 NM [id number]) Posture Evaluation Position Standing Head/C-Spine Posture Forward Head L-Spine Posture Flattened Pelvis Posture Posterior Tilted Hip Posture (L) Externally Rotated,(R) Externally Rotated Knee Posture (L) Genu Varus,(R) Genu Varus Patellar Posture (L) Superior,(R) Superior Foot Arch (L) Low Arch,(R) Low Arch Skin Assessment Other Assessments Skin Assessment Comments Increased rubor with dependency, equal warmth. Feet are dry, cracked on plantar surfaces, no wounds or calluses, toe nail deformities PT-OP-K Range of Motion Start: 11/15/23 16:23 Freq: Status: Active Protocol: Document 11/16/23 12:59 NM (Rec: 11/16/23 16:51 NM [id number]) Lumbar Spine Range of Motion Lumbar Spine Active Percentage Testing Position Standing Flexion 50 Extension 100 Lateral Flexion Left 50 Lateral Flexion Right 50 ROM Limitations Soft Tissue Tightness Comments Reports pain along lower lumbar spine with flexion. Reports none with extension Hip Goniometric Range of Motion Hip Right Flexion w/Knee Flexed 110 Straight Leg Raise 140 Extension 8 Abduction 20 Comments Limited ER/IR but not formally measured Left Flexion w/Knee Flexed 105 Straight Leg Raise 145 Extension 8 Abduction 20 Comments Limited ER/IR but not formally measured Knee Goniometric Range of Motion Knee Right Flexion Active (degrees) 135 Extension Active (degrees) 0 Left Flexion Active (degrees) 135 Extension Active (degrees) 0 Ankle and Foot Goniometric Range of Motion Ankle and Foot ROM Limitations Comments Observable limitations in B ankle dorsiflexion, eversion; not formally measured due to time PT-OP-L Special Tests Start: 11/15/23 16:23 Freq: Status: Active Protocol: Document 11/16/23 12:59 NM (Rec: 11/16/23 16:51 NM [id number]) Special Tests Lumbar Spine Special Tests Straight Leg Raise Test Results - Slump Test Results - Distraction Test Results + Ozuna/Quadrant Test Results - PT-OP-M Strength Start: 11/15/23 16:23 Freq: Status: Active Protocol: Document 11/16/23 12:59 NM (Rec: 11/16/23 16:51 NM [id number]) Hip Strength Hip Manual Muscle Testing Right Flexion (L2) 4 Good Extension (S1) 3+ Fair+ Abduction 4- Good- Adduction 4 Good External Rotation 4 Good Internal Rotation 4 Good Left Flexion (L2) 4- Good- Extension (S1) 3+ Fair+ Abduction 4- Good- Adduction 4- Good- External Rotation 4 Good Internal Rotation 4 Good Knee Strength Knee Manual Muscle Testing Right Flexion (S2) 4 Good Extension (L3) 4 Good Left Flexion (S2) 4 Good Extension (L3) 4 Good Ankle/Foot Strength Ankle and Foot Manual Muscle Testing Right Dorsiflexion (L4) 4- Good- Plantarflexion (S1) 4- Good- Inversion 4- Good- Eversion (S1) 4- Good- Left Dorsiflexion (L4) 4- Good- Plantarflexion (S1) 4- Good- Inversion 4- Good- Eversion (S1) 4- Good- PT-OP-Q Treatments Start: 11/15/23 16:23 Freq: Status: Active Protocol: Document 12/09/23 13:01 SP (Rec: 12/09/23 13:48 SP [id number]) Gym Equipment Shuttle Recovery Unilateral Squats Details knee alignment, cued avoid locking knees Resistance 37# (1 navy) Reps/Time 7, 8 reps R; 9 x2 reps Bilateral Squats Details Ball between knees second set Resistance 75# (3 navy) Shuttle Recovery Platform Stable Reps/Time X20, 12 reps , cued avoid locking knees Therapeutic Exercises Other Exercises Resisted Ambulation Other Exercise Name Resisted Side-stepping Resistance [place] green Reps/Minutes 15 ft x2 Comments cued TA, PPT/ CATCHER HELPER, DF for ft clearance no LB recruitment Gait Training Gait Activity gait Description midline stability /c use arms Device Used 0 Level of Assistance SBA Distance/Duration to MAP Bldg stairs<>gym Treatment Focus AKHIL, midline stability Comments Cued increase AKHIL, arms swing, rhomboid and core fac to support midline stab- lessened lateral viering stairs Description asc/desc- receiprocal stepping Device Used PRN rail descending Level of Assistance CG/ CSBA Distance/Duration MAP bldg stairs 28 Treatment Focus receiprocal stepping, TA, wt shift front foot glut drive, midline trunk Comments arm swing ascend, rhomboid & core fac, wt shift into advance LE fully on step ascend; Stance LE stab over quad/con&ecc TKE awareness and rhomboid fac to support midine stability- couple sways LLE ascend, unsteady descending PRN rail support for safety. Neuro Re-Education Treatment Balance Activities uneven incline/decline Details trialed Equipment mat, 4 step, green and 2 red wt balls under Reps/Duration 4 laps Comments Min A>CGA trunk sways, ed rhomboid activation and midline wt shift over advance LE, improves with laps. PT-OP-T Assessment and Plan Start: 11/15/23 16:23 Freq: Status: Active Protocol: Document 12/09/23 13:01 SP (Rec: 12/09/23 13:48 SP [id number]) Physical Therapy Assessment Goals Six Impairment difficulty with 4 stairs with rail, has 12 at home w L rail Short Term Goal (STG) Pt will be able to ascend/ descend 8 stairs with or without hand rail as close SBA or better in order to demonstrate improved balance and safety awareness during activity 12/07/23 Progressing able to perform step up/back down 8 step near but not needing rail support. STG Duration 3 weeks progressing 12/07/23 Technical Business Systems Analyst Goal (LTG) Pt will be able to ascend/ descend 12 stairs with or without hand rail as close SBA or better in order to demonstrate improved balance and safety awareness during activity LTG Duration 6 weeks Five Impairment strength Short Term Goal (STG) Pt will improve global hip/ knee strength by at least 1 grade in order to demonstrate increased BLE strength required for balance and gait, decrease fall risk 12/07/23 progressing added clamshell TB #3 and hip abd TB #3 bridging to HEP for strengthening. STG Duration 3 weeks progressing 12/07/23 Technical Business Systems Analyst Goal (LTG) Pt will improve global hip/ knee strength by at least 2 grades in order to demonstrate increased BLE strength required for balance and gait, decrease fall risk LTG Duration 6 weeks Four Impairment HEP Impairment Pt not performing HEP other than daily ambulation Short Term Goal (STG) Pt will report compliance with HEP at least 2-3x/wk including daily foot checks in order to maximize gains made during PT and to decrease risk of foot wounds due to poor sensation 12/07/23: stated performs ex daily. added resisted clamshell TB #3 and hip abd TB #3 bridging to HEP today. STG Duration 3 weeks progressing : 12/07/23 Technical Business Systems Analyst Goal (LTG) Pt will report compliance with HEP at least 3x/wk including daily foot checks in order maximize independence upon discharge from PT and demonstrate improved management of neuropathy- related symptoms 12/09/23: GOAL MET: doing foot checks daily, normal color no concers. LTG Duration 6 weeks GOAL MET: 12/09/23 Three Impairment endurance Impairment 6 MWT distance 1215 ft without AD, RPE 6 Short Term Goal (STG) Pt will improve 6 MWT distance by at least 100 ft with or without LRAD in order to demonstrate improved activity tolerance and balance during gait STG Duration 3 weeks Correction Goal (LTG) Pt will improve 6 MWT distance by at least 200 ft with or without LRAD in order to demonstrate improved activity tolerance and balance during gait LTG Duration 6 weeks Two Impairment strength Impairment B ankle strength 4-/5 globally Short Term Goal (STG) Pt will increase B global ankle strength to at least 4/5 in order to improve balance on both stable and unstable surfaces STG Duration 3 weeks Correction Goal (LTG) Pt will increase B global ankle strength to at least 4+/ 5 in order to improve balance on both stable and unstable surfaces LTG Duration 6 weeks One Impairment strength Impairment Richter 39/56 Short Term Goal (STG) Pt will increase Richter score to at least 44/56 in order to demonstrate improved balance in order to decrease fall risk STG Duration 3 weeks Technical Business Systems Analyst Goal (LTG) Pt will increase Richter score to at least 49/56 in order to demonstrate improved balance in order to decrease fall risk LTG Duration 6 weeks Assessment Summary Assessment Pt improved more forward wt shift trunk into advanced LE effort walking with arms swinging today. Improved receiprocal step ascend scap squeeze to support mid line trunk not need use rail support, unsteady descend quad weakness L>R LE eccentric knee flexion PRN rail and cued same midline trunk safety balance SBA/CGA- Min A as needed. Trialed uneven surface gait unsteady Min A, improved with repeated cuing scap squeeze and wt shift over advance LEs, will continue to progress this into future tx. Pt and brother, at home to support pt, state pt is compliant with stationary HEP. Physical Therapy Plan Frequency and Duration Frequency of Treatment 2x/Week Duration of treatment (weeks) 6 Plan of Care Start Date 11/16/23 Plan of Care End Date 12/30/23 Therapeutic Interventions Therapeutic Interventions Balance Training,Coordination Training,Gait Training,Home Exercise Program,Joint Mobilizations,Manual Therapy, Neuromuscular Re-education, Patient/Caregiver Education, Self-Care/Home Management, Sensory Integration,Soft Tissue Mobilization,Taping, Therapeutic Activities, Therapeutic Exercises, Vestibular Rehabilitation Modalities Electric Stimulation,Hot Packs Next Visit Focus/Plan Next Note Type Treatment Note Next Visit Plan Next review resisted clamshell & bridging. Next: focus on/ continue dynamic gait and uneven balance including surface changes. POC: functional balance training. Possibly calf stretch and glute med activation while in session. Monitor vitals with activity
--- NOTE | 2023-12-13 16:00 | PT.OTN ---
Current Diagnoses Polyneuropathy, unspecified (12/13/23) Other lack of coordination (12/13/23) Weakness (12/13/23) Physical Therapy Treatment Note PT-OP-A Visit Information Start: 11/15/23 16:23 Freq: Status: Active Protocol: Document 12/13/23 15:20 DCW (Rec: 12/13/23 16:00 DCW [id number]) Out-Patient Physical Therapy Visit Information Visit Information Visit Type Treatment Note Visit Start Time 15:20 Visit Stop Time 16:00 Visit Number 8 Number of STRIP CUTTER Visits 0 Evaluation Information Evaluation Date 11/16/23 Precautions Precautions monitor vitals with activity memory, hx heart surgery, L visual loss, fall risk PT-OP-B Current Condition Start: 11/15/23 16:23 Freq: Status: Active Protocol: Document 11/16/23 12:59 NM (Rec: 11/16/23 16:51 NM [id number]) Current Condition History of Current Condition Onset Date 2 years Current Complaints strength, balance, activity tolerance History of Current Condition Pt presents to clinic with impairments in balance, BLE strength related to dx of polyneuropathy related to diabetes. Pt reports numb and sore feet, changes in balance, gait and strength. Pt reports that he is having difficulty gain in weight, and he recently got out of [facility] ([facility] with PT) after 20 day stay following covid and pneumonia. Hx of quadruple bypass 2 years ago, pleural effusion, L eye vision loss, carotid artery clog; recent changes in thyroid medication to address eating difficulty. Reports no falls, but several stumbles because my ankles give out, poor flexibility. No AD, but prn walker use after hospital. Pt reports that he has most difficulty with stairs (in and out, rails inside), decreased activity tolerance and SOB with activity, getting in/out chair , lifting groceries or carrying objects. Pt reports dizziness only when SOB during activity; denies vertigo, lightheadedness, positional vertigo. Hx provided by both pt and pt's brother in law. Pt lives with OZ and his sister with 12 stairs inside home and several stairs to enter. Prior Treatments and Tests walk 1/2 mile daily Prior Functional Status Baseline Function- ADL's Modified Independent Baseline Function- Mobility Modified Independent Current Functional Impairments (Reported) Functional Limitations- ADL's reports no difficulty Functional Limitations- Mobility/Gait 1/2 mile daily walk uneven surfaces Guemes; difficulty with STS transfers, balance Personal Factors Other Personal Factors That May Effect Per pt and OZ, pt struggling Therapy/Recovery to gain weight PT-OP-C Subjective Start: 11/15/23 16:23 Freq: Status: Active Protocol: Document 12/13/23 15:20 DCW (Rec: 12/13/23 16:00 DCW [id number]) OP-PT Subjective Patient Comments Patient Comments I'm feeling better. Notes he is starting to do stairs better. Still struggles with uneven ground. PT-OP-D Balance Start: 11/15/23 16:23 Freq: Status: Active Protocol: Document 11/16/23 12:59 NM (Rec: 11/16/23 16:51 NM [id number]) Balance Tests Richter Balance Test Richter Balance Test Score 39/56 Single Limb Standing Single Limb- Right 3 seconds Single Limb- Left 1 second Tandem Tandem Standing 3 seconds PT-OP-E Functional Tests Start: 11/15/23 16:23 Freq: Status: Active Protocol: Document 11/16/23 12:59 NM (Rec: 11/16/23 16:51 NM [id number]) Functional Tests 6 Minute Walk Test Distance 1215 ft Device Used no AD Comments decreased speed, RPE 6, increased deviation w fatigue Five Times Sit to Stand Test Score 14.63 sec Comments B valgus; 20 height Timed Up and Go (TUG) Score 9.04 sec Comments no AD, stumbles w/o fall on turn PT-OP-F Manual Assessment Start: 11/15/23 16:23 Freq: Status: Active Protocol: Document 11/16/23 12:59 NM (Rec: 11/16/23 16:51 NM [id number]) Manual Assessments Soft Tissue Assessment Soft Tissue Mobility Assessment Decreased hamstring length, increased hip flexor tightness . BLE atrophy, especially calves Joint Mobility Assessment Joint Mobility Assessment Decreased mobility L spine with P-A springing. Decreased ankle AROM globally, especially eversion and dorsiflexion. Limited hip IR, reproduces low back pain. PT-OP-G Mobility & Gait Start: 11/15/23 16:23 Freq: Status: Active Protocol: Document 11/16/23 12:59 NM (Rec: 11/16/23 16:51 NM [id number]) OP Gait Assessment Gait Gait Assistance Required: Standby Assistance Distance (Feet) 1,215 Assistive Devices Assistive Device None,Gait Belt Gait Deviations General Gait Pattern Decreased Stride Length, Decreased Feet Clearance, Flexed Trunk,Wide Based Gait Factors Limiting Gait Function Factors Limiting Gait Function Decreased Activity Tolerance, Decreased Sensation,Limited Range of Motion,Poor Balance Comments Gait Comments Fatigues quickly, even on stable surfaces and becomes SOB. Decreased gait speed with fatigue and increased deviation in gait path, decreased foot clearance. Seems aware of surroundings even as fatigued but balance becomes more impaired Stair Climbing Evaluation Evaluation Level of Assist On Stairs Contact Guard Assistance Devices Stair Climbing Assistive Devices Right Railing Technique/Endurance Stair Climbing Direction Ascend and Descend Stair Climbing Technique Step to Step Comments Stair Climbing Comments 1st set 4 steps with R hand rail, CGA for safety. 2nd set of 4 steps w/o rail, CGA for safety. Demos poor depth perception, more challenged with L over R PT-OP-H Neuro Start: 11/15/23 16:23 Freq: Status: Active Protocol: Document 11/16/23 12:59 NM (Rec: 11/16/23 16:51 NM [id number]) Sensation Evaluation Gross Sensation Gross Sensation Left LE Impaired,Right LE Impaired Sensation Description Paresthesia,Numbness Comments Summary Comments BLE intact to light touch sensation equally until feet. Impaired light touch, sharp/ dull, vibration to plantar and dorsal surfaces bilaterally, more limited at plantar surfaces. PT-OP-J Posture/Palpation/Skin Start: 11/15/23 16:23 Freq: Status: Active Protocol: Document 11/16/23 12:59 NM (Rec: 11/16/23 16:51 NM [id number]) Posture Evaluation Position Standing Head/C-Spine Posture Forward Head L-Spine Posture Flattened Pelvis Posture Posterior Tilted Hip Posture (L) Externally Rotated,(R) Externally Rotated Knee Posture (L) Genu Varus,(R) Genu Varus Patellar Posture (L) Superior,(R) Superior Foot Arch (L) Low Arch,(R) Low Arch Skin Assessment Other Assessments Skin Assessment Comments Increased rubor with dependency, equal warmth. Feet are dry, cracked on plantar surfaces, no wounds or calluses, toe nail deformities PT-OP-K Range of Motion Start: 11/15/23 16:23 Freq: Status: Active Protocol: Document 11/16/23 12:59 NM (Rec: 11/16/23 16:51 NM [id number]) Lumbar Spine Range of Motion Lumbar Spine Active Percentage Testing Position Standing Flexion 50 Extension 100 Lateral Flexion Left 50 Lateral Flexion Right 50 ROM Limitations Soft Tissue Tightness Comments Reports pain along lower lumbar spine with flexion. Reports none with extension Hip Goniometric Range of Motion Hip Right Flexion w/Knee Flexed 110 Straight Leg Raise 140 Extension 8 Abduction 20 Comments Limited ER/IR but not formally measured Left Flexion w/Knee Flexed 105 Straight Leg Raise 145 Extension 8 Abduction 20 Comments Limited ER/IR but not formally measured Knee Goniometric Range of Motion Knee Right Flexion Active (degrees) 135 Extension Active (degrees) 0 Left Flexion Active (degrees) 135 Extension Active (degrees) 0 Ankle and Foot Goniometric Range of Motion Ankle and Foot ROM Limitations Comments Observable limitations in B ankle dorsiflexion, eversion; not formally measured due to time PT-OP-L Special Tests Start: 11/15/23 16:23 Freq: Status: Active Protocol: Document 11/16/23 12:59 NM (Rec: 11/16/23 16:51 NM [id number]) Special Tests Lumbar Spine Special Tests Straight Leg Raise Test Results - Slump Test Results - Distraction Test Results + Ozuna/Quadrant Test Results - PT-OP-M Strength Start: 11/15/23 16:23 Freq: Status: Active Protocol: Document 11/16/23 12:59 NM (Rec: 11/16/23 16:51 NM [id number]) Hip Strength Hip Manual Muscle Testing Right Flexion (L2) 4 Good Extension (S1) 3+ Fair+ Abduction 4- Good- Adduction 4 Good External Rotation 4 Good Internal Rotation 4 Good Left Flexion (L2) 4- Good- Extension (S1) 3+ Fair+ Abduction 4- Good- Adduction 4- Good- External Rotation 4 Good Internal Rotation 4 Good Knee Strength Knee Manual Muscle Testing Right Flexion (S2) 4 Good Extension (L3) 4 Good Left Flexion (S2) 4 Good Extension (L3) 4 Good Ankle/Foot Strength Ankle and Foot Manual Muscle Testing Right Dorsiflexion (L4) 4- Good- Plantarflexion (S1) 4- Good- Inversion 4- Good- Eversion (S1) 4- Good- Left Dorsiflexion (L4) 4- Good- Plantarflexion (S1) 4- Good- Inversion 4- Good- Eversion (S1) 4- Good- PT-OP-Q Treatments Start: 11/15/23 16:23 Freq: Status: Active Protocol: Document 12/13/23 15:20 DCW (Rec: 12/13/23 16:00 DCW [id number]) Cardio Equipment Recumbent Stepper (Sci-Fit) Duration (Minutes) 6 Resistance 3 Seat Position 12 Other BUEs, BLEs; 45 RPMs Gym Equipment Shuttle Recovery Unilateral Squats Details knee alignment, cued avoid locking knees Resistance 37# (1 navy) Reps/Time 7, 8 reps R; 9 x2 reps Bilateral Squats Details Ball between knees second set Resistance 87# (3 navy) Shuttle Recovery Platform Stable Reps/Time X20, 12 reps , cued avoid locking knees Shuttle Balance Red Details WBOS (EO/EC), Staggered Neuro Re-Education Treatment Balance Activities SLS Details SLS uneven incline/decline Details Uneven blue pad Equipment mat, 4 step, wedges, foam under Reps/Duration 4 laps Comments Min A>CGA Tandem Details Tandem Stance Equipment // bars Foam Details Head turns, EO/EC Surface AirEx PT-OP-T Assessment and Plan Start: 11/15/23 16:23 Freq: Status: Active Protocol: Document 12/13/23 15:20 DCW (Rec: 12/13/23 16:00 DCW [id number]) Physical Therapy Assessment Impairments Impairments Activity Tolerance,Balance, Coordination,Edema,Functional Activities,Functional Mobility ,Gait,Integument,Pain,Posture, ROM,Sensation,Soft Tissue Mobility,Strength,Vestibular, Visual Motor Goals Six Impairment difficulty with 4 stairs with rail, has 12 at home w L rail Short Term Goal (STG) Pt will be able to ascend/ descend 8 stairs with or without hand rail as close SBA or better in order to demonstrate improved balance and safety awareness during activity 12/07/23 Progressing able to perform step up/back down 8 step near but not needing rail support. STG Duration 3 weeks progressing 12/07/23 Care Home Goal (LTG) Pt will be able to ascend/ descend 12 stairs with or without hand rail as close SBA or better in order to demonstrate improved balance and safety awareness during activity LTG Duration 6 weeks Five Impairment strength Short Term Goal (STG) Pt will improve global hip/ knee strength by at least 1 grade in order to demonstrate increased BLE strength required for balance and gait, decrease fall risk 12/07/23 progressing added clamshell TB #3 and hip abd TB #3 bridging to HEP for strengthening. STG Duration 3 weeks progressing 12/07/23 Care Home Goal (LTG) Pt will improve global hip/ knee strength by at least 2 grades in order to demonstrate increased BLE strength required for balance and gait, decrease fall risk LTG Duration 6 weeks Three Impairment endurance Impairment 6 MWT distance 1215 ft without AD, RPE 6 Short Term Goal (STG) Pt will improve 6 MWT distance by at least 100 ft with or without LRAD in order to demonstrate improved activity tolerance and balance during gait STG Duration 3 weeks Weight Engineer Goal (LTG) Pt will improve 6 MWT distance by at least 200 ft with or without LRAD in order to demonstrate improved activity tolerance and balance during gait LTG Duration 6 weeks Two Impairment strength Impairment B ankle strength 4-/5 globally Short Term Goal (STG) Pt will increase B global ankle strength to at least 4/5 in order to improve balance on both stable and unstable surfaces STG Duration 3 weeks Weight Engineer Goal (LTG) Pt will increase B global ankle strength to at least 4+/ 5 in order to improve balance on both stable and unstable surfaces LTG Duration 6 weeks One Impairment strength Impairment Richter 39/56 Short Term Goal (STG) Pt will increase Richter score to at least 44/56 in order to demonstrate improved balance in order to decrease fall risk STG Duration 3 weeks Weight Engineer Goal (LTG) Pt will increase Richter score to at least 49/56 in order to demonstrate improved balance in order to decrease fall risk LTG Duration 6 weeks Assessment Summary Assessment Good challenge today with uneven surfaces and Shuttle Balance, pt noted difficulty with balance and increased LE fatigue, but was able to maintain positioning with no LOB. Continue to focus on activity tolerance, LE strengthening, and balance challenges. Physical Therapy Plan Frequency and Duration Frequency of Treatment 2x/Week Duration of treatment (weeks) 6 Plan of Care Start Date 11/16/23 Plan of Care End Date 12/30/23 Therapeutic Interventions Therapeutic Interventions Balance Training,Coordination Training,Gait Training,Home Exercise Program,Joint Mobilizations,Manual Therapy, Neuromuscular Re-education, Patient/Caregiver Education, Self-Care/Home Management, Sensory Integration,Soft Tissue Mobilization,Taping, Therapeutic Activities, Therapeutic Exercises, Vestibular Rehabilitation Modalities Electric Stimulation,Hot Packs Next Visit Focus/Plan Next Note Type Treatment Note Next Visit Plan Next review resisted clamshell & bridging. Next: focus on/ continue dynamic gait and uneven balance including surface changes. POC: functional balance training. Possibly calf stretch and glute med activation while in session. Monitor vitals with activity
--- NOTE | 2023-12-19 15:16 | PT.OTN ---
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 Pt reports numb and sore feet, changes in balance, gait and strength. Pt reports that he is having difficulty gain in weight, and he recently got out of [facility] ([facility] with PT) after 20 day stay following covid and pneumonia. Hx of quadruple bypass 2 years ago, pleural effusion, L eye vision loss, carotid artery clog; recent changes in thyroid medication to address eating difficulty. Reports no falls, but several stumbles because my ankles give out, poor flexibility. No AD, but prn walker use after hospital. Pt reports that he has most difficulty with stairs (in and out, rails inside), decreased activity tolerance and SOB with activity, getting in/out chair , lifting groceries or carrying objects. Pt reports dizziness only when SOB during activity; denies vertigo, lightheadedness, positional vertigo. Hx provided by both pt and pt's brother in law. Pt lives with OZ and his sister with 12 stairs inside home and several stairs to enter. Prior Treatments and Tests walk 1/2 mile daily Prior Functional Status Baseline Function- ADL's Modified Independent Baseline Function- Mobility Modified Independent Current Functional Impairments (Reported) Functional Limitations- ADL's reports no difficulty Functional Limitations- Mobility/Gait 1/2 mile daily walk uneven surfaces Guemes; difficulty with STS transfers, balance Personal Factors Other Personal Factors That May Effect Per pt and OZ, pt struggling Therapy/Recovery to gain weight PT-OP-C Subjective Start: 11/15/23 16:23 Freq: Status: Active Protocol: Document 12/19/23 14:36 SP (Rec: 12/19/23 15:46 SP [id number]) OP-PT Subjective Patient Comments Patient Comments Pt reported compliant with HEP , feels balance getting better . Noted decrease in lateral wt shift during gait upon arrival today. PT-OP-D Balance Start: 11/15/23 16:23 Freq: Status: Active Protocol: Document 11/16/23 12:59 NM (Rec: 11/16/23 16:51 NM [id number]) Balance Tests Richter Balance Test Richter Balance Test Score 39/56 Single Limb Standing Single Limb- Right 3 seconds Single Limb- Left 1 second Tandem Tandem Standing 3 seconds PT-OP-E Functional Tests Start: 11/15/23 16:23 Freq: Status: Active Protocol: Document 11/16/23 12:59 NM (Rec: 11/16/23 16:51 NM [id number]) Functional Tests 6 Minute Walk Test Distance 1215 ft Device Used no AD Comments decreased speed, RPE 6, increased deviation w fatigue Five Times Sit to Stand Test Score 14.63 sec Comments B valgus; 20 height Timed Up and Go (TUG) Score 9.04 sec Comments no AD, stumbles w/o fall on turn PT-OP-F Manual Assessment Start: 11/15/23 16:23 Freq: Status: Active Protocol: Document 11/16/23 12:59 NM (Rec: 11/16/23 16:51 NM [id number]) Manual Assessments Soft Tissue Assessment Soft Tissue Mobility Assessment Decreased hamstring length, increased hip flexor tightness . BLE atrophy, especially calves Joint Mobility Assessment Joint Mobility Assessment Decreased mobility L spine with P-A springing. Decreased ankle AROM globally, especially eversion and dorsiflexion. Limited hip IR, reproduces low back pain. PT-OP-G Mobility & Gait Start: 11/15/23 16:23 Freq: Status: Active Protocol: Document 11/16/23 12:59 NM (Rec: 11/16/23 16:51 NM [id number]) OP Gait Assessment Gait Gait Assistance Required: Standby Assistance Distance (Feet) 1,215 Assistive Devices Assistive Device None,Gait Belt Gait Deviations General Gait Pattern Decreased Stride Length, Decreased Feet Clearance, Flexed Trunk,Wide Based Gait Factors Limiting Gait Function Factors Limiting Gait Function Decreased Activity Tolerance, Decreased Sensation,Limited Range of Motion,Poor Balance Comments Gait Comments Fatigues quickly, even on stable surfaces and becomes SOB. Decreased gait speed with fatigue and increased deviation in gait path, decreased foot clearance. Seems aware of surroundings even as fatigued but balance becomes more impaired Stair Climbing Evaluation Evaluation Level of Assist On Stairs Contact Guard Assistance Devices Stair Climbing Assistive Devices Right Railing Technique/Endurance Stair Climbing Direction Ascend and Descend Stair Climbing Technique Step to Step Comments Stair Climbing Comments 1st set 4 steps with R hand rail, CGA for safety. 2nd set of 4 steps w/o rail, CGA for safety. Demos poor depth perception, more challenged with L over R PT-OP-H Neuro Start: 11/15/23 16:23 Freq: Status: Active Protocol: Document 11/16/23 12:59 NM (Rec: 11/16/23 16:51 NM [id number]) Sensation Evaluation Gross Sensation Gross Sensation Left LE Impaired,Right LE Impaired Sensation Description Paresthesia,Numbness Comments Summary Comments BLE intact to light touch sensation equally until feet. Impaired light touch, sharp/ dull, vibration to plantar and dorsal surfaces bilaterally, more limited at plantar surfaces. PT-OP-J Posture/Palpation/Skin Start: 11/15/23 16:23 Freq: Status: Active Protocol: Document 11/16/23 12:59 NM (Rec: 11/16/23 16:51 NM [id number]) Posture Evaluation Position Standing Head/C-Spine Posture Forward Head L-Spine Posture Flattened Pelvis Posture Posterior Tilted Hip Posture (L) Externally Rotated,(R) Externally Rotated Knee Posture (L) Genu Varus,(R) Genu Varus Patellar Posture (L) Superior,(R) Superior Foot Arch (L) Low Arch,(R) Low Arch Skin Assessment Other Assessments Skin Assessment Comments Increased rubor with dependency, equal warmth. Feet are dry, cracked on plantar surfaces, no wounds or calluses, toe nail deformities PT-OP-K Range of Motion Start: 11/15/23 16:23 Freq: Status: Active Protocol: Document 11/16/23 12:59 NM (Rec: 11/16/23 16:51 NM [id number]) Lumbar Spine Range of Motion Lumbar Spine Active Percentage Testing Position Standing Flexion 50 Extension 100 Lateral Flexion Left 50 Lateral Flexion Right 50 ROM Limitations Soft Tissue Tightness Comments Reports pain along lower lumbar spine with flexion. Reports none with extension Hip Goniometric Range of Motion Hip Right Flexion w/Knee Flexed 110 Straight Leg Raise 140 Extension 8 Abduction 20 Comments Limited ER/IR but not formally measured Left Flexion w/Knee Flexed 105 Straight Leg Raise 145 Extension 8 Abduction 20 Comments Limited ER/IR but not formally measured Knee Goniometric Range of Motion Knee Right Flexion Active (degrees) 135 Extension Active (degrees) 0 Left Flexion Active (degrees) 135 Extension Active (degrees) 0 Ankle and Foot Goniometric Range of Motion Ankle and Foot ROM Limitations Comments Observable limitations in B ankle dorsiflexion, eversion; not formally measured due to time PT-OP-L Special Tests Start: 11/15/23 16:23 Freq: Status: Active Protocol: Document 11/16/23 12:59 NM (Rec: 11/16/23 16:51 NM [id number]) Special Tests Lumbar Spine Special Tests Straight Leg Raise Test Results - Slump Test Results - Distraction Test Results + Ozuna/Quadrant Test Results - PT-OP-M Strength Start: 11/15/23 16:23 Freq: Status: Active Protocol: Document 11/16/23 12:59 NM (Rec: 11/16/23 16:51 NM [id number]) Hip Strength Hip Manual Muscle Testing Right Flexion (L2) 4 Good Extension (S1) 3+ Fair+ Abduction 4- Good- Adduction 4 Good External Rotation 4 Good Internal Rotation 4 Good Left Flexion (L2) 4- Good- Extension (S1) 3+ Fair+ Abduction 4- Good- Adduction 4- Good- External Rotation 4 Good Internal Rotation 4 Good Knee Strength Knee Manual Muscle Testing Right Flexion (S2) 4 Good Extension (L3) 4 Good Left Flexion (S2) 4 Good Extension (L3) 4 Good Ankle/Foot Strength Ankle and Foot Manual Muscle Testing Right Dorsiflexion (L4) 4- Good- Plantarflexion (S1) 4- Good- Inversion 4- Good- Eversion (S1) 4- Good- Left Dorsiflexion (L4) 4- Good- Plantarflexion (S1) 4- Good- Inversion 4- Good- Eversion (S1) 4- Good- PT-OP-Q Treatments Start: 11/15/23 16:23 Freq: Status: Active Protocol: Document 12/19/23 14:36 SP (Rec: 12/19/23 15:46 SP [id number]) Cardio Equipment Recumbent Stepper (Sci-Fit) Duration (Minutes) 6 Resistance 3.5 Seat Position 12- 0.74 miles Other BUEs&BLEs 4 min, LEs only 2 min 45 RPMs Gym Equipment Shuttle Recovery Unilateral Squats Details knee alignment, cued avoid locking knees Resistance 37#> 50 (2 teal) Reps/Time 10, 8 reps R and L Bilateral Squats Details cued avoid locking knees Resistance 87# (3 navy) Shuttle Recovery Platform Stable Reps/Time X20 reps, cued avoid locking knees Therapeutic Exercises Sitting Exercises STS Resistance arms across chest Equipment Used 18 chair, taps x5 Reps/Minutes 10 Comments 152/70 HR 83 O2sat 100% post Other Exercises Resisted Ambulation Other Exercise Name Resisted Side-stepping Resistance [place] green Reps/Minutes 15 ft x2 Comments cued tall, trail LE clearance, LB Neuro Re-Education Treatment Balance Activities carioca Surface floor Reps/Duration 15 ft each direction Comments max cues for patterning, CGA challenge cross back stability but no LOB. SLS Details SLS Surface floor Equipment near rail, contact recovery LOB Reps/Duration 4 reps each Comments LLE 13 sec RLE 4-8 sec Cued tall, core/rhomboid fac midline corrections. uneven incline/decline Details Uneven blue mat Equipment mat over: 8>6 step, wedges> pods, hurdles 2>3 Reps/Duration 4 laps Comments R foot caught ulisses stepping down hill off 8 incline, LLE buckled but Mod A recovery with cues TKE on L support return to stand positioning to get RLE fwd positioning. Tandem Details Tandem Stance Equipment rail PRN bal recovery Reps/Duration 3 reps each foot position Comments RLE fwd 4-10 sec, LLE fwd 29sec Cued tall, core/rhomboid fac midline corrections. PT-OP-T Assessment and Plan Start: 11/15/23 16:23 Freq: Status: Active Protocol: Document 12/19/23 14:36 SP (Rec: 12/19/23 15:46 SP [id number]) Physical Therapy Assessment Goals Six Impairment difficulty with 4 stairs with rail, has 12 at home w L rail Short Term Goal (STG) Pt will be able to ascend/ descend 8 stairs with or without hand rail as close SBA or better in order to demonstrate improved balance and safety awareness during activity 12/07/23 Progressing able to perform step up/back down 8 step near but not needing rail support. STG Duration 3 weeks progressing 12/07/23 Metal Riveter Goal (LTG) Pt will be able to ascend/ descend 12 stairs with or without hand rail as close SBA or better in order to demonstrate improved balance and safety awareness during activity LTG Duration 6 weeks Five Impairment strength Short Term Goal (STG) Pt will improve global hip/ knee strength by at least 1 grade in order to demonstrate increased BLE strength required for balance and gait, decrease fall risk 12/07/23 progressing added clamshell TB #3 and hip abd TB #3 bridging to HEP for strengthening. STG Duration 3 weeks progressing 12/07/23 Residential Goal (LTG) Pt will improve global hip/ knee strength by at least 2 grades in order to demonstrate increased BLE strength required for balance and gait, decrease fall risk LTG Duration 6 weeks Three Impairment endurance Impairment 6 MWT distance 1215 ft without AD, RPE 6 Short Term Goal (STG) Pt will improve 6 MWT distance by at least 100 ft with or without LRAD in order to demonstrate improved activity tolerance and balance during gait STG Duration 3 weeks Residential Goal (LTG) Pt will improve 6 MWT distance by at least 200 ft with or without LRAD in order to demonstrate improved activity tolerance and balance during gait LTG Duration 6 weeks Two Impairment strength Impairment B ankle strength 4-/5 globally Short Term Goal (STG) Pt will increase B global ankle strength to at least 4/5 in order to improve balance on both stable and unstable surfaces STG Duration 3 weeks Residential Goal (LTG) Pt will increase B global ankle strength to at least 4+/ 5 in order to improve balance on both stable and unstable surfaces LTG Duration 6 weeks One Impairment strength Impairment Richter 39/56 Short Term Goal (STG) Pt will increase Richter score to at least 44/56 in order to demonstrate improved balance in order to decrease fall risk STG Duration 3 weeks Metal Riveter Goal (LTG) Pt will increase Richter score to at least 49/56 in order to demonstrate improved balance in order to decrease fall risk LTG Duration 6 weeks Assessment Summary Assessment Pt tolerated increased SL resistance during shuttle recovery. Mod cues for posturing stance RLE in tandem and SLS improved from 4 to 8 sec. LOB during 8 uneven surface step down, Mod recovery decreased 6 able to progress addition of ulisses stepping incline/decline CGA. Physical Therapy Plan Frequency and Duration Frequency of Treatment 2x/Week Duration of treatment (weeks) 6 Plan of Care Start Date 11/16/23 Plan of Care End Date 12/30/23 Therapeutic Interventions Therapeutic Interventions Balance Training,Coordination Training,Gait Training,Home Exercise Program,Joint Mobilizations,Manual Therapy, Neuromuscular Re-education, Patient/Caregiver Education, Self-Care/Home Management, Sensory Integration,Soft Tissue Mobilization,Taping, Therapeutic Activities, Therapeutic Exercises, Vestibular Rehabilitation Modalities Electric Stimulation,Hot Packs Next Visit Focus/Plan Next Note Type Progress Note Next Visit Plan 10th visit next appt, POC in 3 visits. POC: Focus on/ continue dynamic gait and uneven balance including surface changes. Possibly calf stretch and glute med activation while in session. Monitor vitals with activity
--- NOTE | 2023-12-21 12:47 | PT.OTN ---
Current Diagnoses Polyneuropathy, unspecified (12/21/23) Other lack of coordination (12/21/23) Weakness (12/21/23) Physical Therapy Treatment Note PT-OP-A Visit Information Start: 11/15/23 16:23 Freq: Status: Active Protocol: Document 12/21/23 12:00 DCW (Rec: 12/21/23 12:47 DCW [id number]) Out-Patient Physical Therapy Visit Information Visit Information Visit Type Discharge Summary Visit Start Time 12:00 Visit Stop Time 12:45 Visit Number 10 Number of DIRECTOR OF BUSINESS CONTINUITY Visits 0 Evaluation Information Evaluation Date 11/16/23 Precautions Precautions monitor vitals with activity memory, hx heart surgery, L visual loss, fall risk PT-OP-B Current Condition Start: 11/15/23 16:23 Freq: Status: Active Protocol: Document 11/16/23 12:59 NM (Rec: 11/16/23 16:51 NM [id number]) Current Condition History of Current Condition Onset Date 2 years Current Complaints strength, balance, activity tolerance History of Current Condition Pt presents to clinic with impairments in balance, BLE strength related to dx of polyneuropathy related to diabetes. Pt reports numb and sore feet, changes in balance, gait and strength. Pt reports that he is having difficulty gain in weight, and he recently got out of [facility] (SNF with PT) after 20 day stay following covid and pneumonia. Hx of quadruple bypass 2 years ago, pleural effusion, L eye vision loss, carotid artery clog; recent changes in thyroid medication to address eating difficulty. Reports no falls, but several stumbles because my ankles give out, poor flexibility. No AD, but prn walker use after hospital. Pt reports that he has most difficulty with stairs (in and out, rails inside), decreased activity tolerance and SOB with activity, getting in/out chair , lifting groceries or carrying objects. Pt reports dizziness only when SOB during activity; denies vertigo, lightheadedness, positional vertigo. Hx provided by both pt and pt's brother in law. Pt lives with OZ and his sister with 12 stairs inside home and several stairs to enter. Prior Treatments and Tests walk 1/2 mile daily Prior Functional Status Baseline Function- ADL's Modified Independent Baseline Function- Mobility Modified Independent Current Functional Impairments (Reported) Functional Limitations- ADL's reports no difficulty Functional Limitations- Mobility/Gait 1/2 mile daily walk uneven surfaces Guemes; difficulty with STS transfers, balance Personal Factors Other Personal Factors That May Effect Per pt and OZ, pt struggling Therapy/Recovery to gain weight PT-OP-C Subjective Start: 11/15/23 16:23 Freq: Status: Active Protocol: Document 12/21/23 12:00 DCW (Rec: 12/21/23 12:47 DCW [id number]) OP-PT Subjective Patient Comments Patient Comments Pt feels like he has made good progress, is doing well on stairs, notes improvement in all areas. PT-OP-D Balance Start: 11/15/23 16:23 Freq: Status: Active Protocol: Document 12/21/23 12:00 DCW (Rec: 12/21/23 12:34 DCW [id number]) Balance Tests Richter Balance Test Richter Balance Test Score 52/56 Single Limb Standing Single Limb- Right 4 Single Limb- Left 9 Tandem Tandem Standing 30 Richter Balance Assessment Evaluation Sitting to Standing Ability Independent w/out Hands Unsupported Stance Safely- 2 minutes Sitting Unsupported, Feet on Floor Safely- 2 minutes Standing to Sitting Ability Safely, Minimal Hand Use Transfer Ability Safely, Minimal Hand Use Unsupported Stance- Eyes Closed Safely, 10 seconds Unsupported Stance- Eyes Open Independent, 1 minute Reaching Forward Standing Safely, 5 inches Pick- Up Object From Floor Independent/Safe Look Behind Shoulder - Standing Shifts Weight Well Turning 360 Degrees Turns , < 4 secs Unsupported Stance, Alternating Feet on (I)- 8 Steps in 20 secs Stair Unsupported Tandem Stance Achieves Tandem Unilateral Leg Stance Lifts Leg/Holds > 3 secs Total Score Richter Total Score (out of 56 points) 52 Richter Impairment Rating 1 to 19% Impaired (Score 45-55 ) PT-OP-E Functional Tests Start: 11/15/23 16:23 Freq: Status: Active Protocol: Document 12/21/23 12:00 DCW (Rec: 12/21/23 12:34 DCW [id number]) Functional Tests 6 Minute Walk Test Distance 1331' Device Used No AD Five Times Sit to Stand Test Score 13.41 sec Comments 18 height PT-OP-F Manual Assessment Start: 11/15/23 16:23 Freq: Status: Active Protocol: Document 11/16/23 12:59 NM (Rec: 11/16/23 16:51 NM [id number]) Manual Assessments Soft Tissue Assessment Soft Tissue Mobility Assessment Decreased hamstring length, increased hip flexor tightness . BLE atrophy, especially calves Joint Mobility Assessment Joint Mobility Assessment Decreased mobility L spine with P-A springing. Decreased ankle AROM globally, especially eversion and dorsiflexion. Limited hip IR, reproduces low back pain. PT-OP-G Mobility & Gait Start: 11/15/23 16:23 Freq: Status: Active Protocol: Document 12/21/23 12:00 DCW (Rec: 12/21/23 12:34 DCW [id number]) OP Gait Assessment Gait Gait Assistance Required: Independent Distance (Feet) 1,331 Assistive Devices Assistive Device None Comments Gait Comments No indications of fatirue or SOB Stair Climbing Evaluation Evaluation Level of Assist On Stairs Independent Devices Stair Climbing Assistive Devices None Technique/Endurance Stair Climbing Direction Ascend and Descend Stair Climbing Technique Step Over Step Number of Steps Climbed 14 PT-OP-H Neuro Start: 11/15/23 16:23 Freq: Status: Active Protocol: Document 11/16/23 12:59 NM (Rec: 11/16/23 16:51 NM [id number]) Sensation Evaluation Gross Sensation Gross Sensation Left LE Impaired,Right LE Impaired Sensation Description Paresthesia,Numbness Comments Summary Comments BLE intact to light touch sensation equally until feet. Impaired light touch, sharp/ dull, vibration to plantar and dorsal surfaces bilaterally, more limited at plantar surfaces. PT-OP-J Posture/Palpation/Skin Start: 11/15/23 16:23 Freq: Status: Active Protocol: Document 11/16/23 12:59 NM (Rec: 11/16/23 16:51 NM [id number]) Posture Evaluation Position Standing Head/C-Spine Posture Forward Head L-Spine Posture Flattened Pelvis Posture Posterior Tilted Hip Posture (L) Externally Rotated,(R) Externally Rotated Knee Posture (L) Genu Varus,(R) Genu Varus Patellar Posture (L) Superior,(R) Superior Foot Arch (L) Low Arch,(R) Low Arch Skin Assessment Other Assessments Skin Assessment Comments Increased rubor with dependency, equal warmth. Feet are dry, cracked on plantar surfaces, no wounds or calluses, toe nail deformities PT-OP-K Range of Motion Start: 11/15/23 16:23 Freq: Status: Active Protocol: Document 11/16/23 12:59 NM (Rec: 11/16/23 16:51 NM [id number]) Lumbar Spine Range of Motion Lumbar Spine Active Percentage Testing Position Standing Flexion 50 Extension 100 Lateral Flexion Left 50 Lateral Flexion Right 50 ROM Limitations Soft Tissue Tightness Comments Reports pain along lower lumbar spine with flexion. Reports none with extension Hip Goniometric Range of Motion Hip Right Flexion w/Knee Flexed 110 Straight Leg Raise 140 Extension 8 Abduction 20 Comments Limited ER/IR but not formally measured Left Flexion w/Knee Flexed 105 Straight Leg Raise 145 Extension 8 Abduction 20 Comments Limited ER/IR but not formally measured Knee Goniometric Range of Motion Knee Right Flexion Active (degrees) 135 Extension Active (degrees) 0 Left Flexion Active (degrees) 135 Extension Active (degrees) 0 Ankle and Foot Goniometric Range of Motion Ankle and Foot ROM Limitations Comments Observable limitations in B ankle dorsiflexion, eversion; not formally measured due to time PT-OP-L Special Tests Start: 11/15/23 16:23 Freq: Status: Active Protocol: Document 11/16/23 12:59 NM (Rec: 11/16/23 16:51 NM [id number]) Special Tests Lumbar Spine Special Tests Straight Leg Raise Test Results - Slump Test Results - Distraction Test Results + Ozuna/Quadrant Test Results - PT-OP-M Strength Start: 11/15/23 16:23 Freq: Status: Active Protocol: Document 12/21/23 12:00 DCW (Rec: 12/21/23 12:34 DCW [id number]) Hip Strength Hip Manual Muscle Testing Right Flexion (L2) 4+ Good+ Extension (S1) 4 Good Abduction 4+ Good+ Adduction 4+ Good+ External Rotation 4+ Good+ Internal Rotation 4+ Good+ Left Flexion (L2) 4+ Good+ Extension (S1) 4 Good Abduction 4+ Good+ Adduction 4+ Good+ External Rotation 4+ Good+ Internal Rotation 4+ Good+ Knee Strength Knee Manual Muscle Testing Right Flexion (S2) 4+ Good+ Extension (L3) 5 Normal Left Flexion (S2) 4+ Good+ Extension (L3) 5 Normal Ankle/Foot Strength Ankle and Foot Manual Muscle Testing Right Dorsiflexion (L4) 4+ Good+ Plantarflexion (S1) 4 Good Inversion 4+ Good+ Eversion (S1) 4+ Good+ Left Dorsiflexion (L4) 4+ Good+ Plantarflexion (S1) 4 Good Inversion 4+ Good+ Eversion (S1) 4+ Good+ PT-OP-Q Treatments Start: 11/15/23 16:23 Freq: Status: Active Protocol: Document 12/21/23 12:00 DCW (Rec: 12/21/23 12:47 DCW [id number]) Gym Equipment Shuttle Recovery Unilateral Squats Details cued avoid locking knees Resistance 37#> 50 (2 teal) Reps/Time x10 Bilateral Squats Resistance 87# (3 navy) Shuttle Recovery Platform Stable Reps/Time x15 PT-OP-T Assessment and Plan Start: 11/15/23 16:23 Freq: Status: Active Protocol: Document 12/21/23 12:00 DCW (Rec: 12/21/23 12:47 DCW [id number]) Physical Therapy Assessment Impairments Impairments Activity Tolerance,Balance, Coordination,Edema,Functional Activities,Functional Mobility ,Gait,Integument,Pain,Posture, ROM,Sensation,Soft Tissue Mobility,Strength,Vestibular, Visual Motor Goals Six Impairment difficulty with 4 stairs with rail, has 12 at home w L rail Short Term Goal (STG) Pt will be able to ascend/ descend 8 stairs with or without hand rail as close SBA or better in order to demonstrate improved balance and safety awareness during activity 12/07/23 Progressing able to perform step up/back down 8 step near but not needing rail support. STG Duration Met Senior Care Goal (LTG) Pt will be able to ascend/ descend 12 stairs with or without hand rail as close SBA or better in order to demonstrate improved balance and safety awareness during activity LTG Duration Met Five Impairment strength Short Term Goal (STG) Pt will improve global hip/ knee strength by at least 1 grade in order to demonstrate increased BLE strength required for balance and gait, decrease fall risk 12/07/23 progressing added clamshell TB #3 and hip abd TB #3 bridging to HEP for strengthening. STG Duration Met Lead Janitor Goal (LTG) Pt will improve global hip/ knee strength by at least 2 grades in order to demonstrate increased BLE strength required for balance and gait, decrease fall risk LTG Duration 6 weeks Three Impairment endurance Impairment 6 MWT distance 1215 ft without AD, RPE 6 Short Term Goal (STG) Pt will improve 6 MWT distance by at least 100 ft with or without LRAD in order to demonstrate improved activity tolerance and balance during gait STG Duration Met Senior Care Goal (LTG) Pt will improve 6 MWT distance by at least 200 ft with or without LRAD in order to demonstrate improved activity tolerance and balance during gait LTG Duration 6 weeks Two Impairment strength Impairment B ankle strength 4-/5 globally Short Term Goal (STG) Pt will increase B global ankle strength to at least 4/5 in order to improve balance on both stable and unstable surfaces STG Duration Met Senior Care Goal (LTG) Pt will increase B global ankle strength to at least 4+/ 5 in order to improve balance on both stable and unstable surfaces LTG Duration Nearly met One Impairment strength Impairment Richter 39/56 Short Term Goal (STG) Pt will increase Richter score to at least 44/56 in order to demonstrate improved balance in order to decrease fall risk STG Duration Met Senior Care Goal (LTG) Pt will increase Richter score to at least 49/56 in order to demonstrate improved balance in order to decrease fall risk LTG Duration Met Progress Towards Goals Progress Towards Goals Progressing Toward Goals Assessment Summary Assessment Pt has either met or nearly met all goals, feeling much better about overall stability and strength. Feels confident with independent HEP. Patient and therapist agree that pt appropriate for discharge at this time. Physical Therapy Plan Frequency and Duration Frequency of Treatment 2x/Week Duration of treatment (weeks) 6 Plan of Care Start Date 11/16/23 Plan of Care End Date 12/30/23 Therapeutic Interventions Therapeutic Interventions Balance Training,Coordination Training,Gait Training,Home Exercise Program,Joint Mobilizations,Manual Therapy, Neuromuscular Re-education, Patient/Caregiver Education, Self-Care/Home Management, Sensory Integration,Soft Tissue Mobilization,Taping, Therapeutic Activities, Therapeutic Exercises, Vestibular Rehabilitation Modalities Electric Stimulation,Hot Packs Discharge Physical Therapy Discharge Reasons Goals Met Next Visit Focus/Plan Next Note Type Discharge Summary
== END 2023-12-22 13:13 | disposition home or self-care (01) ==
LOC: PHYS 12:00
PROVIDERS: Family Provider Family Medicine; PCP Family Medicine; Referring Provider Family Medicine; Visit Provider Family Medicine
DX: G62.9 Polyneuropathy, unspecified (principal); R53.1 Weakness; R27.8 Other lack of coordination
CPT/HCPCS: 97110; 97112; 97116; 97162; 97530; 97535

== ENCOUNTER → 2023-12-21 13:05 | Outpatient (CLI) | payer MEDICARE, SELFPAY ==
[2023-09-27 17:34] VITALS: BMI 16.9
[2023-12-21 14:26] LABS: Alanine Aminotransferase 28 IU/L (<50); Albumin 4.2 g/dL (3.5-5.0); Albumin Globulin Ratio 1.1 (1.0-2.8); Alkaline Phosphatase 90 U/L (38-126); Aspartate Aminotransferase 38 IU/L (17-59); BUN Creatinine Ratio 29.9 (6-22); Bilirubin Total 0.5 mg/dL (0.2-1.3); Blood Urea Nitrogen 50 mg/dL (9-20); Calcium 9.6 mg/dL (8.4-10.2); Carbon Dioxide 25 mmol/L (22-32); Chloride 105 mmol/L (98-107); Estimated Glomerular Filt Rate 43 mL/min (>60); Globulin 3.7 g/dL (1.7-4.1); Glucose 163 mg/dL (80-110); HEMOLYSIS < 15 (0-50); Potassium 5.1 mmol/L (3.4-5.1); Sodium 141 mmol/L (137-145); Total Protein 7.9 g/dL (6.3-8.2)
[2023-12-21 16:41] LABS: TSH w/ Reflex to FT4 1.55 uIU/mL (0.47-4.68)
== END ==
LOC: LAB 13:07
PROVIDERS: Family Provider Family Medicine; PCP Family Medicine; Referring Provider Family Medicine; Visit Provider Family Medicine
DX: E11.9 Type 2 diabetes mellitus without complications (principal); E03.9 Hypothyroidism, unspecified; R62.7 Adult failure to thrive; G62.9 Polyneuropathy, unspecified
CPT/HCPCS: 36415; 80053; 83036; 84443

== ENCOUNTER 2024-02-23 14:25 | Emergency (ER) | payer MEDICARE, SELFPAY ==
[2023-09-27 17:34] VITALS: BMI 16.9
[2024-02-23 14:31] VITALS: BP 128/59; PULSE 80; RESP 20; TEMP 36.3; O2SAT 100
--- NOTE | 2024-02-23 14:35 | DI.RAD.S_ITS ---
PROCEDURE: XR CHEST 1V INDICATIONS: Shortness of breath TECHNIQUE: One view of the chest was acquired. COMPARISON: [facility], CR, XR CHEST 1V, 02/28/2023, 17:20. [facility], CR, XR CHEST 1V, 09/27/2023, 12:22. FINDINGS: Surgical changes and devices: Median sternotomy wires are present and appear intact. Lungs and pleura: Right lung appears clear. Blunting of the left costophrenic angle and left basilar opacities likely represent small left pleural effusion with compressive atelectasis. No pneumothorax. Mediastinum: Mediastinal contours appear normal. Heart size is normal. Bones and chest wall: No suspicious bony lesions. Overlying soft tissues appear unremarkable. IMPRESSION: Left pleural effusion with associated compressive atelectasis. Underlying developing pneumonia cannot be excluded if clinically appropriate. Recommend follow up chest radiograph 4-6 weeks after treatment to document resolution of findings and/or return to baseline examination. Dictated by: Rubén Waldron M.D. on 02/23/2024 at 15:20 Approved by: Rubén Waldron M.D. on 02/23/2024 at 15:22
--- NOTE | 2024-02-23 14:35 | EKG_ITS ---
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
[2024-02-23 15:47] LABS: Add Manual Diff / Slide Review NO; Basophils Absolute Auto 100 /uL (0-100); Basophils Percent Auto 0.9 % (0-2); Eosinophils Absolute Auto 200 /uL (0-450); Eosinophils Percent Auto 2.9 % (2-4); Hematocrit 34.7 % (41-53); Hemoglobin 11.6 g/dL (13.5-17.5); Lymphocytes Absolute Auto 1700 /uL (1100-4500); Lymphocytes Percent Auto 24.8 % (25-40); Mean Corpuscular HGB Conc 33.5 % (30-36); Mean Corpuscular Hemoglobin 29.7 PG (26-34); Mean Corpuscular Volume 88.8 fL (80-100); Monocytes Absolute Auto 800 /uL (0-900); Monocytes Percent Auto 11.4 % (3-14); Neutrophils Absolute Auto 4000 /uL (1500-7000); Platelet Count 214 X10^3/uL (150-400); Red Blood Cell Count 3.91 X10^6/uL (4.5-5.9); Red Cell Distribution Width 13.8 % (11.6-14.8); White Blood Cell Count 6.7 X10^3/uL (4.5-11.0)
[2024-02-23 15:55] LABS: Prothrombin Time 10.9 SECONDS (9.4-12.5)
[2024-02-23 16:05] LABS: Lactate (Lactic Acid) 3.3 mmol/L (0.7-2.1)
[2024-02-23 16:08] LABS: Alanine Aminotransferase 36 IU/L (<50); Albumin 4.1 g/dL (3.5-5.0); Albumin Globulin Ratio 1.2 (1.0-2.8); Alkaline Phosphatase 78 U/L (38-126); Aspartate Aminotransferase 46 IU/L (17-59); BUN Creatinine Ratio 32.9 (6-22); Bilirubin Total 0.6 mg/dL (0.2-1.3); Blood Urea Nitrogen 55 mg/dL (9-20); Calcium 9.2 mg/dL (8.4-10.2); Carbon Dioxide 28 mmol/L (22-32); Chloride 104 mmol/L (98-107); Estimated Glomerular Filt Rate 43 mL/min (>60); Globulin 3.4 g/dL (1.7-4.1); Glucose 177 mg/dL (80-110); HEMOLYSIS 44 (0-50); Potassium 4.8 mmol/L (3.4-5.1); Sodium 138 mmol/L (137-145); Total Protein 7.5 g/dL (6.3-8.2)
[2024-02-23 16:18] LABS: NT-proBNP (BNP-Adult 18+) 1200 pg/mL (<125); Troponin I 0.015 ng/mL (0.01-0.034)
[2024-02-23 17:21] LABS: Reflexed Lactate in 2 Hours Y
== END 2024-02-23 17:23 | disposition left against medical advice (07) ==
PROVIDERS: Emergency Provider Emergency Medicine; Family Provider Family Medicine; PCP Family Medicine
DX: R06.02 Shortness of breath (principal)
CPT/HCPCS: 36415; 71045; 80053; 83605; 83880; 84484; 85025; 85610; 93005; 93010; 99283

== ENCOUNTER 2024-02-24 14:28 | Emergency (ER) | payer MEDICARE, SELFPAY ==
[2023-09-27 17:34] VITALS: BMI 16.9
[2024-02-24 14:45] VITALS: BP 121/66; PULSE 91; RESP 12; TEMP 36.4; O2SAT 99; BMI 20.8
[2024-02-24 14:51] VITALS: PULSE 79; RESP 14; O2SAT 98
[2024-02-24 15:01] LABS: Add Manual Diff / Slide Review NO; Basophils Absolute Auto 100 /uL (0-100); Basophils Percent Auto 0.7 % (0-2); Eosinophils Absolute Auto 200 /uL (0-450); Hematocrit 36.7 % (41-53); Hemoglobin 12.4 g/dL (13.5-17.5); Lymphocytes Absolute Auto 1900 /uL (1100-4500); Lymphocytes Percent Auto 26.3 % (25-40); Mean Corpuscular HGB Conc 33.6 % (30-36); Mean Corpuscular Hemoglobin 29.7 PG (26-34); Mean Corpuscular Volume 88.3 fL (80-100); Monocytes Absolute Auto 900 /uL (0-900); Monocytes Percent Auto 11.8 % (3-14); Neutrophils Absolute Auto 4200 /uL (1500-7000); Neutrophils Percent Auto 58.2 % (50-75); Platelet Count 239 X10^3/uL (150-400); Red Blood Cell Count 4.16 X10^6/uL (4.5-5.9); Red Cell Distribution Width 13.8 % (11.6-14.8); White Blood Cell Count 7.3 X10^3/uL (4.5-11.0)
--- NOTE | 2024-02-24 15:12 | EKG_ITS ---
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
--- NOTE | 2024-02-24 15:14 | ED_ITS ---
HPI - SOB/Dyspnea General Chief Complaint: Shortness of Breath/Dyspnea Stated Complaint: Breathing issues . tired Time Seen by Provider: 02/24/24 14:40 Source: patient Mode of arrival: Ambulatory Limitations: no limitations History of Present Illness HPI Narrative: 73-year-old male presents for repeat evaluation of shortness of breath. Seen 1 day previously, but left prior to receiving results as he had to catch the [place]. Patient states he was still feeling symptomatic today in his returning to complete his evaluation. Worse when ambulating or when lying down flat. He states that he chronically has fluid on the left side of his chest. PCP recently decreased his Lasix dose. Related Data Home Medications Medication Instructions Recorded Confirmed metformin 500 mg tablet 500 mg PO BID 09/15/23 12/28/23 aspirin 81 mg capsule 81 mg PO DAILY 09/27/23 12/28/23 empagliflozin 25 mg tablet 25 mg PO DAILY 10/24/23 12/28/23 (Jardiance) Previous Rx's Medication Instructions Recorded glucometer #1 ea 09/15/23 glucose test strips #400 ea 09/15/23 pregabalin 150 mg capsule 150 mg PO BID #30 caps 10/01/23 levothyroxine 88 mcg tablet 88 mcg PO DAILY #90 tabs 10/26/23 freestyle carlyle 3 glucose monitor #6 ea 11/24/23 sensors blood-glucose meter,continuous #1 ea 12/01/23 (FreeStyle [place]le 3 [place]) orthopedic shoes #1 ea 12/01/23 atorvastatin 80 mg tablet 80 mg PO DAILY #90 tabs 12/28/23 terbinafine HCl 250 mg tablet 250 mg PO DAILY #90 tabs 12/28/23 insulin glargine 100 unit/mL (3 6 unit (0.06 mL) SUBCUT ONCE PM 01/19/24 mL) subcutaneous pen (Lantus #15 mL Solostar U-100 Insulin) sacubitril 97 mg-valsartan 103 mg 1 tab PO BID #90 tabs 02/17/24 tablet (Entresto) Allergies Allergy/AdvReac Type Severity Reaction Status Date / Time No Known Drug Allergies Allergy Verified 12/28/23 15:30 Patient History Medical History Poor weight gain in adult Hypothyroidism Foot pain Mumps Measles Chicken pox Recurrent sinusitis Hearing loss Systolic heart failure Coronary artery disease Aortic stenosis Rash of foot Toenail fungus Peripheral neuropathy Type 2 diabetes mellitus Dysphagia Surgical History History of quadruple bypass Family History Father Cancer History of heart disease Mother Diabetes mellitus Social History household members: family Smoking Status: Never smoker alcohol intake: never Smoking Status: Never smoker alcohol intake frequency: other Substance Use Type: does not use Exam Initial Vital Signs Initial Vital Signs: Vital Signs Temperature 97.5 F L 02/24/24 14:45 Pulse Rate 91 H 02/24/24 14:45 Respiratory Rate 12 02/24/24 14:45 Blood Pressure 121/66 02/24/24 14:45 Pulse Oximetry 99 02/24/24 14:45 Oxygen Delivery Method Room Air 02/24/24 14:45 Const: Awake, alert, no acute distress, nontoxic appearing Cardiac: regular rate, regular rhythm RESP: unlabored, faint inspiratory crackles bilateral bases MSK: Atraumatic, full range of motion, trace pitting edema feet bilaterally Skin: Warm, Dry, intact, no rashes Neuro: AO x3, CN II-XII grossly intact, moves all extremities Course Orders Ordered: ED Orders 02/24/24 14:55 BNP [NT-proBNP (BNP-Adult 18+)] Stat CBC Auto Diff [Complete Blood Count AUTO DIFF] Stat CMP [Comprehensive Metabolic Panel] Stat Troponin & CK Cardiac Panel Stat 02/24/24 14:57 EKG-12 Lead Stat Vital Signs Vital signs: Vital Signs - 8 hr 02/24/24 14:45 02/24/24 14:51 Temperature 97.5 F L Pulse Rate 91 H 79 Respiratory Rate 12 14 Blood Pressure 121/66 Pulse Oximetry 99 98 Oxygen Delivery Method Room Air Room Air MDM - SOB/Dyspnea Lab Data 02/24/24 14:55 02/24/24 14:55 Labs: Lab Results 02/24/24 Range/Units 14:55 WBC 7.3 (4.5-11.0) X10^3/uL RBC 4.16 L (4.5-5.9) X10^6/uL Hgb 12.4 L (13.5-17.5) g/dL Hct 36.7 L (41-53) % MCV 88.3 (80-100) fL MCH 29.7 (26-34) PG MCHC 33.6 (30-36) % RDW 13.8 (11.6-14.8) % Plt Count 239 (150-400) X10^3/uL Neut % (Auto) 58.2 (50-75) % Lymph % (Auto) 26.3 (25-40) % [place] % (Auto) 11.8 (3-14) % Eos % (Auto) 3.0 (2-4) % Baso % (Auto) 0.7 (0-2) % Neut # (Auto) 4200 (8058-3750) /uL Lymph # (Auto) 1900 (6179-2646) /uL [place] # (Auto) 900 (0-900) /uL Eos # (Auto) 200 (0-450) /uL Baso # (Auto) 100 (0-100) /uL Sodium 139 (137-145) mmol/L Potassium 4.6 (3.4-5.1) mmol/L Chloride 103 (98-107) mmol/L Carbon Dioxide 29 (22-32) mmol/L BUN 53 H (9-20) mg/dL Creatinine 1.70 H (0.66-1.25) mg/dL Estimated GFR 43 L (>60) mL/min BUN/Creatinine Ratio 31.2 H (6-22) Glucose 160 H (80-110) mg/dL Calcium 9.3 (8.4-10.2) mg/dL Total Bilirubin 0.5 (0.2-1.3) mg/dL AST 47 (17-59) IU/L ALT 38 (<50) IU/L Alkaline Phosphatase 87 (38-126) U/L Total Creatine Kinase 157 (55-170) U/L Troponin I 0.016 (0.01-0.034) ng/mL NT-Pro-B Natriuret Pep 1010 H (<125) pg/mL Total Protein 7.8 (6.3-8.2) g/dL Albumin 4.3 (3.5-5.0) g/dL Globulin 3.5 (1.7-4.1) g/dL Albumin/Globulin Ratio 1.2 (1.0-2.8) Imaging Data Chest x-ray: My Impression: PROCEDURE: XR CHEST 1V INDICATIONS: Shortness of breath TECHNIQUE: One view of the chest was acquired. COMPARISON: [facility], CR, XR CHEST 1V, 02/28/2023, 17:20. [facility], CR, XR CHEST 1V, 09/27/2023, 12:22. FINDINGS: Surgical changes and devices: Median sternotomy wires are present and appear intact. Lungs and pleura: Right lung appears clear. Blunting of the left costophrenic angle and left basilar opacities likely represent small left pleural effusion with compressive atelectasis. No pneumothorax. Mediastinum: Mediastinal contours appear normal. Heart size is normal. Bones and chest wall: No suspicious bony lesions. Overlying soft tissues appear unremarkable. IMPRESSION: Left pleural effusion with associated compressive atelectasis. Underlying developing pneumonia cannot be excluded if clinically appropriate. Recommend follow up chest radiograph 4-6 weeks after treatment to document resolution of findings and/or return to baseline examination. Dictated by: Rubén Waldron M.D. on 02/23/2024 at 15:20 Approved by: Rubén Waldron M.D. on 02/23/2024 at 15:22 MDM Narrative Medical decision making narrative: Patient presenting to complete his evaluation of shortness of breath. Seen yesterday and underwent chest x-ray and laboratory work. Chest x-ray from yesterday reviewed, trace pleural effusion seen on the left-hand side, consistent with patient's report of chronic fluid on the left side of his chest. Official read states can not rule out underlying pneumonia, however in absence of leukocytosis or left shift, as well as reports that he chronically has left- sided fluid this is likely just patient has chronic fluid buildup. Patient counseled to resume his Lasix for the next week to see if this helps his symptoms. Otherwise close PCP follow up advised. Discharge Plan Departure Patient Disposition: Home Clinical Impression: Shortness of Breath Instructions: DI for Shortness of Breath Activity Restrictions/Additional Instructions: I recommend resuming her Lasix for the next week to see if this helps your symptoms. Follow up with your primary care doctor. Prescriptions: No Action metformin 500 mg tablet 500 mg PO BID (DME) glucose test strips See Rx Instructions .ROUTE .MEDSUPPLY Qty: 400 0RF Rx Instructions: to test 4 times daily. Pt has Freestyle Lite glucometer. Pt currently adjusting insulin dosing and needs frequent glucose tests (DME) glucometer See Rx Instructions .Route .MEDSUPPLY Qty: 1 0RF Rx Instructions: to test 4 times daily. Pt has Freestyle Lite glucometer. Pt currently adjusting insulin dosing and needs frequent glucose tests Jardiance 25 mg tablet 25 mg PO DAILY (DME) freestyle carlyle 3 glucose monitor sensors See Rx Instructions .Route .MEDSUPPLY Qty: 6 3RF Rx Instructions: As directed to monitor glucose, change every 14 days terbinafine HCl 250 mg tablet 250 mg PO DAILY Qty: 90 0RF levothyroxine 88 mcg tablet 88 mcg PO DAILY Qty: 90 2RF (DME) orthopedic shoes See Rx Instructions .Route .MEDSUPPLY Qty: 1 1RF Rx Instructions: As directed for peripheral neuropathy (DME) FreeStyle [place] 3 [place] Misc See Rx Instructions .Route Qty: 1 0RF Rx Instructions: As directed atorvastatin 80 mg tablet 80 mg PO DAILY Qty: 90 0RF insulin glargine [Lantus Solostar U-100 Insulin] 100 unit/mL (3 mL) insulin pen 6 unit SUBCUT ONCE PM Qty: 15 4RF Entresto 97-103 mg tablet 1 tab PO BID Qty: 90 2RF aspirin 81 mg Capsule 81 mg PO DAILY pregabalin 150 mg capsule 150 mg PO BID Qty: 30 0RF Referrals: Lesly Chiu MD [Primary Care Provider] - Stand Alone Forms: Patient Portal/API
[2024-02-24 15:18] LABS: Alanine Aminotransferase 38 IU/L (<50); Albumin 4.3 g/dL (3.5-5.0); Albumin Globulin Ratio 1.2 (1.0-2.8); Alkaline Phosphatase 87 U/L (38-126); Aspartate Aminotransferase 47 IU/L (17-59); BUN Creatinine Ratio 31.2 (6-22); Bilirubin Total 0.5 mg/dL (0.2-1.3); Blood Urea Nitrogen 53 mg/dL (9-20); Calcium 9.3 mg/dL (8.4-10.2); Carbon Dioxide 29 mmol/L (22-32); Chloride 103 mmol/L (98-107); Creatine Kinase 157 U/L (55-170); Estimated Glomerular Filt Rate 43 mL/min (>60); Globulin 3.5 g/dL (1.7-4.1); Glucose 160 mg/dL (80-110); HEMOLYSIS < 15 (0-50); Potassium 4.6 mmol/L (3.4-5.1); Sodium 139 mmol/L (137-145); Total Protein 7.8 g/dL (6.3-8.2)
[2024-02-24 15:29] LABS: NT-proBNP (BNP-Adult 18+) 1010 pg/mL (<125); Troponin I 0.016 ng/mL (0.01-0.034)
[2024-02-24 15:30] VITALS: PULSE 79; RESP 15; O2SAT 98
[2024-02-24 15:44] VITALS: BP 115/70; PULSE 80; RESP 16; O2SAT 98
== END 2024-02-24 15:46 | disposition home or self-care (01) ==
PROVIDERS: Emergency Provider Emergency Medicine; Family Provider Family Medicine; PCP Family Medicine
DX: R06.02 Shortness of breath (principal)
CPT/HCPCS: 36415; 80053; 82550; 83880; 84484; 85025; 93005; 93010; 99283; 99284

== ENCOUNTER → 2024-03-12 14:27 | Outpatient (CLI) | payer MEDICARE, SELFPAY ==
[2023-09-27 17:34] VITALS: BMI 16.9
[2024-03-12 17:35] LABS: Alanine Aminotransferase 30 IU/L (<50); Albumin Globulin Ratio 1.2 (1.0-2.8); Alkaline Phosphatase 83 U/L (38-126); Aspartate Aminotransferase 38 IU/L (17-59); BUN Creatinine Ratio 35.9 (6-22); Bilirubin Total 0.5 mg/dL (0.2-1.3); Blood Urea Nitrogen 70 mg/dL (9-20); Calcium 9.4 mg/dL (8.4-10.2); Carbon Dioxide 24 mmol/L (22-32); Chloride 108 mmol/L (98-107); Cholesterol 100 mg/dL (140-199); Estimated Glomerular Filt Rate 36 mL/min (>60); Globulin 3.3 g/dL (1.7-4.1); Glucose 208 mg/dL (80-110); HDL Cholesterol 45 mg/dL (40-60); HEMOLYSIS < 15 (0-50); LDL Cholesterol Calculated 31 mg/dL (<100); Potassium 5.1 mmol/L (3.4-5.1); Sodium 141 mmol/L (137-145); Total Protein 7.3 g/dL (6.3-8.2); Triglycerides 118 mg/dL (35-150)
== END ==
PROVIDERS: Family Provider Family Medicine; PCP Family Medicine; Referring Provider Nurse Practitioner; Visit Provider Nurse Practitioner
DX: I25.10 Atherosclerotic heart disease of native coronary artery without angina pectoris (principal); Z95.1 Presence of aortocoronary bypass graft; E78.5 Hyperlipidemia, unspecified; E03.9 Hypothyroidism, unspecified; I35.0 Nonrheumatic aortic (valve) stenosis; E11.9 Type 2 diabetes mellitus without complications
CPT/HCPCS: 36415; 80053; 80061

== ENCOUNTER → 2024-04-10 15:05 | Outpatient (CLI) | payer MEDICARE, SELFPAY ==
[2023-09-27 17:34] VITALS: BMI 16.9
--- NOTE | 2024-04-10 15:06 | DI.ECHO.S_ITS ---
[facility] : : [address] : : [place] : : [id number] : : Phone: [phone] Echocardiogram Report + + :Name: MYRA DILLON Study Date: 04/10/2024 Height: 66 in : :Hospital ReadingLocation: Weight: 124 lb : : Gender: Male BSA: 1.6 m2 : :: 1950 Age: 73 yrs BP: 112/58 mmHg: :Reason For Study: CAD, CABG : :Ordering Physician: : :LÁZARO WAITE Performed By: Steve Argueta : :Referring: LÁZARO WAITE : + + Interpretation Summary This is a technically difficult study secondary to poor acoustic windows in the parasternal and apical views. 1. The left ventricular contractility appears to be mildly compromised. Estimated ejection fraction is approximately 40-45 % with hypokinesis of the anterior septal segments 2 views. No obvious LVH. No diastolic dysfunction. 2. The right ventricular contractility appears to be borderline. 3. All cardiac chambers appeared to be grossly normal in size. 4. No significant valvular abnormalities appreciated. 5. No obvious intracardiac shunts. 6. No obvious intracardiac masses or thrombi. 7. No hemodynamically significant pericardial effusion. 8. No echocardiographic evidence suggestive of elevated right-sided filling pressures. Conclusion: Mildly compromised biventricular systolic function. When compared with previous echocardiogram, no significant changes have occurred in the systolic function with improved mitral regurgitation Procedure: A two-dimensional transthoracic echocardiogram with color flow and Doppler was performed. The study quality was technically adequate. Comparison is made with the echocardiogram of 02/28/2023. The patient was in sinus rhythm with heart rates between 71-82 bpm during the exam. Left Ventricle: The left ventricle is normal in size and wall thickness. The ejection fraction is estimated to be 40-45%. Right Ventricle: The right ventricle is normal size. Right ventricular systolic function is mildly reduced. Atria: The left atrial size is normal. Right atrial size is normal. The interatrial septum grossly appears intact with no obvious evidence for an atrial septal defect. Mitral Valve: The mitral valve is normal. MAC. There is no mitral valve stenosis. There is mild mitral regurgitation. Aortic Valve: The aortic valve is trileaflet. The aortic valve is moderately calcified. There is no aortic valve stenosis. There is trace aortic regurgitation. Tricuspid Valve: The tricuspid valve is not well visualized, but is grossly normal. There is no tricuspid stenosis. There is trace tricuspid regurgitation. The right ventricular systolic pressure is estimated to be at least 24.7 mmHg based on an estimated right atrial pressure of 3 mm Hg. Pulmonic Valve: The pulmonic valve is not well seen, but is grossly normal. There is no pulmonic valvular stenosis. There is trace pulmonic regurgitation. Great Vessels: The aortic root is normal size. The ascending aorta could not be visualized. The IVC is of normal diameter and collapses greater than 50% with a sniff. This suggests a low right atrial pressure of 3 mm Hg. Pericardium/ Pleura There is no pericardial effusion. There is no pleural effusion. MMode/2D Measurements & Calculations LVIDd: 4.6 cm LVOT diam: 1.9 cm LVIDs: 3.3 cm Ao root diam: 3.5 cm FS: 26.5 % Ao Arch Diam (Prox Trans): 2.8 cm IVSd: 0.90 cm LVPWd: 0.88 cm LV donis. diameter/BSA (cm/m^2): 2.8 LV sys. diameter/BSA (cm/m^2): 2.1 LA A2 area: 14.9 cm2 RA long axis: 3.8 cm LA A4 area: 14.9 cm2 RA area: 12.8 cm2 LA length (vol): 4.1 cm RA vol: 36.9 ml LA vol: 45.9 ml RA : 22.6 ml/m2 LA vol index: 28.1 ml/m2 IVC diam: 1.8 cm RVD1 (basal): 3.1 cm RVD2 (mid): 2.9 cm TAPSE: 1.6 cm Doppler Measurements & Calculations Ao V2 max: 106.8 cm/sec LVOT Max Michael: 95.6 cm/sec Ao V2 mean: 77.4 cm/sec LV V1 max P.7 mmHg Ao max P.6 mmHg LV V1 VTI: 19.2 cm Ao mean P.6 mmHg ANN(I,D): 2.7 cm2 Ao V2 VTI: 21.2 cm ANN(V,D): 2.6 cm2 sev ratio: 0.90 ANN indexed to BSA (cm^2/m^2): 1.6 MV E max michael: 41.0 cm/sec TR max michael: 233.0 cm/sec MV A max michael: 73.5 cm/sec TR max P.7 mmHg MV E/A: 0.56 PA V2 max: 103.3 cm/sec Med Peak E' Michael: 6.6 cm/sec PA V2 mean: 74.7 cm/sec E/E' med: 6.2 PA mean P.5 mmHg Lat Peak E' Michael: 7.6 cm/sec PA pr(Accel): 43.0 mmHg E/E' lat: 5.4 E/e' average: 5.8 MV dec time: 0.15 sec SV(LVOT): 56.6 ml Reading Physician:
== END ==
PROVIDERS: Family Provider Family Medicine; PCP Family Medicine; Referring Provider Family Medicine; Visit Provider Family Medicine
DX: I34.0 Nonrheumatic mitral (valve) insufficiency (principal); I25.10 Atherosclerotic heart disease of native coronary artery without angina pectoris; Z95.1 Presence of aortocoronary bypass graft
CPT/HCPCS: 93307

== ENCOUNTER 2024-06-04 14:28 | Emergency (ER) | payer MEDICARE, SELFPAY ==
[2023-09-27 17:34] VITALS: BMI 16.9
[2024-06-04] VITALS (8 sets, daily range): BP systolic 106–152; BP diastolic 56–88; PULSE 72–95; RESP 13–20; TEMP 36.7; O2SAT 97–99; BMI 19.7
--- NOTE | 2024-06-04 14:36 | DI.RAD.S_ITS ---
PROCEDURE: XR CHEST 1V INDICATIONS: Shortness of breath TECHNIQUE: One view of the chest was acquired. COMPARISON: [facility], CR, XR CHEST 1V, 02/23/2024, 14:41. [facility], CR, XR CHEST 1V, 09/27/2023, 12:22. FINDINGS: Surgical changes and devices: Median sternotomy wires. Lungs and pleura: Stable small left pleural effusion with adjacent atelectasis. The lungs are otherwise clear. Mediastinum: Mediastinal contours appear normal. Heart size is normal. Bones and chest wall: No suspicious bony lesions. Overlying soft tissues appear unremarkable. IMPRESSION: Stable small left pleural effusion with adjacent atelectasis. The lungs are otherwise clear. Dictated by: Rey Jamison M.D. on 06/04/2024 at 15:15 Approved by: Rey Jamison M.D. on 06/04/2024 at 15:15
--- NOTE | 2024-06-04 14:36 | EKG_ITS ---
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
[2024-06-04 15:06] LABS: Add Manual Diff / Slide Review NO; Basophils Absolute Auto 0 /uL (0-100); Basophils Percent Auto 0.6 % (0-2); Eosinophils Absolute Auto 100 /uL (0-450); Eosinophils Percent Auto 1.9 % (2-4); Hematocrit 35.5 % (41-53); Hemoglobin 11.9 g/dL (13.5-17.5); Lymphocytes Absolute Auto 1300 /uL (1100-4500); Lymphocytes Percent Auto 17.2 % (25-40); Mean Corpuscular HGB Conc 33.6 % (30-36); Mean Corpuscular Hemoglobin 30.8 PG (26-34); Mean Corpuscular Volume 91.9 fL (80-100); Monocytes Absolute Auto 600 /uL (0-900); Monocytes Percent Auto 8.2 % (3-14); Neutrophils Absolute Auto 5600 /uL (1500-7000); Neutrophils Percent Auto 72.1 % (50-75); Platelet Count 208 X10^3/uL (150-400); Red Blood Cell Count 3.86 X10^6/uL (4.5-5.9); White Blood Cell Count 7.7 X10^3/uL (4.5-11.0)
--- NOTE | 2024-06-04 15:08 | ED.SOB ---
HPI - SOB/Dyspnea General Chief Complaint: Shortness of Breath/Dyspnea Stated Complaint: SOB Time Seen by Provider: 06/04/24 14:44 History of Present Illness HPI Narrative: Patient past medical history of hyper lipidemia diabetes hypothyroidism, CHF, comes into the ED from home for evaluation of shortness of breath. Has been ongoing and persistent for the past several weeks, states that he did have an echo performed which was ?normal/unchanged from previous. He states that he has been taking his Lasix, not complaining of any chest pain no other symptoms no trauma no falls not on any blood thinners Review of records show the patient did have an echo performed on 04/10/2024 which did show: 1. The left ventricular contractility appears to be mildly compromised. Estimated ejection fraction is approximately 40-45 % with hypokinesis of the anterior septal segments 2 views. No obvious LVH. No diastolic dysfunction. 2. The right ventricular contractility appears to be borderline. 3. All cardiac chambers appeared to be grossly normal in size. 4. No significant valvular abnormalities appreciated. 5. No obvious intracardiac shunts. 6. No obvious intracardiac masses or thrombi. 7. No hemodynamically significant pericardial effusion. 8. No echocardiographic evidence suggestive of elevated right-sided filling pressures. Conclusion: Mildly compromised biventricular systolic function. When compared with previous echocardiogram, no significant changes have occurred in the systolic function with improved mitral regurgitation Related Data Home Medications Medication Instructions Recorded Confirmed metformin 500 mg tablet 500 mg PO BID 09/15/23 03/12/24 aspirin 81 mg capsule 81 mg PO DAILY 09/27/23 03/12/24 empagliflozin 25 mg tablet 25 mg PO DAILY 10/24/23 03/12/24 (Jardiance) Previous Rx's Medication Instructions Recorded orthopedic shoes #1 ea 12/01/23 insulin glargine 100 unit/mL (3 6 unit (0.06 mL) SUBCUT ONCE PM 01/19/24 mL) subcutaneous pen (Lantus #15 mL Solostar U-100 Insulin) sacubitril 97 mg-valsartan 103 mg 1 tab PO BID #90 tabs 02/17/24 tablet (Entresto) blood-glucose meter,continuous #1 ea 03/14/24 (Dexcom G7 Adding Machine Operator) blood-glucose sensor (Dexcom G7 #3 ea 03/14/24 Sensor device) atorvastatin 80 mg tablet 80 mg PO DAILY #90 tabs 03/21/24 terbinafine HCl 250 mg tablet 250 mg PO DAILY #90 tabs 03/21/24 levothyroxine 88 mcg tablet 88 mcg PO DAILY #90 tabs 05/17/24 pregabalin 150 mg capsule 150 mg PO DAILY #30 caps 05/31/24 Allergies Allergy/AdvReac Type Severity Reaction Status Date / Time No Known Drug Allergies Allergy Verified 03/12/24 13:29 Review of Systems Review of Systems Narrative: HEENT: Denies headache, eye drainage, eye irritation, head trauma, sore throat, voice change Cardiovascular: Denies any chest pain, palpitations, shortness of breath, tachycardia Respiratory: Positive shortness of breath GI/: Denies any abdominal pain, nausea, vomiting, diarrhea, bright red blood per rectum, melanotic stools, urinary frequency, urinary retention, dysuria, hematuria MSK: Denies any joint pain, muscle pains, swelling Skin: Denies any rashes, lesions, discoloration Neuro: Denies any headache, lightheadedness, dizziness, fainting, weakness Psych: Denies SI/HI Patient History Medical History (Updated 03/12/24 @ 20:28 by Lesly Chiu MD) Elevated brain natriuretic peptide (BNP) level Toe pain, left Poor weight gain in adult Hypothyroidism Foot pain Mumps Measles Chicken pox Recurrent sinusitis Hearing loss Systolic heart failure Coronary artery disease Aortic stenosis Rash of foot Toenail fungus Peripheral neuropathy Type 2 diabetes mellitus Dysphagia Surgical History History of quadruple bypass Family History Father Cancer History of heart disease Mother Diabetes mellitus Social History household members: family Smoking Status: Never smoker alcohol intake: never Smoking Status: Never smoker alcohol intake frequency: other Substance Use Type: does not use Exam Narrative Exam Narrative: General: Cooperative, comfortable, well-developed, not in acute distress HEENT: Normocephalic, atraumatic, PERRLA, normal sclera, eyelids normal, Neck: Active full range of motion, atraumatic Chest: Normal to inspection, negative crepitus, no overlying erythema ecchymosis Respiratory: Normal respiratory effort, not in acute respiratory distress, clear to auscultation bilaterally negative cough, wheeze, tachypnea, rhonchi, rales Cardiology: Regular rate rhythm negative gallop, murmur, rubs GI/: Normal to inspection, soft, nonrigid, no tenderness to palpation, exam deferred MSK: Full range of active range of motion of all 4 extremities, atraumatic Skin: No rashes lesions noted Neuro: Alert awake oriented x3, moves all 4 extremities spontaneously, cranial nerves intact, able to answer all questions appropriately follows commands appropriately Psych: Cooperative, negative suicidal or homicidal ideations Initial Vital Signs Initial Vital Signs: Vital Signs Temperature 98.1 F 06/04/24 14:31 Pulse Rate 73 06/04/24 14:31 Respiratory Rate 18 06/04/24 14:31 Blood Pressure 110/58 L 06/04/24 14:31 Pulse Oximetry 98 06/04/24 14:31 Oxygen Delivery Method Room Air 06/04/24 14:31 Course Orders Ordered: ED Orders 06/04/24 14:36 XR chest 1V Stat EKG-12 Lead Stat Measure peak expiratory flow ONCE RT Consult Eval and Treat NOW 06/04/24 14:43 Complete Blood Count AUTO DIFF Stat Comprehensive Metabolic Panel Stat Lactate (Lactic Acid) Stat NT-proBNP (BNP-Adult 18+) Stat Prothrombin Time INR Stat Troponin I Stat Vital Signs Vital signs: Vital Signs - 8 hr 06/04/24 14:31 06/04/24 15:13 06/04/24 15:14 Temperature 98.1 F Pulse Rate 73 78 Respiratory Rate 18 Blood Pressure 110/58 L 106/56 L Pulse Oximetry 98 99 Oxygen Delivery Method Room Air 06/04/24 15:14 06/04/24 15:30 06/04/24 15:30 Temperature Pulse Rate 76 72 Respiratory Rate 14 Blood Pressure 114/59 L Pulse Oximetry 99 98 Oxygen Delivery Method 06/04/24 16:00 06/04/24 16:00 06/04/24 16:30 Temperature Pulse Rate 73 95 H Respiratory Rate 13 20 Blood Pressure 119/58 L Pulse Oximetry 97 Oxygen Delivery Method 06/04/24 16:31 06/04/24 16:31 Temperature Pulse Rate 83 Respiratory Rate 19 Blood Pressure 152/88 H Pulse Oximetry Oxygen Delivery Method MDM - SOB/Dyspnea Differential Diagnosis Differential diagnosis: Likely acute exacerbation of chronic obstructive airways disease, congestive heart failure and community acquired pneumonia Lab Data 06/04/24 14:43 06/04/24 14:43 Labs: Lab Results 06/04/24 Range/Units 14:43 WBC 7.7 (4.5-11.0) X10^3/uL RBC 3.86 L (4.5-5.9) X10^6/uL Hgb 11.9 L (13.5-17.5) g/dL Hct 35.5 L (41-53) % MCV 91.9 (80-100) fL MCH 30.8 (26-34) PG MCHC 33.6 (30-36) % RDW 14.0 (11.6-14.8) % Plt Count 208 (150-400) X10^3/uL Neut % (Auto) 72.1 (50-75) % Lymph % (Auto) 17.2 L (25-40) % Marion % (Auto) 8.2 (3-14) % Eos % (Auto) 1.9 L (2-4) % Baso % (Auto) 0.6 (0-2) % Neut # (Auto) 5600 (5615-2101) /uL Lymph # (Auto) 1300 (4051-9411) /uL Marion # (Auto) 600 (0-900) /uL Eos # (Auto) 100 (0-450) /uL Baso # (Auto) 0 (0-100) /uL PT 11.4 (9.4-12.5) SECONDS INR 1.0 (0.9-1.3) Sodium 139 (137-145) mmol/L Potassium 4.7 (3.4-5.1) mmol/L Chloride 102 (98-107) mmol/L Carbon Dioxide 26 (22-32) mmol/L BUN 49 H (9-20) mg/dL Creatinine 1.62 H (0.66-1.25) mg/dL Estimated GFR 45 L (>60) mL/min BUN/Creatinine Ratio 30.2 H (6-22) Glucose 234 H (80-110) mg/dL Lactate 2.2 H (0.7-2.1) mmol/L Calcium 9.9 (8.4-10.2) mg/dL Total Bilirubin 0.6 (0.2-1.3) mg/dL AST 38 (17-59) IU/L ALT 27 (<50) IU/L Alkaline Phosphatase 96 (38-126) U/L Troponin I 0.015 (0.01-0.034) ng/mL NT-Pro-B Natriuret Pep 930 H (<125) pg/mL Total Protein 7.8 (6.3-8.2) g/dL Albumin 4.3 (3.5-5.0) g/dL Globulin 3.5 (1.7-4.1) g/dL Albumin/Globulin Ratio 1.2 (1.0-2.8) Imaging Data Chest x-ray: Radiologist's Impression: [address] [address] XRay Report Signed Patient: Meño Roque MR#: [id number] : 1950 Acct:[id number] Age/Sex: 73 / M Date of Service: 06/04/24 Loc: ED Accession Number: [id number] Procedure: XR chest 1V Ordering Provider: Ney Nagy D.O. PROCEDURE: XR CHEST 1V INDICATIONS: Shortness of breath TECHNIQUE: One view of the chest was acquired. COMPARISON: [facility], CR, XR CHEST 1V, 02/23/2024, 14:41. [facility], CR, XR CHEST 1V, 09/27/2023, 12:22. FINDINGS: Surgical changes and devices: Median sternotomy wires. Lungs and pleura: Stable small left pleural effusion with adjacent atelectasis. The lungs are otherwise clear. Mediastinum: Mediastinal contours appear normal. Heart size is normal. Bones and chest wall: No suspicious bony lesions. Overlying soft tissues appear unremarkable. IMPRESSION: Stable small left pleural effusion with adjacent atelectasis. The lungs are otherwise clear. ECG Data Attestation: I personally reviewed and interpreted this ECG as follows: Interpretation: EKG interpreted by ED physician sinus 76 beats per minute QTC 407, normal axis nonspecific ST changes no STEMI MDM Narrative Medical decision making narrative: Patient is a 73-year-old past medical history hypertension hyperlipidemia diabetes comes in for shortness of breath states his ongoing for the past several weeks. Did see cardiology had a normal echo unchanged from previous. Lab work imaging unremarkable, patient not requiring any supplemental oxygen, patient will be sent home with strict return precautions informed to follow up with Cardiology and PCP in outpatient setting, safe for discharge home with outpatient follow-up Discharge Plan Departure Prescriptions: No Action metformin 500 mg tablet 500 mg PO BID Jardiance 25 mg tablet 25 mg PO DAILY (DME) orthopedic shoes See Rx Instructions .Route .MEDSUPPLY Qty: 1 1RF Rx Instructions: As directed for peripheral neuropathy insulin glargine [Lantus Solostar U-100 Insulin] 100 unit/mL (3 mL) insulin pen 6 unit SUBCUT ONCE PM Qty: 15 4RF Entresto 97-103 mg tablet 1 tab PO BID Qty: 90 2RF (DME) Dexcom G7 Adding Machine Operator Misc See Rx Instructions .Route Qty: 1 0RF Rx Instructions: As directed (DME) Dexcom G7 Sensor Device See Rx Instructions .Route Qty: 3 8RF Rx Instructions: As directed atorvastatin 80 mg tablet 80 mg PO DAILY Qty: 90 2RF terbinafine HCl 250 mg tablet 250 mg PO DAILY Qty: 90 2RF levothyroxine 88 mcg tablet 88 mcg PO DAILY Qty: 90 2RF pregabalin 150 mg capsule 150 mg PO DAILY Qty: 30 0RF aspirin 81 mg Capsule 81 mg PO DAILY Referrals: Lesly Chiu MD [Primary Care Provider] -
[2024-06-04 15:12] LABS: Lactate (Lactic Acid) 2.2 mmol/L (0.7-2.1)
[2024-06-04 15:14] LABS: Alanine Aminotransferase 27 IU/L (<50); Albumin 4.3 g/dL (3.5-5.0); Albumin Globulin Ratio 1.2 (1.0-2.8); Alkaline Phosphatase 96 U/L (38-126); Aspartate Aminotransferase 38 IU/L (17-59); BUN Creatinine Ratio 30.2 (6-22); Bilirubin Total 0.6 mg/dL (0.2-1.3); Blood Urea Nitrogen 49 mg/dL (9-20); Calcium 9.9 mg/dL (8.4-10.2); Carbon Dioxide 26 mmol/L (22-32); Chloride 102 mmol/L (98-107); Estimated Glomerular Filt Rate 45 mL/min (>60); Globulin 3.5 g/dL (1.7-4.1); Glucose 234 mg/dL (80-110); HEMOLYSIS < 15 (0-50); Potassium 4.7 mmol/L (3.4-5.1); Sodium 139 mmol/L (137-145); Total Protein 7.8 g/dL (6.3-8.2)
[2024-06-04 15:25] LABS: NT-proBNP (BNP-Adult 18+) 930 pg/mL (<125); Troponin I 0.015 ng/mL (0.01-0.034)
[2024-06-04 15:26] LABS: Prothrombin Time 11.4 SECONDS (9.4-12.5)
[2024-06-04 16:28] LABS: Reflexed Lactate in 2 Hours Y
== END 2024-06-04 17:02 | disposition home or self-care (01) ==
PROVIDERS: Emergency Provider Student in an Organized Health Care Education/Training Program; Family Provider Family Medicine; PCP Family Medicine
DX: R06.00 Dyspnea, unspecified (principal); I44.0 Atrioventricular block, first degree; E78.5 Hyperlipidemia, unspecified; E11.9 Type 2 diabetes mellitus without complications; E03.9 Hypothyroidism, unspecified; I50.9 Heart failure, unspecified; Z79.899 Other long term (current) drug therapy
CPT/HCPCS: 36415; 71045; 80053; 83605; 83880; 84484; 85025; 85610; 93005; 93010; 99284

== ENCOUNTER → 2024-08-14 12:22 | Outpatient (CLI) | payer MEDICARE, SELFPAY ==
[2023-09-27 17:34] VITALS: BMI 16.9
--- NOTE | 2024-08-14 12:23 | DI.US.S_ITS ---
PROCEDURE: US ART LOW EXT BILAT W/VAIBHAV INDICATIONS: cold feet TECHNIQUE: Color and pulse Doppler interrogation was performed of both lower extremity arterial systems, with image documentation. COMPARISON: None. FINDINGS: Right lower extremity: Common femoral artery: 84.1 cm/sec, with biphasic flow. Deep femoral artery: 84.1 cm/sec, with biphasic flow. Proximal superficial femoral artery: 90.4 cm/sec, with triphasic flow. Mid superficial femoral artery: 95.1 cm/sec, with biphasic flow. Distal superficial femoral artery: 71.5 cm/sec, with biphasic flow. Popliteal artery: 51.3 cm/sec, with biphasic flow. Posterior tibial artery: 50.6 cm/sec, with biphasic flow. Anterior tibial artery/dorsalis pedis: 11.1 cm/sec, with monophasic and diminished flow. Carbajal-scale imaging description: Diffusely scattered moderate calcified and noncalcified atheromatous disease. Left lower extremity: Common femoral artery: 64.9 cm/sec, with biphasic flow. Deep femoral artery: 95.2 cm/sec, with biphasic flow. Proximal superficial femoral artery: 96.4 cm/sec, with biphasic flow. Mid superficial femoral artery: 131.4 cm/sec, with biphasic and diminished flow. Distal superficial femoral artery: 37.2 cm/sec, with biphasic diminished flow. Popliteal artery: 63.7 cm/sec, with biphasic flow. Posterior tibial artery: 62.1 cm/sec, with triphasic flow. Anterior tibial artery/dorsalis pedis: 27.7 cm/sec, with biphasic and diminished flow. Carbajal-scale imaging description: Moderate scattered calcified and noncalcified atheromatous disease. IMPRESSION: 20-49% stenosis of the right femoral and posterior tibial arteries. 50-99% stenosis of the right anterior tibial/dorsalis pedis. 20-49% stenosis of the left femoral arteries. 50-99% stenosis of the left anterior tibial artery/dorsalis pedis. Dictated by: Gino Uriostegui M.D. on 08/14/2024 at 19:18 Approved by: Gino Uriostegui M.D. on 08/14/2024 at 19:26
== END ==
PROVIDERS: Family Provider Family Medicine; PCP Family Medicine; Referring Provider Family Medicine; Visit Provider Family Medicine
DX: I70.203 Unspecified atherosclerosis of native arteries of extremities, bilateral legs (principal); R20.8 Other disturbances of skin sensation
CPT/HCPCS: 93922; 93925

== ENCOUNTER → 2024-08-14 12:23 | Outpatient (CLI) | payer MEDICARE, SELFPAY ==
[2023-09-27 17:34] VITALS: BMI 16.9
== END ==
PROVIDERS: Family Provider Family Medicine; PCP Family Medicine; Referring Provider Family Medicine; Visit Provider Family Medicine
DX: R06.02 Shortness of breath (principal); R94.2 Abnormal results of pulmonary function studies; I70.203 Unspecified atherosclerosis of native arteries of extremities, bilateral legs; R20.8 Other disturbances of skin sensation
CPT/HCPCS: 93922; 93925; 94060; 94726; 94729